=== PATIENT | male | born 1960 | race Caucasian/White ===

== ENCOUNTER 2016-06-21 06:34 | Inpatient (IN) | payer OTHER ==
[2016-06-21 08:07] LABS: EOSINOPHIL 1.4 % (0-4.5); MCHC 33.3 g/dl (32.0-35.9); MEAN PLT VOLUME 8.4 fl (7.5-11.1); NEUTROPHILS 74.7 % (42.8-82.8); PLATELET COUNT 324 K/MM3 (134-434); RDW 14.4 % (11.9-15.9); WHITE BLOOD COUNT 12.7 K/mm3 (4.0-10.0)
--- NOTE | 2016-06-21 08:11 | PDOC ---
History of Present Illness - General History Source: Patient Exam Limitations: No Limitations - History of Present Illness Initial Comments: 06/21/16 10:15 The patient is a 55 year old male with significant past medical history of diabetes, hypertension, hyperlipidemia, peripheral vascular disease who presents to the emergency department with shortness of breath for 1 week. He states his shortness of breath has been intermittent since he left [facility] approximately 1 week ago. The patient reports SOB at rest with minimal exertion. The patient is also complaining of loss of balance which is worsening over the last week. He denies any associated shortness of breath or palpitations. He denies dizziness or lightheadedness. The patient does not use a walker or cane when ambulating. The patient was recently treated at [facility] for presumed infected and necrotic left foot infection with debridement and amputation of fourth and fifth toes. The history is limited as the patient is a poor historian. He is a current everyday smoker, 1ppd. <Niya Mcclendon - Last Filed: 06/21/16 10:17> <Garry Rob - Last Filed: 06/21/16 14:46> - General Chief Complaint: Respiratory Stated Complaint: DIFFICULTY BREATHING Time Seen by Provider: 06/21/16 07:10 Past History <Niya Mcclendon - Last Filed: 06/21/16 10:17> - Psycho/Social/Smoking Cessation Hx Suicidal Ideation: No Smoking History: Current every day smoker Number of Cigarettes Smoked Daily: 45 Information on smoking cessation initiated: No Hx Alcohol Use: No Drug/Substance Use Hx: No <Garry Rob - Last Filed: 06/21/16 14:46> - Past Medical History Allergies/Adverse Reactions: Allergies Allergy/AdvReac Type Severity Reaction Status Date / Time No Known Allergies Allergy Verified 06/21/16 06:37 Home Medications: Ambulatory Orders Unobtainable [Unobtainable] 06/21/16 Review of Systems - Review of Systems Able to Perform ROS?: Yes Comments:: 06/21/16 10:15 CONSTITUTIONAL: No fever, no chills, no fatigue EYES: No visual changes ENT: No ear pain, no sore throat CARDIOVASCULAR: No chest pain, no palpitations RESPIRATORY: +SOB. No cough GI: No abdominal pain, no nausea, no vomiting, no constipation, no diarrhea GENITOURINARY: No dysuria, no frequency, no hematuria MUSCULOSKELETAL: No back pain, no joint pain, no myalgias SKIN: No rash NEURO: No headache <Niya Mcclendon - Last Filed: 06/21/16 10:17> *Physical Exam - Vital Signs Last Vital Signs Temp Pulse Resp BP Pulse Ox 79 14 95/56 100 06/21/16 06:43 06/21/16 06:43 06/21/16 06:43 06/21/16 07:15 <Niya Mcclendon - Last Filed: 06/21/16 10:17> - Vital Signs Last Vital Signs Temp Pulse Resp BP Pulse Ox 79 14 95/56 100 06/21/16 06:43 06/21/16 06:43 06/21/16 06:43 06/21/16 07:15 - Physical Exam Comments: 06/21/16 10:17 EXAMINATION CONSTITUTIONAL: Awake and alert, disheveled, tachypneic, in no apparent distress HEAD: Normocephalic; atraumatic EYES: PERRL; EOM intact; no scleral icterus, conjunctiva are pink; ENMT: External appears normal; + poor dentition NECK: Supple; non-tender; no JVD CARD: Normal S1, S2; 2/6 se murmurs, rubs, or gallops RESP: Tachypneic and dyspneic; diffuse Rales bilaterally extending up two thirds of the lung avery; ABD: soft, nd, nt, no organomegaly, no palpable hernias, bs-nl EXT: Left Foot: Large (approximately 10 cm) defect to the dorsum of the left foot with several necrotic areas with surrounding erythema and amputation of the fourth and fifth toes at the MTP joint. SKIN: Warm, dry, no petechia NEURO: ANO 3; motor is 5 of 5 bilaterally; gait-ataxic; <Garry Rob - Last Filed: 06/21/16 14:46> Heart Score/ECG Review - ECG Intrepretation Comment:: 06/21/16 10:15 Vent rate: 79 bpm NH interval: 146 ms QRS duration: 112 ms Normal sinus rhythm Possible left atrial enlargement Septal infarct, age undetermined ST & T wave abnormality, consider inferior ischemia <Niya Mcclendon - Last Filed: 06/21/16 10:17> ED Treatment Course - LABORATORY CBC & Chemistry Diagram: 06/21/16 07:50 06/21/16 07:50 - ADDITIONAL ORDERS Additional order review: Laboratory Results 06/21/16 06/21/16 06/21/16 07:50 07:50 07:50 INR 1.06 Sodium 137 Potassium 4.1 Chloride 104 Carbon Dioxide 23 Anion Gap 10 BUN 24 H Creatinine 1.2 Creat Clearance w eGFR > 60 Random Glucose 156 H Calcium 8.4 L Total Bilirubin 0.3 AST 13 L ALT 27 Total Protein 6.5 Albumin 2.3 L Alcohol, Quantitative < 5.0 06/21/16 07:50 RBC 3.33 L MCV 84.0 MCHC 33.3 RDW 14.4 MPV 8.4 Neutrophils % 74.7 Lymphocytes % 15.1 Monocytes % 7.8 Eosinophils % 1.4 Basophils % 1.0 - Medications Given in the ED: ED Medications Discontinued Medications Generic Name Dose Route Start Last Admin Trade Name Freq PRN Reason Stop Dose Admin Furosemide 40 mg 06/21/16 08:21 06/21/16 08:38 Lasix Injection - IVPUSH 06/21/16 08:22 40 mg ONCE ONE Administration <Niya Mcclendon - Last Filed: 06/21/16 10:17> - LABORATORY CBC & Chemistry Diagram: 06/21/16 07:50 06/21/16 07:50 - RADIOLOGY Radiology Studies Ordered: Category Date Time Status CHEST X-RAY PORTABLE* [RAD] Stat Radiology 06/21/16 07:31 Taken <Garry Rob - Last Filed: 06/21/16 14:46> Medical Decision Making - Critical Care Time Total Critical Care Time (minutes): 85 Critical Care Statement: The care of this patient involved high complexity decision making to prevent further life threatening deterioration of the patient 's condition and/or to evalute & treat vital organ system(s) failure or risk of failure. - Medical Decision Making 06/21/16 09:44 Patient is a disheveled-appearing 55-year-old male with history of diabetes, peripheral vascular disease, hypertension and hyperlipidemia, who was discharged from [facility] one week previously when he was treated for a presumed infected and necrotic left foot infection with debridement and amputation of fourth and fifth toes, presents with shortness of breath which has increased in severity over the past week, at rest and with minimal exertion, with PMD and insomnia. Patient also complaining of worsening gait with lack of balance that has also increased from his baseline. Patient denies chest pain/fever/chills/cough. Patient has been noncompliant with his medication regimen since discharge. Upon arrival, patient is borderline normotensive (patient's blood pressure improved without intervention), with oxygen saturation of 96% on room air, desaturating to 92-93% with minimal exertion; lung exam reveals diffuse crackles bilaterally. Lower extremity examination reveals +1 pitting edema bilaterally (worse on the left), with a large defect to the dorsal lateral aspect of the left foot with several areas of necrosis and metatarsophalangeal amputation of fourth and fifth toes. There is minimal surrounding erythema. Patient's EKG reveals LBBB-like pattern with a QRS width of 112 ms. There are no positive scarbosa/wilder criteria. Chest x-ray reveals cardiomegaly with bilateral alveolar infiltrates, interstitial findings and cephalization as well as right pleural effusion. CBC reveals mild leukocytosis and mild anemia with hematocrit of 27. Patient's troponin is noted to be elevated with a normal CPK. Enzymes elevation may be related to cardiac strain versus a non-ST elevation IA that has occurred more than 3 days prior to presentation. CT of head reveals a hypodensity within the right cerebellum without surrounding edema or encephalomalacia (age unknown). Stat MRI was recommended by radiology. Case was discussed with Dr. Villalta of cardiology. Patient will be managed medically at this time given there are no indications for urgent PTCI. We'll administer aspirin, Lasix and nitroglycerin. Will hold anticoagulation with heparin pending MRI of brain given the high risk of heme a conversion of acute or subacute infarction. Will admit to the ICU. We'll consult neurology. 06/21/16 11:49 Patient remains chest pain-free. After placement of Diop catheter, 800 mL of clear urine was obtained. I was informed by radiologist the patient's cerebellar infarct appears chronic in nature. At this time, patient will receive heparin (bolus and an infusion for the treatment of non-ST elevation IA. Will obtain serial PTTs and CBCs to evaluate for possible hematocrit drop. At this time, the benefit of heparin administration outweighs the risk of bleeding. Awaiting transfer to the ICU. 06/21/16 14:44 I received a report from Dr. Colby regarding patient's echocardiogram. Left ventricle is mildly dilated. There is global fading of the left ventricular mora. Systolic function is severely reduced. There are wall motion abnormalities in the anterior wall and the apex. There is mild to moderate septal hypokinesis. There is no evidence of neural thrombus. Right ventricular systolic function is mildly reduced. There is moderate to severe mitral regurg; there is mild to moderate tricuspid regurg; there is moderate aortic regurg; there is a minimal pericardial effusion which does not appear to be hemodynamically significant. Will continue with current plan. We'll repeat cardiac enzymes. If troponin is noted to be decreasing, we will consider downgrading to telemetry. <Garry Rob - Last Filed: 06/21/16 14:46> *DC/Admit/Observation/Transfer - Attestations Scribe Attestion: 06/21/16 08:48 Documentation prepared by Niya Mcclendon, acting as medical appointment scheduler for Garry Rob MD. <Niya Mcclendon - Last Filed: 06/21/16 10:17> - Discharge Dispostion Admit: Yes - Attestations Physician Attestion: 06/21/16 09:40 The documentation was prepared by the scribe under my direct supervision. I have reviewed the documentation which correctly represents the findings, medical decision-making and critical action taken by me. <Garry Rob - Last Filed: 06/21/16 14:46> Diagnosis at time of Disposition: Acute pulmonary edema, Pleural effusion, Non-ST elevated myocardial infarction (non-STEMI) Wound, open, foot Qualifiers: Encounter type: sequela Laterality: left Qualified Code(s): S91.302S - Unspecified open wound, left foot, sequela
[2016-06-21] MEDS ORDERED: FUROSEMIDE 40 MG/4 ML INJECTABLE VIAL IVPUSH ONE ×2 (08:21→16:46)
[2016-06-21 08:22] LABS: INR 1.06 (0.82-1.09); PROTHROMBIN TIME (PATIENT) 11.7 SEC (9.98-11.88)
[2016-06-21] MEDS ORDERED: FUROSEMIDE 40 MG/4 ML INJECTABLE VIAL ONE (08:24)
[2016-06-21] MEDS ORDERED: NITROGLYCERIN 25MG/D5W 250ML 250 ML IVPB ONE (08:24)
[2016-06-21 08:30] LABS: ALBUMIN 2.3 g/dl (3.4-5.0); ANION GAP 10 (8-16); BILIRUBIN,TOTAL 0.3 mg/dL (0.2-1.0); CALCIUM 8.4 mg/dL (8.5-10.1); CO2 23 mmol/L (21-32); CREATININE 1.2 mg/dL (0.7-1.3); GLUCOSE,RANDOM 156 mg/dL (74-106); SGOT/AST 13 U/L (15-37); SGPT/ALT 27 U/L (12-78); TOT PROT 6.5 g/dl (6.4-8.2)
[2016-06-21] MEDS ORDERED: NITROGLYCERIN 25MG/D5W 250ML 250 ML IVPB SCH (08:30)
[2016-06-21 09:12] LABS: TROPONIN I 2.13 ng/ml (0.00-0.05)
[2016-06-21] MEDS ORDERED: ASPIRIN 325 MG ENTERIC COATED TABLET (FP) PO ONE (09:13)
[2016-06-21] MEDS ORDERED: ASPIRIN 325 MG TABLET ONE (09:17)
[2016-06-21 09:27] LABS: ALK PHOS 128 U/L (45-117)
--- NOTE | 2016-06-21 10:06 | CON.CARD ---
Consult Consult Specialty:: Cardiology Referred by:: ER Reason for Consultation:: SOB, CHF, NSTEMI - History of Present Illness Chief Complaint: SOB History of Present Illness: 55 year old man with a history of HTN, DM type I, HLD, PAD, CVA, recently at [facility] where he had a LLE partial foot amputation, signed out AMA after surgery approx 7 days ago, developed sob and lightheadedness approx 5 days ago while at home thus he came to the ER. Pt. notes that he has had progressively worsening sob for the past 5 days. denies any chest pain. states that he did not have these symptoms while in the hospital for his surgery. denies having any chest pain in the past. does not know results of any prior cardiac work up. +pnd, orthopnea. no LE edema. 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 Cardio/Vascular: Yes: HTN, Hyperlipdemia Musculoskeletal: Yes: Other (amputation) Endocrine: Yes: Diabetes Mellitus - Past Surgical History Past Surgical History: Yes: Amputation - Alcohol/Substance Use Hx Alcohol Use: No - Smoking History Smoking history: Current every day smoker Aproximately how many cigarettes per day: 45 - Social History ADL: Independent History of Recent Travel: No Home Medications - Allergies Allergies/Adverse Reactions: Allergies Allergy/AdvReac Type Severity Reaction Status Date / Time No Known Allergies Allergy Verified 06/21/16 06:37 - Home Medications Home Medications: Ambulatory Orders Unobtainable [Unobtainable] 06/21/16 Family Disease History - Family Disease History Family History: Denies Review of Systems - Review of Systems Constitutional: reports: Weakness. denies: No Symptoms, Chills, Diaphoresis, Fever, Lethargy, Loss of Appetite, Malaise, Night Sweats, Unintentional Wgt. Loss, Other Eyes: denies: No Symptoms, Blind Spots, Blurred Vision, Double Vision, Eye Pain , Floaters, Photophobia, Recent Change in Vision, Other HENT: denies: No Symptoms, Difficult Swallowing, Ear Discharge, Ear Pain, Epistaxis, Gingival Bleeding, Hearing Loss, Mouth Swelling, Nasal Congestion, Ocular Prosthesis, Throat Pain, Toothache, Ringing in Ears, Other Neck: denies: No Symptoms, Decreased ROM, Lumps, Pain on Movement, Stiffness, Swollen Glands, Tenderness, Other Cardiovascular: reports: Shortness of Breath. denies: No Symptoms, Chest Pain, Edema, Palpitations, Other Respiratory: reports: Exercise Intolerance, Orthopnea, PND, SOB, SOB on Exertion. denies: No Symptoms, Cough, Hemoptysis, Snoring, Wheezing, Other Gastrointestinal: denies: No Symptoms, Abdominal Pain, Bloating, Constipation, Diarrhea, Dysphagia, Indigestion, Melena, Nausea, Rectal Bleeding, Vomiting, Vomiting Blood, Other Genitourinary: denies: No Symptoms, Burning, Discharge, Dysuria, Flank Pain, Frequency, Hematuria, Incontinence, Lesions, Menses, Pain, Testicular Mass, Testicular Pain, Testicular Swelling, Urgency, Vaginal Bleeding, Other Breasts: denies: No Symptoms Reported, See HPI, Breast Implants, Discharge from Nipple, Lumps, Pain, Skin Changes, Other Musculoskeletal: reports: Joint Pain. denies: No Symptoms, Back Pain, Crepitus , Decreased ROM, Extremity Pain, Joint Swelling, Muscle Pain, Muscle Cramps, Muscle Weakness, Other Integumentary: reports: Wound. denies: No Symptoms, Blister, Bruising, Change in Color, Eczema, Erythema, Incision, Lesions, Lump, Pallor, Pruritis, Rash, Other Neurological: reports: Dizziness, Incoordination, Unsteady Gait, Weakness. denies: No Symptoms, Change in LOC, Change in Speech, Confusion, Headache, Numbness, Parasthesia, Pre-Existing Deficit, Seizure, Syncope, Tremors, Other Endocrine: denies: No Symptoms, Excessive Sweating, Flushing, Increased Hunger, Increased Thirst, Intolerance to Cold, Intolerance to Heat, Unexplained Weight Gain, Unexplained Weight Loss, Other Hematology/Lymphatic: denies: No Symptoms, Easily Bruised, Excessive Bleeding, Swollen Glands, Other Psychiatric: denies: No Symptoms, Altered Sleep Pattern, Anxiety, Depression, Hallucinations, Panic, Paranoia, Suicidal, Other - Risk Factors Known Risk Factors: Yes: Diabetes Mellitus, Hypercholesterolemia, Hypertension, Prior ME /Emb Stroke, Smoking Vital Signs: Vital Signs Temperature Pulse Rate 87 06/21/16 09:14 Respiratory Rate 20 06/21/16 09:14 Blood Pressure 115/78 06/21/16 09:14 O2 Sat by Pulse Oximetry (%) 100 06/21/16 09:14 Constitutional: Yes: Well Nourished, No Distress, Calm Eyes: Yes: WNL, Conjunctiva Clear, EOM Intact, PERRL HENT: Yes: WNL, Atraumatic, Normocephalic Neck: Yes: WNL, Supple, Trachea Midline Respiratory: Yes: Regular, Diminished. No: Rales, Rhonchi, Wheezes Gastrointestinal: Yes: WNL, Normal Bowel Sounds, Soft. No: Distention, Tenderness Renal/: Yes: WNL Cardiovascular: Yes: Regular Rate and Rhythm. No: Bradycardia, Tachycardia, Pulse Irregular, Gallop, Rub, Varicosities JVD: No Carotid Bruit: No PMI: Non-Displaced Heart Sounds: Yes: S1, S2. No: Split S2, S3, S4, Clicks, Gallop, Rub, Bruit Murmur: Yes: Systolic Murmur. No: Diastolic Murmur Musculoskeletal: Yes: WNL Extremities: Yes: Amputation Edema: No Peripheral Pulses WNL: No Neurological: Yes: Alert, Oriented Psychiatric: Yes: Alert, Oriented - Other Data Labs, Other Data: CBC, BMP 06/21/16 07:50 06/21/16 07:50 INR, PTT INR 1.06 (0.82-1.09) 06/21/16 07:50 Troponin, BNP 06/21/16 07:50 Troponin I 2.13 H* Troponin, BNP 06/21/16 07:50 Troponin I 2.13 H* ekg-NSR 79bpm, septal infarct, st depressions II, III, aVF, V5, V6, IVCD Echo: Report Reviewed Imaging - Results Chest X-ray: Report Reviewed, Image Reviewed EKG: Report Reviewed, Image Reviewed Other: Report Reviewed, Image Reviewed (tele-nsr) Problem List - Problems (1) Acute pulmonary edema Code(s): J81.0 - ACUTE PULMONARY EDEMA (2) Non-ST elevated myocardial infarction (non-STEMI) Code(s): I21.4 - NON-ST ELEVATION (NSTEMI) MYOCARDIAL INFARCTION (3) Pleural effusion Code(s): J90 - PLEURAL EFFUSION, NOT ELSEWHERE CLASSIFIED (4) HTN (hypertension) Code(s): I10 - ESSENTIAL (PRIMARY) HYPERTENSION (5) HLD (hyperlipidemia) Code(s): E78.5 - HYPERLIPIDEMIA, UNSPECIFIED (6) Abnormal EKG Code(s): R94.31 - ABNORMAL ELECTROCARDIOGRAM [ECG] [EKG] Assessment/Plan 55 year old man with a history of HTN, DM type I, HLD, PAD, CVA, recently at [facility] where he had a LLE partial foot amputation, signed out AMA after surgery approx 7 days ago, developed sob and lightheadedness approx 5 days ago while at home thus he came to the ER. Pt. notes that he has had progressively worsening sob for the past 5 days. denies any chest pain. states that he did not have these symptoms while in the hospital for his surgery. denies having any chest pain in the past. does not know results of any prior cardiac work up. +pnd, orthopnea. no LE edema. SOB-Acute decompensated CHF -Echo confirmed severe segmental LV dysfunction -pt likely had an ME in the past few days given Trop 2 and normal CK on presentation -EKG showed septal infarct and ST depressions II, III, AVF, V5, V6 -concerning for multivessel CAD -cont heparin gtt -given ASA 325mg in er, cont ASA 81mg daily, hold off on second anti-platelet for now as may require CABG -start Lipitor 80mg qhs -plan for transfer to [facility] for cardiac cath and revascularization as needed -can dc NTG gtt at this time -hold bblocker for now given low normal BP
[2016-06-21 10:48] LABS: URINE MARIJUANA THC NEGATIVE ng/ml (CUTOFF=50)
--- NOTE | 2016-06-21 11:11 | CONSULT ---
Consult Consult Specialty:: Neurology Reason for Consultation:: Cerebellar stroke - History of Present Illness Chief Complaint: Shortness of breath History of Present Illness: 55 year old man, history of TIA, diabetes, hypertension, peripheral vascular disease, presented to ED with shortness of breath and imbalance for the last one week. The patient was recently treated at [facility] for necrotic left foot infection, status post debridement and amputation of the fourth and fifth toes. In ED patient underwent CT head which reveals a right cerebellar infarct, unclear chronicity. Plan for patient to be initiated on heparin drip for cardiac reasons, however given CT head findings is being held until MRI brain complete. 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 Cardio/Vascular: Yes: HTN - Alcohol/Substance Use Hx Alcohol Use: No - Smoking History Smoking history: Current every day smoker Aproximately how many cigarettes per day: 45 Home Medications - Allergies Allergies/Adverse Reactions: Allergies Allergy/AdvReac Type Severity Reaction Status Date / Time No Known Allergies Allergy Verified 06/21/16 06:37 - Home Medications Home Medications: Ambulatory Orders Unobtainable [Unobtainable] 06/21/16 Family Disease History - Family Disease History Family History: Denies Review of Systems - Review of Systems Constitutional: reports: Weakness Eyes: reports: No Symptoms HENT: reports: No Symptoms Neck: reports: No Symptoms Cardiovascular: reports: Shortness of Breath Respiratory: reports: SOB Gastrointestinal: reports: No Symptoms Neurological: reports: Unsteady Gait Physical Exam Vital Signs: Vital Signs Temperature Pulse Rate 84 06/21/16 10:30 Respiratory Rate 20 06/21/16 10:30 Blood Pressure 105/74 06/21/16 10:30 O2 Sat by Pulse Oximetry (%) 100 06/21/16 10:30 Constitutional: Yes: No Distress Eyes: Yes: Conjunctiva Clear, EOM Intact HENT: Yes: Atraumatic, Normocephalic Cardiovascular: Yes: S1, S2 Extremities: Yes: Other (left lower ext foot necrosis) Neurological: Yes: Alert, Oriented, Cran Nerves II-XII Intact ...Motor Strength: WNL Labs: CBC, BMP 06/21/16 07:50 06/21/16 07:50 Assessment/Plan 55 year old man, history of TIA, diabetes, hypertension, peripheral vascular disease, presented to ED with shortness of breath and imbalance for the last one week. The patient was recently treated at [facility] for necrotic left foot infection, status post debridement and amputation of the fourth and fifth toes. In ED patient underwent CT head which reveals a right cerebellar infarct, unclear chronicity. Plan for patient to be initiated on heparin drip for cardiac reasons, however given CT head findings is being held until MRI brain complete. Examination non focal, intact finger nose finger Recommend MRI brain without contrast to determine chronicity of CT head findings Discussed with ER attending, if acute infarct seen plan for transfer to tertiary given posterior circulation stroke Continue supportive care
[2016-06-21 11:22] LABS: URINE APPEARANCE CLEAR; URINE BILIRUBIN NEGATIVE (NEGATIVE); URINE COLOR STRAW; URINE GLUCOSE (UA) 1+ (NEGATIVE); URINE KETONE NEGATIVE (NEGATIVE); URINE LEUK ESTERASE NEGATIVE (NEGATIVE); URINE NITRITE NEGATIVE (NEGATIVE); URINE UROBILINOGEN NEGATIVE E.U./dl (0.2-1.0)
[2016-06-21 11:24] LABS: URINE BLOOD 1+ (NEGATIVE); URINE PROTEIN 2+ (NEGATIVE)
[2016-06-21 11:37] LABS: URINE HYALINE CAST 4 /lpf; URINE MUCUS RARE; URINE RBC 2 /hpf (0-3)
[2016-06-21] MEDS ORDERED: HEPARIN NA (PORCINE) 5,000 UNITS/ML 1ML VIAL IVPUSH ONE (11:39)
[2016-06-21] MEDS ORDERED: HEPARIN NA (PORCINE) 5,000 UNITS/ML 1ML VIAL ONE (11:43)
[2016-06-21] MEDS ORDERED: HEPARIN INFUSION - 500 ML IVPB ONE (11:43)
[2016-06-21] MEDS ORDERED: HEPARIN - 25,000 UNIT in SODIUM CHLORIDE 495 ML IV SCH (11:45)
--- NOTE | 2016-06-21 16:05 | EKG ---
Test Reason : Blood Pressure : / mmHG Vent. Rate : 079 BPM Atrial Rate : 079 BPM P-R Int : 146 ms QRS Dur : 112 ms QT Int : 398 ms P-R-T Axes : 063 005 240 degrees QTc Int : 456 ms NORMAL SINUS RHYTHM POSSIBLE LEFT ATRIAL ENLARGEMENT SEPTAL INFARCT , AGE UNDETERMINED ABNORMAL ECG NO PREVIOUS ECGS AVAILABLE Confirmed by PAOLO BROOKS MD ([id number]) on 06/21/2016 4:05:07 PM Referred By: Confirmed By:PAOLO BROOKS MD
[2016-06-21 16:33] VITALS: BMI 23.0
[2016-06-21 16:36] LABS: TROPONIN I 2.19 ng/ml (0.00-0.05)
--- NOTE | 2016-06-21 16:43 | CONSULT ---
Consultation: HISTORY OF PRESENT ILLNESS: Patient is a 55 year old male with PMH of DM, HTN, HLD, PVD, 2ppd smoker, medication noncompliance who presented to ED with SOB for 1 week. Patient states he was at [facility] last week for debridement of a necrotic left foot ulcer & amputation of left 4th & 5th toes. Patient states he has had intermittent SOB for some time, but worsened during last week. He now has SOB at rest. He also reports having a history of poor balance that has increased lately as well. Denies chest pain, dizziness, palpitations, lightheadedness. Patient has elevated troponin 2.13 in ED, but normal CK level, indicating MD may have occurred >3 days ago. 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 Started on Heparin gtt in ED. REVIEW OF SYSTEMS: CONSTITUTIONAL: Absent: fever, chills, diaphoresis, generalized weakness, malaise, loss of appetite, weight change HEENT: Absent: rhinorrhea, nasal congestion, throat pain, throat swelling, difficulty swallowing, mouth swelling, ear pain, eye pain, visual changes CARDIOVASCULAR: (+)peripheral edema Absent: chest pain, syncope, palpitations, irregular heart rate, lightheadedness RESPIRATORY: (+)shortness of breath, dyspnea with exertion, Absent: cough, orthopnea, wheezing, stridor, hemoptysis GASTROINTESTINAL: Absent: abdominal pain, abdominal distension, nausea, vomiting, diarrhea, constipation, melena, hematochezia GENITOURINARY: Absent: dysuria, frequency, urgency, hesitancy, hematuria, flank pain, genital pain MUSCULOSKELETAL: Absent: myalgia, arthralgia, joint swelling, back pain, neck pain SKIN: Absent: rash, itching, pallor HEMATOLOGIC/IMMUNOLOGIC: Absent: easy bleeding, easy bruising, lymphadenopathy, frequent infections ENDOCRINE: Absent: unexplained weight gain, unexplained weight loss, heat intolerance, cold intolerance NEUROLOGIC: (+)dizziness, unsteady gait, Absent: headache, focal weakness or paresthesias, seizure, mental status changes , bladder or bowel incontinence PSYCHIATRIC: Absent: anxiety, depression, suicidal or homicidal ideation, hallucinations. PHYSICAL EXAMINATION Vital Signs - 24 hr 06/21/16 06/21/16 06/21/16 12:15 15:53 16:00 Temperature 98.6 F Pulse Rate [ 81 80 Apical] Respiratory 19 20 Rate Blood Pressure 110/60 116/74 [Right Arm] O2 Sat by Pulse 98 100 2 L Oximetry (%) GENERAL: Awake, alert, and fully oriented, in no acute distress. Tachypneic during speech. HEENT: Atraumatic, EOMI, PERRLA, No lymphadenopathy, moist membranes. Poor dentition. LUNGS: moderate diffuse bilateral rales noted, no wheezing or stridor HEART: Regular rate and rhythm, MARCO 06/05 ABDOMEN: Soft, nontender, not distended, normoactive bowel sounds EXTREMITIES: 2+ pulses, warm, well-perfused. No calf tenderness. 1+ peripheral edema bilateral LE. large erythematous area of necrosis on left dorsal foot; NEUROLOGICAL: Cranial nerves II-XII intact. Normal speech.Gait not observed. PSYCHIATRIC: Cooperative. Good eye contact. Appropriate mood and affect. SKIN: amputation of the fourth and fifth toes at the MTP joint. Active Medications Generic Name Dose Route Start Last Admin Trade Name Freq PRN Reason Stop Dose Admin Nitroglycerin/Dextrose 250 mls @ 12 mls/hr 06/21/16 08:30 06/21/16 08:52 Nitroglycerin 25mg/D5w 250ml IVPB 10 mcg/min TITR GABBY Titration 20 MCG/MIN Heparin Sodium (Porcine) 25, 500 mls @ 20 mls/hr 06/21/16 11:45 06/21/16 11:53 000 unit/ Sodium Chloride IV 20 mls/hr TITR GABBY Administration Protocol 1,000 UNIT/HR ASSESSMENT/PLAN: 55 year old male with PMH of DM, HTN, HLD, PVD, 2ppd smoker, medication noncompliance who presented to ED with SOB for 1 week. Found to be in congestive heart failure with evidence of likely MD occurring within last few days. #Acute (on chronic?) systolic heart failure -Given Lasix 40mg in AM, ordered another 40mg this evening -f/u CXR in AM -Strict I & O's -Daily weights #Non ST-Elevation MD -given ASA & Nitro in ED, patient comfortable at present -heparin drip started -ECHO performed and shows severe WMA's -will attempt to transfer patient for laboratory mechanical technician this evening -if unable to transfer, will trend trops later this afternoon into tomorrow morning (2.13-->2.19 thus far) -serial EKG's -f/u PTT in AM -continuous cardiac monitoring #DM -ISS -BGM FS ACHS -will need diabetic diet #Gait Ataxia -brain MRI showed right cerebellar finds on CT are likely chronic, and not a sign of an acute infarct/bleed -neuro following -will need outpatient workup Prophylaxis/FEN -Heparin drip -Monitor electrolytes, NPO for now pending laboratory mechanical technician transfer Visit type - Emergency Visit Emergency Visit: Yes ED Registration Date: 06/21/16 Care time: The patient presented to the Emergency Department on the above date and was hospitalized for further evaluation of their emergent condition. - New Patient This patient is new to me today: Yes Date on this admission: 06/22/16 - Critical Care Critical Care patient: Yes Total Critical Care Time (in minutes): 40 Critical Care Statement: The care of this patient involved high complexity decision making to prevent further life threatening deterioration of the patient 's condition and/or to evalute & treat vital organ system(s) failure or risk of failure.
[2016-06-21 16:49] VITALS: BP 118/74
[2016-06-21 18:15] VITALS: PULSE 90; TEMP 98.2
[2016-06-21] MEDS ORDERED: ATORVASTATIN CA 80 MG TABLET (FP) PO SCH (22:00)
[2016-06-21] MEDS ORDERED: INSULIN SLIDING SCALE (NOVOLOG) 1 VIAL SQ SCH (22:00)
[2016-06-22] MEDS ORDERED: ASPIRIN 81 MG CHEWABLE TABLETS PO SCH (10:00)
== END 2016-06-21 19:10 | disposition short-term general hospital (02) | DRG 280 ==
LOC: JER 06:34 → JERBED 11:19 → JICU 16:10
PROVIDERS: ADMIT Internal Medicine; ATTEND Internal Medicine
DX: I21.4 Non-ST elevation (NSTEMI) myocardial infarction (principal); J81.0 Acute pulmonary edema; I50.21 Acute systolic (congestive) heart failure; J90 Pleural effusion, not elsewhere classified; E11.9 Type 2 diabetes mellitus without complications; E78.5 Hyperlipidemia, unspecified; I73.89 Other specified peripheral vascular diseases; F17.210 Nicotine dependence, cigarettes, uncomplicated; G62.89 Other specified polyneuropathies; R94.31 Abnormal electrocardiogram [ECG] [EKG]; R26.0 Ataxic gait; I11.0 Hypertensive heart disease with heart failure; S91.302S Unspecified open wound, left foot, sequela; X58.XXXS Exposure to other specified factors, sequela; Z89.422 Acquired absence of other left toe(s); Z86.73 Personal history of transient ischemic attack (TIA), and cerebral infarction without residual deficits; Z91.19 Patient's noncompliance with other medical treatment and regimen
CPT/HCPCS: 36415; 70450-TC; 70551-TC; 71010-TC; 71250-TC; 80053; 80307; 81003; 81015; 82550; 84484; 85025; 85610; 85730; 87086; 93005; 93010; 93306-TC; 99285-25; J1644

== ENCOUNTER 2016-07-05 21:41 | Inpatient (IN) | payer OTHER ==
[2016-07-05 21:58] VITALS: BMI 26.2
--- NOTE | 2016-07-05 22:23 | PDOC ---
History of Present Illness - General History Source: Patient, Old Records Exam Limitations: No Limitations - History of Present Illness Initial Comments: 07/05/16 23:17 The patient is a 55 year old male with significant past medical history of diabetes, hypertension, hyperlipidemia, peripheral vascular disease who presents to the emergency department, [facility], [place], with intermittent left sided left foot pain for 6 weeks. The patient states that today his wound began to ooze green and become malodorous prompting him to call EMS. The patient states in February he went to [facility] ([facility]) to have a perirectal abscess removed, at that time the patient told doctors that he had and noted a malodorous callous on his 4th toe of his left foot. The patient states that doctors at [facility] told him that his callous was nothing to be concerned with and the patient was discharged. The patient states that at some point after the removal of his perirectal abscess removal he cut the callous on his own and treated it with ETOH. After attempting to treat the callous himself his foot went from red to black. The patient reports 6 weeks ago he had the 4th digit of his left foot amputated and subsequently had 2 debridements before having the 5th digit of his left foot amputated 5 weeks ago. The patient reports that both surgeries were performed by Dr. Slim Gan at [facility]. The patient states that he left [facility] against medical advice and was not given any medications or directions for wound care after his surgery. The patient states has been wrapping his foot with paper towels to cover his wound. The patient reports that he take Tylenol to alleviate pain with minimal relief. The patient reports that he recently presented to [place] emergency department for SOB and was diagnosed with an NSTEMI before being transferred to [facility] for evaluation of his heart. At [facility] patient was ultimately admitted for his left foot because he did not qualify for heart procedures. The patient reports he had an angiogram through his right groin resulting in right foot pain. The patient reports he was given Zosyn and Vancomycin for 7 days at [facility] before signing out against medical advice because the staff were unclear about addition surgeries that they wanted to perform on his left foot. The patient reports diarrhea but denies nausea, vomiting, and constipation. <Dustin Pedraza - Last Filed: 07/06/16 00:26> - General History Source: Patient Exam Limitations: No Limitations <Jordan Canalesole - Last Filed: 07/06/16 00:46> - General Chief Complaint: Wound Infection Stated Complaint: FOOT PAIN Time Seen by Provider: 07/05/16 21:50 Past History <Dustin Pedraza - Last Filed: 07/06/16 00:26> - Past Medical History Diabetes: Yes HTN: Yes Hypercholesterolemia: Yes - Psycho/Social/Smoking Cessation Hx Suicidal Ideation: No Smoking History: Never smoked Have you smoked in the past 12 months: Yes Number of Cigarettes Smoked Daily: 45 Information on smoking cessation initiated: No Hx Alcohol Use: No Drug/Substance Use Hx: No <Keira Canales - Last Filed: 07/06/16 00:46> - Past Medical History Allergies/Adverse Reactions: Allergies Allergy/AdvReac Type Severity Reaction Status Date / Time No Known Allergies Allergy Verified 07/05/16 21:54 Home Medications: Ambulatory Orders Unobtainable [Unobtainable] 06/21/16 Review of Systems - Review of Systems Able to Perform ROS?: Yes Comments:: 07/05/16 23:18 GENERAL/CONSTITUTIONAL: No: fever, chills, weakness, loss of appetite. HEAD, EYES, EARS, NOSE AND THROAT: No: ear pain, discharge, sore throat, throat swelling. CARDIOVASCULAR: No: chest pain, lightheadedness, palpitations, syncope RESPIRATORY: No: cough, shortness of breath, wheezing, hemoptysis, stridor. GASTROINTESTINAL: No: nausea, vomiting, abdominal cramping, diarrhea, rectal bleeding, constipation. GENITOURINARY: No: dysuria, hematuria, frequency, urgency, flank pain. MUSCULOSKELETAL: Yes: Left sided left foot pain and pussing. Right sided foot pain. No: back pain, neck pain SKIN: Yes: Open, malodorous, left foot wound No: lesions, pallor, rash or easy bruising. NEUROLOGIC: No: headache, vertigo, paresthesias, weakness ENDOCRINE: No: unexplained weight gain or loss HEMATOLOGIC/LYMPHATIC: No: anemia, easy bleeding, swelling nodes. <Dustin Pedraza - Last Filed: 07/06/16 00:26> *Physical Exam - Vital Signs Last Vital Signs Temp Pulse Resp BP Pulse Ox 99.3 F 106 H 18 141/76 100 03/08/17 21:54 07/05/16 21:54 07/05/16 21:54 07/05/16 21:54 07/05/16 21:54 - Physical Exam Comments: 07/05/16 23:23 GENERAL: The patient is in no acute distress. HEAD: Normal with no signs of trauma. EYES: (+) Right eye corneal opacity. ENT: (+) Poor dentition, Ears normal, nares patent, oropharynx clear without exudates. NECK: Normal range of motion, supple without lymphadenopathy, JVD, or masses. LUNGS: Breath sounds equal, clear to auscultation bilaterally. No wheezes, and no crackles. HEART:Regular rate and rhythm, normal S1 and S2 without murmur, rub or gallop. ABDOMEN: Soft, nontender, normoactive bowel sounds. No guarding, no rebound. EXTREMITIES: Right Foot: warm, brisk capillary refill pulses nonpalpable. Left Foot: Large (approximately 10 cm) defect to the dorsum of the left foot with several necrotic areas with surrounding erythema and amputation of the fourth and fifth toes at the MTP joint, tendons and bone visible NEUROLOGICAL: Cranial nerves II through XII grossly intact. Normal speech. No focal neurological deficits. MUSCULOSKELETAL: Back nontender to palpation, no CVA tenderness SKIN: Warm, Dry, normal turgor, no rashes or lesions noted. <Dustin Pedraza - Last Filed: 07/06/16 00:26> - Vital Signs Last Vital Signs Temp Pulse Resp BP Pulse Ox 99.3 F 106 H 18 141/76 100 07/05/16 21:54 07/05/16 21:54 07/05/16 21:54 07/05/16 21:54 07/05/16 21:54 <Keira Canales - Last Filed: 07/06/16 00:46> Heart Score/ECG Review - ECG Impressions Comment:: 07/05/16 23:26 1. ECG Impression: Normal sinus rhythm. Possible large atrial enlargement. Left ventricular hypertrophy. Cannot rule out septal infarct, age undetermined. Abnormal ECG. <Dustin Pedraza - Last Filed: 07/06/16 00:26> ED Treatment Course - LABORATORY CBC & Chemistry Diagram: 07/05/16 22:44 07/05/16 22:44 - ADDITIONAL ORDERS Additional order review: Laboratory Results 07/05/16 23:10 VBG pH 7.37 POC VBG pCO2 43.9 POC VBG pO2 43.0 Mixed VBG HCO3 25.0 - RADIOLOGY Radiology Studies Ordered: 07/06/16 00:26 1. CXR Discussion: Residual mild increase interstitial lung markings, bilaterally. <Dustin Pedraza - Last Filed: 07/06/16 00:26> - LABORATORY CBC & Chemistry Diagram: 07/05/16 22:44 07/05/16 22:44 <Keira Canales - Last Filed: 07/06/16 00:46> Medical Decision Making - Medical Decision Making 07/05/16 22:20 A portion of this note was documented by scribe services under my direction. I have reviewed the details of the note, within reason, and agree with the documentation with the following case summary and management plan written by me. Nursing documentation reviewed and incorporated into medical decision making 07/06/16 00:16 This is a patient with a history of DM, HTN, HLD, CAD s/p NSTEMI 2 weeks ago ( transfer to [facility] ?? 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 Pt non compliant with medications and treatment Presents to the ER via ems due to foot pain and malodorous smell Pt denies fever or chills Pt is having difficulty ambulating due to ?Rest pain of the right lower extremity (pt states this began after an angiogram at [facility]) and extensive debridement of the left foot On examination: Large defect of the dorsum of the left foot, necrotic regions noted, tendon visible Surrounding erythema Will do: labs blood cultures abx admit 07/06/16 00:23 Laboratory Tests 07/05/16 07/05/16 07/05/16 22:44 22:44 22:44 WBC 14.6 H Hgb 10.9 L D Hct 33.0 L D Plt Count 332 Neutrophils % 74.4 Lymphocytes % 13.7 INR 0.99 BUN 33 H D Creatinine 1.4 H Random Glucose 314 H* D Creatine Kinase 56 Troponin I < 0.02 D Hyperglycemia: Pt non compliant with medications Will start hydration Leukocytosis: Local infection Given Vanc and Zosyn 07/06/16 00:25 Laboratory Tests 07/05/16 22:44 Lactic Acid 0.863 No evidence of sepsis 07/06/16 00:45 Will add ESR Will admit to hospitalist service clinical impression: nonhealing diabetic foot wound, peripheral vascular disease <Keira Canales - Last Filed: 07/06/16 00:46> *DC/Admit/Observation/Transfer - Attestations Scribe Attestion: 07/05/16 23:24 Documentation prepared by Dustin Pedraza, acting as biomedical scientist for Keira Canales MD. <Dustin Pedraza - Last Filed: 07/06/16 00:26> - Discharge Dispostion Admit: Yes <Keira Canales - Last Filed: 07/06/16 00:46> Diagnosis at time of Disposition: Wound, open, foot Qualifiers: Encounter type: subsequent encounter Laterality: left Qualified Code(s): S91.302D - Unspecified open wound, left foot, subsequent encounter - Discharge Dispostion Condition at time of disposition: Stable
[2016-07-05 23:16] LABS: VENOUS PH 7.37 (7.32-7.42)
[2016-07-05 23:17] LABS: BASOPHIL 1.2 % (0-2.0); EOSINOPHIL 1.5 % (0-4.5); MCH 28.2 pg (25.7-33.7); MEAN CELL VOLUME 85.5 fl (80-96); MEAN PLT VOLUME 8.2 fl (7.5-11.1); NEUTROPHILS 74.4 % (42.8-82.8); PLATELET COUNT 332 K/MM3 (134-434); RDW 15.6 % (11.9-15.9); WHITE BLOOD COUNT 14.6 K/mm3 (4.0-10.0)
[2016-07-05 23:21] LABS: URINE APPEARANCE CLEAR; URINE BILIRUBIN NEGATIVE (NEGATIVE); URINE BLOOD 1+ (NEGATIVE); URINE COLOR STRAW; URINE GLUCOSE (UA) 3+ (NEGATIVE); URINE KETONE NEGATIVE (NEGATIVE); URINE LEUK ESTERASE NEGATIVE (NEGATIVE); URINE NITRITE NEGATIVE (NEGATIVE); URINE PROTEIN 2+ (NEGATIVE); URINE UROBILINOGEN NEGATIVE E.U./dl (0.2-1.0)
[2016-07-05] MEDS ORDERED: VANCOMYCIN 1,000 MG in DEXTROSE 5%-WATER - 250 ML IVPB ONE (23:22)
[2016-07-05 23:24] LABS: URINE BACTERIA RARE /hpf (NONE SEEN); URINE MUCUS RARE; URINE RBC 1 /hpf (0-3); URINE WBC <1 /hpf (3-5)
[2016-07-05 23:35] LABS: INR 0.99 (0.82-1.09); PROTHROMBIN TIME (PATIENT) 10.9 SEC (9.98-11.88)
[2016-07-05 23:37] LABS: ACTIVATED PTT 31.1 SECONDS (26.9-34.4)
[2016-07-05 23:42] LABS: ALBUMIN 2.6 g/dl (3.4-5.0); ANION GAP 12 (8-16); BILIRUBIN,TOTAL 0.3 mg/dL (0.2-1.0); CALCIUM 8.6 mg/dL (8.5-10.1); CO2 23 mmol/L (21-32); CREATININE 1.4 mg/dL (0.7-1.3); SGOT/AST 9 U/L (15-37); SGPT/ALT 16 U/L (12-78); TOT PROT 7.5 g/dl (6.4-8.2)
[2016-07-05 23:45] LABS: ALK PHOS 93 U/L (45-117); TROPONIN I < 0.02 ng/ml (0.00-0.05)
[2016-07-05 23:47] LABS: GLUCOSE,RANDOM 314 mg/dL (74-106)
[2016-07-06] MEDS ORDERED: VANCOMYCIN 1 GRAM (PRE-DOCKED) 250 ML IVPB ONE (00:05)
--- NOTE | 2016-07-06 02:44 | HP ---
CHIEF COMPLAINT: diabetic foot HISTORY OF PRESENT ILLNESS: 55 year old male with significant past medical history of diabetes, hypertension, hyperlipidemia, peripheral vascular disease, NSTEMI who presents to the emergency department with a complaint of discharge and foul smell from his left foot. Patient states that 6 week he developed gangrene on left foot and so amputation and debridenment was done. At that time he recieved vano and ampicillin and than he signed out ama. 2-3 week ago he was in [facility] for NSTEMI where angiogram was done but no PCI as patient has infection on foot and he recieved vanco and zosyn for 7 days and than he signed out. Now he states that he noticed foul smell 2-3 days ago which is progressively increasing. Denies pain, states he didnt noticed discharge but EMS noticed a discharge. He is raping his wound with paper towel. Denies fever, chills, black discoloration of wound, denies surrounding erythema. Denies burning micturation, chest pain, nausea, vomiting, palpitations, sob, light headedness ER course was notable for: (1) cbc , cmp, cxr (2)vanco zosyn (3)ns Recent Travel: no PAST MEDICAL HISTORY: diabetes, hypertension, hyperlipidemia, peripheral vascular disease, NSTEMI PAST SURGICAL HISTORY: rectal abscess drainage and debridement and amputation of 4 and 5th digit Social History: Smoking: one pack from 40 years Alcohol: no Drugs: no Family History: mother DM Allergies No Known Allergies Allergy (Verified 07/05/16 21:54) HOME MEDICATIONS: Home Medications Medication Instructions Recorded Unobtainable [Unobtainable] 06/21/16 REVIEW OF SYSTEMS CONSTITUTIONAL: Absent: fever, chills, diaphoresis, generalized weakness, malaise, loss of appetite, weight change HEENT: Absent: rhinorrhea, nasal congestion, throat pain, throat swelling, CARDIOVASCULAR: Absent: chest pain, syncope, palpitations, irregular heart rate, lightheadedness , peripheral edema RESPIRATORY: Absent: cough, shortness of breath, orthopnea, wheezing, stridor, GASTROINTESTINAL: Absent: abdominal pain, abdominal distension, nausea, vomiting, diarrhea, constipation, melena, hematochezia GENITOURINARY: Absent: dysuria, frequency, urgency, hesitancy, hematuria, flank pain, genital pain MUSCULOSKELETAL: Absent: myalgia, arthralgia, joint swelling, back pain, neck pain, present diabetic foot SKIN: Absent: rash, itching, pallor HEMATOLOGIC/IMMUNOLOGIC: Absent: easy bleeding, easy bruising, lymphadenopathy, frequent infections ENDOCRINE: Absent: unexplained weight gain, unexplained weight loss, heat intolerance, cold intolerance NEUROLOGIC: Absent: headache, focal weakness or paresthesias, dizziness, unsteady gait, seizure, mental status changes, PSYCHIATRIC: Absent: anxiety, depression, PHYSICAL EXAMINATION GENERAL: Awake, alert, and fully oriented, in no acute distress. HEAD: Normal with no signs of trauma. EYES: right corneal opacity secondary to injury, left round and reacting to light. EARS, NOSE, THROAT: Ears normal, nares patent, oropharynx clear without exudates. NECK: Normal range of motion, supple without lymphadenopathy, JVD, or masses. LUNGS: Breath sounds equal, clear to auscultation bilaterally. No wheezes, and no crackles. No accessory muscle use. HEART: Regular rate and rhythm, normal S1 and S2 without murmur, ABDOMEN: Soft, nontender, not distended, normoactive bowel sounds, no guarding, no rebound, no masses. MUSCULOSKELETAL: Normal range of motion at all joints. No bony deformities or tenderness. No CVA tenderness. UPPER EXTREMITIES: 2+ pulses, warm, well-perfused. No cyanosis. No clubbing. Cap refill <2 seconds. No peripheral edema. LOWER EXTREMITIES:warm, well-perfused. No calf tenderness. No peripheral edema. 14x6 cm post debridement ulcer present on dorsum of left foot, floor granulation tissue with slough present, small necrotic patch/ tendons visible, edge red, surrounding area indurated, mild purulent discharge present on edges NEUROLOGICAL: Cranial nerves II-XII intact. Normal speech. Normal gait. PSYCHIATRIC: Cooperative. Good eye contact. Appropriate mood and affect. SKIN: Warm, dry, normal turgor, no rashes or lesions noted. Current Medications Generic Name Dose Route Start Last Admin Trade Name Freq PRN Reason Stop Dose Admin Aspirin 81 mg 07/06/16 10:00 Asa - PO DAILY GABBY Atorvastatin Calcium 40 mg 07/06/16 22:00 Lipitor - PO HS GABBY Insulin Aspart 1 vial 07/06/16 07:00 Novolog Vial Sliding Scale - SQ ACHS [facility] Protocol Metoprolol Succinate 25 mg 07/06/16 10:00 Toprol Xl - PO DAILY GABBY Piperacillin Sod/Tazobactam Sod 3.375 gm 07/06/16 23:22 Zosyn 3.375gm Ivpb (Pre-Docked) IVPB 07/06/16 23:23 NOW ONE Protocol ASSESSMENT/PLAN: 55 year old male with significant past medical history of diabetes, hypertension, hyperlipidemia, peripheral vascular disease, NSTEMI who presents to the emergency department with a complaint of discharge and foul smell from his left foot. Diabetic foot received vanco and zosyn in ed will continue with same control blood sugar regular dressing of wound follow blood and wound swab c/s ID consult monitor vitals follow [facility] consult HTN non complaint with meds started on toprol xl 25 DM/ hyperglycemia BGM monitoring insulin sliding scale blood glucose monitoring diabetic diet follow Hba1c h/o NSTEMI started on aspirin 81 mg daily started on lipitor 40mg daily angio done in [facility], as per patient no pci done due to infection try to get report Trops negative here No chest pain ramirez on ckd stage 3a could be pre renal or diabetic nephropathy avoid nephrotoxic drugs repeat cr in morning fluid : orally allowed electrolyte : repeat in am nutrition : diabetic diet dvt pro : ambulatory, gi pro not required dispo ; admit med surg Visit type - Emergency Visit Emergency Visit: Yes ED Registration Date: 07/06/16 Care time: The patient presented to the Emergency Department on the above date and was hospitalized for further evaluation of their emergent condition. - New Patient This patient is new to me today: Yes Date on this admission: 07/06/16 - Critical Care Critical Care patient: No
--- NOTE | 2016-07-06 03:07 | PN ---
<Cynthia Morin - Last Filed: 07/06/16 03:07> Teaching Attending Note Name of Resident: Manjinder Chapin ATTENDING PHYSICIAN STATEMENT I saw and evaluated the patient. I reviewed the resident's note and discussed the case with the resident. I agree with the resident's findings and plan as documented. SUBJECTIVE: OBJECTIVE: ASSESSMENT AND PLAN: <Chastity Whitten - Last Filed: 07/06/16 03:49> Teaching Attending Note ATTENDING PHYSICIAN STATEMENT I saw and evaluated the patient. I reviewed the resident's note and discussed the case with the resident. I agree with the resident's findings and plan as documented. SUBJECTIVE: Patient is a 55 yo M with a PMHx of diabetes, hypertension, hyperlipidemia, peripheral vascular disease, CAD, NSTEMI (2 weeks ago) who presents with a left foot wound for six weeks. Patient states he recently had a perirectal abscess drained 6 weeks ago at [facility]. At the time, doctors noted a malodorous callous on his left foot. Patient states he removed the callous. Patient had the 4th and 5th digit of his left foot removed six weeks ago at [facility]. Patient notes he is noncompliant with medications. Patient reports his right foot is numb and can be painful when he stands on it for too long. Patient reports he signed out AMA from both [facility] and [facility] because he didnt agree with their medical plan. Denies: sob, fever, chills, nausea, vomiting Patient reports loose stool x1. Social Hx: Smoker 1ppd for 40 years, denies ETOH and other drugs OBJECTIVE: Last Vital Signs Temp Pulse Resp BP Pulse Ox 99.3 F 106 H 18 141/76 100 07/05/16 21:54 07/05/16 21:54 07/05/16 23:54 07/05/16 21:54 07/05/16 23:54 GENERAL: Awake, alert, and fully oriented, in no acute distress. HEENT: Atraumatic. Moist mucosa. Normocephalic. No sinus tenderness. No LAD. Corneal opacification of right eye. NECK: No JVD. No thyroid masses. Supple. LUNGS: Clear to auscultation bilaterally. No wheezing, rhonchi or rales. HEART: Regular rate and rhythm, normal S1 and S2, no murmurs, rubs or gallops, peripheral pulses normal and equal bilaterally. ABDOMEN: Soft, nontender, normoactive bowel sounds. No guarding, no rebound. No Masses. MUSCULOSKELETAL: No joint tenderness or erythema. No muscle tenderness. Normal muscle bulk and tone. EXTREMITIES: Left Foot: second metatarsal to mid left lateral foot open wound, exposed tendon, no drainage, area is nontender, no probe to bone, 4th and 5th digit amputation. NEUROLOGICAL: Normal speech, normal gait, no focal sensorimotor deficits. SKIN: Warm, dry, normal turgor, no rashes or lesions noted. CBCD WBC 14.6 K/mm3 (4.0-10.0) H 07/05/16 22:44 RBC 3.86 M/mm3 (4.00-5.60) L 07/05/16 22:44 Hgb 10.9 GM/dL (11.7-16.9) L D 07/05/16 22:44 Hct 33.0 % (35.4-49) L D 07/05/16 22:44 MCV 85.5 fl (80-96) 07/05/16 22:44 MCHC 33.0 g/dl (32.0-35.9) 07/05/16 22:44 RDW 15.6 % (11.9-15.9) 07/05/16 22:44 Plt Count 332 K/MM3 (134-434) 07/05/16 22:44 MPV 8.2 fl (7.5-11.1) 07/05/16 22:44 CMP Sodium 136 mmol/L (136-145) 07/05/16 22:44 Potassium 4.9 mmol/L (3.5-5.1) 07/05/16 22:44 Chloride 101 mmol/L (98-107) 07/05/16 22:44 Carbon Dioxide 23 mmol/L (21-32) 07/05/16 22:44 Anion Gap 12 (8-16) 07/05/16 22:44 BUN 33 mg/dL (7-18) H D 07/05/16 22:44 Creatinine 1.4 mg/dL (0.7-1.3) H 07/05/16 22:44 Creat Clearance w eGFR 52.62 (>60) 07/05/16 22:44 Calcium 8.6 mg/dL (8.5-10.1) 07/05/16 22:44 Total Bilirubin 0.3 mg/dL (0.2-1.0) 07/05/16 22:44 AST 9 U/L (15-37) L D 07/05/16 22:44 ALT 16 U/L (12-78) D 07/05/16 22:44 Alkaline Phosphatase 93 U/L (45-117) D 07/05/16 22:44 Total Protein 7.5 g/dl (6.4-8.2) 07/05/16 22:44 Albumin 2.6 g/dl (3.4-5.0) L 07/05/16 22:44 ASSESSMENT AND PLAN: Patient is a 55 yo M with a PMHx of diabetes, HTN, HLD, peripheral vascular disease, CAD, NSTEMI who presents with diabetic foot ulcer high suspicion for osteomyelitis. 1.) Diabetic foot -ESR -Check X-ray of foot -[place] received in ED -Obtain records from [facility] -If X-Ray is negative will have to consider MRI -Pain control -ID consult -Podiatry consult 2.) HTN -Restart metroprorilol -Titrate to optimize control 3.) Diabetes -Insulin sliding scale -Diabetic diet -Blood glucose monitoring 4.) CAD and NSTEMI -Trops negative here -No chest pain -No PCI done at [place] per patient due to active infection -Continue aspirin and metoperol 5.) HLD -Continue Statin DVT ppx -Lovenox Documentation prepared by hCastity Whitten, acting as medical care administrator for Cynthia Morin M.D.
[2016-07-06 06:27] VITALS: BP 139/72; PULSE 100; TEMP 98.9
[2016-07-06] MEDS ORDERED: INSULIN SLIDING SCALE (NOVOLOG) 1 VIAL SQ SCH (07:00)
[2016-07-06 08:43] LABS: BASOPHIL 1.2 % (0-2.0); EOSINOPHIL 1.9 % (0-4.5); MCH 28.1 pg (25.7-33.7); MCHC 33.2 g/dl (32.0-35.9); MEAN CELL VOLUME 84.4 fl (80-96); MEAN PLT VOLUME 8.4 fl (7.5-11.1); NEUTROPHILS 72.2 % (42.8-82.8); PLATELET COUNT 325 K/MM3 (134-434); RDW 15.6 % (11.9-15.9); WHITE BLOOD COUNT 12.6 K/mm3 (4.0-10.0)
[2016-07-06 08:56] LABS: ALBUMIN 2.5 g/dl (3.4-5.0); BILIRUBIN,TOTAL 0.4 mg/dL (0.2-1.0); CALCIUM 8.8 mg/dL (8.5-10.1); CREATININE 1.3 mg/dL (0.7-1.3); MAGNESIUM 2.3 mg/dL (1.8-2.4); PHOSPHOROUS 2.8 mg/dL (2.5-4.9)
[2016-07-06] MEDS ORDERED: PIPERACILLIN/TAZOB 2.25 GM/50 ML PRE-DOCKED BAG IVPB ONE (09:00)
[2016-07-06] MEDS ORDERED: METOPROLOL SUCCINATE 25 MG TAB.SR.24H (FP) PO SCH (10:00)
[2016-07-06] MEDS ORDERED: ASPIRIN 81 MG CHEWABLE TABLETS PO SCH (10:00)
--- NOTE | 2016-07-06 10:47 | EKG ---
Test Reason : Blood Pressure : / mmHG Vent. Rate : 099 BPM Atrial Rate : 099 BPM P-R Int : 140 ms QRS Dur : 102 ms QT Int : 350 ms P-R-T Axes : 072 -11 013 degrees QTc Int : 449 ms NORMAL SINUS RHYTHM POSSIBLE LEFT ATRIAL ENLARGEMENT LEFT VENTRICULAR HYPERTROPHY CANNOT RULE OUT SEPTAL INFARCT (CITED ON OR BEFORE 21-JUN-2016) ABNORMAL ECG WHEN COMPARED WITH ECG OF 21-JUN-2016 07:31, SERIAL CHANGES OF SEPTAL INFARCT PRESENT Confirmed by ILSA WOOD MD ([id number]) on 07/06/2016 10:47:13 AM Referred By: Confirmed By:ILSA WOOD MD
--- NOTE | 2016-07-06 14:54 | HOSP ---
Subjective - Review of Symptoms Subjective: informed by RN that pt wanted to sign out AMA because his breakfast was "messed up" attempted to ameliorate the issue and figure out what exactly was not good which he refused to answer and stated he just wanted to go informed him need to be evaluated by ID and podiatry that he may have a bone infection which may result in further limb amputation if not treated effectively and which can lead to sepsis and ultimately . verbalized understanding but wanted to leave because he felt like he was not gonna get good care if his breakfast was already messed up. Physical Examination Vital Signs: Vital Signs Temperature 98.9 F 07/06/16 02:35 Pulse Rate 100 H 07/06/16 02:35 Respiratory Rate 20 07/06/16 02:35 Blood Pressure 139/72 07/06/16 02:35 O2 Sat by Pulse Oximetry (%) 100 07/06/16 07:00 Labs: CBC, BMP 07/06/16 08:00 07/06/16 08:00
--- NOTE | 2016-07-06 15:13 | DS ---
Physical Exam: SUBJECTIVE: Patient seen and examined this am, very upset and aggressive this am , angry he did not have any breakfast. Denies fever, chills, n, v, chest pain, sob, leg swelling. Does admit to right foot pain. OBJECTIVE: Vital Signs Period Temp Pulse Resp BP Sys/Humphreys Pulse Ox Last 24 Hr 98.9 F 100 20 139/72 100 PHYSICAL EXAM GENERAL: The patient is awake, alert, and fully oriented, in no acute distress. HEAD: Normal with no signs of trauma. EYES: Right eye blindness/taumatic; PERRL, extraocular movements intact, sclera anicteric, conjunctiva clear. LUNGS: decreased breath sounds, no wheezes, no crackles, no accessory muscle use. HEART: Regular rate and rhythm, S1, S2 without murmur, rub or gallop. ABDOMEN: Soft, nontender, nondistended, normoactive bowel sounds, no guarding, no rebound, no hepatosplenomegaly, no masses. EXTREMITIES: 2+ pulses RLE, warm, well-perfused, no edema. LEft LE diabetic wound infection; dressing just changes I did not unwrap NEUROLOGICAL: Cranial nerves II through XII grossly intact. Normal speech, gait not observed. PSYCH: aggrevated; agitated SKIN: Warm, dry, normal turgor, no rashes or lesions noted. LABS CBC, BMP 07/06/16 08:00 07/06/16 08:00 HOSPITAL COURSE: Date of Admission:07/06/16 Date of Discharge: 07/06/16 55 year old male with a past medical history of NSTEMI last month ( no intervention due to infection), uncontrolled diabetes, s/p left 4th and 5th toe amputation 6 weeks ago, HTN, HLD, PVD, multiple hospital admissions with history of leaving AMA. He presented to [facility] with foul smelling left foot from a diabetic foot ulcer. He was recently treated at [facility] for perianal cyst and foot ulcer, treated with vancomycin and ampicillin and signed out AMA. Patient was admitted for sepsis secondary to wound infection. Patient received one time zosyn and vancomycin in emergency room. He was very agitated in am during physical exam. I was paged by nurse patient is leaving AMA. I went to speak with him . I explained the risks of leaving, including septic shock, limb needing amputations, and even . He left. Minutes to complete discharge: 40 Discharge Summary Reason For Visit: WOUND OPEN FOOT Condition: Poor - Instructions Diet, Activity, Other Instructions: Patient left AMA, risk and complications were explained, including septic shock , limb amputation, even . Disposition: AGAINST MEDICAL ADVICE - Home Medications Comprehensive Discharge Medication List: Ambulatory Orders Unobtainable [Unobtainable] 06/21/16 Problem List - Problems (1) Abnormal EKG Code(s): R94.31 - ABNORMAL ELECTROCARDIOGRAM [ECG] [EKG] (2) HTN (hypertension) Code(s): I10 - ESSENTIAL (PRIMARY) HYPERTENSION (3) Wound, open, foot Code(s): S91.309A - UNSPECIFIED OPEN WOUND, UNSPECIFIED FOOT, INITIAL ENCOUNTER Qualifiers: Encounter type: subsequent encounter Laterality: left Qualified Code(s): S91.302D - Unspecified open wound, left foot, subsequent encounter (4) MIRTHA (acute kidney injury) Code(s): N17.9 - ACUTE KIDNEY FAILURE, UNSPECIFIED This patient is new to me today: Yes Date on this admission: 07/06/16 Emergency Visit: Yes ED Registration Date: 07/06/16 Care time: The patient presented to the Emergency Department on the above date and was hospitalized for further evaluation of their emergent condition. Critical Care patient: No - Discharge Referral Referred to [facility] Med P.C.: No
[2016-07-06] MEDS ORDERED: PIPERACILLIN/TAZOB 2.25 GM 50 ML IVPB SCH (18:00)
[2016-07-06] MEDS ORDERED: PIPERACILLIN/TAZOB 2.25 GM/50 ML PRE-DOCKED BAG IVPB SCH (18:00)
[2016-07-06] MEDS ORDERED: ATORVASTATIN CA 40 MG TABLET (FP) PO SCH (22:00)
[2016-07-06] MEDS ORDERED: VANCOMYCIN 1 GRAM (PRE-DOCKED) 250 ML IVPB SCH ×2 (23:00)
[2016-07-06] MEDS ORDERED: PIPERACILLIN/TAZOB 3.375 GM/50 ML PRE-DOCKED IVPB ONE (23:22)
== END 2016-07-06 09:44 | disposition left against medical advice (07) | DRG 871 ==
LOC: JER 21:41 → JERBED 07-06 00:46 → UNDOADMIN 07-06 01:23 → J7W 07-06 05:34
PROVIDERS: ADMIT Internal Medicine; ATTEND Internal Medicine
DX: A41.89 Other specified sepsis (principal); I21.4 Non-ST elevation (NSTEMI) myocardial infarction; M86.8X7 Other osteomyelitis, ankle and foot; E11.69 Type 2 diabetes mellitus with other specified complication; E78.5 Hyperlipidemia, unspecified; I73.89 Other specified peripheral vascular diseases; I25.10 Atherosclerotic heart disease of native coronary artery without angina pectoris; I10 Essential (primary) hypertension; E11.621 Type 2 diabetes mellitus with foot ulcer; Z89.422 Acquired absence of other left toe(s); Z87.891 Personal history of nicotine dependence
CPT/HCPCS: 36415; 71010-TC; 73630-TC-LT; 80053; 81003; 81015; 82550; 82803; 83036; 83605; 83735; 84100; 84484; 85025; 85610; 85730; 87040; 93005; 93010; 99283-25

== ENCOUNTER 2016-07-08 03:08 | Inpatient (IN) | payer OTHER ==
[2016-07-08] MEDS ORDERED: VANCOMYCIN 1 GRAM (PRE-DOCKED) 1,000 MG/250 ML BAG IVPB ONE (03:34)
[2016-07-08] MEDS ORDERED: SODIUM CHLORIDE 1,000 ML IV STA (03:34)
[2016-07-08] MEDS ORDERED: VANCOMYCIN 1 GRAM (PRE-DOCKED) 250 ML IVPB ONE (03:50)
--- NOTE | 2016-07-08 04:00 | PDOC ---
History of Present Illness - General Chief Complaint: Pain Stated Complaint: LEFT FOOT PAIN Time Seen by Provider: 07/08/16 03:16 History Source: Patient Exam Limitations: No Limitations - History of Present Illness Initial Comments: 07/08/16 03:52 55 yo Male patient w/ PmHx: DM presents to ED c/o left foot pain/infection. Patient states approximately 8 weeks ago at [facility] where he had a debridement of left foot (dorsal aspect) and the removal of his four and fifth metatarsals. Patient " I have no doctor, I did not follow up with anyone after leaving the hospital, the doctors there were talking blah blah blajessica burris. I dont know what the freak they were talking about. I signed out AMA all over the fucking place and the debridement was wrong. This fucking foot is infected and the [facility] doctors fucked it up." per patient. Patient also verbalized I have no regular doctor and I dont know the surgeon's name who worked on my foot. Patient denies any other complaints at this time. Lower Extremity Pain Location: left: foot (Infection) Method of Injury: Yes: other Modifying Factors: improves with: None Lower Ext. Injury Location - Specific Injury Location Foot: left foot soft tissue tenderness, left foot infection, left foot pain Extremity Pain Location - Extremity Pain Location Extremity Pain Locations: left: foot Past History - Travel Traveled outside of the country in the last 30 days: No Close contact w/someone who was outside of country & ill: No - Past Medical History Allergies/Adverse Reactions: Allergies Allergy/AdvReac Type Severity Reaction Status Date / Time No Known Allergies Allergy Verified 07/08/16 03:29 Home Medications: Ambulatory Orders Furosemide [Lasix] 0 mg PO DAILY 07/08/16 Insulin NPH Hum/Reg Insulin Hm [Humulin 70-30 Vial] 30 unit SQ BID 07/08/16 Metoprolol Succinate [Toprol Xl -] 0 mg PO DAILY 07/08/16 Diabetes: Yes HTN: Yes Hypercholesterolemia: Yes - Psycho/Social/Smoking Cessation Hx Suicidal Ideation: No Smoking History: Current every day smoker Have you smoked in the past 12 months: Yes Number of Cigarettes Smoked Daily: 20 Information on smoking cessation initiated: No Hx Alcohol Use: No Drug/Substance Use Hx: No Substance Use Type: None Review of Systems - Review of Systems Able to Perform ROS?: Yes Is the patient limited [place]er proficient: No Constitutional: No: Chills, Fever Respiratory: No: Cough, Shortness of Breath, Stridor, Wheezing Cardiac (ROS): No: Chest Pain, Chest Tightness ABD/GI: No: Diarrhea, Nausea, Vomiting Musculoskeletal: Yes: Other (Left Foot Pain/Infection). No: Back Pain Integumentary: Yes: Erythema, Other (Infected soft tissue) All Other Systems: Reviewed and Negative *Physical Exam - Vital Signs Last Vital Signs Temp Pulse Resp BP Pulse Ox 98.2 F 100 H 19 156/90 98 07/08/16 03:22 07/08/16 03:22 07/08/16 03:22 07/08/16 03:22 07/08/16 03:22 - Physical Exam General Appearance: Yes: Nourished, Disheveled. No: Appropriately Dressed, Apparent Distress, Mild Distress, Moderate Distress, Severe Distress Neck: positive: Trachea midline, Supple. negative: Lymphadenopathy (R), Lymphadenopathy (L) Respiratory/Chest: positive: Lungs Clear, Normal Breath Sounds. negative: Respiratory Distress, Accessory Muscle Use, Labored Respiration, Rapid RR Cardiovascular: positive: Regular Rhythm, Regular Rate. negative: Edema, JVD, Murmur Gastrointestinal/Abdominal: positive: Normal Bowel Sounds, Soft. negative: Distended, Guarding, Rebound, Tenderness Musculoskeletal: positive: Normal Inspection. negative: CVA Tenderness Extremity: positive: Normal Capillary Refill, Normal Inspection, Normal Range of Motion Integumentary: positive: Normal Color, Dry, Warm. negative: Erythema, Bruising Neurologic: positive: homeopathic doctor II-XII NML intact, Fully Oriented, Alert, Normal Mood/ Affect, Normal Response, Motor Strength 5/5 ED Treatment Course - LABORATORY CBC & Chemistry Diagram: 07/08/16 03:50 07/08/16 03:50 *DC/Admit/Observation/Transfer Diagnosis at time of Disposition: Diabetic foot infection Wound, open, foot Qualifiers: Encounter type: subsequent encounter Laterality: left Qualified Code(s): S91.302D - Unspecified open wound, left foot, subsequent encounter - Discharge Dispostion Condition at time of disposition: Fair Admit: Yes
[2016-07-08 04:27] LABS: EOSINOPHIL 1.6 % (0-4.5); MCH 28.2 pg (25.7-33.7); MCHC 33.6 g/dl (32.0-35.9); MEAN CELL VOLUME 83.8 fl (80-96); MEAN PLT VOLUME 8.2 fl (7.5-11.1); NEUTROPHILS 74.7 % (42.8-82.8); PLATELET COUNT 342 K/MM3 (134-434); WHITE BLOOD COUNT 14.7 K/mm3 (4.0-10.0)
[2016-07-08 04:43] LABS: INR 1.03 (0.82-1.09); PROTHROMBIN TIME (PATIENT) 11.3 SEC (9.98-11.88)
[2016-07-08 04:50] LABS: ALBUMIN 2.7 g/dl (3.4-5.0); BILIRUBIN,TOTAL 0.3 mg/dL (0.2-1.0); CREATININE 1.5 mg/dL (0.7-1.3); TOT PROT 7.4 g/dl (6.4-8.2)
[2016-07-08] MEDS ORDERED: INSULIN REGULAR HUMAN 100 UNITS/ML *VIAL SQ ONE (05:25)
[2016-07-08] MEDS ORDERED: cefTRIAXone 2 GM/100 ML BAG (PRE-DOCKED) IVPB ONE (05:25)
[2016-07-08] MEDS ORDERED: CEFTRIAXONE 100 ML IVPB ONE (05:54)
[2016-07-08] MEDS ORDERED: INSULIN REGULAR HUMAN 100 UNITS/ML *VIAL ONE (05:55)
--- NOTE | 2016-07-08 07:50 | PN ---
Teaching Attending Note Name of Resident: Roberto Doty ATTENDING PHYSICIAN STATEMENT I saw and evaluated the patient. I reviewed the resident's note and discussed the case with the resident. I agree with the resident's findings and plan as documented. SUBJECTIVE: The patient is a 55 year old make with a significant past medical history of hypertension, hyperlipidemia, type two diabates, peripheral vascular disease, CAD, hx NSTEMI and a chronic foot wound (recently with amputation of 4tha nd 5th digit at an outside hospital) who presents for care of his chronic foot wound. He signed out of our facility against medical advice several days ago but returns for further care. OBJECTIVE: He is well appearing and in no acute distress. Tachycardic, no murmurs Left forefoot wound noted, non-tender, not drainge, no crepitance ASSESSMENT AND PLAN: 55 year old male with significant past medical history as above who presents for care of a chronic foot wound. He meets diagnostic criteria for sepsis. His CXR has increased interstitial markings bilaterally with fluid in the fissure Will admit to inpatient services I am concerned for osteomyelitis of the foot Will continue antibiotics Will consult podiatry and ID Will obtain ESR, CRP, MRI Will add BNP to further evaluate CXR findings Will add cardiac enzymes Further plan as per resident note
[2016-07-08] MEDS ORDERED: PIPERACILLIN/TAZOB 4.5 GM/100 ML PRE-DOCKED IVPB ONE ×2 (08:09→12:30)
--- NOTE | 2016-07-08 08:25 | HP ---
CHIEF COMPLAINT: Infected diabetic foot ulcer PCP:Does not have one HISTORY OF PRESENT ILLNESS: 55M with PMH of chronic combined systolic and diastolic CHF, uncontrolled insulin dependant insulin non-complaint DM, HTN, HLD, NSTEMI in may 2016, CAD s/p cardiac cath about 1 week ago at [facility] states he was sent by Dr. Villalta (does not know the results), PVD, active smoker, presents to the emergency room for further treatment of his left foot infected diabetic foot ulcer. Patient states he was seen at many different hospitals including this hospital and leaves AMA. He states he had his foot debrided at [facility] recently and he left there after "the [place] doctor messed up my foot". He was there for approximately 15 days and was being treated with antibiotics. During his last hospitalization here he left before he was able to be seen by any subspecialists. He denies any pain, nausea, vomiting, fevers, chills, chest pain, shortness of breath, diarrhea, hematuria or dysuria. ER course was notable for: (1)Labs, Imaging (2)IVF, Antibiotics Recent Travel:Denies PAST MEDICAL HISTORY: As above PAST SURGICAL HISTORY: left fourth and fifth toe amputation, debridement of left dorsum of foot, Keyla-rectal abscess drainage Social History: SmokinPPD for 40 years Alcohol:Denies Drugs: Denies Family History: Allergies No Known Allergies Allergy (Verified 07/08/16 03:29) HOME MEDICATIONS: Home Medications Medication Instructions Recorded Furosemide [Lasix] 0 mg PO DAILY 07/08/16 Insulin NPH Hum/Reg Insulin Hm 30 unit SQ BID 07/08/16 [Humulin 70-30 Vial] Metoprolol Succinate [Toprol Xl -] 0 mg PO DAILY 07/08/16 REVIEW OF SYSTEMS CONSTITUTIONAL: Absent: fever, chills, diaphoresis, generalized weakness, malaise, loss of appetite, weight change HEENT: Absent: rhinorrhea, nasal congestion, throat pain, throat swelling, difficulty swallowing, mouth swelling, ear pain, eye pain, visual changes CARDIOVASCULAR: Absent: chest pain, syncope, palpitations, irregular heart rate, lightheadedness , peripheral edema RESPIRATORY: Absent: cough, shortness of breath, dyspnea with exertion, orthopnea, wheezing, stridor, hemoptysis GASTROINTESTINAL: Absent: abdominal pain, abdominal distension, nausea, vomiting, diarrhea, constipation, melena, hematochezia GENITOURINARY: Absent: dysuria, frequency, urgency, hesitancy, hematuria, flank pain, genital pain MUSCULOSKELETAL: Absent: myalgia, arthralgia, joint swelling, back pain, neck pain Present: right leg pain with ambulation SKIN: Absent: rash, itching, pallor Present: left foot wound HEMATOLOGIC/IMMUNOLOGIC: Absent: easy bleeding, easy bruising, lymphadenopathy, frequent infections ENDOCRINE: Absent: unexplained weight gain, unexplained weight loss, heat intolerance, cold intolerance NEUROLOGIC: Absent: headache, focal weakness or paresthesias, dizziness, unsteady gait, seizure, mental status changes, bladder or bowel incontinence PSYCHIATRIC: Absent: anxiety, depression, suicidal or homicidal ideation, hallucinations. PHYSICAL EXAMINATION Vital Signs Period Temp Pulse Resp BP Sys/Humphreys Pulse Ox Last 24 Hr 98.2 F-98.2 F 95-100 16-19 124-156/75-90 97-98 GENERAL: Awake, alert, and fully oriented, in no acute distress. HEAD: Normal with no signs of trauma. EYES: clouded right eye s/p injury. 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 Left Eye: PERRLA EOMI EARS, NOSE, THROAT: Moist mucous membranes. NECK: no JVD LUNGS: Breath sounds equal, clear to auscultation bilaterally. HEART: Regular rate and rhythm, normal S1 and S2 without murmur, rub or gallop. ABDOMEN: Soft, nontender, not distended MUSCULOSKELETAL: No CVA tenderness. LOWER EXTREMITIES:no palpable DP/PT pulses. prolonged capillary refill bilaterally. s/p amputation of left 4th and 5th toes. left forefoot has exposed bone and tendon no crepitus no purulent drainage. minimal serous drainage. stuck pieces of paper towel over exposed area. non tender. sensation over plantar surface of both feet intact. right foot has no visible lesions NEUROLOGICAL: Cranial nerves II-XII grossly intact. normal speech gait not observed PSYCHIATRIC: Cooperative. Good eye contact. Appropriate mood and affect. Laboratory Tests 07/08/16 07/08/16 07/08/16 03:41 03:50 03:50 WBC 14.7 H RBC 3.80 L Hgb 10.7 L Hct 31.9 L MCV 83.8 MCHC 33.6 RDW 15.0 Plt Count 342 MPV 8.2 Neutrophils % 74.7 Lymphocytes % 14.0 Monocytes % 8.7 Eosinophils % 1.6 Basophils % 1.0 INR Sodium 135 L Potassium 4.9 Chloride 98 Carbon Dioxide 29 D Anion Gap 8 BUN 29 H Creatinine 1.5 H Creat Clearance w eGFR 48.59 Random Glucose 321 H* Calcium 9.0 Total Bilirubin 0.3 D AST 8 L ALT 17 Alkaline Phosphatase 91 Total Protein 7.4 Albumin 2.7 L Blood Type AB POSITIVE Antibody Screen Negative 07/08/16 07/08/16 03:50 04:57 WBC RBC Hgb Hct MCV MCHC RDW Plt Count MPV Neutrophils % Lymphocytes % Monocytes % Eosinophils % Basophils % INR 1.03 Sodium Potassium Chloride Carbon Dioxide Anion Gap BUN Creatinine Creat Clearance w eGFR Random Glucose Calcium Total Bilirubin AST ALT Alkaline Phosphatase Total Protein Albumin Blood Type AB POSITIVE Antibody Screen XR foot: Shows post-op changes with swelling. Can not rule out osteomyelitis CXR: Increased interstitial markings worse when compared to recent CXR on previous admission 2 days ago ECHO: from 06/21/16 reviewed ASSESSMENT/PLAN: 55M with multiple medical problems including non-compliance presents to the ED for treatment of his diabetic foot ulcer. Patient meets 2 SIRS criteria by having leukocytosis and tachycardia. Patient meets criteria for severe sepsis as he has a source and end organ damage by having an elevated Creatinine. Severe sepsis with infected Diabetic foot ulcer: Admit patient to medicine Given vanco and rocephin in ED will add on zosyn will consult ID will consult Podiatry Given IVF in ED will hold off on more fluids as patient has CHF and congestion on CXR send lactic acid CRP and ESR MRI foot ordered get blood glucose under control send urine toxicology CPK to asses for possible muscle breakdown Uncontrolled insulin noncompliant Diabetes: HbA1C >10 on last admission Start levemir 10 units QHS Start sliding scale insulin Fingersticks ACHS titrate dose of insulin PRN Combined systolic and diastolic congestive heart failure: Send BNP Strict I/O Low sodium diet Clinically he does not seem to be in exacerbation patient is not on any diuretics or beta blockers-will get cardiology consult for recommendations Acute kidney injury/Acute renal failure: likely prerenal from a combination of low flow state from CHF and sepsis Baseline Cr Around 1.2 Cr today 1.5 Will trend Cr already given light IV hydration CAD: Restart Aspirin 81mg daily cardiology consult for results of catheterization and further recommendations HLD: will likely need lipid lowering agent such as a Statin once his acute issues is addressed Hypertension: Patient states he takes metoprolol but does not know dose and states beni reynoso never refilled his medications Will get cardiology consult for recommendations as Dr. Villalta is familiar with this patient Monitor BP off meds for now and start medications if needed Peripheral vascular disease: Consult vascular surgery for possible developing rest pain of RLE Advised to stop smoking will need vascular surgery evaluation on this admission for GUSTABO/PVR for right leg as he is starting to have increased pain with less movement-concern for impending rest pain Aspirin 81mg po daily PPx: HSQ no GI Ppx indicated Ambulation FEN: Hold IVF hyponatremia: likely dilution and from elevated blood glucose: when corrected for blood glucose it is WNL Diabetic low sodium diet Patient seen and case discussed with Attending Dr. Mcgill Visit type - Emergency Visit Emergency Visit: Yes ED Registration Date: 07/08/16 Care time: The patient presented to the Emergency Department on the above date and was hospitalized for further evaluation of their emergent condition. - New Patient This patient is new to me today: Yes Date on this admission: 07/08/16 - Critical Care Critical Care patient: No
[2016-07-08 08:59] LABS: TROPONIN I 0.02 ng/ml (0.00-0.05)
[2016-07-08 09:16] LABS: URINE MARIJUANA THC NEGATIVE ng/ml (CUTOFF=50)
--- NOTE | 2016-07-08 10:10 | PN ---
Progress Note (short form) - Note Progress Note: Consult Dictated: 55 year old man with a history of HTN, DM type I, HLD, PAD, CVA, recently at [facility] where he had a LLE partial foot amputation, seen in May by our service and found to have severe LV dysfx with segmental WMA and mod to severe MR. Cath and viability study at [facility] revealed CAD but no viability and he was deemed not a candidate for PCI or CABG. REC: Will request results of [facility] testing to review. Plan to optimize cardiac regimen. Consideration for ICD. Further w/u LLE wound per primary team.
[2016-07-08] MEDS: ASPIRIN 81 MG CHEWABLE TABLETS PO SCH (11:28)
[2016-07-08] MEDS: METOPROLOL SUCCINATE 25 MG TAB.SR.24H (FP) PO SCH (11:28)
[2016-07-08] MEDS: FUROSEMIDE 20 MG TABLET (FP) PO SCH (11:28)
[2016-07-08 11:44] VITALS: BMI 24.7
[2016-07-08] MEDS: INSULIN SLIDING SCALE (NOVOLOG) 1 VIAL SQ SCH ×3 (12:34→22:04)
--- NOTE | 2016-07-08 14:30 | CONSULT ---
Consult - text type - Consultation Consultation Note: Podiatry Consultation: 55 year old DM, PVD M presents to hospital for admission with L foot significant DM foot ulcer. As per the patient and supporting staff, patient has a significant history of non-compliance with hospital management. The patient was admitted at [facility], where he received extensive debridement to the left foot by Dr. Gan, Vascular Sx. The patient is a poor historian, it is unclear whether he had revascularization performed. He currently denies F/V/ N/C/SOB/CP. The patient was admitted in late May, where he was sent to [facility] for cardiac issues. The patient has left our facility and [facility] against medical advice recently. The patient is a bit disheveled with thought. He is currently afebrile, VSS. PMHx: DM, HTN, HLP, CAD s/p NSTEMI, PVD, (+) smoking 1 pack/day x 40 years Meds: noted in chart ALL: NKMA LUDWIG: Pedal pulses non-palpable bilaterally, TG wnl. On the left foot, there is a significant diabetic ulcer noted on the dorsal aspect of the foot, extending from the lateral 4th/5th rays proximally to the anterolateral aspect of the ankle. There is mixed fibrogranular base down to muscle. There is no exposure of tendons nor bones. There are areas of necrotic patches within the wound bed. There is minimal periwound erythema. There is no fluctuance, no purulence , no streaking cellulitis, no soft tissue crepitus. There is moderate tenderness to palpation of the wound. WBC: 12.6 from 07/06 ESR: 128 Wound Cx: GPC pairs, chains Blood Cx: initially GPC chains, currently no growth x 3 days L foot XR: no evidence of ST emphysema Imp: 55 year old DM, PVD M with L foot DM foot ulcer 1. IV abx per ID 2. Will order non-invasive vascular structures, vascular consult required 3. If patient demonstrates compliance and adheres to medical advice, will arrange for debridement and VAC placement. However, I am not confident patient will stay for treatment given his prior history. 4. MRI ordered 5. Will follow. Thank you for the courtesy of this consultation. Sraita Yeh DPM
[2016-07-08] MEDS: HEPARIN NA (PORCINE) 5,000 UNITS/ML 1ML VIAL SQ SCH ×2 (14:42→22:04)
--- NOTE | 2016-07-08 14:42 | PN ---
Progress Note (short form) - Note Progress Note: ID consult dictated 55 year old man with diabetes- no PMD recent amputation of toes 4 and 5 left foot left [facility] AMA recent admission May to [facility]- reports cardiac cath- left AMA after 8 or 9 days admitted here earlier this week and left AMA the next day returns with continued pain in his foot using NS and clean Bounty towels for wound care at home smokes 1 ppd esr and crp are high left foot wound with exposed tendons hgb aic greater then 10 diabetic foot infection some cellulitis of foot noted gram positive bacteremia 07/05 r/o osteo needs blood supply to foot evaluated smoking cessation vanco/zosyn adjusted for elevated creatinine f/u cultures podiatry/vascular surgery to see
--- NOTE | 2016-07-08 14:43 | EKG ---
Test Reason : Blood Pressure : / mmHG Vent. Rate : 106 BPM Atrial Rate : 106 BPM P-R Int : 144 ms QRS Dur : 096 ms QT Int : 350 ms P-R-T Axes : 065 -14 028 degrees QTc Int : 464 ms SINUS TACHYCARDIA MODERATE VOLTAGE CRITERIA FOR LVH, MAY BE NORMAL VARIANT NONSPECIFIC T WAVE ABNORMALITY ABNORMAL ECG WHEN COMPARED WITH ECG OF 05-JUL-2016 23:09, NONSPECIFIC T WAVE ABNORMALITY NOW EVIDENT IN ANTERIOR LEADS Confirmed by DEXTER GARCIA MD ([id number]) on 07/08/2016 2:42:44 PM Referred By: Confirmed By:DEXTER GARCIA MD
[2016-07-08] MEDS: PIPERACILLIN/TAZOB 3.375 GM/50 ML PRE-DOCKED IVPB SCH (17:43)
[2016-07-08] MEDS ORDERED: INSULIN (NOVOLOG) ASPART 100 UNITS/ML 10ML VIAL ONE (17:46)
[2016-07-08] MEDS: INSULIN DETEMIR 100 UNITS/ML MDV SQ SCH (22:04)
[2016-07-09] MEDS ORDERED: PT OWN MED DRAWER 7, Y5N ONE (01:11)
[2016-07-09] MEDS: PIPERACILLIN/TAZOB 3.375 GM/50 ML PRE-DOCKED IVPB SCH ×3 (01:29→18:00)
[2016-07-09] MEDS: HEPARIN NA (PORCINE) 5,000 UNITS/ML 1ML VIAL SQ SCH ×3 (06:22→21:34)
[2016-07-09] MEDS: INSULIN SLIDING SCALE (NOVOLOG) 1 VIAL SQ SCH ×4 (06:22→21:34)
[2016-07-09 07:43] LABS: MCH 28.6 pg (25.7-33.7); MCHC 33.8 g/dl (32.0-35.9); MEAN CELL VOLUME 84.6 fl (80-96); MEAN PLT VOLUME 8.2 fl (7.5-11.1); PLATELET COUNT 319 K/MM3 (134-434); RDW 15.2 % (11.9-15.9); WHITE BLOOD COUNT 11.9 K/mm3 (4.0-10.0)
[2016-07-09 08:15] LABS: CALCIUM 8.5 mg/dL (8.5-10.1); CREATININE 1.4 mg/dL (0.7-1.3)
--- NOTE | 2016-07-09 09:28 | PN ---
Progress Note (short form) - Note Progress Note: states pain has improved. denies CP, SOB,fever, chills, N/V/C/D Current Medications Generic Name Dose Route Start Last Admin Trade Name Radha PRN Reason Stop Dose Admin Aspirin 81 mg 07/08/16 10:00 07/08/16 11:28 Asa - PO 81 mg DAILY [facility] Administration Furosemide 20 mg 07/08/16 10:45 07/08/16 11:28 Lasix - PO 20 mg DAILY [facility] Administration Heparin Sodium (Porcine) 5,000 unit 07/08/16 14:00 07/09/16 06:22 Heparin - SQ 5,000 unit TID GABBY Administration Insulin Aspart 1 vial 07/08/16 11:00 07/09/16 06:22 Novolog Vial Sliding Scale - SQ Not Given ACHS [facility] Protocol Insulin Detemir 10 units 07/08/16 22:00 07/08/16 22:04 Levemir Vial SQ 10 units HS [facility] Administration Metoprolol Succinate 12.5 mg 07/08/16 10:30 07/08/16 11:28 Toprol Xl - PO 12.5 mg DAILY [facility] Administration Piperacillin Sod/Tazobactam Sod 3.375 gm 07/08/16 18:00 07/09/16 01:29 Zosyn 3.375gm Ivpb (Pre-Docked) IVPB 3.375 gm Q8H-IV [facility] Administration Protocol Sodium Hypochlorite 1 applic 07/09/16 10:00 Dakin's Solution 0.25% (Half-Strength) - TP DAILY [facility]BY Vancomycin HCl 1,000 mg 07/09/16 10:00 Vancomycin (Pre-Docked) IVPB DAILY [facility] Protocol Last Vital Signs Temp Pulse Resp BP Pulse Ox 98 F 90 20 146/87 99 07/09/16 06:00 07/09/16 06:00 07/09/16 06:00 07/09/16 06:00 07/08/16 21:00 General NAD, corneal opacification on the R eye CV S1 S2 RRR no murmur/rub/gallop Lungs CTA B/L no wheezign/rales/rhonchi Abdomen sot NT/ND Extremities amputation of the 4th &5th digit L foot. ulceration on the dorsum on the L foot extending from the lateral aspect up to the middle of the foot. tenderness, no erythema surrounding the wound, no drainage CBCD WBC 11.9 K/mm3 (4.0-10.0) H 07/09/16 06:15 RBC 3.65 M/mm3 (4.00-5.60) L 07/09/16 06:15 Hgb 10.4 GM/dL (11.7-16.9) L 07/09/16 06:15 Hct 30.9 % (35.4-49) L 07/09/16 06:15 MCV 84.6 fl (80-96) 07/09/16 06:15 MCHC 33.8 g/dl (32.0-35.9) 07/09/16 06:15 RDW 15.2 % (11.9-15.9) 07/09/16 06:15 Plt Count 319 K/MM3 (134-434) 07/09/16 06:15 MPV 8.2 fl (7.5-11.1) 07/09/16 06:15 CMP Sodium 138 mmol/L (136-145) 07/09/16 06:15 Potassium 4.4 mmol/L (3.5-5.1) 07/09/16 06:15 Chloride 101 mmol/L (98-107) 07/09/16 06:15 Carbon Dioxide 29 mmol/L (21-32) 07/09/16 06:15 Anion Gap 8 (8-16) 07/09/16 06:15 BUN 21 mg/dL (7-18) H D 07/09/16 06:15 Creatinine 1.4 mg/dL (0.7-1.3) H 07/09/16 06:15 Creat Clearance w eGFR 48.59 (>60) 07/08/16 03:50 Calcium 8.5 mg/dL (8.5-10.1) 07/09/16 06:15 Total Bilirubin 0.3 mg/dL (0.2-1.0) D 07/08/16 03:50 AST 8 U/L (15-37) L 07/08/16 03:50 ALT 17 U/L (12-78) 07/08/16 03:50 Alkaline Phosphatase 91 U/L (45-117) 07/08/16 03:50 Total Protein 7.4 g/dl (6.4-8.2) 07/08/16 03:50 Albumin 2.7 g/dl (3.4-5.0) L 07/08/16 03:50 Microbiology 07/08/16 03:50 Blood Culture - Preliminary Blood - Peripheral Venous NO GROWTH OBTAINED AFTER 24 HOURS, INCUBATION TO CONTINUE FOR 4 DAYS. 07/08/16 03:50 Blood Culture - Preliminary Blood - Peripheral Venous NO GROWTH OBTAINED AFTER 24 HOURS, INCUBATION TO CONTINUE FOR 4 DAYS. 07/08/16 03:50 Gram Stain - Final Foot - Left Dorsum A/P 55yo M with NSTEMI, CHF, HTN and DM and presented to the ER and was admitted for further evaluation of their emergent condition 1. Diabetic foot ulcer- high supicion for OM. ESR elevated. MRI foot pending. started on vanco/zosyn. will need further evaluation for blood supply to the foot. Cx pending. ID and podiatry on board 2. hx of NSTEMI- cardiac cath not performed due to non viable tissue. started on metoprolol, lasix, asa. cardio on board 3. MIRTHA- likely infection vs dehydration. will give gentle hydration. avoid nephrotoxic agent 4. DM- controlled. bgm, iss 5. HTN- controlled 6. DVT ppx- Hep sq Visit type - Emergency Visit Emergency Visit: Yes ED Registration Date: 07/08/16 Care time: The patient presented to the Emergency Department on the above date and was hospitalized for further evaluation of their emergent condition. - New Patient This patient is new to me today: Yes Date on this admission: 07/09/16 - Critical Care Critical Care patient: No - Discharge Referral Referred to [facility] Med P.C.: No
[2016-07-09] MEDS: FUROSEMIDE 20 MG TABLET (FP) PO SCH (10:26)
[2016-07-09] MEDS: ASPIRIN 81 MG CHEWABLE TABLETS PO SCH (10:26)
[2016-07-09] MEDS: METOPROLOL SUCCINATE 25 MG TAB.SR.24H (FP) PO SCH (10:26)
--- NOTE | 2016-07-09 10:56 | PN ---
Progress Note, Physician Chief Complaint: feels well History of Present Illness: denies CP or SOB - Current Medication List Current Medications: Active Medications Aspirin (Asa -) 81 mg PO DAILY [facility] Last Admin: 07/09/16 10:26 Dose: 81 mg Furosemide (Lasix -) 20 mg PO DAILY [facility] Last Admin: 07/09/16 10:26 Dose: 20 mg Heparin Sodium (Porcine) (Heparin -) 5,000 unit SQ TID [facility] Last Admin: 07/09/16 06:22 Dose: 5,000 unit Insulin Aspart (Novolog Vial Sliding Scale -) 1 vial SQ ACHS [facility] PRN Reason: Protocol Last Admin: 07/09/16 06:22 Dose: Not Given Insulin Detemir (Levemir Vial) 10 units SQ HS [facility] Last Admin: 07/08/16 22:04 Dose: 10 units Metoprolol Succinate (Toprol Xl -) 12.5 mg PO DAILY [facility] Last Admin: 07/09/16 10:26 Dose: 12.5 mg Piperacillin Sod/Tazobactam Sod (Zosyn 3.375gm Ivpb (Pre-Docked)) 3.375 gm IVPB Q8H-IV [facility] PRN Reason: Protocol Last Admin: 07/09/16 10:26 Dose: 3.375 gm Sodium Hypochlorite (Dakin's Solution 0.25% (Half-Strength) -) 1 applic TP DAILY [facility] Vancomycin HCl (Vancomycin (Pre-Docked)) 1,000 mg IVPB DAILY [facility] PRN Reason: Protocol - Objective Vital Signs: Vital Signs Temperature 98 F 07/09/16 06:00 Pulse Rate 90 07/09/16 06:00 Respiratory Rate 20 07/09/16 06:00 Blood Pressure 146/87 07/09/16 06:00 O2 Sat by Pulse Oximetry (%) 99 07/08/16 21:00 Constitutional: Yes: No Distress, Calm Neck: Yes: Supple Cardiovascular: Yes: Regular Rate and Rhythm Respiratory: Yes: CTA Bilaterally Gastrointestinal: Yes: Soft Edema: No Neurological: Yes: Alert, Oriented Labs: CBC, BMP 07/09/16 06:15 07/09/16 06:15 INR, PTT INR 1.03 (0.82-1.09) 07/08/16 03:50 Microbiology 07/08/16 03:50 Blood - Peripheral Venous Blood Culture - Preliminary NO GROWTH OBTAINED AFTER 24 HOURS, INCUBATION TO CONTINUE FOR 4 DAYS. 07/08/16 03:50 Blood - Peripheral Venous Blood Culture - Preliminary NO GROWTH OBTAINED AFTER 24 HOURS, INCUBATION TO CONTINUE FOR 4 DAYS. Laboratory Tests 07/09/16 07/09/16 06:15 06:15 WBC 11.9 H Hgb 10.4 L Plt Count 319 Potassium 4.4 BUN 21 H D Creatinine 1.4 H Assessment/Plan 55 year old man with a history of HTN, DM type I, HLD, PAD, CVA, recently at [facility] where he had a LLE partial foot amputation, seen in May by our service and found to have severe LV dysfx with segmental WMA and mod to severe MR. Cath and viability study at [facility] revealed CAD but no viability and he was deemed not a candidate for PCI or CABG. REC: Will request results of [facility] testing to review. Plan to optimize cardiac regimen: increase Toprol. Try to initiate PA or ARB tomorrow. Consideration for ICD. Further w/u LLE wound per primary team.
[2016-07-09] MEDS: VANCOMYCIN 1 GRAM (PRE-DOCKED) 1,000 MG/250 ML BAG IVPB SCH (11:35)
[2016-07-09] MEDS: SODIUM HYPOCHLORITE 0.25%- 473 ML BULK BOTTLE TP SCH (13:55)
[2016-07-09] MEDS: INSULIN DETEMIR 100 UNITS/ML MDV SQ SCH (21:32)
[2016-07-10] MEDS: PIPERACILLIN/TAZOB 3.375 GM/50 ML PRE-DOCKED IVPB SCH ×2 (01:51→10:39)
[2016-07-10] MEDS: HEPARIN NA (PORCINE) 5,000 UNITS/ML 1ML VIAL SQ SCH ×3 (06:48→22:28)
[2016-07-10] MEDS: INSULIN SLIDING SCALE (NOVOLOG) 1 VIAL SQ SCH ×4 (06:49→22:28)
[2016-07-10 08:38] LABS: BASOPHIL 1.2 % (0-2.0); EOSINOPHIL 2.7 % (0-4.5); MCH 27.8 pg (25.7-33.7); MCHC 32.9 g/dl (32.0-35.9); MEAN CELL VOLUME 84.6 fl (80-96); MEAN PLT VOLUME 8.4 fl (7.5-11.1); NEUTROPHILS 59.2 % (42.8-82.8); PLATELET COUNT 330 K/MM3 (134-434); RDW 14.9 % (11.9-15.9); WHITE BLOOD COUNT 10.9 K/mm3 (4.0-10.0)
[2016-07-10 09:05] LABS: CALCIUM 8.8 mg/dL (8.5-10.1); MAGNESIUM 2.2 mg/dL (1.8-2.4)
[2016-07-10 09:06] LABS: CREATININE 1.5 mg/dL (0.7-1.3)
--- NOTE | 2016-07-10 09:09 | PN ---
Progress Note (short form) - Note Progress Note: currently has no pain denies CP, SOB,fever, chills, N/V/C/D Current Medications Generic Name Dose Route Start Last Admin Trade Name Radha PRN Reason Stop Dose Admin Aspirin 81 mg 07/08/16 10:00 07/09/16 10:26 Asa - PO 81 mg DAILY [facility] Administration Furosemide 20 mg 07/08/16 10:45 07/09/16 10:26 Lasix - PO 20 mg DAILY [facility] Administration Heparin Sodium (Porcine) 5,000 unit 07/08/16 14:00 07/10/16 06:48 Heparin - SQ 5,000 unit TID [facility] Administration Insulin Aspart 1 vial 07/08/16 11:00 07/10/16 06:49 Novolog Vial Sliding Scale - SQ 2 units ACHS [facility] Administration Protocol Insulin Detemir 10 units 07/08/16 22:00 07/09/16 21:32 Levemir Vial SQ 10 units HS [facility] Administration Metoprolol Succinate 25 mg 07/10/16 10:00 Toprol Xl - PO DAILY [facility] Piperacillin Sod/Tazobactam Sod 3.375 gm 07/08/16 18:00 07/10/16 01:51 Zosyn 3.375gm Ivpb (Pre-Docked) IVPB 3.375 gm Q8H-IV [facility] Administration Protocol Sodium Hypochlorite 1 applic 07/09/16 10:00 07/09/16 13:55 Dakin's Solution 0.25% (Half-Strength) - TP 1 applic DAILY [facility] Administration Vancomycin HCl 1,000 mg 07/09/16 10:00 07/09/16 11:35 Vancomycin (Pre-Docked) IVPB 1,000 mg DAILY [facility] Administration Protocol Last Vital Signs Temp Pulse Resp BP Pulse Ox 98.8 F 86 20 148/77 100 07/10/16 06:01 07/10/16 06:01 07/10/16 06:01 07/10/16 06:01 07/09/16 21:00 General NAD, corneal opacification on the R eye CV S1 S2 RRR no murmur/rub/gallop Lungs CTA B/L no wheezign/rales/rhonchi Abdomen sot NT/ND Extremities L foot wrapped in dressing c/d/i CBCD WBC 11.9 K/mm3 (4.0-10.0) H 07/09/16 06:15 RBC 3.65 M/mm3 (4.00-5.60) L 07/09/16 06:15 Hgb 10.4 GM/dL (11.7-16.9) L 07/09/16 06:15 Hct 30.9 % (35.4-49) L 07/09/16 06:15 MCV 84.6 fl (80-96) 07/09/16 06:15 MCHC 33.8 g/dl (32.0-35.9) 07/09/16 06:15 RDW 15.2 % (11.9-15.9) 07/09/16 06:15 Plt Count 319 K/MM3 (134-434) 07/09/16 06:15 MPV 8.2 fl (7.5-11.1) 07/09/16 06:15 CMP Sodium 136 mmol/L (136-145) 07/10/16 06:15 Potassium 4.8 mmol/L (3.5-5.1) 07/10/16 06:15 Chloride 99 mmol/L (98-107) 07/10/16 06:15 Carbon Dioxide 29 mmol/L (21-32) 07/10/16 06:15 Anion Gap 8 (8-16) 07/10/16 06:15 BUN 22 mg/dL (7-18) H 07/10/16 06:15 Creatinine 1.5 mg/dL (0.7-1.3) H 07/10/16 06:15 Creat Clearance w eGFR 48.59 (>60) 07/08/16 03:50 Calcium 8.8 mg/dL (8.5-10.1) 07/10/16 06:15 Total Bilirubin 0.3 mg/dL (0.2-1.0) D 07/08/16 03:50 AST 8 U/L (15-37) L 07/08/16 03:50 ALT 17 U/L (12-78) 07/08/16 03:50 Alkaline Phosphatase 91 U/L (45-117) 07/08/16 03:50 Total Protein 7.4 g/dl (6.4-8.2) 07/08/16 03:50 Albumin 2.7 g/dl (3.4-5.0) L 07/08/16 03:50 Microbiology 07/08/16 03:50 Gram Stain - Final Foot - Left Dorsum Wound Culture - Preliminary Staphylococcus Aureus 07/08/16 03:50 Blood Culture - Preliminary Blood - Peripheral Venous NO GROWTH OBTAINED AFTER 48 HOURS, INCUBATION TO CONTINUE FOR 3 DAYS. 07/08/16 03:50 Blood Culture - Preliminary Blood - Peripheral Venous NO GROWTH OBTAINED AFTER 48 HOURS, INCUBATION TO CONTINUE FOR 3 DAYS. A/P 55yo M with NSTEMI, CHF, HTN and DM and presented to the ER and was admitted for further evaluation of their emergent condition 1. Diabetic foot ulcer- high supicion for OM. ESR elevated. PVR and MRI foot pending. Cx showing staph. awaiting sensitivies. started on vanco/zosyn. will need further evaluation for blood supply to the foot. vasc Sx, ID and podiatry on board. awaiting records from [place] of studies performed there. 2. hx of NSTEMI- cardiac cath not performed due to non viable tissue. started on metoprolol, lasix, asa. cardio on board 3. MIRTHA- likely infection vs dehydration. will give gentle hydration. avoid nephrotoxic agent 4. DM- controlled. Lantus 10 units QHS, may need to adjust to optimize sugar however sugar low this AM, will wait and trend. bgm, iss 5. HTN- controlled 6. DVT ppx- Hep sq Visit type - Emergency Visit Emergency Visit: Yes ED Registration Date: 07/08/16 Care time: The patient presented to the Emergency Department on the above date and was hospitalized for further evaluation of their emergent condition. - New Patient This patient is new to me today: No - Critical Care Critical Care patient: No - Discharge Referral Referred to [facility] Med P.C.: No
[2016-07-10] MEDS ORDERED: SODIUM CHLORIDE 1,000 ML IV STA (09:16)
[2016-07-10] MEDS: FUROSEMIDE 20 MG TABLET (FP) PO SCH (10:38)
[2016-07-10] MEDS: ASPIRIN 81 MG CHEWABLE TABLETS PO SCH (10:38)
[2016-07-10] MEDS: METOPROLOL SUCCINATE 25 MG TAB.SR.24H (FP) PO SCH (10:39)
[2016-07-10] MEDS: VANCOMYCIN 1 GRAM (PRE-DOCKED) 1,000 MG/250 ML BAG IVPB SCH (11:14)
--- NOTE | 2016-07-10 12:14 | PN ---
Progress Note (short form) - Note Progress Note: no complaints wants "new veins" in his leg like his neighbor- everyone is wasting his time Vital Signs Period Temp Pulse Resp BP Sys/Humphreys Pulse Ox Last 24 Hr 98.6 F-99.1 F 86-90 20-20 134-148/75-83 100 foot is wrapped CBC, BMP 07/10/16 06:15 07/10/16 06:15 Microbiology 07/08/16 03:50 Foot - Left Dorsum Gram Stain - Final 07/08/16 03:50 Foot - Left Dorsum Wound Culture - Preliminary Staphylococcus Aureus 07/08/16 03:50 Blood - Peripheral Venous Blood Culture - Preliminary NO GROWTH OBTAINED AFTER 48 HOURS, INCUBATION TO CONTINUE FOR 3 DAYS. 07/08/16 03:50 Blood - Peripheral Venous Blood Culture - Preliminary NO GROWTH OBTAINED AFTER 48 HOURS, INCUBATION TO CONTINUE FOR 3 DAYS. blood culture 07/05- 1 of 4 bottles GPC clusters- turned positive after 4 days and now no growth a/p diabetic foot infection cellulitis of foot noted gram positive bacteremia 07/05 r/o osteo needs blood supply to foot evaluated smoking cessation no MRSA so will d/c vancomycin switch to cefazolin hx CAD- podiatry/vascular surgery to see
--- NOTE | 2016-07-10 13:01 | PN ---
Progress Note (short form) - Note Progress Note: Podiatry Brief Note: 55 year old DM M with L foot significant DM ulcer. Awaiting report of arterial duplex which was obtained this morning. Will need input from vascular surgery as well, recommend vascular consult at this point. Awaiting MRI L foot. We are still waiting on documentation from [facility]. Will plan accordingly and I am still on standby. Sarita Yeh DPM
--- NOTE | 2016-07-10 13:34 | PN ---
Progress Note, Physician History of Present Illness: seen and examined today in nad. no overnight events. no new complaints. - Current Medication List Current Medications: Active Medications Aspirin (Asa -) 81 mg PO DAILY [facility] Last Admin: 07/10/16 10:38 Dose: 81 mg Furosemide (Lasix -) 20 mg PO DAILY [facility] Last Admin: 07/10/16 10:38 Dose: 20 mg Heparin Sodium (Porcine) (Heparin -) 5,000 unit SQ TID [facility] Last Admin: 07/10/16 06:48 Dose: 5,000 unit Cefazolin Sodium 2 gm/ (Dextrose) 50 mls @ 200 mls/hr IVPB Q8H-IV [facility] Insulin Aspart (Novolog Vial Sliding Scale -) 1 vial SQ ACHS [facility] PRN Reason: Protocol Last Admin: 07/10/16 11:26 Dose: 6 units Insulin Detemir (Levemir Vial) 10 units SQ HS [facility] Last Admin: 07/09/16 21:32 Dose: 10 units Metoprolol Succinate (Toprol Xl -) 25 mg PO DAILY [facility] Last Admin: 07/10/16 10:39 Dose: 25 mg Sodium Hypochlorite (Dakin's Solution 0.25% (Half-Strength) -) 1 applic TP DAILY [facility] Last Admin: 07/09/16 13:55 Dose: 1 applic - Objective Vital Signs: Vital Signs Temperature 96.8 F L 07/10/16 08:50 Pulse Rate 89 07/10/16 08:50 Respiratory Rate 18 07/10/16 08:50 Blood Pressure 126/93 07/10/16 08:50 O2 Sat by Pulse Oximetry (%) 100 07/09/16 21:00 Constitutional: Yes: No Distress, Calm Eyes: Yes: EOM Intact. No: Conjunctiva Clear, PERRL HENT: Yes: Atraumatic, Normocephalic Neck: Yes: Supple, Trachea Midline Cardiovascular: Yes: Regular Rate and Rhythm, S1, S2. No: Bradycardia, Tachycardia, Pulse Irregular, Bruit, JVD, Gallop, Murmur, Rub, S3, S4, Varicosities Respiratory: Yes: Regular, CTA Bilaterally. No: Rales, Rhonchi, Wheezes Gastrointestinal: Yes: Normal Bowel Sounds, Soft. No: Distention, Tenderness Extremities: Yes: Amputation Edema: No Peripheral Pulses WNL: No Neurological: Yes: Alert, Oriented Psychiatric: Yes: Alert, Oriented Labs: CBC, BMP 07/10/16 06:15 07/10/16 06:15 INR, PTT INR 1.03 (0.82-1.09) 07/08/16 03:50 - ....Imaging Chest X-ray: Report Reviewed, Image Reviewed EKG: Report Reviewed, Image Reviewed Other: Report Reviewed, Image Reviewed Assessment/Plan 55 year old man with a history of HTN, DM type I, HLD, PAD, CVA, recently at [facility] where he had a LLE partial foot amputation, seen in May by our service and found to have severe LV dysfx with segmental WMA and mod to severe MR. Cath and viability study at [facility] revealed CAD but no viability and he was deemed not a candidate for PCI or CABG. REC: As abov, pt had a cardiac cath at [facility] showing severe multi-vessel CAD that was not amenable to PCI and viability study showed little viability thus CABG was deemed not beneficial. He was then planned for some type of foot surgery but at that point he signed out AMA. Of note he was also found to have a 100% occluded EMILY on carotid doppler. From a cardiac standpoint the plan is to optimize medically for severe LV systolic dysfunction and chronic systolic CHF, secondary to ischemic cardiomyopathy Pt is currently euvolemic Would increase Toprol to 50mg daily Plan to add PA-I or ARB once establish a clearly stable creatinine level, considering that he may be planned for a contrast study with vascular cont current po Lasix cont ASA 81mg daily unless needs to be held for surgery Consideration for ICD as an outpatient after optimized medically Vascular surgery consult pending
[2016-07-10] MEDS: SODIUM HYPOCHLORITE 0.25%- 473 ML BULK BOTTLE TP SCH (14:30)
--- NOTE | 2016-07-10 14:55 | CONSULT ---
- Consultation REQUESTING PROVIDER: Vivek Hinton (Wound Care / Vascular Surgery) CONSULT REQUEST: We have been asked to surgically evaluate this patient for left foot dibetic ulcer. PCP: Cynthia Morin HPI: Called to angelia 55M with PMH of chronic combined systolic and diastolic CHF , uncontrolled insulin dependant insulin non-complaint DM, HTN, HLD, NSTEMI in may 2016, CAD s/p cardiac cath about 1 week ago at [facility] states he was sent by Dr. Villalta (does not know the results), PVD, active smoker, presents to the emergency room for further treatment of his left foot infected diabetic foot ulcer. Patient states he was seen at many different hospitals including this hospital and leaves AMA. He states he had his foot debrided at [facility] recently and he left there after "the doctor messed up my foot". He was there for approximately 15 days and was being treated with antibiotics. During his last hospitalization here he left before he was able to be seen by any subspecialists. Denies n/v/f/c, CP, SOB, SOLIMAN, wheezing, peripheral edema PMHx: As above. PSHx: Left foot debridement at [facility]; s/p amputation of left 4th and 5th toes ( unknown date) Home Medications 3 Aspirin [ASA -] 81 mg PO DAILY 07/08/16 Insulin NPH Hum/Reg Insulin Hm 30 unit SQ BID 07/08/16 [Humulin 70-30 Vial] Allergies: NKDA ROS: CONSTITUTIONAL: Absent: generalized weakness, malaise, loss of appetite, weight change CARDIOVASCULAR: Absent: syncope, palpitations, irregular heart rate, lightheadedness RESPIRATORY: Absent: cough, stridor, hemoptysis GASTROINTESTINAL:Absent: abd pain, abdominal distension, melena, hematochezia GENITOURINARY: Absent: dysuria, frequency, urgency, hesitancy, hematuria, flank pain, genital pain MUSCULOSKELETAL: Absent: myalgia, arthralgia, joint swelling, back pain, neck pain SKIN: Absent: rash, itching, pallor HEMATOLOGIC/IMMUNOLOGIC: Absent: easy bleeding, easy bruising, lymphadenopathy NEUROLOGIC: Absent: headache, focal weakness, paresthesias, dizziness PSYCHIATRIC: Absent: anxiety, depression, suicidal or homicidal ideation, hallucinations. PHYSICAL EXAM: GENERAL: Awake, alert, in no acute distress. HEAD: Normal with no signs of trauma. 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 Left Eye: unremarkable PULM: CTA b/l anteriorly COR: rrr LE:Non-palpable DP/PT pulses. Left forefoot with minimal tendon exposure. No bone. + granulation tissue > fibrinous base. No foul odor or signs of infection. Vital Signs Temperature 98.6 F 07/10/16 14:22 Pulse Rate 82 07/10/16 14:22 Respiratory Rate 18 07/10/16 14:22 Blood Pressure 120/67 07/10/16 14:22 O2 Sat by Pulse Oximetry (%) 100 07/09/16 21:00 Lab Results WBC 10.9 K/mm3 (4.0-10.0) H 07/10/16 06:15 RBC 3.94 M/mm3 (4.00-5.60) L 07/10/16 06:15 Hgb 11.0 GM/dL (11.7-16.9) L 07/10/16 06:15 Hct 33.3 % (35.4-49) L 07/10/16 06:15 MCV 84.6 fl (80-96) 07/10/16 06:15 MCHC 32.9 g/dl (32.0-35.9) 07/10/16 06:15 RDW 14.9 % (11.9-15.9) 07/10/16 06:15 Plt Count 330 K/MM3 (134-434) 07/10/16 06:15 Sodium 136 mmol/L (136-145) 07/10/16 06:15 Potassium 4.8 mmol/L (3.5-5.1) 07/10/16 06:15 Chloride 99 mmol/L (98-107) 07/10/16 06:15 Carbon Dioxide 29 mmol/L (21-32) 07/10/16 06:15 Anion Gap 8 (8-16) 07/10/16 06:15 BUN 22 mg/dL (7-18) H 07/10/16 06:15 Creatinine 1.5 mg/dL (0.7-1.3) H 07/10/16 06:15 Random Glucose 191 mg/dL (74-106) H D 07/10/16 06:15 Calcium 8.8 mg/dL (8.5-10.1) 07/10/16 06:15 Blood Type AB POSITIVE 07/08/16 04:57 Antibody Screen Negative 07/08/16 03:41 INR 1.03 (0.82-1.09) 07/08/16 03:50 Microbiology 07/08/16 03:50 Foot - Left Dorsum Gram Stain - Final 07/08/16 03:50 Foot - Left Dorsum Wound Culture - Final Staphylococcus Aureus 07/08/16 03:50 Blood - Peripheral Venous Blood Culture - Preliminary NO GROWTH OBTAINED AFTER 48 HOURS, INCUBATION TO CONTINUE FOR 3 DAYS. 07/08/16 03:50 Blood - Peripheral Venous Blood Culture - Preliminary NO GROWTH OBTAINED AFTER 48 HOURS, INCUBATION TO CONTINUE FOR 3 DAYS. Problem List - Problems (1) Wound, open, foot Assessment/Plan: Dressing changed on rounds. Please add santyl --> apply to fibrinous base f/u PVRs Cont care per medicine Tight glycemic control Above plan discussed wirh Dr. Hinton and agrees. Code(s): S91.309A - UNSPECIFIED OPEN WOUND, UNSPECIFIED FOOT, INITIAL ENCOUNTER Qualifiers: Encounter type: subsequent encounter Laterality: left Qualified Code(s): S91.302D - Unspecified open wound, left foot, subsequent encounter (2) Diabetic foot infection Code(s): E11.69 - TYPE 2 DIABETES MELLITUS WITH OTHER SPECIFIED COMPLICATION L08.9 - LOCAL INFECTION OF THE SKIN AND SUBCUTANEOUS TISSUE, [facility] Visit type - Case Type Case Type: ED Admission - Emergency Emergency Visit: Yes ED Registration Date: 07/08/16 Care time: The patient presented to the Emergency Department on the above date and was hospitalized for further evaluation of their emergent condition. - New patient This patient is new to me today: Yes Date on this admission: 07/10/16
--- NOTE | 2016-07-10 15:16 | CONS ---
DATE OF CONSULTATION: 07/08/2016 CARDIOLOGY CONSULTATION REQUESTING PHYSICIAN: Meño Mcgill M.D. REASON FOR CONSULTATION: Optimization of congestive heart failure. HISTORY OF PRESENT ILLNESS: A 55-year-old male, past medical history of hypertension, diabetes, hyperlipidemia, peripheral artery disease, previous CVA, recent evaluation at [facility] for partial left lower extremity foot amputation, was seen by our service here in late May when he was found to have severe LV dysfunction with segmental wall motion abnormalities. He was subsequently transferred for a coronary angiography which revealed multivessel CAD. He then underwent a viability study which showed no viability, and he was deemed not a candidate for coronary bypass, nor for PCI, to be treated medically. He now returns for a persistent left lower extremity nonhealing wound. He denies dyspnea on exertion, edema, PND. Denies palpitations, chest pain, or syncope. He is only taking aspirin at home. ALLERGIES: No known drug allergies. CURRENT MEDICATIONS: Include aspirin 81 mg daily, subcutaneous heparin for DVT prophylaxis, Levemir, Novolog sliding scale. FAMILY HISTORY: Noncontributory. SOCIAL HISTORY: Smokes 1 pack per day for greater than 30 years. PHYSICAL EXAMINATION: Vital signs: Afebrile with temperature of 98.1, pulse 87, blood pressure 156/90, and O2 of 99 on room air. Neck: No carotid bruits. No JVD. Heart: S1, 2. Regular. Chest: Clear. Decreased breath sounds consistent with probable COPD. Abdomen: Soft. No aortic enlargement. Extremities: No significant edema. Left lower extremity is wrapped in gauze. EKG: Sinus tachycardia at 106 beats per minute with left ventricular hypertrophy and nonspecific ST changes. Blood cultures are pending. White count 14.7, hematocrit 32, platelets 342. Sodium 135, creatinine 1.5, glucose 321. BNP 5200. Toxicology screen negative. IMPRESSION: 1. Ischemic cardiomyopathy with chronic systolic congestive heart failure. 2. Diabetes. 3. Left lower extremity nonhealing wound. PLAN: 1. Will obtain records from [facility] including viability scan and cardiac catheterization for review. 2. Will optimize therapy for coronary disease and chronic systolic CHF. Will add low dose Lasix and Toprol XL. Plan to add PA or ARB as creatinine allows. 3. Further treatment of left lower extremity wound as per primary medical team. Thank you for the consultation. DEXTER GARCIA M.D. DONNELL/[id number]
--- NOTE | 2016-07-10 16:38 | CONS ---
DATE OF CONSULTATION: DATE OF DICTATION: 07/08/2016 REQUESTED BY: The hospitalist service. This is a 55-year-old man with longstanding diabetes, hyperlipidemia, active cigarette smoker, smokes a pack per day, who in April was admitted to [facility] with a necrotic ulcer on his left foot. He had the 4th digit amputated and subsequently had the 5th digit amputated from the foot as well. He then left [facility] against medical advice. He subsequently came to [facility] on June 21 with complaints of shortness of breath. He was felt to be having an RI and transferred to [facility]. He reports having had an angiogram at [facility], the details of which are not clear to me. He denies stent. He states they started treating him for his foot. He states he stayed there for 8-9 days, and he left against medical advice again. He reports he has been using sterile saline and clean Bounty towels for his own wound care. He subsequently presented to [facility] on July 05 complaining that his leg was getting worse and malodorous. He stayed overnight and left AMA on the . He now comes back to the emergency room on the complaining of worsening pain in his left leg. He denies any fevers and chills. He has no regular doctor. He reports that he does still take insulin and aspirin. PAST MEDICAL HISTORY: Notable for history of diabetes he reports for many years. He takes insulin. He has a history of hypercholesterolemia. To me he denies hypertension, and the only surgery he has had are the 2 amputations to his foot. SOCIAL HISTORY: He was living in [facility]. He has now moved to [place]. He is an active cigarette smoker. He smokes 1 pack per day. He denies any other illicit drug use. ALLERGIES: He has no known drug allergies. REVIEW OF SYSTEMS: He denies nausea, vomiting, fevers, chills, otherwise feels well. He notes pain in both his lower legs when he ambulates, which he attributes to the neuropathy. PHYSICAL EXAMINATION: Vital Signs: His temperature is 99.1. Pulse is 92. Blood pressure is 130/70. Respiratory rate is 20. He weighs 158 pounds. His O2 saturation is 99% on room air. HEENT: He is normocephalic. He has a cloudy right eye secondary to penetrating trauma many years ago. Neck: He has no thrush. His neck is supple. Lungs: Clear to auscultation. Heart: Regular rate and rhythm. Abdomen: Soft. Extremities: Notable for a large open wound on his left leg. He has 2 toes that have been amputated. He has exposed tendons. There is some erythema on the lateral aspect of his foot. He has no purulent drainage. LABORATORY: Notable for a white count of 14.7, hemoglobin 10.7. Platelets are 342. Sedimentation rate is 128. INR is 1.03. BUN and creatinine are 29 and 1.5. Glucose of 321. His hemoglobin A1c is 10.2. Urinalysis has 2+ protein, and his urine toxicology is negative. Blood cultures from the 8th are today growing 1 bottle out of 4 is growing gram-positive cocci in clusters. Repeat blood culture has been sent. A culture of the dorsum of his left foot has been sent that shows rare white cells, the Gram stain with moderate gram-positive in pairs and chains and clusters. X-ray of the foot has been done and shows slight swelling and postsurgical changes of the 4th and 5th toes. Chest x-ray shows congestion. SUMMARY: This is a noncompliant 55-year-old man who currently has no doctor. He has left 3 institutions including ours against medical advice in the last 3 months, who is now admitted with what he reports is a worsening diabetic foot infection with exposed tendons of his left foot status post amputation to the 4th and 5th toe. He also has 1 positive blood culture. It is difficult to know if this is a true pathogen or whether this is contamination, which I would suspect as it has turned positive 3 days after it was drawn. I would continue him on vancomycin and Zosyn at this time, will adjust for his renal insufficiency. I cannot palpate any pulses in his feet. He is to be seen by Vascular and Podiatry. I have suggested smoking cessation to him as well as it is unlikely that we will get any kind of good result if he continues to smoke cigarettes. As well, his diabetes is very poorly controlled with a hemoglobin A1c of greater than 10. Further recommendations to follow based on his clinical course. Will await surgical opinion as to deciding what the best course of action would be in terms of caring for this man and his foot. MATTHEW BACH M.D. JAZMYN/[id number]
[2016-07-10] MEDS ORDERED: COLLAGENASE CLOSTRIDIUM HIST. 30 GRAMS TUBE TP SCH (17:15)
[2016-07-10] MEDS: CEFAZOLIN 2 GM/D5W 50 ML IVPB SCH (17:50)
[2016-07-10] MEDS: COLLAGENASE CLOSTRIDIUM HIST. 30 GRAMS TUBE TP SCH (17:51)
--- NOTE | 2016-07-10 19:46 | PN ---
Progress Note (short form) - Note Progress Note: Vascular surgery Pt seen and examined. Extensive medical history. Recently was at [facility] and had partial foot amputation. Had 2 debridements done on left foot. Arterial studies reviewed -- GUSTABO in left foot is .86. Left is much better than right. Will start santyl on wound. Pt will need Hyperbaric oxygen therapy to aid healing. With adequate blood flow, foot should heal. There is good healthy granulation tissue there. Will need to follow up in wound care clinic. Vivek Hinton DO
[2016-07-10] MEDS: INSULIN DETEMIR 100 UNITS/ML MDV SQ SCH (22:28)
[2016-07-11] MEDS: CEFAZOLIN 2 GM/D5W 50 ML IVPB SCH ×3 (02:05→18:25)
[2016-07-11] MEDS: HEPARIN NA (PORCINE) 5,000 UNITS/ML 1ML VIAL SQ SCH ×3 (06:31→22:03)
[2016-07-11] MEDS: INSULIN SLIDING SCALE (NOVOLOG) 1 VIAL SQ SCH ×4 (06:32→22:01)
[2016-07-11 07:55] LABS: BASOPHIL 1.4 % (0-2.0); EOSINOPHIL 2.2 % (0-4.5); MCHC 33.2 g/dl (32.0-35.9); MEAN CELL VOLUME 84.2 fl (80-96); MEAN PLT VOLUME 8.1 fl (7.5-11.1); NEUTROPHILS 59.8 % (42.8-82.8); PLATELET COUNT 327 K/MM3 (134-434); RDW 15.1 % (11.9-15.9); WHITE BLOOD COUNT 9.8 K/mm3 (4.0-10.0)
[2016-07-11 08:29] LABS: CALCIUM 8.5 mg/dL (8.5-10.1); CREATININE 1.4 mg/dL (0.7-1.3)
[2016-07-11] MEDS: ASPIRIN 81 MG CHEWABLE TABLETS PO SCH (10:01)
[2016-07-11] MEDS: FUROSEMIDE 20 MG TABLET (FP) PO SCH (10:02)
[2016-07-11] MEDS: METOPROLOL SUCCINATE 25 MG TAB.SR.24H (FP) PO SCH (10:02)
[2016-07-11] MEDS: SODIUM HYPOCHLORITE 0.25%- 473 ML BULK BOTTLE TP SCH (10:42)
[2016-07-11] MEDS: COLLAGENASE CLOSTRIDIUM HIST. 30 GRAMS TUBE TP SCH (10:42)
--- NOTE | 2016-07-11 14:42 | PN ---
<MannyBrenda - Last Filed: 07/11/16 16:40> Physical Exam: SUBJECTIVE: Patient seen and examined by me at bedside. Patient offers no complaints and denies any shortness of breath, chest pain, palpitations, fever, chills, nausea, vomiting, diarrhea, constipation, OBJECTIVE: Vital Signs Period Temp Pulse Resp BP Sys/Humphreys Pulse Ox Last 24 Hr 98.4 F-99.7 F 89-96 18-20 119-144/69-79 100 GENERAL: The patient is awake, alert, and fully oriented, in no acute distress. EYES: Right eye opacification s/p injury LUNGS: Breath sounds equal, clear to auscultation bilaterally, no wheezes, no crackles, no accessory muscle use. HEART: Regular rate and rhythm, S1, S2 without murmur, rub or gallop. ABDOMEN: Soft, nontender, nondistended, no guarding, no rebound, no hepatosplenomegaly, no masses. EXTREMITIES: Left Foot: Exposed bone and tendon of the dorsum with minimal serous drainage and no palpable pulses . S/P left 4th and 5th toe amputation. Intact sensation of plantar surfaces bilaterally. Laboratory Results - last 24 hr 07/09/16 07/09/16 07/10/16 18:01 21:29 05:50 WBC RBC Hgb Hct MCV MCHC RDW Plt Count MPV Neutrophils % Lymphocytes % Monocytes % Eosinophils % Basophils % Sodium Potassium Chloride Carbon Dioxide Anion Gap BUN Creatinine POC Glucometer 260 254 200 Random Glucose Calcium 07/10/16 07/10/16 07/10/16 11:22 16:51 22:22 WBC RBC Hgb Hct MCV MCHC RDW Plt Count MPV Neutrophils % Lymphocytes % Monocytes % Eosinophils % Basophils % Sodium Potassium Chloride Carbon Dioxide Anion Gap BUN Creatinine POC Glucometer 277 360 262 Random Glucose Calcium 07/11/16 07/11/16 07/11/16 06:25 06:30 06:30 WBC 9.8 RBC 3.91 L Hgb 10.9 L Hct 32.9 L MCV 84.2 MCHC 33.2 RDW 15.1 Plt Count 327 MPV 8.1 Neutrophils % 59.8 Lymphocytes % 28.3 Monocytes % 8.3 Eosinophils % 2.2 Basophils % 1.4 Sodium 136 Potassium 4.5 Chloride 99 Carbon Dioxide 27 Anion Gap 10 BUN 20 H Creatinine 1.4 H POC Glucometer 254 Random Glucose 227 H Calcium 8.5 07/11/16 11:35 WBC RBC Hgb Hct MCV MCHC RDW Plt Count MPV Neutrophils % Lymphocytes % Monocytes % Eosinophils % Basophils % Sodium Potassium Chloride Carbon Dioxide Anion Gap BUN Creatinine POC Glucometer 236 Random Glucose Calcium Active Medications Generic Name Dose Route Start Last Admin Trade Name Johnnyq PRN Reason Stop Dose Admin Aspirin 81 mg 07/08/16 10:00 07/11/16 10:01 Asa - PO 81 mg DAILY GABBY Administration Collagenase 1 applic 07/10/16 17:15 07/11/16 10:42 Santyl - TP 1 applic DAILY GABBY Administration Furosemide 20 mg 07/08/16 10:45 07/11/16 10:02 Lasix - PO 20 mg DAILY GABBY Administration Heparin Sodium (Porcine) 5,000 unit 07/08/16 14:00 07/11/16 13:35 Heparin - SQ 5,000 unit TID GABBY Administration Cefazolin Sodium/Dextrose 50 mls @ 100 mls/hr 07/10/16 18:00 07/11/16 10:02 Ancef 2 Gm Premixed Ivpb - IVPB 100 mls/hr Q8H-IV GABBY Administration Insulin Aspart 1 vial 07/08/16 11:00 07/11/16 11:37 Novolog Vial Sliding Scale - SQ 4 units ACHS GABBY Administration Protocol Insulin Detemir 10 units 07/08/16 22:00 07/10/16 22:28 Levemir Vial SQ 10 units HS GABBY Administration Metoprolol Succinate 25 mg 07/10/16 10:00 07/11/16 10:02 Toprol Xl - PO 25 mg DAILY GABBY Administration Sodium Hypochlorite 1 applic 07/09/16 10:00 07/11/16 10:42 Dakin's Solution 0.25% (Half-Strength) - TP 1 applic DAILY GABBY Administration ASSESSMENT/PLAN: Patient is a 55 year old male with a PMHx of uncontrolled diabetes, combined systolic and diastolic CHF, CAD, HTN, HLD, and PVD who presented for chronic diabetic foot ulcer after signing out AMA a few days prior. Patient returns for continuation of wound care. Patient admitted for further monitoring and management. Sepsis secondary to infected foot ulcer -Sepsis resolving -Two debridements done on left foot -Continue Cefazolin Q8H -Continue Santyl daily -Continue Dakin's solution daily -Cultures revealed staph aureus -Foot MRI pending to rule out osteomyelitis -Vascular Surgery consult appreciated and recommended patient will need hyperbaric oxygen therapy to further aid in healing -Podiatry consult appreciated CAD with history of NSTEMI -Recent cardiac cath done at [facility] and showed multiple vessel disease with nonviable tissue. -Carotid doppler revealed 100% occlusion of the EMILY -ECHO revealed severe left ventricular systolic dysfunction -Continue to treat medically -Continue Toprol XL 25mg daily -Continue ASA 81mg daily -Continue Lasix 20mg PO daily MIRTHA- resolving -Likely secondary to dehydration -Creeatinin 1.4 -Fluids discontinued -Continue daily BMP Uncontrolled Diabetes Mellitus Type II -Patient noncompliant with medications -Continue Levemir 10 units SQ HS -Insulin Sliding check with BGM HTN -Continue Toprol 25mg daily -Continue Lasix 20mg daily -Continue to monitor BP daily F/E/N -On no fluids -Electrolytes wnl -Diabetic controlled diet Prophylaxis -Heparin 5000 units AQ TID -No GI needed Disposition -Full code -Awaiting foot MRI Visit type - Emergency Visit Emergency Visit: No - New Patient This patient is new to me today: Yes Date on this admission: 07/11/16 - Critical Care Critical Care patient: No <Isaiah Driscoll - Last Filed: 07/12/16 15:37> Physical Exam: 55M with PMH of chronic combined systolic and diastolic CHF, uncontrolled insulin dependant insulin non-complaint DM, HTN, HLD, NSTEMI in may 2016, CAD s/p cardiac cath about 1 week ago at [facility] states he was sent by Dr. Villalta (does not know the results), PVD admitted for cellulitis of chronic non-healing left foot ulcer cellulitis of chronic non-healing left foot ulcer -was never febrile -WBC has trended down to normal -wound looks clean with granulation tissue but has exposed bone -cont cefazolin as per ID recs -follow up cultures that were done last week -follow up MRI to rule out osteo given exposed bone -follow up with vascular surgery about PVD (worse in right foot than in left) -glucose uncontrolled: change levemir to BID and cont sliding scale insulin
[2016-07-11] MEDS ORDERED: INSULIN (NOVOLOG) ASPART 100 UNITS/ML 10ML VIAL ONE (21:01)
[2016-07-11] MEDS: INSULIN DETEMIR 100 UNITS/ML MDV SQ SCH (22:02)
[2016-07-12] MEDS: CEFAZOLIN 2 GM/D5W 50 ML IVPB SCH ×2 (01:46→10:21)
[2016-07-12] MEDS ORDERED: ACETAMINOPHEN 325 MG TABLET (FP) PO ONE (05:58)
[2016-07-12] MEDS: HEPARIN NA (PORCINE) 5,000 UNITS/ML 1ML VIAL SQ SCH ×3 (06:13→22:19)
[2016-07-12] MEDS: INSULIN SLIDING SCALE (NOVOLOG) 1 VIAL SQ SCH ×4 (06:13→22:19)
[2016-07-12 08:13] LABS: MCH 27.8 pg (25.7-33.7); MEAN CELL VOLUME 84.2 fl (80-96); PLATELET COUNT 342 K/MM3 (134-434); RDW 15.2 % (11.9-15.9)
[2016-07-12 08:33] LABS: CALCIUM 8.6 mg/dL (8.5-10.1); CREATININE 1.3 mg/dL (0.7-1.3)
--- NOTE | 2016-07-12 09:36 | PN ---
Progress Note, Physician Chief Complaint: RLE duplex shows significant PAD History of Present Illness: wants to stop lasix Says the Toprol 25 is "too much for me" - Current Medication List Current Medications: Active Medications Aspirin (Asa -) 81 mg PO DAILY [facility] Last Admin: 07/11/16 10:01 Dose: 81 mg Collagenase (Santyl -) 1 applic TP DAILY [facility] Last Admin: 07/11/16 10:42 Dose: 1 applic Furosemide (Lasix -) 20 mg PO DAILY [facility] Last Admin: 07/11/16 10:02 Dose: 20 mg Heparin Sodium (Porcine) (Heparin -) 5,000 unit SQ TID [facility] Last Admin: 07/12/16 06:13 Dose: 5,000 unit Cefazolin Sodium/Dextrose (Ancef 2 Gm Premixed Ivpb -) 50 mls @ 100 mls/hr IVPB Q8H-IV [facility] Last Admin: 07/12/16 01:46 Dose: 100 mls/hr Insulin Aspart (Novolog Vial Sliding Scale -) 1 vial SQ ACHS [facility] PRN Reason: Protocol Last Admin: 07/12/16 06:13 Dose: 2 units Insulin Detemir (Levemir Vial) 10 units SQ HS [facility] Last Admin: 07/11/16 22:02 Dose: 10 units Metoprolol Succinate (Toprol Xl -) 25 mg PO DAILY [facility] Last Admin: 07/11/16 10:02 Dose: 25 mg Sodium Hypochlorite (Dakin's Solution 0.25% (Half-Strength) -) 1 applic TP DAILY [facility] Last Admin: 07/11/16 10:42 Dose: 1 applic - Objective Vital Signs: Vital Signs Temperature 98 F 07/11/16 22:00 Pulse Rate 84 07/11/16 22:00 Respiratory Rate 18 07/11/16 22:00 Blood Pressure 128/76 07/11/16 22:00 O2 Sat by Pulse Oximetry (%) 100 07/11/16 21:00 Constitutional: Yes: No Distress Cardiovascular: Yes: Regular Rate and Rhythm Respiratory: Yes: CTA Bilaterally Gastrointestinal: Yes: Soft Edema: No Neurological: Yes: Alert Labs: CBC, BMP 07/12/16 06:10 07/12/16 06:10 INR, PTT INR 1.03 (0.82-1.09) 07/08/16 03:50 Assessment/Plan Assessment/Plan 55 year old man with a history of HTN, DM type I, HLD, PAD, CVA, recently at [facility] where he had a LLE partial foot amputation, seen in May by our service and found to have severe LV dysfx with segmental WMA and mod to severe MR. Cath and viability study at [facility] revealed CAD but no viability and he was deemed not a candidate for PCI or CABG. REC: As abov, pt [facility] showing severe multi-vessel CAD that was not amenable to PCI and viability study showed little viability thus CABG was deemed not beneficial. He was then planned for some type of foot surgery but at that point he signed out AMA. Of note he was also found to have a 100% occluded EMILY on carotid doppler. From a cardiac standpoint the plan is to optimize medically for severe LV systolic dysfunction and chronic systolic CHF, secondary to ischemic cardiomyopathy Pt is currently euvolemic He refuses to take anything more than Toprol 12.5mg daily. Refusing Lasix. Add Lisinopril 2.5,g daily. cont ASA 81mg daily unless needs to be held for surgery Consideration for ICD as an outpatient after optimized medically Vascular surgery eval in progress
[2016-07-12] MEDS: ASPIRIN 81 MG CHEWABLE TABLETS PO SCH (10:21)
[2016-07-12] MEDS: LISINOPRIL 5 MG TABLET (FP) PO SCH (10:21)
[2016-07-12] MEDS: METOPROLOL SUCCINATE 25 MG TAB.SR.24H (FP) PO SCH (10:21)
[2016-07-12] MEDS: COLLAGENASE CLOSTRIDIUM HIST. 30 GRAMS TUBE TP SCH (10:21)
--- NOTE | 2016-07-12 11:38 | PN ---
Progress Note, Physician Chief Complaint: ID Doing well Cefazolin - Current Medication List Current Medications: Active Medications Aspirin (Asa -) 81 mg PO DAILY [facility] Last Admin: 07/12/16 10:21 Dose: 81 mg Collagenase (Santyl -) 1 applic TP DAILY [facility] Last Admin: 07/12/16 10:21 Dose: 1 applic Heparin Sodium (Porcine) (Heparin -) 5,000 unit SQ TID [facility] Last Admin: 07/12/16 06:13 Dose: 5,000 unit Cefazolin Sodium/Dextrose (Ancef 2 Gm Premixed Ivpb -) 50 mls @ 100 mls/hr IVPB Q8H-IV [facility] Last Admin: 07/12/16 10:21 Dose: 100 mls/hr Insulin Aspart (Novolog Vial Sliding Scale -) 1 vial SQ ACHS [facility] PRN Reason: Protocol Last Admin: 07/12/16 06:13 Dose: 2 units Insulin Detemir (Levemir Vial) 10 units SQ HS [facility] Last Admin: 07/11/16 22:02 Dose: 10 units Lisinopril (Prinivil) 2.5 mg PO DAILY [facility] Last Admin: 07/12/16 10:21 Dose: 2.5 mg Metoprolol Succinate (Toprol Xl -) 12.5 mg PO DAILY [facility] Last Admin: 07/12/16 10:21 Dose: 12.5 mg Sodium Hypochlorite (Dakin's Solution 0.25% (Half-Strength) -) 1 applic TP DAILY [facility] Last Admin: 07/11/16 10:42 Dose: 1 applic - Objective Vital Signs: Vital Signs Temperature 98 F 07/11/16 22:00 Pulse Rate 84 07/11/16 22:00 Respiratory Rate 18 07/11/16 22:00 Blood Pressure 128/76 07/11/16 22:00 O2 Sat by Pulse Oximetry (%) 100 07/11/16 21:00 Constitutional: Yes: Well Nourished, No Distress Neck: Yes: WNL, Supple Cardiovascular: Yes: Regular Rate and Rhythm, S1, S2 Respiratory: Yes: WNL, Regular, CTA Bilaterally Gastrointestinal: Yes: WNL, Normal Bowel Sounds, Soft. No: Tenderness Labs: CBC, BMP 07/12/16 06:10 07/12/16 06:10 INR, PTT INR 1.03 (0.82-1.09) 07/08/16 03:50 Assessment/Plan Microbiology 07/08/16 03:50 Foot - Left Dorsum Gram Stain - Final 07/08/16 03:50 Foot - Left Dorsum Wound Culture - Final Staphylococcus Aureus 07/08/16 03:50 Blood - Peripheral Venous Blood Culture - Preliminary NO GROWTH OBTAINED AFTER 96 HOURS, INCUBATION TO CONTINUE FOR 1 DAYS. 07/08/16 03:50 Blood - Peripheral Venous Blood Culture - Preliminary NO GROWTH OBTAINED AFTER 96 HOURS, INCUBATION TO CONTINUE FOR 1 DAYS. Laboratory Tests 07/08/16 07/08/16 07/12/16 08:19 08:19 06:10 WBC 9.0 Hgb 11.1 L Hct 33.6 L Plt Count 342 ESR 128 H C-Reactive Protein 7.5 H Assessment Extensive dorsal left foot resection with large open wound some purulent drainage seen Wind margins clean Suspect undelying osteo ESR 128 Has PAD and CAD Plan Ceftriaxone daily MRI Wound care
[2016-07-12 11:47] LABS: C-REACTIVE PROTEIN 3.3 MG/DL (0.00-0.3)
[2016-07-12] MEDS: SODIUM HYPOCHLORITE 0.25%- 473 ML BULK BOTTLE TP SCH (13:17)
[2016-07-12] MEDS ORDERED: INSULIN DETEMIR 100 UNITS/ML MDV SQ ONE (14:41)
--- NOTE | 2016-07-12 15:00 | PN ---
Physical Exam: SUBJECTIVE: Patient seen and examined Pt is awake,alert and oriented Denies pain in lower ext ambulating without difficulty left dorsum foot wound OBJECTIVE: Vital Signs Period Temp Pulse Resp BP Sys/Humphreys Pulse Ox Last 24 Hr 97.7 F-98.2 F 77-87 18-18 121-141/75-78 100 GENERAL: The patient is awake, alert, and fully oriented, in no acute distress. HEAD: Normal with no signs of trauma. NECK: Trachea midline, full range of motion, supple. LUNGS: Breath sounds equal, clear to auscultation bilaterally, no wheezes, no crackles, no accessory muscle use. HEART: Regular rate and rhythm, S1, S2 with systolic murmur, rub or gallop. ABDOMEN: Soft, nontender, nondistended, normoactive bowel sounds, no guarding, no rebound, no hepatosplenomegaly, no masses. EXTREMITIES: 1+ pulses, warm, well-perfused, no edema in right lower ext. left doesum foot s/p debridment with purulent drainage.r NEUROLOGICAL: Normal speech, normal gait. PSYCH: Normal mood, normal affect. SKIN: Warm, dry, normal turgor, no rashes or lesions noted Laboratory Results - last 24 hr 07/11/16 07/11/16 07/12/16 16:50 21:52 05:59 WBC RBC Hgb Hct MCV MCHC RDW Plt Count MPV Sodium Potassium Chloride Carbon Dioxide Anion Gap BUN Creatinine POC Glucometer 258 294 170 Random Glucose Calcium C-Reactive Protein 07/12/16 07/12/16 07/12/16 06:10 06:10 06:10 WBC 9.0 RBC 3.99 L Hgb 11.1 L Hct 33.6 L MCV 84.2 MCHC 33.0 RDW 15.2 Plt Count 342 MPV 8.0 Sodium 139 Potassium 4.3 Chloride 102 Carbon Dioxide 27 Anion Gap 10 BUN 19 H Creatinine 1.3 POC Glucometer Random Glucose 137 H D Calcium 8.6 C-Reactive Protein 3.3 H D Cancelled 07/12/16 12:36 WBC RBC Hgb Hct MCV MCHC RDW Plt Count MPV Sodium Potassium Chloride Carbon Dioxide Anion Gap BUN Creatinine POC Glucometer 247 Random Glucose Calcium C-Reactive Protein Active Medications Generic Name Dose Route Start Last Admin Trade Name Freq PRN Reason Stop Dose Admin Aspirin 81 mg 07/08/16 10:00 07/12/16 10:21 Asa - PO 81 mg DAILY [facility] Administration Collagenase 1 applic 07/10/16 17:15 07/12/16 10:21 Santyl - TP 1 applic DAILY [facility] Administration Heparin Sodium (Porcine) 5,000 unit 07/08/16 14:00 07/12/16 06:13 Heparin - SQ 5,000 unit TID [facility] Administration Ceftriaxone Sodium 100 mls @ 200 mls/hr 07/13/16 10:00 Rocephin 2gm Ivpb (Pre-Docked) IVPB DAILY [facility] Insulin Aspart 1 vial 07/08/16 11:00 07/12/16 12:36 Novolog Vial Sliding Scale - SQ 4 units ACHS [facility] Administration Protocol Insulin Detemir 10 units 07/12/16 14:41 Levemir Vial SQ 07/12/16 14:42 ONCE ONE Insulin Detemir 10 units 07/12/16 22:00 Levemir Vial SQ BID [facility] Lisinopril 2.5 mg 07/12/16 10:00 07/12/16 10:21 Prinivil PO 2.5 mg DAILY [facility] Administration Metoprolol Succinate 12.5 mg 07/12/16 10:00 07/12/16 10:21 Toprol Xl - PO 12.5 mg DAILY [facility] Administration ASSESSMENT/PLAN: 55 year old male very non compliant smoker with pmh of HTN, HPLD, NSTEMI, CAD, PAD, PVD presented to the ED s/p left foot debridement at [facility] 8weeks ago complaining of left foot infection. Diabetic foot Ulcer r/o osteomyelitis with resolved sepsis No more pain on left foot granulated tissue at base with purulent fluid in dorsum of left foot GUSTABO left 0.86, GUSTABO right 0.47 F/u blood culture Wound culture positive for pansensitive Staph aureus Continue Ancef 2gm IV q8h ID on case review previous admission culture MRI left foot to r/o Osteomyelitis Per vascular: santyl on wound, Hyperbaric oxygen therapy to aid healing, follow up in wound care clinic. h/o NSTEMI Continue metoprolol succinate Lisinopril ASA LAsix Cardiology on case Diabetes type 2 Blood sugar consistently above 200 Increase to Lantus 10U SQ BID Novolog sliding scale HTN Metoptrolol Lisinopril FEN fluid: none Electrolytes: No abnormalities Nutrition: diabetes DVT prophylaxis: heparin sq 5000 U TID Disposition: Keep in hospital pending MRI to r/o osteomyelitis Visit type - Emergency Visit Emergency Visit: Yes ED Registration Date: 07/08/16 Care time: The patient presented to the Emergency Department on the above date and was hospitalized for further evaluation of their emergent condition. - New Patient This patient is new to me today: Yes Date on this admission: 07/12/16 - Critical Care Critical Care patient: No - Discharge Referral Referred to [facility] Med P.C.: No
[2016-07-12] MEDS: INSULIN DETEMIR 100 UNITS/ML MDV SQ SCH (22:19)
[2016-07-13] MEDS: INSULIN DETEMIR 100 UNITS/ML MDV SQ SCH ×2 (06:47→22:05)
[2016-07-13] MEDS: INSULIN SLIDING SCALE (NOVOLOG) 1 VIAL SQ SCH ×4 (06:47→21:48)
[2016-07-13] MEDS: HEPARIN NA (PORCINE) 5,000 UNITS/ML 1ML VIAL SQ SCH ×3 (06:48→21:46)
[2016-07-13 08:03] LABS: CALCIUM 8.3 mg/dL (8.5-10.1); CREATININE 1.3 mg/dL (0.7-1.3)
--- NOTE | 2016-07-13 08:39 | PN ---
<Brian Zamudio - Last Filed: 07/13/16 13:25> Physical Exam: SUBJECTIVE: Patient seen and examined Pt is awake,alert and oriented in bed Denies pain in lower ext Wound care on dorsum of left foot done by podaitry this morning ambulating without difficulty Discussed MRI of foot with patient OBJECTIVE: Vital Signs Period Temp Pulse Resp BP Sys/Humphreys Pulse Ox Last 24 Hr 97.7 F-99 F 79-91 18-20 121-143/74-82 98-98 GENERAL: The patient is awake, alert, and fully oriented, in no acute distress. HEAD: Normal with no signs of trauma. NECK: Trachea midline, full range of motion, supple. LUNGS: Breath sounds equal, clear to auscultation bilaterally, no wheezes, no crackles, no accessory muscle use. HEART: Regular rate and rhythm, S1, S2 with systolic murmur, rub or gallop. ABDOMEN: Soft, nontender, nondistended, normoactive bowel sounds, no guarding, no rebound, no hepatosplenomegaly, no masses. EXTREMITIES: 1+ pulses, warm, well-perfused, no edema in right lower ext. left dorsum foot s/p debridment with purulent drainage, yellow and red base with granulated tissue. NEUROLOGICAL: Normal speech, normal gait. PSYCH: Normal mood, normal affect. SKIN: Warm, dry, normal turgor, no rashes or lesions noted Laboratory Results - last 24 hr 07/12/16 07/12/16 07/12/16 06:10 06:10 12:36 Sodium Potassium Chloride Carbon Dioxide Anion Gap BUN Creatinine POC Glucometer 247 Random Glucose Calcium C-Reactive Protein 3.3 H D Cancelled 07/12/16 07/12/16 07/13/16 18:04 22:18 06:20 Sodium 137 Potassium 4.4 Chloride 101 Carbon Dioxide 26 Anion Gap 10 BUN 22 H Creatinine 1.3 POC Glucometer 172 174 Random Glucose 120 H Calcium 8.3 L C-Reactive Protein 07/13/16 06:47 Sodium Potassium Chloride Carbon Dioxide Anion Gap BUN Creatinine POC Glucometer 127 Random Glucose Calcium C-Reactive Protein Active Medications Generic Name Dose Route Start Last Admin Trade Name Freq PRN Reason Stop Dose Admin Aspirin 81 mg 07/08/16 10:00 07/12/16 10:21 Asa - PO 81 mg DAILY [facility] Administration Collagenase 1 applic 07/10/16 17:15 07/12/16 10:21 Santyl - TP 1 applic DAILY [facility] Administration Heparin Sodium (Porcine) 5,000 unit 07/08/16 14:00 07/13/16 06:48 Heparin - SQ 5,000 unit TID [facility] Administration Ceftriaxone Sodium 100 mls @ 200 mls/hr 07/13/16 10:00 Rocephin 2gm Ivpb (Pre-Docked) IVPB DAILY [facility] Insulin Aspart 1 vial 07/08/16 11:00 07/13/16 06:47 Novolog Vial Sliding Scale - SQ Not Given ACHS [facility] Protocol Insulin Detemir 10 units 07/12/16 22:00 07/13/16 06:47 Levemir Vial SQ 10 units BID@0700,2200 [facility] Administration Lisinopril 2.5 mg 07/12/16 10:00 07/12/16 10:21 Prinivil PO 2.5 mg DAILY [facility] Administration Metoprolol Succinate 12.5 mg 07/12/16 10:00 07/12/16 10:21 Toprol Xl - PO 12.5 mg DAILY [facility] Administration CBC, BMP 07/12/16 06:10 07/13/16 06:20 Microbiology 07/08/16 03:50 Foot - Left Dorsum Gram Stain - Final 07/08/16 03:50 Foot - Left Dorsum Wound Culture - Final Staphylococcus Aureus 07/08/16 03:50 Blood - Peripheral Venous Blood Culture - Final NO GROWTH AFTER 5 DAYS INCUBATION 07/08/16 03:50 Blood - Peripheral Venous Blood Culture - Final NO GROWTH AFTER 5 DAYS INCUBATION 07/05/16 22:44 Blood - Peripheral Venous Blood Culture - Final Pending Organism 07/05/16 22:44 Blood - Peripheral Venous Blood Culture - Final NO GROWTH AFTER 5 DAYS INCUBATION 07/08/16 03:50 Blood - Peripheral Venous Blood Culture - Preliminary NO GROWTH OBTAINED AFTER 96 HOURS, INCUBATION TO CONTINUE FOR 1 DAYS. 07/08/16 03:50 Blood - Peripheral Venous Blood Culture - Preliminary NO GROWTH OBTAINED AFTER 96 HOURS, INCUBATION TO CONTINUE FOR 1 DAYS. Laboratory Tests 07/08/16 07/12/16 07/13/16 08:19 06:10 06:20 ESR 128 H > 130 H C-Reactive Protein 3.3 H D ASSESSMENT/PLAN: 55 year old male very non compliant smoker with pmh of HTN, HPLD, NSTEMI, CAD, PAD, PVD presented to the ED s/p left foot debridement at [facility] 8weeks ago complaining of left foot infection. Diabetic foot Ulcer r/o osteomyelitis with resolved sepsis No more pain on left foot granulated tissue at base with purulent fluid in dorsum of left foot GUSTABO left 0.86, GUSTABO right 0.47, no need for angiogram right now F/u blood culture, for far negative Wound culture positive for pansensitive Staph aureus Continue Ancef 2gm IV q8h ID on case MRI left foot to r/o Osteomyelitis, ordered and pending Per vascular: santyl on wound, Hyperbaric oxygen therapy to aid healing, follow up in wound care clinic. Podiatry on case, will follow up outpatient and wound care clinic h/o NSTEMI Continue metoprolol succinate Lisinopril ASA LAsix Cardiology on case Diabetes type 2 Blood sugar consistently above 200 Increase to Lantus 10U SQ BID Novolog sliding scale HTN Metoptrolol Lisinopril FEN fluid: none Electrolytes: No abnormalities Nutrition: diabetes DVT prophylaxis: heparin sq 5000 U TID Disposition: Keep in hospital pending MRI to r/o osteomyelitis Visit type - Emergency Visit Emergency Visit: Yes ED Registration Date: 07/08/16 Care time: The patient presented to the Emergency Department on the above date and was hospitalized for further evaluation of their emergent condition. - New Patient This patient is new to me today: No - Critical Care Critical Care patient: No <Isaiah Driscoll - Last Filed: 07/13/16 14:38> Physical Exam: ATTENDING PHYSICIAN STATEMENT I saw and evaluated the patient. I reviewed the resident's note and discussed the case with the resident. I agree with the resident's findings and plan as documented. SUBJECTIVE: seen and evaluated at the bedside OBJECTIVE: resting comfortably in bed; foot wrapped in surgical dressing ASSESSMENT AND PLAN: 55M with PMH of chronic combined systolic and diastolic CHF, uncontrolled insulin dependant insulin non-complaint DM, HTN, HLD, NSTEMI in may 2016, CAD s/p cardiac cath about 1 week ago at [facility] states he was sent by Dr. Villalta (does not know the results), PVD admitted for cellulitis of chronic non-healing left foot ulcer cellulitis of chronic non-healing left foot ulcer -was never febrile -WBC has trended down to normal -wound looks clean with granulation tissue but has exposed bone -cont cefazolin as per ID recs -follow up cultures that were done last week -follow up MRI to rule out osteo given exposed bone -as per vascular surgery pt currently does not need surgical intervention to right leg/foot -changed levemir to BID and cont sliding scale insulin
--- NOTE | 2016-07-13 08:54 | PN ---
Progress Note (short form) - Note Progress Note: Podiatry: Seen and evaluated at bedside, NAD. Pain well controlled to L foot, denies F/V/ N/C/SOB/CP. Afebrile, VSS. LUDWIG: L foot: large DFU, mixed fibrogranular base with exposed tendon dorsally, no fluctuance, no purulence, no streaking cellulitis, no soft tissue crepitus. Periwound erythema improved. Minimal tenderness to palpation of wound. WBC: 9.0 Wound Cx: MSSA MRI L foot: pending Imp: 55 year old DM M with L DFU 1. C/w IV abx per ID 2. Excisional debridement L foot to level of subcutaneous tissue and muscle using sterile scissors and #15 blade scalpel. Patient tolerated the procedure well without complications. Healthy bleeding noted. 3. Continue Santyl Rx 4. MRI L foot pending. Likely has OM. 5. Discussed case with Dr. Hinton, has adequate circulation to heal. Will need HBO Tx as outpatient. Upon discharge, needs close follow up with me in [facility] on 07/18/16. Sarita Yeh DPM
[2016-07-13] MEDS: ASPIRIN 81 MG CHEWABLE TABLETS PO SCH (09:30)
[2016-07-13] MEDS: CEFTRIAXONE 100 ML IVPB SCH (09:30)
[2016-07-13] MEDS: METOPROLOL SUCCINATE 25 MG TAB.SR.24H (FP) PO SCH (09:30)
[2016-07-13] MEDS: LISINOPRIL 5 MG TABLET (FP) PO SCH (09:31)
[2016-07-13] MEDS: COLLAGENASE CLOSTRIDIUM HIST. 30 GRAMS TUBE TP SCH (09:32)
--- NOTE | 2016-07-13 09:47 | PN ---
Progress Note (short form) - Note Progress Note: ID Excisional debridement of foot earlier podiatry. Wound seen yesterday Selected Entries 07/13/16 06:22 Temperature 99 F Pulse Rate 86 Respiratory 20 Rate Blood Pressure 139/82 Microbiology 07/08/16 03:50 Foot - Left Dorsum Gram Stain - Final 07/08/16 03:50 Foot - Left Dorsum Wound Culture - Final Staphylococcus Aureus Laboratory Tests 07/12/16 07/13/16 07/13/16 06:10 06:20 06:20 WBC 9.0 Hgb 11.1 L Hct 33.6 L MPV 8.0 ESR > 130 H BUN 22 H Creatinine 1.3 Assessment Extended foot wound with culture positive only for MSSA Elevated ESR Exposed tendons Ruling out osteomyelitis Plan Continue Ceftriaxone as ordered Alexis MIDDLETON
--- NOTE | 2016-07-13 11:33 | PN ---
Progress Note, Physician History of Present Illness: seen and examined today in [facility]. ambulatory in the hallway. no overnight events. no new complaints. - Current Medication List Current Medications: Active Medications Aspirin (Asa -) 81 mg PO DAILY [facility] Last Admin: 07/13/16 09:30 Dose: 81 mg Collagenase (Santyl -) 1 applic TP DAILY [facility] Last Admin: 07/13/16 09:32 Dose: 1 applic Heparin Sodium (Porcine) (Heparin -) 5,000 unit SQ TID [facility] Last Admin: 07/13/16 06:48 Dose: 5,000 unit Ceftriaxone Sodium (Rocephin 2gm Ivpb (Pre-Docked)) 100 mls @ 200 mls/hr IVPB DAILY [facility] Last Admin: 07/13/16 09:30 Dose: 200 mls/hr Insulin Aspart (Novolog Vial Sliding Scale -) 1 vial SQ ACHS [facility] PRN Reason: Protocol Last Admin: 07/13/16 06:47 Dose: Not Given Insulin Detemir (Levemir Vial) 10 units SQ BID@0700,2200 [facility] Last Admin: 07/13/16 06:47 Dose: 10 units Lisinopril (Prinivil) 2.5 mg PO DAILY [facility] Last Admin: 07/13/16 09:31 Dose: 2.5 mg Metoprolol Succinate (Toprol Xl -) 12.5 mg PO DAILY [facility] Last Admin: 07/13/16 09:30 Dose: 12.5 mg - Objective Vital Signs: Vital Signs Temperature 99 F 07/13/16 06:22 Pulse Rate 86 07/13/16 06:22 Respiratory Rate 20 07/13/16 06:22 Blood Pressure 139/82 07/13/16 06:22 O2 Sat by Pulse Oximetry (%) 98 07/12/16 21:00 Constitutional: Yes: Well Nourished, No Distress, Calm Eyes: Yes: EOM Intact. No: Conjunctiva Clear HENT: Yes: Atraumatic, Normocephalic Neck: Yes: Supple, Trachea Midline Cardiovascular: Yes: Regular Rate and Rhythm, Murmur, S1, S2. No: Bradycardia, Tachycardia, Pulse Irregular, Bruit, JVD, Gallop, Rub, S3, S4, Varicosities Respiratory: Yes: Regular, CTA Bilaterally. No: Rales, Rhonchi, Wheezes Gastrointestinal: Yes: Normal Bowel Sounds, Soft. No: Distention, Tenderness Extremities: Yes: Amputation Edema: No Peripheral Pulses WNL: No Integumentary: Yes: Other (ulcers in dressings) Neurological: Yes: Alert, Oriented Psychiatric: Yes: Alert, Oriented Labs: CBC, BMP 07/12/16 06:10 07/13/16 06:20 INR, PTT INR 1.03 (0.82-1.09) 07/08/16 03:50 - ....Imaging Chest X-ray: Report Reviewed, Image Reviewed EKG: Report Reviewed, Image Reviewed Other: Report Reviewed, Image Reviewed Assessment/Plan 55 year old man with a history of HTN, DM type I, HLD, PAD, CVA, recently at [facility] where he had a LLE partial foot amputation, seen in May by our service and found to have severe LV dysfx with segmental WMA and mod to severe MR. Cath and viability study at [facility] revealed CAD but no viability and he was deemed not a candidate for PCI or CABG. REC: Remains euvolemic Cont Toprol 12.5mg daily as he has refused uptitration Cont Lisinopril 2.5mg daily and uptitrate if pt allows Refused snf Lasix cont ASA 81mg daily Consideration for ICD as an outpatient after optimized medically Vascular surgery not planning for surgical intervention at this time
[2016-07-14] MEDS: INSULIN SLIDING SCALE (NOVOLOG) 1 VIAL SQ SCH ×3 (06:03→17:16)
[2016-07-14] MEDS: HEPARIN NA (PORCINE) 5,000 UNITS/ML 1ML VIAL SQ SCH ×2 (06:03→15:53)
[2016-07-14] MEDS: INSULIN DETEMIR 100 UNITS/ML MDV SQ SCH (06:04)
--- NOTE | 2016-07-14 08:44 | DS ---
Physical Exam: ATTENDING PHYSICIAN STATEMENT I saw and evaluated the patient. I reviewed the resident's note and discussed the case with the resident. I agree with the resident's findings and plan as documented. SUBJECTIVE: seen and evaluated at the bedside OBJECTIVE: resting comfortably in bed; foot wrapped in surgical dressing ASSESSMENT AND PLAN: 55M with PMH of chronic combined systolic and diastolic CHF, uncontrolled insulin dependant insulin non-complaint DM, HTN, HLD, NSTEMI in may 2016, CAD s/p cardiac cath about 1 week ago at [facility] states he was sent by Dr. Villalta (does not know the results), PVD admitted for cellulitis of chronic non-healing left foot ulcer cellulitis of chronic non-healing left foot ulcer -was never febrile -WBC has trended down to normal -wound looks clean with granulation tissue but has exposed bone - MRI shows osteo of numerous bones in the foot -s/p PICC line placement and pt will come to outpatient IV infusion center to receive ceftriaxone daily for total of 6 weeks -is to follow up with Podiatry in wound care clinic -as per vascular surgery pt currently does not need surgical intervention to right leg/foot <Isaiah Driscoll - Last Filed: 07/14/16 19:03> Physical Exam: SUBJECTIVE: Patient seen and examined Pt is feeling well no fever, chills no s/s of acute distress No pain lower ext OBJECTIVE: Vital Signs Period Temp Pulse Resp BP Sys/Humphreys Pulse Ox Last 24 Hr 97.5 F-98.6 F 82-90 16-20 111-142/65-80 98-98 PHYSICAL EXAM GENERAL: The patient is awake, alert, and fully oriented, in no acute distress. HEAD: Normal with no signs of trauma. NECK: Trachea midline, full range of motion, supple. LUNGS: Breath sounds equal, clear to auscultation bilaterally, no wheezes, no crackles, no accessory muscle use. HEART: Regular rate and rhythm, S1, S2 with systolic murmur, rub or gallop. ABDOMEN: Soft, nontender, nondistended, normoactive bowel sounds, no guarding, no rebound, no hepatosplenomegaly, no masses. EXTREMITIES: 1+ pulses, warm, well-perfused, no edema in right lower ext. left dorsum foot s/p debridment with purulent drainage, yellow and red base with granulated tissue. NEUROLOGICAL: Normal speech, normal gait. PSYCH: Normal mood, normal affect. SKIN: Warm, dry, normal turgor, no rashes or lesions noted LABS Laboratory Results - last 24 hr 07/13/16 07/13/16 07/13/16 06:20 11:06 17:54 ESR > 130 H POC Glucometer 232 164 07/13/16 07/14/16 21:47 05:59 ESR POC Glucometer 241 237 MRI left lower Ext: 1. Limited examination due to motion artifact. 2. Soft tissue edema the foot and open wound along the dorsal aspect of the foot, and amputation of the fourth and fifth toes and resection of the distal metatarsals. 3. Bone marrow edema of the bases of the metatarsals, cuneiforms, and cuboid which could be due to neuropathic foot however osteomyelitis cannot be excluded. 4. The bone marrow edema of the residual distal fifth and distal fourth metatarsals is suspicious for residual osteomyelitis. 5. The bone marrow edema of the third metatarsal head may be due to early osteomyelitis. HOSPITAL COURSE: Date of Admission:07/08/16 55M with PMH of chronic combined systolic and diastolic CHF, uncontrolled insulin dependant insulin non-complaint DM, HTN, HLD, NSTEMI in May 2016, CAD s/p cardiac cath about 1 week ago at [facility] states he was sent by Dr. Villalta (does not know the results), BENIGNO, active smoker, presents to the emergency room for further treatment of his left foot infected diabetic foot ulcer. Patient states he was seen at many different hospitals including this hospital and leaves AMA. He states he had his foot debrided at [facility] recently and he left there after "the doctor messed up my foot". He was there for approximately 15 days and was being treated with antibiotics. During his last hospitalization here he left before he was able to be seen by any specialists. He denies any pain, nausea, vomiting, fevers, chills , chest pain, shortness of breath, diarrhea, hematuria or dysuria. ER course was notable for: (1)Labs, Imaging (2)IVF, Antibiotics 55 year old male very non compliant smoker with pmh of HTN, HPLD, NSTEMI, CAD, PAD, PVD presented to the ED s/p left foot debridement at [facility] 8weeks ago complaining of left foot infection. Diabetic foot Ulcer r/o osteomyelitis with resolved sepsis. No more pain on left foot. Granulated tissue at base with purulent fluid in dorsum of left foot. GUSTABO left 0.86, GUSTABO right 0.47, no need for angiogram right now. F/u blood culture, for far negative. Wound culture positive for pansensitive Staph aureus. ID on case. MRI left foot suggested Osteomyelitis. Pt was treated with Ancef 2gm IV q8h, then switched to ceftraixione 2gm Iv daily. Continue osteomyelitis treatment for a total of 6 weeks. Pt will start outpatient treatment on 07/15/2016 and it will end on 08/18/2016. Also Per vascular: jesse on wound, Hyperbaric oxygen therapy to aid healing, follow up in wound care clinic. Podiatry Dr Yeh on case, will follow up outpatient and wound care clinic. H/O NSTEMI. Continue metoprolol succinate, Lisinopril, ASA, Lasix, Cardiology on case Dr Villalta. Diabetes type 2, Continue Lantus 10U SQ BID, Novolog sliding scale. HTN. continue Metoptrolol, Lisinopril. Follow up with Dr Hinton, vascular surgery Follow up with Dr Yeh, Podiatry Follow up with Dr Villalta Follow up at Wound care clinic for wound care and hyperbaric treatment Date of Discharge: 07/14/16 Minutes to complete discharge: 45 <Brian Zamudio - Last Filed: 07/15/16 14:20> Discharge Summary - Home Medications Comprehensive Discharge Medication List: Ambulatory Orders Aspirin [ASA -] 81 mg PO DAILY 07/08/16 Ceftriaxone [Rocephin 2Gm Ivpb (Pre-Docked)] 100 ml IVPB DAILY #35 bag 07/14/16 Collagenase Clostridium Hist. [Santyl -] 1 applic TP DAILY #1 tube 07/14/16 Insulin (Levemir) [Levemir Vial] 10 units SQ BID@0700,2200 #1 vial 07/14/16 Insulin Sliding Scale [Novolog Vial Sliding Scale -] 1 vial SQ ACHS #1 vial Lisinopril [Prinivil] 2.5 mg PO DAILY #30 tablet 07/14/16 Metoprolol Succinate [Toprol XL -] 12.5 mg PO DAILY #30 07/14/16 <Isaiah Driscoll - Last Filed: 07/14/16 19:03> Reason For Visit: DIABETIC FOOT INFECTION, WOUND Current Active Problems Diabetic foot infection (Acute) Wound, open, foot (Acute) - Home Medications Comprehensive Discharge Medication List: Ambulatory Orders Aspirin [ASA -] 81 mg PO DAILY 07/08/16 Insulin NPH Hum/Reg Insulin Hm [Humulin 70-30 Vial] 30 unit SQ BID 07/08/16 <Brian Zamudio - Last Filed: 07/15/16 14:20> Condition: Stable - Instructions Diet, Activity, Other Instructions: Discharge home with visiting home nurse Diabetic diet Resume Home activity Follow up with Dr Espinoza, infectious disease You will need 5 weeks of antibiotics Ceftriaxone IV 2gm for 5 weeks, 35 doses, Start 07/15/16 end 08/18/[address] Hinton within 1 week Follow up with Dr Yeh within 1 week Hyperbaric oxygen therapy to aid healing of left foot wound Follow up at the wound care clinic follow up with Dr Villalta within 1-2 weeks Referrals: Galen Espinoza MD [Staff Physician] - 1 Week Wilfred Yeh MD [Staff Physician] - 07/18/16 () Joce Merida MD [Staff Physician] - 1 Week Jose Villalta MD [Staff Physician] - 2 Weeks Disposition: VNS/HOME HEALTH CARE This patient is new to me today: No Emergency Visit: Yes ED Registration Date: 07/08/16 Care time: The patient presented to the Emergency Department on the above date and was hospitalized for further evaluation of their emergent condition. Critical Care patient: No - Discharge Referral Referred to [facility] Med P.C.: No <Brian Zamudio - Last Filed: 07/15/16 14:20>
--- NOTE | 2016-07-14 08:44 | PN ---
Physical Exam: SUBJECTIVE: Patient seen and examined OBJECTIVE: Vital Signs Period Temp Pulse Resp BP Sys/Humphreys Pulse Ox Last 24 Hr 97.5 F-98.6 F 82-90 16-20 111-142/65-80 98-98 GENERAL: The patient is awake, alert, and fully oriented, in no acute distress. HEAD: Normal with no signs of trauma. EYES: PERRL, extraocular movements intact, sclera anicteric, conjunctiva clear. No ptosis. ENT: Ears normal, nares patent, oropharynx clear without exudates, moist mucous membranes. NECK: Trachea midline, full range of motion, supple. LUNGS: Breath sounds equal, clear to auscultation bilaterally, no wheezes, no crackles, no accessory muscle use. HEART: Regular rate and rhythm, S1, S2 without murmur, rub or gallop. ABDOMEN: Soft, nontender, nondistended, normoactive bowel sounds, no guarding, no rebound, no hepatosplenomegaly, no masses. EXTREMITIES: 2+ pulses, warm, well-perfused, no edema. NEUROLOGICAL: Cranial nerves II through XII grossly intact. Normal speech, gait not observed. PSYCH: Normal mood, normal affect. SKIN: Warm, dry, normal turgor, no rashes or lesions noted Laboratory Results - last 24 hr 07/13/16 07/13/16 07/13/16 06:20 11:06 17:54 ESR > 130 H POC Glucometer 232 164 07/13/16 07/14/16 21:47 05:59 ESR POC Glucometer 241 237 Active Medications Generic Name Dose Route Start Last Admin Trade Name Radha PRN Reason Stop Dose Admin Aspirin 81 mg 07/08/16 10:00 07/13/16 09:30 Asa - PO 81 mg DAILY GABBY Administration Collagenase 1 applic 07/10/16 17:15 07/13/16 09:32 Santyl - TP 1 applic DAILY GABBY Administration Heparin Sodium (Porcine) 5,000 unit 07/08/16 14:00 07/14/16 06:03 Heparin - SQ 5,000 unit TID GABBY Administration Ceftriaxone Sodium 100 mls @ 200 mls/hr 07/13/16 10:00 07/13/16 09:30 Rocephin 2gm Ivpb (Pre-Docked) IVPB 200 mls/hr DAILY GABBY Administration Insulin Aspart 1 vial 07/08/16 11:00 07/14/16 06:03 Novolog Vial Sliding Scale - SQ 4 units ACHS GABBY Administration Protocol Insulin Detemir 10 units 07/12/16 22:00 07/14/16 06:04 Levemir Vial SQ 10 units BID@0700,2200 GABBY Administration Lisinopril 2.5 mg 07/12/16 10:00 07/13/16 09:31 Prinivil PO 2.5 mg DAILY GABBY Administration Metoprolol Succinate 12.5 mg 07/12/16 10:00 07/13/16 09:30 Toprol Xl - PO 12.5 mg DAILY GABBY Administration ASSESSMENT/PLAN:
[2016-07-14] MEDS: ASPIRIN 81 MG CHEWABLE TABLETS PO SCH (10:15)
[2016-07-14] MEDS: LISINOPRIL 5 MG TABLET (FP) PO SCH (10:16)
[2016-07-14] MEDS: METOPROLOL SUCCINATE 25 MG TAB.SR.24H (FP) PO SCH (10:16)
--- NOTE | 2016-07-14 11:30 | PN ---
Progress Note, Physician History of Present Illness: seen and examined today in [facility]. no overnight events. no new complaints. - Current Medication List Current Medications: Active Medications Aspirin (Asa -) 81 mg PO DAILY [facility] Last Admin: 07/14/16 10:15 Dose: 81 mg Collagenase (Santyl -) 1 applic TP DAILY [facility] Last Admin: 07/13/16 09:32 Dose: 1 applic Heparin Sodium (Porcine) (Heparin -) 5,000 unit SQ TID [facility] Last Admin: 07/14/16 06:03 Dose: 5,000 unit Ceftriaxone Sodium (Rocephin 2gm Ivpb (Pre-Docked)) 100 mls @ 200 mls/hr IVPB DAILY [facility] Last Admin: 07/13/16 09:30 Dose: 200 mls/hr Insulin Aspart (Novolog Vial Sliding Scale -) 1 vial SQ ACHS [facility] PRN Reason: Protocol Last Admin: 07/14/16 06:03 Dose: 4 units Insulin Detemir (Levemir Vial) 10 units SQ BID@0700,2200 [facility] Last Admin: 07/14/16 06:04 Dose: 10 units Lisinopril (Prinivil) 2.5 mg PO DAILY [facility] Last Admin: 07/14/16 10:16 Dose: 2.5 mg Metoprolol Succinate (Toprol Xl -) 12.5 mg PO DAILY [facility] Last Admin: 07/14/16 10:16 Dose: 12.5 mg - Objective Vital Signs: Vital Signs Temperature 98.3 F 07/14/16 09:00 Pulse Rate 80 07/14/16 09:00 Respiratory Rate 18 07/14/16 09:00 Blood Pressure 129/70 07/14/16 09:00 O2 Sat by Pulse Oximetry (%) 98 07/13/16 21:00 Constitutional: Yes: No Distress, Calm Eyes: Yes: EOM Intact. No: Conjunctiva Clear HENT: Yes: Atraumatic, Normocephalic Neck: Yes: Supple, Trachea Midline Cardiovascular: Yes: Regular Rate and Rhythm, S1, S2. No: Bradycardia, Tachycardia, Pulse Irregular, Bruit, JVD, Gallop, Murmur, Rub, S3, S4, Varicosities Respiratory: Yes: Regular, CTA Bilaterally. No: Rales, Rhonchi, Wheezes Gastrointestinal: Yes: Normal Bowel Sounds, Soft. No: Distention, Tenderness Musculoskeletal: Yes: Joint Stiffness Extremities: Yes: Amputation Edema: No Peripheral Pulses WNL: No Neurological: Yes: Alert, Oriented Psychiatric: Yes: Alert, Oriented Labs: CBC, BMP 07/12/16 06:10 07/13/16 06:20 INR, PTT INR 1.03 (0.82-1.09) 07/08/16 03:50 - ....Imaging Chest X-ray: Report Reviewed, Image Reviewed EKG: Report Reviewed, Image Reviewed Other: Report Reviewed, Image Reviewed Assessment/Plan 55 year old man with a history of HTN, DM type I, HLD, PAD, CVA, recently at [facility] where he had a LLE partial foot amputation, seen in May by our service and found to have severe LV dysfx with segmental WMA and mod to severe MR. Cath and viability study at [facility] revealed CAD but no viability and he was deemed not a candidate for PCI or CABG. REC: Remains euvolemic Cont Toprol 12.5mg daily as he has refused uptitration Cont Lisinopril 2.5mg daily and uptitrate if pt allows Refused halfway Lasix treatment cont ASA 81mg daily Consideration for ICD as an outpatient after optimized medically Vascular surgery not planning for surgical intervention at this time Ok from a cardiac standpoint for discharge, pt should have close outpatient follow up in the office within 1-2 weeks
[2016-07-14] MEDS: CEFTRIAXONE 100 ML IVPB SCH (11:56)
[2016-07-14] MEDS: COLLAGENASE CLOSTRIDIUM HIST. 30 GRAMS TUBE TP SCH (12:00)
[2016-07-14] MEDS ORDERED: PICC LINE 8 ML FLUSH PROTOCOL IVPUSH PRN (15:28)
[2016-07-14 17:54] VITALS: BP 132/82; PULSE 92; TEMP 97.6
== END 2016-07-14 18:34 | disposition home health service (06) | DRG 853 ==
LOC: JER 03:08 → JERBED 06:54 → J8W 10:01
PROVIDERS: ADMIT Internal Medicine; ATTEND Internal Medicine
PROC: 0KBW0ZZ Excision of Left Foot Muscle, Open Approach (ICD-10-PCS; principal; 2016-07-13)
DX: A41.9 Sepsis, unspecified organism (principal); I21.4 Non-ST elevation (NSTEMI) myocardial infarction; M86.9 Osteomyelitis, unspecified; I50.40 Unspecified combined systolic (congestive) and diastolic (congestive) heart failure; L03.116 Cellulitis of left lower limb; N17.9 Acute kidney failure, unspecified; L97.529 Non-pressure chronic ulcer of other part of left foot with unspecified severity; E11.69 Type 2 diabetes mellitus with other specified complication; E11.51 Type 2 diabetes mellitus with diabetic peripheral angiopathy without gangrene; E11.621 Type 2 diabetes mellitus with foot ulcer; E11.65 Type 2 diabetes mellitus with hyperglycemia; Z79.4 Long term (current) use of insulin; E78.5 Hyperlipidemia, unspecified; I11.0 Hypertensive heart disease with heart failure; I25.10 Atherosclerotic heart disease of native coronary artery without angina pectoris; Z98.61 Coronary angioplasty status; F17.210 Nicotine dependence, cigarettes, uncomplicated; Z91.19 Patient's noncompliance with other medical treatment and regimen; I34.0 Nonrheumatic mitral (valve) insufficiency; E86.0 Dehydration; I25.5 Ischemic cardiomyopathy; R65.20 Severe sepsis without septic shock; B95.61 Methicillin susceptible Staphylococcus aureus infection as the cause of diseases classified elsewhere
CPT/HCPCS: 36415; 36569; 71010-TC; 73630-TC-LT; 73718-TC; 77001-TC; 80048; 80053; 80307; 82550; 83605; 83735; 83880; 84484; 85025; 85027; 85610; 85651; 86140; 86850; 86900; 86901; 87040; 87070; 87186; 87205; 93005; 93010; 93923; 99285-25; C1751; J1644

== ENCOUNTER 2016-07-15 08:05 | Day surgery (SDC) | payer OTHER ==
[2016-07-15] MEDS ORDERED: cefTRIAXone 2 GM/100 ML BAG (PRE-DOCKED) IVPB ONE (09:00)
[2016-07-15 13:24] VITALS: BP 142/74; PULSE 86
[2016-07-15 13:25] VITALS: TEMP 97.5
== END 2016-07-15 10:30 | disposition home or self-care (01) ==
LOC: JINFUSION 08:05 → J7W 08:06 → JINFUSION 10:30
PROVIDERS: ATTEND Internal Medicine
DX: M86.8X7 Other osteomyelitis, ankle and foot (principal)
CPT/HCPCS: 96365; J0696; 96367

== ENCOUNTER 2016-07-16 08:39 | Day surgery (SDC) | payer OTHER ==
[2016-07-16] MEDS ORDERED: cefTRIAXone 2 GM/100 ML BAG (PRE-DOCKED) IVPB ONE (10:00)
[2016-07-16 19:51] VITALS: BP 131/80; PULSE 90; TEMP 98.4
== END 2016-07-16 11:56 | disposition home or self-care (01) ==
LOC: JINFUSION 08:39 → J7W 08:39 → JINFUSION 11:56
PROVIDERS: ATTEND Internal Medicine
DX: M86.8X7 Other osteomyelitis, ankle and foot (principal)
CPT/HCPCS: 96365; J0696

== ENCOUNTER 2016-07-17 08:13 | Day surgery (SDC) | payer OTHER ==
[2016-07-17] MEDS ORDERED: CEFTRIAXONE 2 GM in DEXTROSE 5%-WATER - 100 ML IVPB ONE (09:00)
[2016-07-17 13:06] VITALS: BP 135/75; PULSE 87; TEMP 98.1
== END 2016-07-17 11:07 | disposition home or self-care (01) ==
LOC: JINFUSION 08:13
PROVIDERS: ATTEND Internal Medicine
DX: M86.8X7 Other osteomyelitis, ankle and foot (principal); E10.621 Type 1 diabetes mellitus with foot ulcer; E10.21 Type 1 diabetes mellitus with diabetic nephropathy; E78.00 Pure hypercholesterolemia, unspecified; I10 Essential (primary) hypertension; Z79.82 Long term (current) use of aspirin
CPT/HCPCS: 96365; J0696; 11042; 11043; 11046

== ENCOUNTER 2016-07-18 11:34 | Day surgery (SDC) | payer OTHER ==
[2016-07-18] MEDS ORDERED: cefTRIAXone 2 GM/100 ML BAG (PRE-DOCKED) IVPB ONE (12:30)
[2016-07-18 13:20] VITALS: TEMP 97.2
[2016-07-18 13:37] VITALS: BP 133/88; PULSE 88
== END 2016-07-18 13:35 | disposition home or self-care (01) ==
LOC: JINFUSION 11:34
PROVIDERS: ATTEND Internal Medicine
DX: M86.8X7 Other osteomyelitis, ankle and foot (principal)
CPT/HCPCS: 96365; J0696; G0277

== ENCOUNTER 2016-07-19 13:00 | Day surgery (SDC) | payer OTHER ==
--- NOTE | 2016-07-17 09:46 | HP ---
[facility]-Past Medical History History of Present Illness: 55 YO M presents for f/u of DIabetic foot ulcer with previous dx of osteomyelitis. Pt has PMH of CHF, Uncontrolled DM, HTN, HLD , NSTEMI in 05/2016. 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 [Santyl -] 1 applic TP DAILY #1 tube 07/14/16 Insulin (Levemir) [Levemir Vial] 10 units SQ BID@0700,2200 #1 vial 07/14/16 Insulin Sliding Scale [Novolog Vial Sliding Scale -] 1 vial SQ ACHS #1 vial Lisinopril [Prinivil] 2.5 mg PO DAILY #30 tablet 07/14/16 Metoprolol Succinate [Toprol XL -] 12.5 mg PO DAILY #30 07/14/16 [facility]-Physical Exam - Physical Exam Constitutional: Yes: Well Nourished, No Distress ENT: Yes: Clear Lungs: Yes: Clear to auscultation Heart: Yes: Regular rate & rhythm, Normal S1, Normal S2 Abdomen: Yes: Soft, Normal Bowel Sounds Edema: No Neurological: Yes: Intact, Alert, Oriented Wound Assessment - Wound Left Anterior Lateral Foot Assessment: Initial Wound Length (cm.): 17 Wound Width (cm.): 7 Wound Depth (cm.): 1.2 Fibrotic Tissue: Yes Necrotic tissue: No Granulation tissue: No Drainage: Yes Drainage odor: None Aseptic Debridement: Skin, Subq Tissue Dressing/Treatment: Other (Santyl daily) Plan: 1. Santyl daily 2. Hyperbaric consult 3. LE arterial studies 4. visiting nurse to change the dressing Return to [facility]: 1 Week
[2016-07-19 14:16] VITALS: BP 125/71; PULSE 93; TEMP 98.2
== END 2016-07-19 14:20 | disposition home or self-care (01) ==
LOC: JINFUSION 13:00
PROVIDERS: ATTEND Internal Medicine
DX: M86.8X7 Other osteomyelitis, ankle and foot (principal)
CPT/HCPCS: 96365

== ENCOUNTER 2016-07-20 10:43 | Day surgery (SDC) | payer OTHER ==
[2016-07-20 13:53] VITALS: TEMP 97.7
[2016-07-20 14:23] VITALS: BP 124/72; PULSE 83
== END 2016-07-20 14:15 | disposition home or self-care (01) ==
LOC: JINFUSION 10:43
PROVIDERS: ATTEND Internal Medicine
DX: M86.8X7 Other osteomyelitis, ankle and foot (principal); E11.69 Type 2 diabetes mellitus with other specified complication; E11.65 Type 2 diabetes mellitus with hyperglycemia; E78.5 Hyperlipidemia, unspecified; I10 Essential (primary) hypertension; I50.42 Chronic combined systolic (congestive) and diastolic (congestive) heart failure; I25.2 Old myocardial infarction; I73.9 Peripheral vascular disease, unspecified; I25.10 Atherosclerotic heart disease of native coronary artery without angina pectoris; F17.210 Nicotine dependence, cigarettes, uncomplicated; Z79.4 Long term (current) use of insulin; Z95.5 Presence of coronary angioplasty implant and graft; Z89.422 Acquired absence of other left toe(s)
CPT/HCPCS: 96365; J0696; 96367

== ENCOUNTER 2016-07-21 11:09 | Day surgery (SDC) | payer OTHER ==
[2016-07-21 11:50] VITALS: BP 104/59; PULSE 75; TEMP 98
== END 2016-07-21 12:38 | disposition home or self-care (01) ==
LOC: JINFUSION 11:09
PROVIDERS: ATTEND Internal Medicine
DX: M86.8X7 Other osteomyelitis, ankle and foot (principal); E11.69 Type 2 diabetes mellitus with other specified complication; E11.65 Type 2 diabetes mellitus with hyperglycemia; Z79.4 Long term (current) use of insulin; I50.40 Unspecified combined systolic (congestive) and diastolic (congestive) heart failure; I10 Essential (primary) hypertension; I25.2 Old myocardial infarction; I25.10 Atherosclerotic heart disease of native coronary artery without angina pectoris; E78.5 Hyperlipidemia, unspecified; Z95.5 Presence of coronary angioplasty implant and graft; I73.9 Peripheral vascular disease, unspecified; F17.210 Nicotine dependence, cigarettes, uncomplicated; Z89.422 Acquired absence of other left toe(s)
CPT/HCPCS: 96365; J0696

== ENCOUNTER 2016-07-22 07:45 | Day surgery (SDC) | payer OTHER ==
[2016-07-22] MEDS ORDERED: CEFTRIAXONE IVPB ONE (08:02)
[2016-07-22] MEDS ORDERED: cefTRIAXone 2 GM/100 ML BAG (PRE-DOCKED) IVPB ONE (10:00)
[2016-07-22 12:10] VITALS: BP 128/66; PULSE 72; TEMP 97.6
== END 2016-07-22 10:00 | disposition home or self-care (01) ==
LOC: JINFUSION 07:45 → J7W 07:48 → JINFUSION 10:00
PROVIDERS: ATTEND Internal Medicine
DX: M86.8X7 Other osteomyelitis, ankle and foot (principal); E11.69 Type 2 diabetes mellitus with other specified complication; E11.65 Type 2 diabetes mellitus with hyperglycemia; E78.5 Hyperlipidemia, unspecified; I10 Essential (primary) hypertension; I50.42 Chronic combined systolic (congestive) and diastolic (congestive) heart failure; I25.2 Old myocardial infarction; I73.9 Peripheral vascular disease, unspecified; I25.10 Atherosclerotic heart disease of native coronary artery without angina pectoris; F17.210 Nicotine dependence, cigarettes, uncomplicated; Z79.4 Long term (current) use of insulin; Z95.5 Presence of coronary angioplasty implant and graft; Z89.422 Acquired absence of other left toe(s)
CPT/HCPCS: 96365; J0696

== ENCOUNTER 2016-07-23 08:26 | Day surgery (SDC) | payer OTHER ==
[2016-07-23] MEDS ORDERED: CEFTRIAXONE 100 ML IVPB ONE (08:37)
[2016-07-23] MEDS ORDERED: cefTRIAXone 2 GM/100 ML BAG (PRE-DOCKED) IVPB ONE (09:00)
[2016-07-23 09:05] VITALS: BP 128/70; PULSE 82; TEMP 97.7
== END 2016-07-23 09:31 | disposition home or self-care (01) ==
LOC: JINFUSION 08:26 → J7W 08:27 → JINFUSION 09:31
PROVIDERS: ATTEND Internal Medicine
DX: M86.8X7 Other osteomyelitis, ankle and foot (principal); E11.69 Type 2 diabetes mellitus with other specified complication; E11.65 Type 2 diabetes mellitus with hyperglycemia; E78.5 Hyperlipidemia, unspecified; I10 Essential (primary) hypertension; I50.42 Chronic combined systolic (congestive) and diastolic (congestive) heart failure; I25.2 Old myocardial infarction; I73.9 Peripheral vascular disease, unspecified; I25.10 Atherosclerotic heart disease of native coronary artery without angina pectoris; F17.210 Nicotine dependence, cigarettes, uncomplicated; Z79.4 Long term (current) use of insulin; Z95.5 Presence of coronary angioplasty implant and graft; Z89.422 Acquired absence of other left toe(s)
CPT/HCPCS: 96365; J0696

== ENCOUNTER 2016-07-24 07:41 | Day surgery (SDC) | payer OTHER ==
[2016-07-24 10:28] VITALS: TEMP 97.6
--- NOTE | 2016-07-24 10:46 | PN ---
[facility]-Physical Exam - History History: No Change - Physical Physical: No Change - Physical Exam Vital Signs: Vital Signs Temperature 97.6 F 07/24/16 10:27 Pulse Rate 78 07/24/16 10:27 Respiratory Rate 24 07/24/16 10:27 Blood Pressure 130/70 07/24/16 10:27 O2 Sat by Pulse Oximetry (%) Constitutional: Yes: Well Nourished ENT: Yes: Clear Lungs: Yes: Clear to auscultation Heart: Yes: Regular rate & rhythm Abdomen: Yes: Soft, Normal Bowel Sounds Extremities: Yes: Normal Pulses Edema: No Neurological: Yes: Intact, Alert, Oriented Wound Assessment - Wound Left Anterior Lateral Foot Assessment: Improved Wound Length (cm.): 15.0 Wound Width (cm.): 6.6 Wound Depth (cm.): 1.1 Fibrotic Tissue: Yes Necrotic tissue: No Granulation tissue: Yes Drainage: No Drainage odor: None Aseptic Debridement: Skin, Subq Tissue Plan: 55 YO M presents for f/u of wound on L lateral foot 1. B/L LE arterial studies 2. santyl daily 3. HBO Return to [facility]: 2 Weeks
[2016-07-24 13:34] VITALS: BP 130/73; PULSE 79
== END 2016-07-24 13:00 | disposition home or self-care (01) ==
LOC: JINFUSION 07:41
PROVIDERS: ATTEND Internal Medicine
DX: M86.8X7 Other osteomyelitis, ankle and foot (principal); E11.69 Type 2 diabetes mellitus with other specified complication; E11.65 Type 2 diabetes mellitus with hyperglycemia; E78.5 Hyperlipidemia, unspecified; I10 Essential (primary) hypertension; I50.42 Chronic combined systolic (congestive) and diastolic (congestive) heart failure; I25.2 Old myocardial infarction; I73.9 Peripheral vascular disease, unspecified; I25.10 Atherosclerotic heart disease of native coronary artery without angina pectoris; F17.210 Nicotine dependence, cigarettes, uncomplicated; Z79.4 Long term (current) use of insulin; Z95.5 Presence of coronary angioplasty implant and graft; Z89.422 Acquired absence of other left toe(s)
CPT/HCPCS: 11042; 11045; 96365

== ENCOUNTER 2016-07-25 11:41 | Day surgery (SDC) | payer OTHER ==
[2016-07-25 13:36] VITALS: TEMP 97.9
[2016-07-25 13:48] VITALS: BP 128/70; PULSE 75
== END 2016-07-25 13:30 | disposition home or self-care (01) ==
LOC: JINFUSION 11:41
PROVIDERS: ATTEND Internal Medicine
DX: M86.8X7 Other osteomyelitis, ankle and foot (principal)
CPT/HCPCS: 96365; J0696

== ENCOUNTER 2016-07-26 09:12 | Day surgery (SDC) | payer OTHER ==
[2016-07-26 11:03] VITALS: TEMP 98.1
[2016-07-26 11:35] VITALS: BP 145/83; PULSE 80
--- NOTE | 2016-07-27 01:22 | CONS ---
DATE OF CONSULTATION: 07/26/2016 REQUESTING PHYSICIAN: Dr. Hinton. REASON FOR CONSULTATION: Large open wound, dorsum left foot. HISTORY: Patient is a diabetic, 55-year-old male with history of hypercholesterolemia, severe peripheral artery disease as well as open wound on the dorsum of his left foot. Patient has been under the care of Dr. Hinton and is now being referred for possible skin grafting. Patient's recent arterial Doppler, ankle brachial index, and pulse volume recordings were done. This was on July 10, 2016. These are as follows: 1. Arterial Doppler has monophasic wave forms throughout the right lower extremity. Multiphasic wave forms throughout the left lower extremity. 2. Ankle brachial index on the right lower extremity GUSTABO is decreased, measuring 0.47. On the left lower extremity GUSTABO is decreased, measuring 0.86. 3. Pulse volume recordings: There is mild blunting of the pulse wave form seen throughout the right lower extremity. There is blunting of wave forms in the left metatarsals. Impression: There is a severe obstructive disease with marked decreased arterial flow throughout the right lower extremity, suggestive of multilevel disease and possibly inflow disease in the pelvis. Mild decreased flow in the left lower extremity at rest with suggestion of distal infrapopliteal disease. There is a significant extent of disease on PVR. Further evaluation has been suggested for a CT angiogram and/or arterial Doppler with velocity measurements. PAST MEDICAL HISTORY: The history, which was obtained from the patient, especially regarding his smoking history, diabetes, CHF, including a PICC line put in on July 14, 2016. EXAMINATION: Extremities: The lower extremity examination shows both legs are showing signs of peripheral vascular atrial disease. Significantly, skin is shiny. Loss of hair on both. Minimal to no pulse on the right side. On the left, there is a large open wound which extends on the lateral aspect of the dorsum of the foot. Loss of 2 toes are noted. Ulcer measures 16.0 x 6.0 x 1.2. Both legs are showing significant arterial disease with pallor of the skin. Minimal to no capillary refill. Granulation tissue covering the dorsum of the foot, approximately 50%. The rest of the area is necrosis noted in the first metatarsal fascia covering the 1st and 2nd web spaces and several areas of tendon loss has been noted. Ulcer does extend on the lateral border of his foot. Vital signs: Blood pressure is 132/80, temperature 97.7, pulse 78, respiration 20. COUNSELING WITH THE PATIENT, RECOMMENDATIONS: 1. Complete stop of cigarette smoking. 2. Collagenase treatment until increase in granulation tissue. 3. Culture from the deepest part of the wound. 4. Education of the patient at great length, explaining the harm of cigarette usage, possible loss of both lower extremities. Patient has agreed to stop smoking as of today. That would assist left lower leg peripheral perfusion. 5. Surgical treatment rendered after the area was topically anesthetized on the left dorsum of the foot using a 10 scalpel blade. A significant amount of fibrinous tissue was excised from the entire dorsum. Good granulation tissue was noted in distributed areas. As mentioned, exposure of periosteum and fascia was noted on the 1st metatarsal. PLAN OF CARE: 1. Collagenase on a daily basis. 2. Stop smoking. 3. Awaiting culture report for appropriate antibiotic. 4. Follow up in 1 week with emphasis on the possibility of loss of extremity. GILBERT MILLER M.D. [id number]
== END 2016-07-26 11:35 | disposition home or self-care (01) ==
LOC: JINFUSION 09:12
PROVIDERS: ATTEND Internal Medicine
DX: M86.8X7 Other osteomyelitis, ankle and foot (principal)
CPT/HCPCS: 11042; 11043; 87070; 87186; 87205; 96365

== ENCOUNTER 2016-07-27 10:50 | Day surgery (SDC) | payer OTHER ==
[2016-07-27 11:59] VITALS: TEMP 97.7
[2016-07-27 12:00] VITALS: BP 129/70; PULSE 78
== END 2016-07-27 11:50 | disposition home or self-care (01) ==
LOC: JINFUSION 10:50
PROVIDERS: ATTEND Internal Medicine
DX: M86.8X7 Other osteomyelitis, ankle and foot (principal)
CPT/HCPCS: 96365; 96367

== ENCOUNTER 2016-07-28 10:11 | Day surgery (SDC) | payer OTHER ==
[2016-07-28 13:25] VITALS: BP 128/72; PULSE 80; TEMP 97.7
== END 2016-07-28 13:20 | disposition home or self-care (01) ==
LOC: JINFUSION 10:11
PROVIDERS: ATTEND Internal Medicine
DX: M86.8X7 Other osteomyelitis, ankle and foot (principal)
CPT/HCPCS: 96365

== ENCOUNTER 2016-07-29 08:05 | Day surgery (SDC) | payer OTHER ==
[2016-07-29] MEDS: cefTRIAXone 2 GM/100 ML BAG (PRE-DOCKED) IVPB ONE ×2 (08:42→09:13)
[2016-07-29 09:18] VITALS: BP 126/69; PULSE 75; TEMP 97.7
== END 2016-07-29 11:39 | disposition home or self-care (01) ==
LOC: JINFUSION 08:05 → J7W 08:06 → JINFUSION 11:39
PROVIDERS: ATTEND Internal Medicine
DX: M86.8X7 Other osteomyelitis, ankle and foot (principal)
CPT/HCPCS: 96365

== ENCOUNTER 2016-07-30 09:20 | Day surgery (SDC) | payer OTHER ==
[2016-07-30] MEDS ORDERED: cefTRIAXone 2 GM/100 ML BAG (PRE-DOCKED) IVPB ONE (10:00)
== END 2016-07-30 10:44 | disposition home or self-care (01) ==
LOC: JINFUSION 09:20 → J7W 09:21 → JINFUSION 10:44
PROVIDERS: ATTEND Internal Medicine
DX: M86.8X7 Other osteomyelitis, ankle and foot (principal)
CPT/HCPCS: 96365

== ENCOUNTER 2016-07-31 11:31 | Day surgery (SDC) | payer OTHER ==
[2016-07-31 12:27] VITALS: TEMP 98
[2016-07-31 12:42] VITALS: BP 108/61; PULSE 80
== END 2016-07-31 12:40 | disposition home or self-care (01) ==
LOC: JINFUSION 11:31
PROVIDERS: ATTEND Family Medicine
DX: M86.8X7 Other osteomyelitis, ankle and foot (principal)
CPT/HCPCS: 96365

== ENCOUNTER 2016-08-01 13:38 | Day surgery (SDC) | payer OTHER ==
[2016-08-01 14:51] VITALS: BP 146/82; PULSE 85
[2016-08-01 14:53] VITALS: TEMP 97.9
== END 2016-08-01 14:45 | disposition home or self-care (01) ==
LOC: JINFUSION 13:38
PROVIDERS: ATTEND Family Medicine
DX: M86.8X7 Other osteomyelitis, ankle and foot (principal)
CPT/HCPCS: 96365; 96367

== ENCOUNTER 2016-08-02 10:58 | Day surgery (SDC) | payer OTHER ==
[2016-08-02 14:07] VITALS: BP 126/70; PULSE 77; TEMP 98
== END 2016-08-02 14:03 | disposition home or self-care (01) ==
LOC: JINFUSION 10:58
PROVIDERS: ATTEND Internal Medicine
DX: M86.8X7 Other osteomyelitis, ankle and foot (principal)
CPT/HCPCS: 93922; 93925-TC; 96365

== ENCOUNTER 2016-08-03 11:54 | Day surgery (SDC) | payer OTHER ==
[2016-08-03 12:54] VITALS: TEMP 98.4
[2016-08-03 13:38] VITALS: BP 117/83; PULSE 83
== END 2016-08-03 13:40 | disposition home or self-care (01) ==
LOC: JINFUSION 11:54
PROVIDERS: ATTEND Internal Medicine
DX: M86.8X7 Other osteomyelitis, ankle and foot (principal)
CPT/HCPCS: 96365

== ENCOUNTER 2016-08-04 11:42 | Day surgery (SDC) | payer OTHER ==
[2016-08-04 12:48] VITALS: BP 120/78; PULSE 80; TEMP 98.2
== END 2016-08-04 12:50 | disposition home or self-care (01) ==
LOC: JINFUSION 11:42
PROVIDERS: ATTEND Internal Medicine
DX: M86.8X7 Other osteomyelitis, ankle and foot (principal)
CPT/HCPCS: 96365

== ENCOUNTER 2016-08-05 07:43 | Day surgery (SDC) | payer OTHER ==
[2016-08-05] MEDS ORDERED: cefTRIAXone 2 GM/100 ML BAG (PRE-DOCKED) IVPB ONE (08:30)
[2016-08-05 16:31] VITALS: BP 139/70; PULSE 77; TEMP 97.5
== END 2016-08-05 13:10 | disposition home or self-care (01) ==
LOC: JINFUSION 07:43 → J7W 07:44 → JINFUSION 13:10
PROVIDERS: ATTEND Internal Medicine
DX: M86.8X7 Other osteomyelitis, ankle and foot (principal)
CPT/HCPCS: 96365

== ENCOUNTER 2016-08-06 11:02 | Day surgery (SDC) | payer OTHER ==
[2016-08-06] MEDS ORDERED: cefTRIAXone 2 GM/100 ML BAG (PRE-DOCKED) IVPB ONE (11:30)
[2016-08-06 11:54] VITALS: BP 143/82; PULSE 73
== END 2016-08-06 13:00 | disposition home or self-care (01) ==
LOC: JINFUSION 11:02 → J7W 11:03 → JINFUSION 13:00
PROVIDERS: ATTEND Internal Medicine
DX: M86.8X7 Other osteomyelitis, ankle and foot (principal)
CPT/HCPCS: 96365

== ENCOUNTER 2016-08-07 12:20 | Day surgery (SDC) | payer OTHER ==
[2016-08-07 12:51] VITALS: TEMP 98
[2016-08-07 14:14] VITALS: BP 122/76; PULSE 84
== END 2016-08-07 13:20 | disposition home or self-care (01) ==
LOC: JINFUSION 12:20
PROVIDERS: ATTEND Internal Medicine
DX: M86.8X7 Other osteomyelitis, ankle and foot (principal)
CPT/HCPCS: 96365

== ENCOUNTER 2016-08-08 11:19 | Day surgery (SDC) | payer OTHER ==
[2016-08-08 13:55] VITALS: BP 113/69; PULSE 78; TEMP 97.5
== END 2016-08-08 13:35 | disposition home or self-care (01) ==
LOC: JINFUSION 11:19
PROVIDERS: ATTEND Internal Medicine
DX: M86.8X7 Other osteomyelitis, ankle and foot (principal)
CPT/HCPCS: 96365

== ENCOUNTER 2016-08-09 08:39 | Day surgery (SDC) | payer OTHER ==
[2016-08-09 10:09] VITALS: BP 124/74; PULSE 72; TEMP 97.6
== END 2016-08-09 09:45 | disposition home or self-care (01) ==
LOC: JINFUSION 08:39
PROVIDERS: ATTEND Family Medicine
DX: M86.8X7 Other osteomyelitis, ankle and foot (principal)
CPT/HCPCS: 96365

== ENCOUNTER 2016-08-12 07:56 | Day surgery (SDC) | payer OTHER ==
[2016-08-12] MEDS ORDERED: cefTRIAXone 2 GM/100 ML BAG (PRE-DOCKED) IVPB ONE (08:15)
[2016-08-12 11:43] VITALS: BP 140/68; PULSE 77; TEMP 97.7
== END 2016-08-12 12:14 | disposition home or self-care (01) ==
LOC: JINFUSION 07:56 → J7W 07:57 → JINFUSION 12:14
PROVIDERS: ATTEND Family Medicine
DX: M86.8X7 Other osteomyelitis, ankle and foot (principal)
CPT/HCPCS: 96365

== ENCOUNTER 2016-08-14 09:06 | Day surgery (SDC) | payer OTHER ==
[2016-08-14 10:28] VITALS: BP 134/75; PULSE 79; TEMP 97.9
== END 2016-08-14 10:28 | disposition home or self-care (01) ==
LOC: JINFUSION 09:06
PROVIDERS: ATTEND Family Medicine
DX: M86.8X7 Other osteomyelitis, ankle and foot (principal)
CPT/HCPCS: 96365

== ENCOUNTER 2016-08-15 07:39 | Day surgery (SDC) | payer OTHER ==
[2016-08-15 08:22] VITALS: BP 146/76; PULSE 78; TEMP 98.2
== END 2016-08-15 08:56 | disposition home or self-care (01) ==
LOC: JINFUSION 07:39
PROVIDERS: ATTEND Family Medicine
DX: M86.8X7 Other osteomyelitis, ankle and foot (principal)
CPT/HCPCS: 96365

== ENCOUNTER 2016-08-17 12:17 | Day surgery (SDC) | payer OTHER ==
[2016-08-17 12:45] VITALS: TEMP 98.3
[2016-08-17 13:23] VITALS: BP 145/72; PULSE 77
== END 2016-08-17 13:22 | disposition home or self-care (01) ==
LOC: JINFUSION 12:17
PROVIDERS: ATTEND Internal Medicine
DX: M86.8X7 Other osteomyelitis, ankle and foot (principal)
CPT/HCPCS: 96365

== ENCOUNTER 2016-09-07 05:35 | Day surgery (SDC) | payer OTHER ==
[2016-09-06 12:47] VITALS: BMI 26.6
[~2016-09-07 05:35] MED LIST: ceFAZolin SODIUM 1 GM VIAL IVPB ONE
[2016-09-07] MEDS ORDERED: PROPOFOL 20 ML ONE (12:23)
[2016-09-07] MEDS ORDERED: MIDAZOLAM HCL 2 MG/2 ML SINGLE DOSE VIAL ONE ×2 (12:23→13:00)
[2016-09-07] MEDS ORDERED: ceFAZolin SODIUM 1 GM VIAL IVPB ONE (12:40)
[2016-09-07] MEDS ORDERED: ceFAZolin SODIUM 1 GM VIAL ONE (12:40)
[2016-09-07] MEDS ORDERED: SODIUM CHLORIDE 0.9% P/F 10 ML VIAL IJ ONE (12:40)
[2016-09-07] MEDS ORDERED: LIDOCAINE HCL 1%, 10 MG/ML (20ML VIAL) INF ONE (12:57)
[2016-09-07] MEDS ORDERED: HEPARIN NA (PORCINE) 5,000 UNITS/ML 1ML VIAL ONE (13:11)
[2016-09-07] MEDS ORDERED: PROMETHAZINE HCL 25 MG/1 ML VIAL IVPUSH PRN (13:46)
[2016-09-07] MEDS ORDERED: ONDANSETRON 4 MG/2 ML VIAL IVPUSH PRN (13:46)
[2016-09-07] MEDS ORDERED: METOPROLOL TARTRATE 5 MG/5 ML VIAL IVPUSH ONE (13:47)
--- NOTE | 2016-09-07 13:54 | OP ---
Operative Note - Note: Operative Date: 09/07/16 Pre-Operative Diagnosis: Right lower extremity claudication Operation: Aortogram, RLE angiogram, atherectomy of right external iliac artery , with DCB angioplasty of right external iliac artery Findings: Occlusion of distal right external iliac artery for 5cm. Post-Operative Diagnosis: Same as Pre-op Surgeon: Vivek Hinton Anesthesia: Fractional Estimated Blood Loss (mls): 50 Operative Report Dictated: Yes
--- NOTE | 2016-09-07 13:56 | HP ---
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 Cardiovascular: Yes: HTN, Hyperlipdemia Musculoskeletal: Yes: Other (amputation) Endocrine: Yes: Diabetes Mellitus (uncontrolled with insulin) - Past Surgical History Past Surgical History: Yes: Amputation - Smoking History Smoking history: Current every day smoker Have you smoked in the past 12 months: Yes Aproximately how many cigarettes per day: 20 - Alcohol/Substance Use Hx Alcohol Use: No - Social History ADL: Independent History of Recent Travel: No Home Medications - Allergies Allergies/Adverse Reactions: Allergies Allergy/AdvReac Type Severity Reaction Status Date / Time No Known Allergies Allergy Verified 09/07/16 10:41 - Home Medications Home Medications: Ambulatory Orders Aspirin [ASA -] 81 mg PO DAILY 07/08/16 Insulin (Levemir) [Levemir Vial] 10 units SQ BID@0700,2200 #1 vial 07/14/16 Insulin Lispro Protamin/Lispro [Humalog Mix 75-25 Vial] 20 unit SQ DAILY Insulin Regular, Human [Humulin R U-500 Kwikpen] 7 unit SQ DAILY 09/06/16 Lisinopril [Prinivil] 5 mg PO DAILY 09/06/16 Metoprolol Succinate [Toprol XL -] 25 mg PO DAILY 09/06/16 Physical Examination Vital Signs: Vital Signs Temperature 97.7 F 09/07/16 10:39 Pulse Rate 97 H 09/07/16 10:39 Respiratory Rate 16 09/07/16 10:39 Blood Pressure 138/87 09/07/16 10:39 O2 Sat by Pulse Oximetry (%) 100 09/07/16 10:39 Constitutional: Yes: Well Nourished Eyes: Yes: WNL HENT: Yes: WNL Neck: Yes: WNL Cardiovascular: Yes: WNL Respiratory: Yes: WNL Gastrointestinal: Yes: WNL Extremities: Yes: WNL Edema: No Peripheral Pulses WNL: No (not palpable ) Integumentary: Yes: WNL Assessment/Plan RLE claudication 1. For angiogram today
[2016-09-07] MEDS ORDERED: CLOPIDOGREL BISULFATE 75 MG TABLET (FP) PO SCH (14:00)
[2016-09-07] MEDS ORDERED: LACTATED RINGERS SOLUTION 1,000 ML IV SCH (14:00)
[2016-09-07 14:52] VITALS: BP 144/72; PULSE 73
[2016-09-07 15:32] VITALS: TEMP 97.9
== END 2016-09-07 15:25 | disposition home or self-care (01) ==
LOC: JASU-SURG 05:35
PROVIDERS: ATTEND Surgery Vascular Surgery
PROC: 04CH3ZZ Extirpation of Matter from Right External Iliac Artery, Percutaneous Approach (ICD-10-PCS; 2016-09-07)
PROC: 047H3ZZ Dilation of Right External Iliac Artery, Percutaneous Approach (ICD-10-PCS; principal; 2016-09-07 11:30)
DX: I70.211 Atherosclerosis of native arteries of extremities with intermittent claudication, right leg (principal)
CPT/HCPCS: 0238T; 37220; 37225; C2623; 76000-TC; 94760; J1644

== ENCOUNTER 2017-03-24 19:29 | Inpatient (IN) | payer OTHER ==
--- NOTE | 2017-03-24 20:45 | PDOC ---
History of Present Illness - General Chief Complaint: Shortness of Breath Stated Complaint: SHORTNESS OF BREATH Time Seen by Provider: 03/24/17 20:04 History Source: Patient, EMS Exam Limitations: No Limitations - History of Present Illness Initial Comments: 56 YOM with CHF, IDDM (poor control with osteomyelitis and multiple toe amputations), CAD (3 blockages on angiogram, no stents or CABG ever done), and claudication of leg who was BIBA for SOB for the past 1.5 days. Patient states he cannot lay down flat as this makes his SOB worse. He also notes cough productive of white phlegm for 1.5 days, weight gain, and increased swelling of both legs. This feels the same as his prior CHF exacerbation which patient states was occurring in May-June 2016 and was relieved with Lasix. He is not on home Lasix. He denies fever, chills, sore throat, chest pain, abdominal pain , dysuria, or any recent sick contacts. He had a recent 5-day gastroenteritis illness with nausea/vomiting/diarrhea but he recovered from this about 3 days ago. Past History - Past Medical History Allergies/Adverse Reactions: Allergies Allergy/AdvReac Type Severity Reaction Status Date / Time No Known Allergies Allergy Verified 03/24/17 20:13 Home Medications: Ambulatory Orders Aspirin [ASA -] 81 mg PO DAILY 07/08/16 Insulin (Levemir) [Levemir Vial] 10 units SQ BID@0700,2200 #1 vial 07/14/16 Insulin Lispro Protamin/Lispro [Humalog Mix 75-25 Vial] 20 unit SQ DAILY Insulin Regular, Human [Humulin R U-500 Kwikpen] 7 unit SQ DAILY 09/06/16 Lisinopril [Prinivil] 5 mg PO DAILY 09/06/16 Metoprolol Succinate [Toprol XL -] 25 mg PO DAILY 09/06/16 Clopidogrel Bisulfate [Plavix -] 75 mg PO DAILY #30 tablet MDD 1 09/07/16 Cardiac Disorders: Yes (CAD, NSTEMI) CVA: Yes CHF: Yes Diabetes: Yes HTN: Yes Hypercholesterolemia: Yes - Surgical History Cardiac Surgery: Yes (ANGIOGRAM JUNE 2016) - Suicide/Smoking/Psychosocial Hx Smoking History: Current every day smoker Have you smoked in the past 12 months: Yes Number of Cigarettes Smoked Daily: 20 If you are a former smoker, when did you quit?: 1 month ago Information on smoking cessation initiated: No 'Breaking Loose' booklet given: 07/08/16 Hx Alcohol Use: No Drug/Substance Use Hx: No Substance Use Type: None Hx Substance Use Treatment: No Review of Systems - Review of Systems Constitutional: Yes: Chills. No: Fever, Unexplained wgt Loss HEENTM: No: Nose Congestion, Throat Pain Respiratory: Yes: Cough, Orthopnea, Shortness of Breath, Productive cough. No: Hemoptysis Cardiac (ROS): Yes: Edema. No: Chest Pain, Palpitations ABD/GI: No: Constipated, Diarrhea, Nausea, Vomiting : No: Burning, Dysuria Musculoskeletal: No: Back Pain, Neck Pain Integumentary: No: Bruising, Rash Neurological: No: Headache, Numbness, Tingling, Weakness, Dizziness Endocrine: Yes: Unexplained Weight Gain. No: Unexplained Weight Loss *Physical Exam - Vital Signs Last Vital Signs Temp Pulse Resp BP Pulse Ox 98.1 F 112 H 22 128/56 95 03/24/17 20:14 03/24/17 20:14 03/24/17 20:14 03/24/17 20:14 03/24/17 20:14 - Physical Exam General Appearance: Yes: Nourished, Appropriately Dressed, Other (appears a bit uncomfortable, laying on left side, answering questions appropriately, frustrated). No: Apparent Distress HEENT: positive: EOMI, Normal Voice, Hearing Grossly Normal, Other (right eye chronically cloudy/blind, edentulous). negative: Scleral Icterus (R), Scleral Icterus (L), Nasal Congestion Neck: positive: Trachea midline, Supple. negative: Tender, Rigid Respiratory/Chest: positive: Crackles (bilateral bases), Other (pulse ox dips to 90% during conversation, coughing with phlegm). negative: Respiratory Distress, Rhonchi, Stridor, Wheezing Cardiovascular: positive: Regular Rhythm, Edema (2+ pitting edema with taught skin BLE), Tachycardia. negative: Murmur Gastrointestinal/Abdominal: positive: Normal Bowel Sounds, Soft. negative: Tender, Organomegaly, Pulsatile Mass, Guarding Musculoskeletal: positive: Normal Inspection. negative: Decreased Range of Motion, Vertebral Tenderness Extremity: positive: Normal Capillary Refill, Normal Inspection, Normal Range of Motion, Swelling. negative: Tender, Cyanosis Integumentary: positive: Normal Color, Dry, Warm. 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 DDX IBNLT CHF exacerbation, COPD exacerbation, PNA, PE, ACS with HF, etc. Ordered is CBCD, CMP, Mg, Phos, BNP, cardiac panel, CXR, EKG. 03/24/17 23:30 Labs have resulted with WBC>20k, Cr 2.1 (highest in his [facility] EMR), Trop 0.18, BNP>5000. Ordered is 40 mg Lasix IVPUSH. CXR results with EP read right basilar consolidation which could represent PNA. Ordered is ceftriaxone and azithromycin for empiric coverage. 03/24/17 23:53 Patient became more tachycardic, tachypneic, and diaphoretic, and repositioned himself on the bed. EKG repeated and the only change from initial study was increased tachycardia. Crackles bilateral bases and moving air poorly. Ordered is 125 Solu-Medrol and one Atrovent neb. Ordered is BiPAP 10/5 and 70% O2. Admission order is placed and patient is transported to bed without issue. *DC/Admit/Observation/Transfer Diagnosis at time of Disposition: MIRTHA (acute kidney injury) CHF (congestive heart failure) Qualifiers: Congestive heart failure type: unspecified congestive heart failure type Congestive heart failure chronicity: acute on chronic Qualified Code(s): I50.9 - Heart failure, unspecified Cellulitis Qualifiers: Site of cellulitis: extremity Site of cellulitis of extremity: lower extremity Laterality: left Qualified Code(s): L03.116 - Cellulitis of left lower limb Pneumonia Qualifiers: Pneumonia type: due to unspecified organism Laterality: unspecified laterality Lung location: unspecified part of lung Qualified Code(s): J18.9 - Pneumonia, unspecified organism - Discharge Dispostion Condition at time of disposition: Guarded Admit: Yes - Referrals - Patient Instructions - Post Discharge Activity
[2017-03-24 21:19] VITALS: BMI 36.2
[2017-03-24 21:28] LABS: MCH 28.1 pg (25.7-33.7); MCHC 33.1 g/dl (32.0-35.9); MEAN CELL VOLUME 84.8 fl (80-96); MEAN PLT VOLUME 8.4 fl (7.5-11.1); PLATELET COUNT 350 K/MM3 (134-434); RDW 14.8 % (11.9-15.9); WHITE BLOOD COUNT 21.9 K/mm3 (4.0-10.0)
[2017-03-24 22:05] LABS: ALBUMIN 2.3 g/dl (3.4-5.0); ANION GAP 8 (8-16); CALCIUM 7.9 mg/dL (8.5-10.1); CO2 23 mmol/L (21-32); CREATININE 2.1 mg/dL (0.7-1.3); GLUCOSE,RANDOM 182 mg/dL (74-106); SGOT/AST 9 U/L (15-37); SGPT/ALT 23 U/L (12-78)
[2017-03-24 22:07] LABS: ALK PHOS 96 U/L (45-117); BILIRUBIN,TOTAL 0.4 mg/dL (0.2-1.0); TOT PROT 6.9 g/dl (6.4-8.2)
[2017-03-24 22:10] LABS: MAGNESIUM 2.3 mg/dL (1.8-2.4)
[2017-03-24 22:12] LABS: TROPONIN I 0.18 ng/ml (0.00-0.05)
[2017-03-24 22:13] LABS: METAMYELOCYTE 1 % (0-2); MYELOCYTE 1 % (0-2); REACTIVE LYMPHOCYTES 1 % (0-80); TOTAL CELLS COUNTED 100
[2017-03-24 22:14] LABS: PLATELET ESTIMATE ADEQUATE
[2017-03-24] MEDS ORDERED: AZITHROMYCIN 500 MG TABLET PO ONE (22:52)
[2017-03-24] MEDS ORDERED: CEFTRIAXONE 1 GM in DEXTROSE 5%-WATER - 50 ML IVPB ONE (22:52)
[2017-03-24] MEDS ORDERED: ASPIRIN 81 MG CHEWABLE TABLETS PO ONE (22:52)
[2017-03-24] MEDS ORDERED: FUROSEMIDE 40 MG/4 ML INJECTABLE VIAL IVPUSH ONE (23:13)
[2017-03-24] MEDS ORDERED: ASPIRIN 81 MG CHEWABLE TABLETS ONE (23:14)
[2017-03-24] MEDS ORDERED: AZITHROMYCIN IVPB 250 ML IVPB ONE (23:18)
[2017-03-24] MEDS ORDERED: CEFTRIAXONE 1 GM/50 ML BAG ONE ×2 (23:18→23:19)
[2017-03-24] MEDS ORDERED: FUROSEMIDE 40 MG/4 ML INJECTABLE VIAL ONE (23:25)
--- NOTE | 2017-03-24 23:36 | PDOC ---
Attending Attestation - Resident Resident Name: Nai Jasso - ED Attending Attestation I have performed the following: I have examined & evaluated the patient, The case was reviewed & discussed with the resident, I agree w/resident's findings & plan, Exceptions are as noted - HPI HPI: 03/24/17 23:34 56 M with h/o CHF, IDDM (poor control with osteomyelitis and multiple toe amputations), CAD, and claudication of leg who presents to ER with SOB. Pt reports symptoms began 2 days ago. He endorses orthopnea and SOLIMAN. Denies CP. States that he also has swelling of both legs. Reports that these symptoms are consistent with prior episodes of CHF. Denies F/C. Denies recent travel/ immobilization. Pt is also 1ppd smoker. - Physicial Exam PE: 03/24/17 23:35 "GENERAL: Awake, alert, and fully oriented, in no acute distress HEAD: No signs of trauma EYES: PERRLA, EOMI, sclera anicteric, conjunctiva clear ENT: Auricles normal inspection, hearing grossly normal, nares patent, oropharynx clear without exudates. Moist mucosa NECK: Nontender, no stepoffs, Normal ROM, supple, no lymphadenopathy, JVD, or masses LUNGS: bibasilar rales, R>L, no wheezes HEART: Regular rate and rhythm, normal S1 and S2, no murmurs, rubs or gallops ABDOMEN: Soft, nontender, normoactive bowel sounds. No guarding, no rebound. No masses EXTREMITIES: 2+ PE BLE, LLE + erythema, no fluctuance NEUROLOGICAL: Cranial nerves II through XII intact. 5/5 strength and sensation in all extremities, Normal speech, normal gait - Medical Decision Making 03/24/17 23:35 56 M with SOB and SOLIMAN with clinical signs of volume overload. Possible CHF exacerbation. Pt also daily smoker, making COPD exacerbation possible, though pt without wheezes on exam. Also consider infectious process such as PNA. - Labs, trop, BNP - EKG - CXR - Diurese prn - Abx for likely LLE cellulitis - Admit tele 03/24/17 23:36 CXR shows RLL consolidation as well as evidence of pulmonary edema. Pt started on CAP coverage with ceftriaxone + azithro. Lasix 40mg IV administered as well. Will hold on IVF for now given reduced EF. If lactate positive, will revisit fluid resuscitation. Pt is normotensive at this time. Also mildly positive trop 0.18, likely demand ischemia in context of infection. 03/24/17 23:56 Pt noted to be increasingly dyspneic. Lung exam with persistent rales, no wheezes but poor air movement. Will trial 1 round of atrovent neb and solumedrol for presumed COPD. Respiratory called for BiPAP for increased work of breathing. Will obtain ABG.
[2017-03-24] MEDS ORDERED: IPRATROPIUM BR 0.02% 0.5 MG/2.5 ML VIAL.NEB. NEB ONE (23:52)
[2017-03-24] MEDS ORDERED: methylPREDNISolone NA SUCC 125 MG/2 ML VIAL IVPUSH ONE (23:53)
[2017-03-24] MEDS ORDERED: ALBUTEROL SO4 0.083% IH SOL 2.5 MG/3 ML VIAL.NEB. NEB ONE (23:56)
[2017-03-24] MEDS ORDERED: methylPREDNISolone NA SUCC 125 MG/2 ML VIAL ONE (23:56)
[2017-03-25] MEDS ORDERED: IPRATROPIUM BR 0.02% 0.5 MG/2.5 ML VIAL.NEB. NEB PRN (00:35)
[2017-03-25] MEDS ORDERED: ALBUTEROL SO4 0.083% IH SOL 2.5 MG/3 ML VIAL.NEB. NEB PRN (00:35)
--- NOTE | 2017-03-25 01:12 | HP ---
CHIEF COMPLAINT: SOB PCP: Dr. Александр Espinosa HISTORY OF PRESENT ILLNESS: 56 year old male with a significant past medical history of CHF, IDDM, NSTEMI requiring cardiac cath at [facility], CAD, HTN, HLD, CVA, osteomyelitis, s/p toe amputation presented to the ED for a 1.5 day hx of shortness of breath. Patient states that his SOB started while laying down and he does not recall any inciting factor. Additionally, he reports a cough productive of white sputum for about the same amount of time. Patient states that for 3 days, he has had swelling and erythema of his right food and leg. He reports feeling ill for about a week with nausea, vomiting, diarrhea that remitted 3 days ago. Patient states he was admitted to the hospital for a CHF exacerbation back in May, for which he was given Lasix and it made him feel better. Patient denies being on home lasix. He reports that during that hospitalization, he had his 4th and 5th toes on his L foot amputated due to diabetic vascular disease. Additionally, he states that he has gained about ~45 pounds since May. Denies fever, chills, nausea, vomiting, chest pain, abdominal pain, diarrhea. ER course was notable for: (1) leukocytosis (WBC 21.9) (2) SOB requiring BiPap (3) Trop 0.18 Recent Travel: None PAST MEDICAL HISTORY: CHF, IDDM, NSTEMI CAD, HTN, HLD, CVA, osteomyelitis, blindness R eye PAST SURGICAL HISTORY: 4th/5th toe amputations (may) Social History: Smoking: current smoker Alcohol: no Drugs: no Family History: Allergies No Known Allergies Allergy (Verified 03/24/17 20:13) HOME MEDICATIONS: Home Medications Medication Instructions Recorded Aspirin [ASA -] 81 mg PO DAILY 07/08/16 Insulin (Levemir) [Levemir Vial] 10 units SQ BID@0700,2200 #1 vial 07/14/16 Insulin Lispro Protamin/Lispro 20 unit SQ DAILY 09/06/16 [Humalog Mix 75-25 Vial] Insulin Regular, Human [Humulin R 7 unit SQ DAILY 09/06/16 U-500 Kwikpen] Lisinopril [Prinivil] 5 mg PO DAILY 09/06/16 Metoprolol Succinate [Toprol XL -] 25 mg PO DAILY 09/06/16 Clopidogrel Bisulfate [Plavix -] 75 mg PO DAILY #30 tablet MDD 1 09/07/16 REVIEW OF SYSTEMS CONSTITUTIONAL: weight gain Absent: fever, chills, diaphoresis, generalized weakness, malaise, loss of appetite, HEENT: Absent: rhinorrhea, nasal congestion, throat pain, throat swelling, difficulty swallowing, mouth swelling, ear pain, eye pain, visual changes CARDIOVASCULAR: peripheral edema Absent: chest pain, syncope, palpitations, irregular heart rate, lightheadedness , RESPIRATORY: cough, shortness of breath, dyspnea with exertion, orthopnea Absent: wheezing, stridor, hemoptysis GASTROINTESTINAL: Absent: abdominal pain, abdominal distension, nausea, vomiting, diarrhea, constipation, melena, hematochezia GENITOURINARY: Absent: dysuria, frequency, urgency, hesitancy, hematuria, flank pain, genital pain MUSCULOSKELETAL: Absent: myalgia, arthralgia, joint swelling, back pain, neck pain SKIN: rash Absent: itching, pallor HEMATOLOGIC/IMMUNOLOGIC: Absent: easy bleeding, easy bruising, lymphadenopathy, frequent infections ENDOCRINE: unexplained weight gain Absent: unexplained weight loss, heat intolerance, cold intolerance NEUROLOGIC: Absent: headache, focal weakness or paresthesias, dizziness, unsteady gait, seizure, mental status changes, bladder or bowel incontinence PSYCHIATRIC: Absent: anxiety, depression, suicidal or homicidal ideation, hallucinations. PHYSICAL EXAMINATION Vital Signs - 24 hr 03/24/17 03/24/17 20:14 23:42 Temperature 98.1 F Pulse Rate 112 H Pulse Rate [ 138 H Apical] Respiratory 22 21 Rate Blood Pressure 128/56 Blood Pressure 146/71 [Left Arm] O2 Sat by Pulse 95 Oximetry (%) GENERAL: Awake, alert, and fully oriented, in no acute distress. Patient breathing on BiPap. HEAD: Normal with no signs of trauma. EYES: R eye is cloudy and blind, extraocular movements intact, sclera anicteric , No lid lag. EARS, NOSE, THROAT: Ears normal, nares patent, oropharynx clear without exudates. Moist mucous membranes. NECK: Normal range of motion, supple without lymphadenopathy, JVD, or masses. LUNGS: L lung clear to auscultation, R lung crackles noted at the lung base and middle lobe. No wheezes. No accessory muscle use. Patient breathing on BiPap HEART: Tachycardic, normal S1 and S2 without murmur, rub or gallop. ABDOMEN: Soft, (Obese) nontender, not distended, normoactive bowel sounds, no guarding, no rebound, no masses. No hepatomegaly or splenomegaly. MUSCULOSKELETAL: Normal range of motion at all joints. No bony deformities or tenderness. No CVA tenderness. UPPER EXTREMITIES: 2+ pulses, warm, well-perfused. No cyanosis. No clubbing. No peripheral edema. LOWER EXTREMITIES: 2+ pulses, warm, well-perfused. No calf tenderness. 2+ Pitting edema noted LLE, LLE erythematous up to mid-anterior leg with several stage 1/2 ulcers noted NEUROLOGICAL: Cranial nerves II-XII intact. Normal speech. Normal gait. PSYCHIATRIC: Cooperative. Good eye contact. Appropriate mood and affect. SKIN: Warm, dry, normal turgor, no rashes or lesions noted, normal capillary refill. Laboratory Results - last 24 hr 03/24/17 03/24/17 03/24/17 21:18 21:18 21:18 WBC 21.9 H D RBC 4.09 Hgb 11.5 L Hct 34.7 L MCV 84.8 MCH 28.1 MCHC 33.1 RDW 14.8 Plt Count 350 D MPV 8.4 Total Counted 100 Neutrophils % No Result Required. Neutrophils % (Manual) 75.0 Band Neutrophils % 3.0 Lymphocytes % No Result Required. Lymphocytes % (Manual) 8.0 Monocytes % (Manual) 11 H Myelocytes % (Man) 1 Metamyelocytes 1 Differential Comment Platelet Estimate Adequate Platelet Comment Sodium 134 L Potassium 5.0 Chloride 103 Carbon Dioxide 23 Anion Gap 8 BUN 38 H Creatinine 2.1 H D Creat Clearance w eGFR 32.83 Random Glucose 182 H D Lactic Acid Calcium 7.9 L Phosphorus 3.0 Magnesium 2.3 Total Bilirubin 0.4 D AST 9 L D ALT 23 D Alkaline Phosphatase 96 Creatine Kinase 156 Creatine Kinase Index 4.3 CK-MB (CK-2) 6.799 H Troponin I 0.18 H D B-Natriuretic Peptide 5341.54 H Total Protein 6.9 Albumin 2.3 L D 03/24/17 23:13 WBC RBC Hgb Hct MCV MCH MCHC RDW Plt Count MPV Total Counted Neutrophils % Neutrophils % (Manual) Band Neutrophils % Lymphocytes % Lymphocytes % (Manual) Monocytes % (Manual) Myelocytes % (Man) Metamyelocytes Differential Comment Platelet Estimate Platelet Comment Sodium Potassium Chloride Carbon Dioxide Anion Gap BUN Creatinine Creat Clearance w eGFR Random Glucose Lactic Acid 1.0 Calcium Phosphorus Magnesium Total Bilirubin AST ALT Alkaline Phosphatase Creatine Kinase Creatine Kinase Index CK-MB (CK-2) Troponin I B-Natriuretic Peptide Total Protein Albumin Home Medication List Medication Instructions Recorded Confirmed Type Aspirin [ASA -] 81 mg PO DAILY 07/08/16 03/24/17 History Insulin Lispro Protamin/Lispro 20 unit SQ DAILY 09/06/16 03/24/17 History [Humalog Mix 75-25 Vial] Insulin Regular, Human [Humulin R 7 unit SQ DAILY 09/06/16 03/24/17 History U-500 Kwikpen] Lisinopril [Prinivil] 5 mg PO DAILY 09/06/16 03/24/17 History Metoprolol Succinate [Toprol XL -] 25 mg PO DAILY 09/06/16 03/24/17 History Active Medications Generic Name Dose Route Start Last Admin Trade Name Freq PRN Reason Stop Dose Admin Albuterol Sulfate 1 amp 03/25/17 00:35 Ventolin 0.083% Nebulizer Soln - NEB Q6H PRN SHORT OF BREATH/WHEEZING Albuterol/Ipratropium 1 amp 03/25/17 01:37 Duoneb - NEB Q6H PRN SHORTNESS OF BREATH Aspirin 81 mg 03/25/17 10:00 Asa - PO DAILY [facility] Clopidogrel Bisulfate 75 mg 03/25/17 10:00 Plavix - PO DAILY [facility] Furosemide 40 mg 03/25/17 10:00 Lasix Injection - IVPUSH DAILY [facility] Insulin Aspart 1 vial 03/25/17 07:00 Novolog Vial Sliding Scale - SQ ACHS [facility] Protocol Insulin Detemir 10 units 03/25/17 07:00 Levemir Vial SQ BID@0700,2200 [facility] Lisinopril 5 mg 03/25/17 10:00 Prinivil PO DAILY [facility] Methylprednisolone Sodium Succinate 40 mg 03/25/17 02:00 Solu-Medrol - IVPUSH Q8H-IV [facility] Metoprolol Succinate 25 mg 03/25/17 10:00 Toprol Xl - PO DAILY [facility] ASSESSMENT/PLAN: 56 year old male with a significant past medical history of CHF, IDDM, NSTEMI, CAD, HTN, HLD, CVA, osteomyelitis, s/p toe amputation is admitted to the hospital for treatment of acute CHF exacerbation, pneumonia, and L leg cellulitis. #Congestive Heart Failure - appears more likely a picture of CHF than COPD exacerbation given history and clinical findings -BNP 5341 -lasix given in ED -continue diuresis with lasix 40mg QD -Continue B nehal and Lisinopril -Consider adding spironolactone to treatment regimen -1L fluid restriction -measure strict I's/O's -EKG: sinus tachyardia with some new T wave inversions compared to prior EKG -order echocardiogram to evaluate CHF -unlikely COPD picture- pt given solu-medrol in ED with nebs, continue nebs but for now would not continue steroids due to clinical presentation -Appreciate cardiology recommendations -Oxygen at 3L NC or BiPap as needed -low-salt, diabetic diet #Pneumonia - Patient has WBC of 20, SOB, R sided crackles on auscultation, productive cough, and an X ray showing R basilar consolidation, suggestive of pneumonia vs fluid accumulation for CHF -blood cultures drawn -sputum for cultures obtained -get urine legionella -Ceftriaxone 2gm + azithromycin 500mg -appreciate ID recommendations -Flu swab #NSTEMI: troponinemia + new EKG change and history of NSTEMI/CHF suggests this may be new NSTEMI -troponin 0.18, repeat at 6am -f/u echocardiogram in AM -appreciate cardiology recommendations -start high dose aspirin 325 -start high dose plavix 300 -start atorvastatin 80 -start heparin drip #Lower Extremity Cellulitis - left leg, could also be contributing to septic picture with leukocytosis and tachycardia -lower extremity doppler to r/o DVT was negative -consider osteomyelitis, MRI of L lower extremity -Renally dose vancomycin - 1250mg -random vancomycin level in AM -appreciate ID recommendations #Insulin Dependent Diabetes Mellitus - patient's sugars aren't too poorly controlled -levemir 10U subQ BID as per home dose -insulin sliding scale coverage -BGMs Q6h -BMP in the am #Acute Kidney Injury: patient has baseline low level of chronic kidney disease, likely acute on chronic due to prerenal causes -monitor while diuresing for CHF -get kidney US -Cre 2.1 today #Hypertension - controlled -continue home metoprolol 25 -continue home lisinopril 5 #FEN -Careful with fluids due to CHF picture -Replete electrolytes as necessary in the AM -diabetic diet #Prophylaxis -heparin drip -GI prophylaxis not indicated #Disposition -Admit to med-surg -Full code Visit type - Emergency Visit Emergency Visit: Yes ED Registration Date: 03/25/17 Care time: The patient presented to the Emergency Department on the above date and was hospitalized for further evaluation of their emergent condition. - New Patient This patient is new to me today: Yes Date on this admission: 03/25/17 - Critical Care Critical Care patient: No
[2017-03-25 01:22] LABS: ARTERIAL BLD GAS O2 SATURATION 98.1 % (90-98.9); ARTERIAL BLOOD GAS pH 7.39 (7.35-7.45)
[2017-03-25 01:23] LABS: ARTERIAL BLOOD GAS BASE EXCESS -3.4 meq/l (-2-2); ARTERIAL BLOOD GAS HCO3 20.3 meq/L (22-26); METHEMOGLOBIN 1.3 % (0.4-1.5)
[2017-03-25 01:24] LABS: ART PUNCT SITE RIGHT RADIAL
[2017-03-25 01:25] LABS: LPM/O2% 40%; PT. ON O2? YES
[2017-03-25] MEDS ORDERED: ALBUTEROL SO4 2.5/IPRATROPIUM 0.5 INH SOL 3 ML VIAL.NEB. NEB PRN (01:37)
[2017-03-25] MEDS ORDERED: AZITHROMYCIN IVPB 500 MG in DEXTROSE 5%-WATER - 250 ML IVPB SCH ×2 (01:45→10:00)
[2017-03-25] MEDS ORDERED: CEFTRIAXONE 2 GM in DEXTROSE 5%-WATER - 100 ML IVPB SCH ×2 (01:45→10:00)
[2017-03-25] MEDS ORDERED: methylPREDNISolone NA SUCC 40 MG/1 ML VIAL IVPUSH SCH (02:00)
[2017-03-25 02:02] LABS: URINE APPEARANCE SLCLOUDY; URINE BILIRUBIN NEGATIVE (NEGATIVE); URINE BLOOD 1+ (NEGATIVE); URINE COLOR LTYELLOW; URINE GLUCOSE (UA) 1+ (NEGATIVE); URINE KETONE NEGATIVE (NEGATIVE); URINE NITRITE NEGATIVE (NEGATIVE); URINE UROBILINOGEN NEGATIVE mg/dL (0.2-1.0)
[2017-03-25 02:03] LABS: URINE PROTEIN 3+ (NEGATIVE)
[2017-03-25 02:14] LABS: URINE BACTERIA RARE /hpf (NONE SEEN); URINE MUCUS RARE; URINE RBC 9 /hpf (0-3); URINE WBC 1 /hpf (3-5)
[2017-03-25] MEDS ORDERED: VANCOMYCIN 1 GRAM (PRE-DOCKED) 1,000 MG/250 ML BAG IVPB ONE (03:02)
[2017-03-25] MEDS ORDERED: VANCOMYCIN 1,250 MG in DEXTROSE 5%-WATER - 250 ML IVPB ONE (05:00)
[2017-03-25] MEDS ORDERED: CLOPIDOGREL BISULFATE 300 MG TABLET PO ONE (05:02)
[2017-03-25] MEDS ORDERED: HEPARIN NA (PORCINE) 5,000 UNITS/ML 1ML VIAL IVPUSH PRN ×2 (05:03)
--- NOTE | 2017-03-25 05:08 | PN ---
Teaching Attending Note Name of Resident: Meño Mcdaniel ATTENDING PHYSICIAN STATEMENT I saw and evaluated the patient. Chart, data, imaging reviewed. I reviewed the resident's note and discussed the case with the resident. I agree with the resident's findings and plan as documented. SUBJECTIVE: 56 M with h/o severe systolic CHF, CAD, uncontrolled DM with left foot toe amputations, tobacco abuse, presented complaining of 2 days of shortness of breath, orthopnea, and cough with whitish sputum pruduction. He denied any chest pain. He also c/o left lower extremity pain and swelling. He has gained approximately 50lbs since may. 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 OBJECTIVE: Last Vital Signs Temp Pulse Resp BP Pulse Ox 98 F 112 H 21 142/98 97 03/25/17 04:15 03/25/17 04:15 03/25/17 04:15 03/25/17 04:15 03/25/17 04:15 general -nad, commincates fluently, speaks in full sentences heent-opaque eye, moist oral muccoa neck -supple, no masses, mild JVD b/l cv- s1+s2+ RRR , gallop chest -bibasilar crackles more pronounced in right base abdomen soft, nt, nd ext -left foot s/p 4th, 5th toe amputations, leg is swollen and warm to touch skin -no rashes appreciated Abnormal Lab Results 03/24/17 03/24/17 03/24/17 21:18 21:18 21:18 WBC 21.9 H D Hgb 11.5 L Hct 34.7 L Monocytes % (Manual) 11 H ABG pCO2 at Pt Temp ABG pO2 at Pt Temp ABG HCO3 ABG Base Excess Sodium 134 L BUN 38 H Creatinine 2.1 H D Random Glucose 182 H D Calcium 7.9 L AST 9 L D CK-MB (CK-2) 6.799 H Troponin I 0.18 H D B-Natriuretic Peptide 5341.54 H Albumin 2.3 L D Urine Protein Urine Glucose (UA) Urine Blood 03/25/17 03/25/17 01:00 01:44 WBC Hgb Hct Monocytes % (Manual) ABG pCO2 at Pt Temp 33.9 L ABG pO2 at Pt Temp 118.0 H ABG HCO3 20.3 L ABG Base Excess -3.4 L Sodium BUN Creatinine Random Glucose Calcium AST CK-MB (CK-2) Troponin I B-Natriuretic Peptide Albumin Urine Protein 3+ H Urine Glucose (UA) 1+ H Urine Blood 1+ H CXR -reviewed- b/l pulm vascular congestion and pulm edema EKG- sinus tachy, new t wave inversions in mult leads, poor r wave progression, LVH ASSESSMENT AND PLAN: #CHF exacerbation - a evidenced by significant 50lb weight gain since last May, high BNP, +orthopnea, b/l LE pitting edema. Pt reports he has refused ICD in the past. Reports compliance with metoprolol and lisinopril. S/p Lasix 40mg IV in ER. -admit to telemetry -repeat transthoracic echo -monitor I/O -daily weights -1L fluid restriction -2g Na diet -lasix 40mg IV daily -ACEi -Bblocker -spironolactone -consider nitrate -cardiology evaluation for medication optimization -consider AICD placment after d/c #Positive troponin, CKMB is a rise from baseline and may suggest possible NSTEMI vs demand ischemia from CHF vs 2/2 to MIRTHA. New T wave inversions on EKG, Patient is high risk and should be treated for NSTEMI pending cardiology evaluation. -high dose statin -load ASA 325mg -load CLopidogrel 300mg -heparin drip -f/u transthoracic echo results #Community acquired Pneumonia -, + CXR findings, leukocytosis, s/p ceftriaxone and azithromycin in ER -blood cultures x2 -sputum culture -urine legionella ag -flu swab -continue ceftiaxone 1g q24hrs, azithromycin 500mg PO daily #Left lower ext swelling - warm to touch, may be cellulitis, DVT should be r/o -Duplex U/S of LLE -vancomycin 1g stat and redose if random daily level is <20 #MIRTHA - -i/o, daily weights -urine lytes -no IV fluid as pt is fluid overloaded -renal U/S -avoid nephrotoxic meds #diet-2g Na, low fat, diabeteic diet -DVT ppx- will be on heparin drip
[2017-03-25] MEDS: HEPARIN - 25,000 UNIT in SODIUM CHLORIDE 495 ML IV SCH ×2 (06:12→10:00)
[2017-03-25] MEDS ORDERED: INSULIN DETEMIR 100 UNITS/ML MDV SQ SCH (07:00)
[2017-03-25] MEDS: ASPIRIN 325 MG TABLET PO SCH ×2 (07:01→09:45)
[2017-03-25] MEDS: INSULIN SLIDING SCALE (NOVOLOG) 1 VIAL SQ SCH ×3 (07:05→17:17)
[2017-03-25 08:39] LABS: MCH 28.3 pg (25.7-33.7); MCHC 32.8 g/dl (32.0-35.9); MEAN CELL VOLUME 86.1 fl (80-96); MEAN PLT VOLUME 8.7 fl (7.5-11.1); PLATELET COUNT 397 K/MM3 (134-434); RDW 14.9 % (11.9-15.9); WHITE BLOOD COUNT 26.8 K/mm3 (4.0-10.0)
[2017-03-25 08:52] LABS: INR 1.08 (0.82-1.09); PROTHROMBIN TIME (PATIENT) 12.2 SEC (9.98-11.88)
[2017-03-25 08:55] LABS: ACTIVATED PTT 36.2 SECONDS (26.9-34.4)
[2017-03-25 09:05] LABS: REACTIVE LYMPHOCYTES 1 % (0-80); TOTAL CELLS COUNTED 100
[2017-03-25 09:06] LABS: PLATELET ESTIMATE SLT INCREASE
[2017-03-25 09:10] LABS: ALBUMIN 2.3 g/dl (3.4-5.0); ANION GAP 10 (8-16); BILIRUBIN,TOTAL 0.5 mg/dL (0.2-1.0); CALCIUM 7.9 mg/dL (8.5-10.1); CO2 22 mmol/L (21-32); CREATININE 2.2 mg/dL (0.7-1.3); GLUCOSE,RANDOM 300 mg/dL (74-106); MAGNESIUM 2.4 mg/dL (1.8-2.4); PHOSPHOROUS 3.9 mg/dL (2.5-4.9); SGOT/AST 10 U/L (15-37); SGPT/ALT 22 U/L (12-78); TOT PROT 7.5 g/dl (6.4-8.2)
[2017-03-25 09:12] LABS: ALK PHOS 103 U/L (45-117); TROPONIN I 0.28 ng/ml (0.00-0.05)
--- NOTE | 2017-03-25 09:19 | CON.CARD ---
Cardiology Consult (text) - Consultation Consultation Note: Cardiology Consult for Olgadariusz (ER Service) Dictated IMP: Acute on chronic systolic CHF, severe LV systolic dysf, refused ICD ASHD, without viability: not candidate for PCI or CABG (Tc Saxena) HTN/DM/PAD/CVA/CKD Moderate to severe MR Suspected PNA RLL + TnI (with normal CK) likely demand ischemia due to CHF, infection in setting of CKD: doubt true CT REC: 1. IV Lasix and CPAP as needed 2. Continue ASA/Plavix. Would d/c heparin drip this evening if Cardiac enzymes remain flat with normal CK 3. Repeat Echo 4. Follow cultures. Abx as per PMD Patient is not a candidate for coronary revascularization and has refused ICD placement.
[2017-03-25] MEDS ORDERED: ASPIRIN 81 MG CHEWABLE TABLETS PO SCH (10:00)
[2017-03-25] MEDS ORDERED: FUROSEMIDE 40 MG/4 ML INJECTABLE VIAL IVPUSH SCH (10:00)
[2017-03-25] MEDS ORDERED: LISINOPRIL 5 MG TABLET (FP) PO SCH (10:00)
[2017-03-25] MEDS ORDERED: CLOPIDOGREL BISULFATE 75 MG TABLET (FP) PO SCH (10:00)
[2017-03-25] MEDS ORDERED: METOPROLOL SUCCINATE 25 MG TAB.SR.24H (FP) PO SCH (10:00)
--- NOTE | 2017-03-25 10:31 | CONS ---
DATE OF CONSULTATION: 03/25/2017 Cardiology consultation in coverage for Sung Flores MD; Emergency Room Service. REQUESTED BY: Meño Mcdaniel for congestive heart failure. The patient is a 56-year-old male known to our service from prior Emergency Room Service admissions. He has a complicated past medical and cardiac history, which includes hypertension, diabetes, peripheral arterial disease, status post lower extremity revascularization, CVA, lower extremity digit amputations, severe left ventricular systolic dysfunction secondary to coronary artery disease - not a candidate for PCI or CABG as he was found to have no viability at [facility], moderate to severe mitral regurgitation. He now presents to the emergency room with several days of worsening shortness of breath. In the ER, he was found to have increased pulmonary vascular congestion with a possible right lower lobe infiltrate, he was hypoxemic with oxygen saturation periodically dropping, requiring noninvasive positive-pressure ventilation, and significant leukocytosis with a white count of 27,000 and neutrophil shift. He was cultured and started on antibiotics for pneumonia. He was given IV Lasix and CPAP overnight. This morning, he is feeling better. He states he had been feeling chills for the past few days, but no cough, worsening shortness of breath. No chest pain or palpitations. His troponin was found to be marginally elevated with a normal CPK and nonspecific ST changes on his EKG. Thus, House Staff started him on IV heparin for concern for possible non-STEMI. PAST MEDICAL HISTORY: As stated above. He has no known drug allergies. HOME MEDICATION LIST: Toprol 25 mg daily; lisinopril 5 mg daily; insulin; Plavix 75 daily; and aspirin 81 daily. FAMILY HISTORY: Noncontributory. SOCIAL HISTORY: He is an ongoing smoker. PHYSICAL EXAMINATION: General: He is alert and oriented. Vital Signs: Temperature 98 current, high pulse 112. Telemetry has revealed normal sinus rhythm. Blood pressure 142/98, oxygen saturation 96% on 40% BiPAP. Heart: S1, S2 regular. Chest: Rales bilaterally, worse on the right. Abdomen: Soft. Extremities: With 1+ to 2+ lower extremity pitting edema. His EKG showed sinus tachycardia with a left bundle branch block morphology; poor R-wave progression, consistent with previous anterior wall SC; and nonspecific ST changes. LABORATORIES: White count 27,000, hematocrit 38, platelet count 397, neutrophil shift of 86%. INR 1.08. ABG upon presentation: 7.39/33/118 on 40% FiO2. Sodium 131, potassium 4.8, BUN 41, creatinine 2.2, magnesium 2.4. LFTs were normal. CK 156; troponin, 2 sets: 0.18 and 0.28 with a negative index. Cultures are pending. CHEST X-RAY: Increased pulmonary vascular congestion, possible right lower lobe infiltrate. IMPRESSION: 1. Acute on chronic systolic congestive heart failure, severe left ventricular dysfunction, refused implantable cardioverter/defibrillator. 2. Atherosclerotic heart disease without viability, not a candidate for percutaneous coronary intervention or coronary artery bypass grafting - earlier evaluation this year at [facility]. 3. Diabetes/hypertension/peripheral artery disease/cerebrovascular accident/ chronic kidney disease. 4. Moderate to severe chronic mitral regurgitation. 5. Suspected right lower lobe pneumonia. 6. Positive troponin (with normal CK), likely demand ischemia secondary to infection versus congestive heart failure in the setting of chronic kidney disease - doubt true myocardial infarction. RECOMMENDATIONS FROM A CARDIAC STANDPOINT: 1. Continue IV Lasix with careful monitoring of renal function and electrolytes ; CPAP as needed. 2. Continue aspirin and Plavix. Would discontinue heparin drip later this evening if cardiac enzyme trend remains flat with normal CK. 3. Will repeat echocardiogram. 4. Follow cultures; antibiotics as per PMD. The patient is not a candidate for coronary revascularization and has refused ICD placement. DEXTER GARCIA M.D. [id number] MTDD
[2017-03-25 11:26] LABS: URINE LEUK ESTERASE Negative (NEGATIVE)
--- NOTE | 2017-03-25 12:52 | PN ---
Teaching Attending Note Name of Resident: . Time of evaluation: 10:15 AM SUBJECTIVE: Patient seen and examined. Currently on CPAP, but comfortably talking, no use of acessory muscles of respiration, denies having any chest pain, palpitations or dizziness. reports onset with 'stomach bug' with some nausea/vomiting/ diarrhea, that resolved, follow up by cough and progressive dyspnea. Also c/o orthopnea, weight gain, leg swelling and recently with progressive Left leg redness/swelling but no clear fevers or chills. Currently feels much better, no leg pain noted. No chest pain, palpitations, or dizziness. OBJECTIVE: Vital Signs Period Temp Pulse Resp BP Sys/Humphreys Pulse Ox Last 24 Hr 97.7 F-98.1 F 107-138 18-22 113-146/56-98 94-100 Intake & Output 03/22/17 03/23/17 03/24/17 03/25/17 23:59 23:59 23:59 23:59 Intake Total 150 Balance 150 Weight 198 lb 183 lb 7 oz General: sitting in bed on CPAP but no acute distress, fully awake, taking in full sentences with no use of acessory muscles of respiration. CVS:S1S2 regular Chest: bibasilar rales, good air entry bilaterally, no wheezing Extremities: LLE with 4th/5th toe amputation, longitudinal well healed scar with overlying erythema/swelling/minimal warmth, swelling and erythema extending up left mid leg with scabs (reports from tight socks injury) ( improved swelling and redness per patient), Right foot with poor nail care strong Dopplerable DP pulses bilateral foot, site marked, decreased capillary refill in Right foot compared to left Neck: unable to visualize JVD Home Medication List Medication Instructions Recorded Confirmed Type Aspirin [ASA -] 81 mg PO DAILY 07/08/16 03/24/17 History Insulin Lispro Protamin/Lispro 20 unit SQ DAILY 09/06/16 03/24/17 History [Humalog Mix 75-25 Vial] Insulin Regular, Human [Humulin R 7 unit SQ DAILY 09/06/16 03/24/17 History U-500 Kwikpen] Lisinopril [Prinivil] 5 mg PO DAILY 09/06/16 03/24/17 History Metoprolol Succinate [Toprol XL -] 25 mg PO DAILY 09/06/16 03/24/17 History Active Medications Generic Name Dose Route Start Last Admin Trade Name Freq PRN Reason Stop Dose Admin Albuterol Sulfate 1 amp 03/25/17 00:35 Ventolin 0.083% Nebulizer Soln - NEB Q6H PRN SHORT OF BREATH/WHEEZING Albuterol/Ipratropium 1 amp 03/25/17 01:37 Duoneb - NEB Q6H PRN SHORTNESS OF BREATH Aspirin 325 mg 03/25/17 05:15 03/25/17 09:45 Asa - PO 325 mg DAILY GABBY Administration Atorvastatin Calcium 80 mg 03/25/17 22:00 Lipitor - PO HS GABBY Furosemide 40 mg 03/25/17 10:00 03/25/17 09:45 Lasix Injection - IVPUSH 40 mg DAILY GABBY Administration Heparin Sodium (Porcine) 1,000 unit 03/25/17 05:03 Heparin - IVPUSH PRN PRN Heparin Heparin Sodium (Porcine) 5,000 unit 03/25/17 05:03 Heparin - IVPUSH PRN PRN Heparin Ceftriaxone Sodium 2 gm/ 100 mls @ 200 mls/hr 03/25/17 10:00 03/25/17 12:24 Dextrose IVPB 200 mls/hr DAILY GABBY Administration Azithromycin 500 mg/ Dextrose 250 mls @ 250 mls/hr 03/25/17 10:00 03/25/17 12 :24 IVPB 250 mls/hr DAILY GABBY Administration Heparin Sodium (Porcine) 25, 500 mls @ 20 mls/hr 03/25/17 05:15 03/25/17 06: 12 000 unit/ Sodium Chloride IV 1,000 unit/hr TITR GABBY 20 mls/hr Protocol Administration 1,000 UNIT/HR Insulin Aspart 1 vial 03/25/17 07:00 03/25/17 12:07 Novolog Vial Sliding Scale - SQ 10 units ACHS GABBY Administration Protocol Insulin Detemir 10 units 03/25/17 07:00 03/25/17 07:01 Levemir Vial SQ 10 units BID@0700,2200 GABBY Administration Metoprolol Succinate 25 mg 03/25/17 10:00 03/25/17 09:45 Toprol Xl - PO 25 mg DAILY GABBY Administration Laboratory Results - last 24 hr 03/24/17 03/24/17 03/24/17 21:18 21:18 21:18 WBC 21.9 H D RBC 4.09 Hgb 11.5 L Hct 34.7 L MCV 84.8 MCH 28.1 MCHC 33.1 RDW 14.8 Plt Count 350 D MPV 8.4 Total Counted 100 Neutrophils % No Result Required. Neutrophils % (Manual) 75.0 Band Neutrophils % 3.0 Lymphocytes % No Result Required. Lymphocytes % (Manual) 8.0 Monocytes % (Manual) 11 H Myelocytes % (Man) 1 Metamyelocytes 1 Differential Comment Platelet Estimate Adequate Platelet Comment PT with INR INR PTT (Actin FS) Anticoagulation Therapy Puncture Site ABG pH ABG pCO2 at Pt Temp ABG pO2 at Pt Temp ABG HCO3 ABG O2 Sat (Measured) ABG O2 Content ABG Base Excess Usman Test Methemoglobin O2 Delivery Device Oxygen Flow Rate Vent Mode Vent Rate Mechanical Rate Pressure Support Vent Sodium 134 L Potassium 5.0 Chloride 103 Carbon Dioxide 23 Anion Gap 8 BUN 38 H Creatinine 2.1 H D Creat Clearance w eGFR 32.83 POC Glucometer Random Glucose 182 H D Lactic Acid Calcium 7.9 L Phosphorus 3.0 Magnesium 2.3 Total Bilirubin 0.4 D AST 9 L D ALT 23 D Alkaline Phosphatase 96 Creatine Kinase 156 Creatine Kinase Index 4.3 CK-MB (CK-2) 6.799 H Troponin I 0.18 H D B-Natriuretic Peptide 5341.54 H Total Protein 6.9 Albumin 2.3 L D Urine Color Urine Appearance Urine pH Ur Specific [place] Urine Protein Urine Glucose (UA) Urine Ketones Urine Blood Urine Nitrite Urine Bilirubin Urine Urobilinogen Ur Leukocyte Esterase Urine WBC (Auto) Urine RBC (Auto) Ur Epithelial Cells Urine Bacteria Urine Mucus Random Vancomycin 03/24/17 03/25/17 03/25/17 23:13 01:00 01:44 WBC RBC Hgb Hct MCV MCH MCHC RDW Plt Count MPV Total Counted Neutrophils % Neutrophils % (Manual) Band Neutrophils % Lymphocytes % Lymphocytes % (Manual) Monocytes % (Manual) Myelocytes % (Man) Metamyelocytes Differential Comment Platelet Estimate Platelet Comment PT with INR INR PTT (Actin FS) Anticoagulation Therapy Y Puncture Site Right radial ABG pH 7.39 ABG pCO2 at Pt Temp 33.9 L ABG pO2 at Pt Temp 118.0 H ABG HCO3 20.3 L ABG O2 Sat (Measured) 98.1 ABG O2 Content 15.8 ABG Base Excess -3.4 L Usman Test Not applicable Methemoglobin 1.3 O2 Delivery Device Y Oxygen Flow Rate 40% Vent Mode Y Vent Rate Y Mechanical Rate Y Pressure Support Vent Y Sodium Potassium Chloride Carbon Dioxide Anion Gap BUN Creatinine Creat Clearance w eGFR POC Glucometer Random Glucose Lactic Acid 1.0 Calcium Phosphorus Magnesium Total Bilirubin AST ALT Alkaline Phosphatase Creatine Kinase Creatine Kinase Index CK-MB (CK-2) Troponin I B-Natriuretic Peptide Total Protein Albumin Urine Color Ltyellow Urine Appearance Slcloudy Urine pH 5.0 Ur Specific [place] 1.011 Urine Protein 3+ H Urine Glucose (UA) 1+ H Urine Ketones Negative Urine Blood 1+ H Urine Nitrite Negative Urine Bilirubin Negative Urine Urobilinogen Negative Ur Leukocyte Esterase Negative Urine WBC (Auto) 1 Urine RBC (Auto) 9 Ur Epithelial Cells Rare Urine Bacteria Rare Urine Mucus Rare Random Vancomycin 03/25/17 03/25/17 03/25/17 06:58 08:00 08:00 WBC 26.8 H RBC 4.43 Hgb 12.5 Hct 38.1 MCV 86.1 MCH 28.3 MCHC 32.8 RDW 14.9 Plt Count 397 MPV 8.7 Total Counted 100 Neutrophils % No Result Required. Neutrophils % (Manual) 86.0 H Band Neutrophils % 10.0 Lymphocytes % No Result Required. Lymphocytes % (Manual) 3.0 L D Monocytes % (Manual) Myelocytes % (Man) Metamyelocytes Differential Comment Platelet Estimate Slt increase Platelet Comment PT with INR 12.20 H INR 1.08 PTT (Actin FS) 36.2 H Anticoagulation Therapy Puncture Site ABG pH ABG pCO2 at Pt Temp ABG pO2 at Pt Temp ABG HCO3 ABG O2 Sat (Measured) ABG O2 Content ABG Base Excess Usman Test Methemoglobin O2 Delivery Device Oxygen Flow Rate Vent Mode Vent Rate Mechanical Rate Pressure Support Vent Sodium Potassium Chloride Carbon Dioxide Anion Gap BUN Creatinine Creat Clearance w eGFR POC Glucometer 313 Random Glucose Lactic Acid Calcium Phosphorus Magnesium Total Bilirubin AST ALT Alkaline Phosphatase Creatine Kinase Creatine Kinase Index CK-MB (CK-2) Troponin I B-Natriuretic Peptide Total Protein Albumin Urine Color Urine Appearance Urine pH Ur Specific [place] Urine Protein Urine Glucose (UA) Urine Ketones Urine Blood Urine Nitrite Urine Bilirubin Urine Urobilinogen Ur Leukocyte Esterase Urine WBC (Auto) Urine RBC (Auto) Ur Epithelial Cells Urine Bacteria Urine Mucus Random Vancomycin 11/26/17 11/26/17 11/26/17 08:00 08:00 12:05 WBC RBC Hgb Hct MCV MCH MCHC RDW Plt Count MPV Total Counted Neutrophils % Neutrophils % (Manual) Band Neutrophils % Lymphocytes % Lymphocytes % (Manual) Monocytes % (Manual) Myelocytes % (Man) Metamyelocytes Differential Comment Platelet Estimate Platelet Comment PT with INR INR PTT (Actin FS) Anticoagulation Therapy Puncture Site ABG pH ABG pCO2 at Pt Temp ABG pO2 at Pt Temp ABG HCO3 ABG O2 Sat (Measured) ABG O2 Content ABG Base Excess Usman Test Methemoglobin O2 Delivery Device Oxygen Flow Rate Vent Mode Vent Rate Mechanical Rate Pressure Support Vent Sodium 131 L Potassium 4.8 Chloride 99 Carbon Dioxide 22 Anion Gap 10 BUN 41 H Creatinine 2.2 H Creat Clearance w eGFR 31.12 POC Glucometer 361 Random Glucose 300 H D Lactic Acid Calcium 7.9 L Phosphorus 3.9 D Magnesium 2.4 Total Bilirubin 0.5 D AST 10 L ALT 22 Alkaline Phosphatase 103 Creatine Kinase Creatine Kinase Index CK-MB (CK-2) Troponin I 0.28 H D B-Natriuretic Peptide Total Protein 7.5 Albumin 2.3 L Urine Color Urine Appearance Urine pH Ur Specific [place] Urine Protein Urine Glucose (UA) Urine Ketones Urine Blood Urine Nitrite Urine Bilirubin Urine Urobilinogen Ur Leukocyte Esterase Urine WBC (Auto) Urine RBC (Auto) Ur Epithelial Cells Urine Bacteria Urine Mucus Random Vancomycin 34.445 Microbiology 03/25/17 05:00 Urine - Urine Clean Catch Legionella Antigen - Final 03/25/17 05:00 Urine - Urine Clean Catch Streptococcus pneumoniae Antigen ( M - Final CXR - congestive changes with bibasilar infiltrates. 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 Hinton in 08/2016, IDDM admitted with CHF, NSTEMI, and LLE cellulitis +/- PNA. -Acute hypoxic respiratory failure, suspect primarily from CHF, less likely bibasilar CAP -ACute systolic heart failure exacerbation -NSTEMI with non specific EKG changes, suspect demand ischemia -CAD/ischemic cardiomyopathy, not PCI/CABG per cath at [facility] in 05/2016 given no viable myocardium, reportedly refused AICD -LLE cellulitis with diabetic foot/PVD -MIRTHA, ?From CHF -IDDM Plan: Lasix 40 mg IV daily, strict I/Os, daily weights, repeat 2D echo. On CPAP this AM, looks comfortable, taper off to nasal cannula as tolerated. Hold ACEi till renal function stabilized. Cardiology input appreciated. Troponin elevation suspect demand from CHF/infection, trend Cardiac enzymes, d/ c heparin drip later if no concerning rise as discussed. Continue ASA/metoprolol/statin. Low suspcion for bibasilar PNA, Ceftriaxone/azithromycin day 2 for now, taper if no new concerns. S/p solumedrol in ED, but current findings not suggestive of COPD exac, hold off for now. S/p vancomycin x 1 in ED, LLE symptoms improved per patient. ID consulted with Dr. Espinoza, follow up. Strong dopplerable DP pulses bilaterally. Check arterial duplex, Vascular surgery consult with Dr. Hinton (had 4th/5th toe amputation in 08/2016). Bladder scan for post voidal, strict I/Os, urine lytes, renal ultrasound. Given volume overload with worsening renal function and severe LV dysfunction, renal input. Levemix 10 units BID, titrate up as needed. Confirm home regimen. ISS, diabetic diet. DVTPPX heparin drip. Dispo pending resolution of active medical issues. Plan discussed with patient in detail, all questions answered.
[2017-03-25 15:14] VITALS: BP 123/79; PULSE 98; TEMP 98.2
--- NOTE | 2017-03-25 15:54 | CONSULT ---
Consult Consult Specialty:: Nephrology Reason for Consultation:: MIRTHA - History of Present Illness Chief Complaint: shortness of breath History of Present Illness: Pt is a 56 year old male with pmhx of CAD, CKD, DM and CHF who presents to the ER with increased shortness of breath. He says that it began about 5 days ago and has gotten worse. He feels more SOB with ambulation. He is unable to lay flat. He also complains of lower extremity edema. He denies diuretic use at home. I was called to evaluate him for CKD. He denies history of kidney disease although he has had elevated creatinine values in the past. He denies nsaid use. He says he is on a low salt diet. He did have some nausea and vomiting a few days ago. He says he has hematuria at times. 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: CVA, Peripheral Neuropathy, TIA Cardio/Vascular: Yes: HTN, Hyperlipdemia Renal/: Yes: Renal Inusuff Endocrine: Yes: Diabetes Mellitus (uncontrolled with insulin) - Past Surgical History Past Surgical History: Yes: Amputation - Alcohol/Substance Use Hx Alcohol Use: No - Smoking History Smoking history: Current every day smoker Have you smoked in the past 12 months: Yes Aproximately how many cigarettes per day: 20 If you are a former smoker, when did you quit?: 1 month ago - Social History ADL: Independent History of Recent Travel: No Home Medications - Allergies Allergies/Adverse Reactions: Allergies Allergy/AdvReac Type Severity Reaction Status Date / Time No Known Allergies Allergy Verified 03/24/17 20:13 - Home Medications Home Medications: Ambulatory Orders Aspirin [ASA -] 81 mg PO DAILY 07/08/16 Insulin (Levemir) [Levemir Vial] 10 units SQ BID@0700,2200 #1 vial 07/14/16 Insulin Lispro Protamin/Lispro [Humalog Mix 75-25 Vial] 20 unit SQ DAILY Insulin Regular, Human [Humulin R U-500 Kwikpen] 7 unit SQ DAILY 09/06/16 Lisinopril [Prinivil] 5 mg PO DAILY 09/06/16 Metoprolol Succinate [Toprol XL -] 25 mg PO DAILY 09/06/16 Clopidogrel Bisulfate [Plavix -] 75 mg PO DAILY #30 tablet MDD 1 09/07/16 Family Disease History - Family Disease History Family History: Denies Review of Systems - Review of Systems Constitutional: reports: Malaise Eyes: reports: No Symptoms HENT: reports: No Symptoms Neck: reports: No Symptoms Cardiovascular: reports: Edema, Shortness of Breath. denies: Chest Pain, Palpitations Respiratory: reports: Cough, Orthopnea, SOB, SOB on Exertion Gastrointestinal: reports: Abdominal Pain, Bloating, Vomiting Genitourinary: reports: Hematuria Musculoskeletal: reports: Muscle Weakness Neurological: reports: No Symptoms Endocrine: reports: No Symptoms Hematology/Lymphatic: reports: No Symptoms Psychiatric: reports: No Symptoms Physical Exam Vital Signs: Vital Signs Temperature 98.2 F 03/25/17 14:15 Pulse Rate 98 H 03/25/17 14:15 Respiratory Rate 18 03/25/17 14:15 Blood Pressure 123/79 03/25/17 14:15 O2 Sat by Pulse Oximetry (%) 97 03/25/17 14:10 Constitutional: Yes: Calm HENT: Yes: Atraumatic Cardiovascular: Yes: S1, S2 Respiratory: Yes: Rhonchi Gastrointestinal: Yes: Soft Renal/: Yes: WNL Musculoskeletal: Yes: WNL Edema: Yes Edema: LLE: 2+, RLE: 2+ Integumentary: Yes: Erythema Wound/Incision: Yes: Open to air Neurological: Yes: Oriented Psychiatric: Yes: Oriented Labs: CBC, BMP 03/25/17 08:00 03/25/17 08:00 Laboratory Tests 07/11/16 07/12/16 07/13/16 06:30 06:10 06:20 WBC Sodium Potassium Chloride Carbon Dioxide Anion Gap BUN Creatinine 1.4 H 1.3 1.3 Random Glucose B-Natriuretic Peptide Urine Protein Urine Blood 08/25/16 03/24/17 03/24/17 12:50 21:18 21:18 WBC 21.9 H D Sodium Potassium Chloride Carbon Dioxide Anion Gap BUN Creatinine 1.4 H 2.1 H D Random Glucose B-Natriuretic Peptide Urine Protein Urine Blood 03/24/17 03/25/17 03/25/17 21:18 01:44 08:00 WBC 26.8 H Sodium Potassium Chloride Carbon Dioxide Anion Gap BUN Creatinine Random Glucose B-Natriuretic Peptide 5341.54 H Urine Protein 3+ H Urine Blood 1+ H 03/25/17 08:00 WBC Sodium 131 L Potassium 4.8 Chloride 99 Carbon Dioxide 22 Anion Gap 10 BUN 41 H Creatinine 2.2 H Random Glucose 300 H D B-Natriuretic Peptide Urine Protein Urine Blood Imaging - Results Chest X-ray: Report Reviewed Ultrasound: Report Reviewed Problem List - Problems (1) MIRTHA (acute kidney injury) Code(s): N17.9 - ACUTE KIDNEY FAILURE, UNSPECIFIED (2) CHF (congestive heart failure) Code(s): I50.9 - HEART FAILURE, UNSPECIFIED Qualifiers: Congestive heart failure type: unspecified congestive heart failure type Congestive heart failure chronicity: acute on chronic Qualified Code(s): I50.9 - Heart failure, unspecified (3) Cellulitis Code(s): L03.90 - CELLULITIS, UNSPECIFIED Qualifiers: Site of cellulitis: extremity Site of cellulitis of extremity: lower extremity Laterality: left Qualified Code(s): L03.116 - Cellulitis of left lower limb (4) Acute pulmonary edema Code(s): J81.0 - ACUTE PULMONARY EDEMA (5) HLD (hyperlipidemia) Code(s): E78.5 - HYPERLIPIDEMIA, UNSPECIFIED (6) HTN (hypertension) Code(s): I10 - ESSENTIAL (PRIMARY) HYPERTENSION Assessment/Plan Current Medications Generic Name Dose Route Start Last Admin Trade Name Freq PRN Reason Stop Dose Admin Albuterol Sulfate 1 amp 03/25/17 00:35 Ventolin 0.083% Nebulizer Soln - NEB Q6H PRN SHORT OF BREATH/WHEEZING Albuterol/Ipratropium 1 amp 03/25/17 01:37 Duoneb - NEB Q6H PRN SHORTNESS OF BREATH Aspirin 325 mg 03/25/17 05:15 03/25/17 09:45 Asa - PO 325 mg DAILY GABBY Administration Atorvastatin Calcium 80 mg 03/25/17 22:00 Lipitor - PO HS GABBY Furosemide 40 mg 03/25/17 10:00 03/25/17 09:45 Lasix Injection - IVPUSH 40 mg DAILY GABBY Administration Heparin Sodium (Porcine) 1,000 unit 03/25/17 05:03 Heparin - IVPUSH PRN PRN Heparin Heparin Sodium (Porcine) 5,000 unit 03/25/17 05:03 Heparin - IVPUSH PRN PRN Heparin Ceftriaxone Sodium 2 gm/ 100 mls @ 200 mls/hr 03/25/17 10:00 03/25/17 12:24 Dextrose IVPB 200 mls/hr DAILY GABBY Administration Azithromycin 500 mg/ Dextrose 250 mls @ 250 mls/hr 03/25/17 10:00 03/25/17 12 :24 IVPB 250 mls/hr DAILY GABBY Administration Heparin Sodium (Porcine) 25, 500 mls @ 20 mls/hr 03/25/17 05:15 03/25/17 06: 12 000 unit/ Sodium Chloride IV 1,000 unit/hr TITR GABBY 20 mls/hr Protocol Administration 1,000 UNIT/HR Insulin Aspart 1 vial 03/25/17 07:00 03/25/17 12:07 Novolog Vial Sliding Scale - SQ 10 units ACHS GABBY Administration Protocol Insulin Detemir 10 units 03/25/17 07:00 03/25/17 07:01 Levemir Vial SQ 10 units BID@0700,2200 GABBY Administration Metoprolol Succinate 25 mg 03/25/17 10:00 03/25/17 09:45 Toprol Xl - PO 25 mg DAILY GABBY Administration Impression 1. MIRTHA 2. CKD 3. CHF 4. fluid overload 5. DM 6. hyperlipidemia 7. cellulitis 8. nstemi 9. CAD Plan - cont with lasix, will likely need BID dosing however will review labs tomorrow before increasing dose - repeat labs in am - will check prt to microarray analyst ratio - pt likely has CKD and will need a full CKD workup which can be done as outpt - will check ultrasound of the kidneys and bladder - monitor blood sugar - cardio input appreciated - bipap as needed - repeat cxr in one to two days - monitor on tele - check echo - pt likely has underlying kidney disease from DM and likely has a superimposed cardiorenal picture. Will follow closely and trend creatinine level Dr Blackwood
[2017-03-25 16:04] LABS: TROPONIN I 0.32 ng/ml (0.00-0.05)
--- NOTE | 2017-03-25 16:15 | PN ---
Progress Note (short form) - Note Progress Note: ID Consult dictated CHF Possible RLL pneumonia L LE cellulitis Leukocytosis Await c/s Continue empiric zithromax/ ceftriaxone
--- NOTE | 2017-03-25 18:19 | CONS ---
DATE OF CONSULTATION: 03/25/2017 The patient is a 56-year-old male diabetic evaluated for pneumonia and left lower extremity cellulitis. He was admitted to the hospital on March 25, 2017 with a 1- to 2-day history of worsening shortness of breath, cough productive of whitish sputum and left lower extremity swelling. He was diagnosed with congestive heart failure. Chest x-ray showed increased markings at the right base suggestive of right lower lobe pneumonia. Cultures were obtained and he was empirically treated with Zithromax and ceftriaxone. His course has been notable for elevated white blood cell count of 26,000. The patient reports occasional cough productive of whitish sputum. He denies any purulent sputum production or hemoptysis. No complaints of chest pain. In addition, he was noted to have erythema involving the left lower extremity. He had sustained trauma to the lower extremity with abrasions and, in addition, was wearing constrictive stockings. He reports there has been significant improvement in the left lower extremity erythema since removing the stockings. His left lower extremity, however, remains swollen. A Doppler exam was performed and it was negative for DVT. PAST MEDICAL HISTORY: Positive for insulin-dependent diabetes mellitus, congestive heart failure, history of diabetic foot infection status post amputations of left 4th and 5th toes, coronary artery disease, myocardial infarction, peripheral vascular disease. No known allergies. MEDICATIONS: 1. Aspirin. 2. Levemir insulin. 3. Lisinopril. 4. Toprol. 5. Plavix. SOCIAL HISTORY: Positive for tobacco use. SYSTEMS REVIEW: Neurologic: No loss of consciousness, seizure activity or focal weakness. He is blind in the right eye. Cardiac: As per HPI. Respiratory: As per HPI. Gastrointestinal: Negative vomiting or diarrhea. Genitourinary: Negative for urinary tract infection. LABORATORY DATA: White count 26.8 with left shift, hematocrit 38.1, platelet count 397. BUN 41, creatinine 2.2. Vancomycin level 34. Cultures pending. Urinalysis: One white cell. PHYSICAL EXAMINATION:General: He is awake and alert. He is not acutely toxic-appearing, no acute distress. Vital Signs: He is afebrile, temperature 98.2. Blood pressure 123/79. Pulse 98 and regular. Respirations 18 per minute. HEENT: Sclerae anicteric. The right cornea is opacified. Cardiac: Heart sounds: Irregular S1, S2. Lungs: Crepitations at the right base. Abdomen: Obese, soft, nontender. Extremities: On examination of the left lower extremity, there is diffuse, tense swelling of the left lower extremity with patchy erythema and warmth. There are superficial abrasions which are dry. No crepitus, fluctuance or lymphangitic streaking. IMPRESSION: 1. Congestive heart failure. 2. Possible superimposed right lower lobe pneumonia. 3. Left lower extremity cellulitis. 4. Leukocytosis. Await cultures. Continue Zithromax with ceftriaxone for empiric coverage of pneumonia. Vancomycin level is therapeutic. Vascular evaluation of the left lower extremity. Further recommendations pending cultures. Obtain sputum culture and urine legionella/pneumococcal antigen. Will follow. Thank you for the kind referral. DEXTER BAGLEY M.D. [id number]
--- NOTE | 2017-03-25 18:28 | PN ---
Progress Note (short form) - Note Progress Note: Called by RN, patient asking to leave AMA. Patient seen, reports has a family situation to take care of with his brother, needs to urgently leave. Patient is AAOX3, able to state fully that is in the hospital for leg infection , also has fluid in his lungs from the weak heart and small heart attack. Patient is fully aware of his current medical condition and understands that the primary concern for him to come to the hospital was due to his leg infection and inability to breathe and fluid from his lungs, also aware of the heart attack and need for IV heparin, rather expresses understanding that his heart attack is from the stress on his heart from the fluid and infection. Explained to the patient in detail about elevated infection counts, ongoing need for IV antibiotics, close monitoring, lasix, monitoring for heart attack and additional testing, worsening kidney function. Explain the risks of leaving including worsening infection, sepsis, loss of limb, respiratory failure, ongoing heart attack with cardiac arrest and . Patient able to relay full understanding of the risks and repeat them back to me and is well aware of his current medical condition and prior medical history , prior follow up and infusions for 'bone infection' done with Dr. Hinton and being told of not being a PCI/CABG candidate at [facility]. Also reinforces that will be back as soon as he can take care of medical emergency and also understands the needs for IV infusions and for monitoring of his heart and infection. Offered oral antibiotics though explained that would not be optimal and not guarantee any improvement or mitigation of his symptoms or prevent worsening complications as outlined above. Patient declined the same, stating that he understands the need for IV antibiotics and intends to come back as soon as he can take care of his personal situation. Witnessed by RODOLFO Chaudhari and security staff. patient signed AMA. Total time spent 25 min. Visit type - Emergency Visit Emergency Visit: No - New Patient This patient is new to me today: Yes Date on this admission: 03/25/17 - Critical Care Critical Care patient: No - Discharge Referral Referred to [facility] No
[2017-03-25] MEDS ORDERED: ATORVASTATIN CA 80 MG TABLET (FP) PO SCH (22:00)
--- NOTE | 2017-03-26 14:33 | EKG ---
Test Reason : Blood Pressure : / mmHG Vent. Rate : 115 BPM Atrial Rate : 115 BPM P-R Int : 140 ms QRS Dur : 102 ms QT Int : 346 ms P-R-T Axes : 060 -22 122 degrees QTc Int : 478 ms SINUS TACHYCARDIA POSSIBLE LEFT ATRIAL ENLARGEMENT LEFT VENTRICULAR HYPERTROPHY WITH REPOLARIZATION ABNORMALITY CANNOT RULE OUT STEPHANIE SEPTAL INFARCT (CITED ON OR BEFORE 25-AUG-2016) ABNORMAL ECG WHEN COMPARED WITH ECG OF 25-AUG-2016 13:22, VENT. RATE HAS INCREASED Confirmed by ROBE YUAN MD ([id number]) on 03/26/2017 2:33:20 PM Referred By: Confirmed By:ROBE YUAN MD
--- NOTE | 2017-03-26 20:34 | DS ---
Physical Exam: HOSPITAL COURSE: Date of Admission:03/25/17 56 year old male with a significant past medical history of CHF, IDDM, NSTEMI requiring cardiac cath at [facility], CAD, HTN, HLD, CVA, osteomyelitis, s/p toe amputation presented to the ED for a 1.5 day hx of shortness of breath. He additionally reported a cough productive of white sputum for about the same amount of time. Patient also stated that for 3 days, he has had swelling and erythema of his right foot and leg. In the ED it was found that he had EKG changes from previous admission and he was admitted for the treatment of congestive heart failure, pneumonia, NSTEMI, and cellulitis. Patient was diuresed and treated beta nehal and elizabeth inhibitor. He was additionally treated with antibiotics for pneumonia, aspirin/plavix/atorvastatin/heparin drip for NSTEMI and vancomycin for cellulitis. He was also covered for his blood sugar with levemir. The next day, patient exclaimed that he had an urgent family matter to take care of and that he would need to leave. Patient had the risks of signing out AMA clearly explained to him and he was able to understand and repeat the risks back. Despite an attempt to explain the severity of his condition, patient insisted that he needed to leave. He signed out AMA on . Date of Discharge: 03/26/17 Minutes to complete discharge: 30 Discharge Summary Reason For Visit: KIDNEY INJURY, CONGESTIVE HEART FAILURE,CELLULITIS Condition: Guarded - Instructions Referrals: Александр Espinosa MD [Primary Care Provider] - Disposition: AGAINST MEDICAL ADVICE - Home Medications Comprehensive Discharge Medication List: Ambulatory Orders Aspirin [ASA -] 81 mg PO DAILY 07/08/16 Insulin (Levemir) [Levemir Vial] 10 units SQ BID@0700,2200 #1 vial 07/14/16 Insulin Lispro Protamin/Lispro [Humalog Mix 75-25 Vial] 20 unit SQ DAILY Insulin Regular, Human [Humulin R U-500 Kwikpen] 7 unit SQ DAILY 09/06/16 Lisinopril [Prinivil] 5 mg PO DAILY 09/06/16 Metoprolol Succinate [Toprol XL -] 25 mg PO DAILY 09/06/16 Clopidogrel Bisulfate [Plavix -] 75 mg PO DAILY #30 tablet MDD 1 09/07/16 This patient is new to me today: No Emergency Visit: No Critical Care patient: No - Discharge Referral Referred to [facility] No
--- NOTE | 2017-03-29 12:58 | EKG ---
Test Reason : Blood Pressure : / mmHG Vent. Rate : 129 BPM Atrial Rate : 129 BPM P-R Int : 130 ms QRS Dur : 102 ms QT Int : 324 ms P-R-T Axes : 049 -18 143 degrees QTc Int : 474 ms SINUS TACHYCARDIA POSSIBLE LEFT ATRIAL ENLARGEMENT LEFT VENTRICULAR HYPERTROPHY WITH REPOLARIZATION ABNORMALITY CANNOT RULE OUT SEPTAL INFARCT (CITED ON OR BEFORE 25-AUG-2016) ABNORMAL ECG WHEN COMPARED WITH ECG OF 24-MAR-2017 21:29, NO SIGNIFICANT CHANGE WAS FOUND Confirmed by ILSA WOOD MD ([id number]) on 03/29/2017 12:57:58 PM Referred By: Confirmed By:ILSA WOOD MD
== END 2017-03-25 18:54 | disposition left against medical advice (07) | DRG 280 ==
LOC: JER 19:29 → JERBED 03-25 01:35 → J4W 03-25 05:53
PROVIDERS: ADMIT Internal Medicine; ATTEND Hospitalist
PROC: 5A09357 Assistance with Respiratory Ventilation, Less than 24 Consecutive Hours, Continuous Positive Airway Pressure (ICD-10-PCS; principal; 2017-03-25)
DX: I21.4 Non-ST elevation (NSTEMI) myocardial infarction (principal); I50.23 Acute on chronic systolic (congestive) heart failure; J96.01 Acute respiratory failure with hypoxia; I13.0 Hypertensive heart and chronic kidney disease with heart failure and stage 1 through stage 4 chronic kidney disease, or unspecified chronic kidney disease; L03.116 Cellulitis of left lower limb; N17.9 Acute kidney failure, unspecified; E11.22 Type 2 diabetes mellitus with diabetic chronic kidney disease; F17.210 Nicotine dependence, cigarettes, uncomplicated; N18.9 Chronic kidney disease, unspecified; I34.0 Nonrheumatic mitral (valve) insufficiency; I25.10 Atherosclerotic heart disease of native coronary artery without angina pectoris; E78.5 Hyperlipidemia, unspecified; D72.829 Elevated white blood cell count, unspecified; E11.65 Type 2 diabetes mellitus with hyperglycemia; Z79.4 Long term (current) use of insulin; E87.70 Fluid overload, unspecified; I73.9 Peripheral vascular disease, unspecified; I25.5 Ischemic cardiomyopathy
CPT/HCPCS: 36415; 36600; 71010-TC; 71020-TC; 76775-TC; 76856-TC; 80053; 81003; 81015; 82375; 82550; 82553; 82803; 83050; 83605; 83735; 83880; 84100; 84300; 84484; 84540; 85025; 85610; 85730; 87040; 87086; 87804; 87899; 93005; 93010; 93926-TC; 93971-TC; 99282-25; G0480; J1644

== ENCOUNTER 2017-03-30 01:44 | Inpatient (IN) | payer OTHER ==
--- NOTE | 2017-03-30 03:01 | PDOC ---
History of Present Illness - General History Source: Patient Exam Limitations: No Limitations - History of Present Illness Initial Comments: 03/30/17 03:36 The patient is a 56 year old male with a significant PMH of CHF, IDDM (poor control with osteomyelitis and multiple toe amputations), CAD (3 blockages on angiogram) and claudication of leg who presents to the emergency department with worsening shortness of breath for the past six days. He endorses his dyspnea is worsened with exertion and complains of orthopnea. The patient also states he has swelling on both legs and a cough productive of white phlegm. The patient was discharged on March 24 from our facility with the same complaint. The patient denies chest pain, headache and dizziness. Denies fever, chills, nausea, vomit, diarrhea and constipation. Allergies: NKA Social history: Former smoker. No reported alcohol or drug use. <Avani Romo - Last Filed: 03/30/17 04:18> - General History Source: Patient <Riley Reeves - Last Filed: 04/03/17 19:34> - General Chief Complaint: Shortness of Breath Stated Complaint: DIFFICULTY BREATHING Time Seen by Provider: 03/30/17 03:01 Past History <Avani Romo - Last Filed: 03/30/17 04:18> - Past Medical History Cardiac Disorders: Yes (CAD, NSTEMI) CVA: Yes COPD: Yes CHF: Yes Diabetes: Yes HTN: Yes Hypercholesterolemia: Yes - Surgical History Cardiac Surgery: Yes (ANGIOGRAM JUNE 2016) - Suicide/Smoking/Psychosocial Hx Smoking History: Former smoker Have you smoked in the past 12 months: Yes Number of Cigarettes Smoked Daily: 20 If you are a former smoker, when did you quit?: 1 month ago Information on smoking cessation initiated: No 'Breaking Loose' booklet given: 07/08/16 Hx Alcohol Use: No Drug/Substance Use Hx: No Substance Use Type: None Hx Substance Use Treatment: No <Riley Reeves - Last Filed: 04/03/17 19:34> - Past Medical History Allergies/Adverse Reactions: Allergies Allergy/AdvReac Type Severity Reaction Status Date / Time No Known Allergies Allergy Verified 03/30/17 03:47 Home Medications: Ambulatory Orders Aspirin [ASA -] 81 mg PO DAILY 07/08/16 Insulin (Levemir) [Levemir Vial] 10 units SQ BID@0700,2200 #1 vial 07/14/16 Insulin Lispro Protamin/Lispro [Humalog Mix 75-25 Vial] 20 unit SQ DAILY Insulin Regular, Human [Humulin R U-500 Kwikpen] 7 unit SQ DAILY 09/06/16 Lisinopril [Prinivil] 5 mg PO DAILY 09/06/16 Metoprolol Succinate [Toprol XL -] 25 mg PO DAILY 09/06/16 Clopidogrel Bisulfate [Plavix -] 75 mg PO DAILY #30 tablet MDD 1 09/07/16 Atorvastatin Ca [Lipitor] 40 mg PO HS #30 tablet 03/31/17 Furosemide [Lasix] 40 mg PO DAILY #30 tablet 03/31/17 Review of Systems - Review of Systems Able to Perform ROS?: Yes Comments:: 03/30/17 03:38 CONSTITUTIONAL: Absent: fever, no chills, no fatigue EYES: Absent: visual changes ENT: Absent: ear pain, no sore throat CARDIOVASCULAR: Absent: chest pain, no palpitations RESPIRATORY: Present: cough, SOB, orthopnea, dyspnea GI: Absent: abdominal pain, no nausea, no vomiting, no constipation, no diarrhea GENITOURINARY: Absent: dysuria, no frequency, no hematuria MUSKULOSKELETAL: Absent: back pain, no arthralgia, no myalgia SKIN: Absent: rash NEURO: Absent: headache <ClarissaAvani - Last Filed: 03/30/17 04:18> *Physical Exam - Vital Signs Last Vital Signs Temp Pulse Resp BP Pulse Ox 103 H 22 144/90 97 03/30/17 02:06 03/30/17 02:06 03/30/17 02:06 03/30/17 02:06 - Physical Exam Comments: 03/30/17 03:39 GENERAL: Well developed, well nourished. Awake and alert. No acute distress. HEENT: Normocephalic, atraumatic. PERRLA, EOMI. No conjunctival pallor. Sclera are non- icteric. Moist mucous membranes. Oropharynx is clear. NECK: Supple. Full ROM. No JVD. Carotid pulses 2+ and symmetric, without bruits. No thyromegaly. No lymphadenopathy. CARDIOVASCULAR: Regular rate and rhythm. No murmurs, rubs, or gallops. Distal pulses are 2+ and symmetric. PULMONARY: (+) Diminished and coarse breath sounds. (+) Tripod position. No wheezing, rales or rhonchi. ABDOMINAL: Soft. Non-tender. Non-distended. No rebound or guarding. No organomegaly. Normoactive bowel sounds. MUSCULOSKELETAL Normal range of motion at all joints. No bony deformities or tenderness. No CVA tenderness. EXTREMITIES: (+) 2+ right lower extremity edema; 3+ left lower extremity edema. No cyanosis. No clubbing. No calf tenderness. SKIN: Warm and dry. Normal capillary refill. No rashes. No jaundice. NEUROLOGICAL: Alert, awake, appropriate. Cranial nerves 2-12 intact. No deficits to light touch and temperature in face, upper extremities and lower extremities. No motor deficits in the in face, upper extremities and lower extremities. Normoreflexic in the upper and lower extremities. Normal speech. Toes are down- going bilaterally. Gait is normal without ataxia. PSYCHIATRIC: Cooperative. Good eye contact. Appropriate mood and affect. <Avani Romo - Last Filed: 03/30/17 04:18> - Vital Signs Last Vital Signs Temp Pulse Resp BP Pulse Ox 103 H 22 144/90 97 03/30/17 02:06 03/30/17 02:06 03/30/17 02:06 03/30/17 02:06 <Riley Reeves - Last Filed: 04/03/17 19:34> Heart Score/ECG Review #1 03/30/17 04:18 EKG performed at [2:11] demonstrates rate of [102], Sinus tachycardia with occasional premature ventricular complexes. Septal infarct, age undetermined. ST & T wave abnormality, consider inferior ischemia. Abnormal ECG. <Avani Romo - Last Filed: 03/30/17 04:18> ED Treatment Course - LABORATORY CBC & Chemistry Diagram: 03/30/17 02:48 03/30/17 02:48 - ADDITIONAL ORDERS Additional order review: Laboratory Results 03/30/17 03:15 VBG pH 7.38 POC VBG pCO2 42.9 POC VBG pO2 45.4 Mixed VBG HCO3 24.9 03/30/17 02:48 RBC 3.79 L MCV 85.6 MCHC 33.1 RDW 14.8 MPV 8.7 Neutrophils % 73.8 Lymphocytes % 15.0 D Monocytes % 8.4 Eosinophils % 1.6 Basophils % 1.2 <Avani Romo - Last Filed: 03/30/17 04:18> - LABORATORY CBC & Chemistry Diagram: 03/31/17 09:40 03/31/17 05:05 - RADIOLOGY Radiology Studies Ordered: Category Date Time Status CHEST X-RAY PORTABLE* [RAD] Stat Radiology 03/30/17 02:36 Ordered <Riley Reeves - Last Filed: 04/03/17 19:34> Medical Decision Making - Medical Decision Making 04/03/17 19:34 Dr. Reeves: The scribe's documentation has been prepared under my direction and personally reviewed by me in its entirery. I confirm that the note above accurately reflects all work, treatment, procedures, and medical decision making performed by me. <Riley Reeves - Last Filed: 04/03/17 19:34> *DC/Admit/Observation/Transfer - Attestations Scribe Attestion: 03/30/17 03:43 Documentation prepared by Avani Romo, acting as medical education coordinator for Riley Reeves DO. <Avani Romo - Last Filed: 03/30/17 04:18> - Discharge Dispostion Admit: Yes <Riley Reeves - Last Filed: 04/03/17 19:34> Diagnosis at time of Disposition: CHF (congestive heart failure), SOB (shortness of breath) - Discharge Dispostion Disposition: AGAINST MEDICAL ADVICE Condition at time of disposition: Stable
[2017-03-30 03:13] LABS: BASOPHIL 1.2 % (0-2.0); EOSINOPHIL 1.6 % (0-4.5); MCH 28.3 pg (25.7-33.7); MCHC 33.1 g/dl (32.0-35.9); MEAN CELL VOLUME 85.6 fl (80-96); MEAN PLT VOLUME 8.7 fl (7.5-11.1); NEUTROPHILS 73.8 % (42.8-82.8); PLATELET COUNT 426 K/MM3 (134-434); RDW 14.8 % (11.9-15.9); WHITE BLOOD COUNT 14.9 K/mm3 (4.0-10.0)
[2017-03-30 03:25] LABS: VENOUS BLOOD GAS HCO3 24.9 meq/L (19-25); VENOUS PH 7.38 (7.32-7.42)
[2017-03-30 03:39] VITALS: BMI 29.8
[2017-03-30] MEDS ORDERED: FUROSEMIDE 40 MG/4 ML INJECTABLE VIAL IVPUSH ONE ×2 (04:44→06:56)
[2017-03-30] MEDS ORDERED: FUROSEMIDE 40 MG/4 ML INJECTABLE VIAL ONE ×2 (04:46→07:13)
[2017-03-30 05:37] LABS: ALBUMIN 2.1 g/dl (3.4-5.0); ANION GAP 5 (8-16); CALCIUM 7.6 mg/dL (8.5-10.1); CO2 25 mmol/L (21-32); GLUCOSE,RANDOM 254 mg/dL (74-106); SGPT/ALT 21 U/L (12-78)
[2017-03-30 05:39] LABS: BILIRUBIN,TOTAL 0.3 mg/dL (0.2-1.0); TOT PROT 7.1 g/dl (6.4-8.2)
[2017-03-30 05:42] LABS: ALK PHOS 83 U/L (45-117); CPK 119 IU/L (39-308); TROPONIN I 0.22 ng/ml (0.00-0.05)
[2017-03-30 05:46] LABS: SGOT/AST 12 U/L (15-37)
[2017-03-30] MEDS ORDERED: SODIUM POLYSTYRENE SULFONATE 15 GM/60 ML BOTTLE PO ONE (06:12)
[2017-03-30] MEDS ORDERED: FUROSEMIDE 40 MG/4 ML INJECTABLE VIAL IVPUSH SCH (06:15)
[2017-03-30] MEDS ORDERED: ASPIRIN 81 MG CHEWABLE TABLETS PO ONE (06:18)
[2017-03-30] MEDS ORDERED: SODIUM POLYSTYRENE SULFONATE 15 GM/60 ML BOTTLE ONE (06:18)
[2017-03-30] MEDS ORDERED: CALCIUM GLUCONATE 10% - 1,000 MG/10 ML VIAL IVPUSH ONE (06:20)
[2017-03-30] MEDS: ALBUTEROL SO4 0.083% IH SOL 2.5 MG/3 ML VIAL.NEB. NEB SCH ×4 (06:23→07:12)
[2017-03-30] MEDS ORDERED: CALCIUM GLUCONATE 10% - 1,000 MG/10 ML VIAL ONE (06:25)
[2017-03-30] MEDS ORDERED: ASPIRIN 81 MG CHEWABLE TABLETS ONE (06:25)
[2017-03-30] MEDS ORDERED: ASPIRIN 325 MG TABLET ONE (06:26)
[2017-03-30] MEDS ORDERED: ALBUTEROL SO4 0.083% IH SOL 2.5 MG/3 ML VIAL.NEB. NEB ONE ×2 (07:01→07:13)
[2017-03-30] MEDS: INSULIN SLIDING SCALE (NOVOLOG) 1 VIAL SQ SCH ×4 (07:21→21:16)
[2017-03-30] MEDS ORDERED: INSULIN (NOVOLOG) ASPART 100 UNITS/ML 10ML VIAL ONE (07:24)
--- NOTE | 2017-03-30 08:26 | HP ---
CHIEF COMPLAINT: Shortness of breath PCP: Dr. Александр Espinosa HISTORY OF PRESENT ILLNESS: Patient is a 56 year old male with a significant PMHx of IDDMII, Systolic CHF, CAD with ASHD not a candidate for PCI or CABG and refusing AICD, HTN, CVA, PAD, diabetic neuropathy s/p toe amputation, CKD who presented today for increasing shortness of breath. Patient was here last week for CHF exacerbation but signed AMA refusing treatment. Patient reports having difficulty breathing since May of this year that gradually increased throughout the year but worsened in the last week. Patient states last night he was unable to "catch my breath" when sitting down associated with a productive cough of thin white phlegm, which prompted him to call EMS. Patient also complains of worsening leg swelling with worsening gait. On further questioning patient reports he is now unable to lay flat in bed. Previously, he was using two pillows to sleep but now he has to sleep upright, which is a change from his baseline. However, patient denies feeling short of breath when he is walking. Patient otherwise denies fever, chills, abdominal pain, chest pain, palpitations, dysuria, hematuria. ER course was notable for: (1) Lasix 40mg IV (2) Kayaxelate (3) Loading dose ASA Recent Travel: Denies PAST MEDICAL HISTORY: IDDMII, Systolic CHF, CAD, HTN, CVA, diabetic neuropathy s /p toe amputation, CKD PAST SURGICAL HISTORY: 4th/5th toe amputations (May 2016) Social History: Smokin/2 PPD for 45+ years Alcohol: Denies Drugs: Denies Family History: Mother- DM Father- Lung cancer Allergies: No Known Allergies Allergy (Verified 03/30/17 03:47) HOME MEDICATIONS: Home Medications Medication Instructions Recorded Aspirin [ASA -] 81 mg PO DAILY 07/08/16 Insulin (Levemir) [Levemir Vial] 10 units SQ BID@0700,2200 #1 vial 07/14/16 Insulin Lispro Protamin/Lispro 20 unit SQ DAILY 09/06/16 [Humalog Mix 75-25 Vial] Insulin Regular, Human [Humulin R 7 unit SQ DAILY 09/06/16 U-500 Kwikpen] Lisinopril [Prinivil] 5 mg PO DAILY 09/06/16 Metoprolol Succinate [Toprol XL -] 25 mg PO DAILY 09/06/16 Clopidogrel Bisulfate [Plavix -] 75 mg PO DAILY #30 tablet MDD 1 09/07/16 REVIEW OF SYSTEMS CONSTITUTIONAL: Absent: fever, chills, diaphoresis, generalized weakness, malaise, loss of appetite, weight change HEENT: Absent: rhinorrhea, nasal congestion, throat pain, throat swelling, difficulty swallowing, mouth swelling, ear pain, eye pain, visual changes CARDIOVASCULAR: Absent: chest pain, syncope, palpitations, irregular heart rate, lightheadedness , peripheral edema RESPIRATORY: cough, shortness of breath, dyspnea, orthopnea Absent: wheezing, stridor, hemoptysis GASTROINTESTINAL: Absent: abdominal pain, abdominal distension, nausea, vomiting, diarrhea, constipation, melena, hematochezia GENITOURINARY: Absent: dysuria, frequency, urgency, hesitancy, hematuria, flank pain, genital pain MUSCULOSKELETAL: Absent: myalgia, arthralgia, joint swelling, back pain, neck pain SKIN: Absent: rash, itching, pallor HEMATOLOGIC/IMMUNOLOGIC: Absent: easy bleeding, easy bruising, lymphadenopathy, frequent infections ENDOCRINE: Absent: unexplained weight gain, unexplained weight loss, heat intolerance, cold intolerance NEUROLOGIC: Absent: headache, focal weakness or paresthesias, dizziness, unsteady gait, seizure, mental status changes, bladder or bowel incontinence PSYCHIATRIC: Absent: anxiety, depression, suicidal or homicidal ideation, hallucinations. PHYSICAL EXAMINATION Vital Signs - 24 hr 03/30/17 03/30/17 03/30/17 02:06 04:06 04:50 Pulse Rate 103 H 98 H Pulse Rate [ Radial] Respiratory 22 Rate Blood Pressure 144/90 Blood Pressure [Left Arm] O2 Sat by Pulse 97 94 L 94 L Oximetry (%) 03/30/17 06:30 Pulse Rate Pulse Rate [ 100 H Radial] Respiratory 21 Rate Blood Pressure Blood Pressure 153/83 [Left Arm] O2 Sat by Pulse 100 Oximetry (%) GENERAL: Awake, alert, and fully oriented, in no acute distress. HEAD: Normal with no signs of trauma. EYES: Opaque right eye. Left eye PERRL, EOMI, sclera anicterus EARS, NOSE, THROAT: Oropharynx clear without exudates. Dry mucous membranes. NECK: (+) JVD bilaterally LUNGS: Mild rales throughout lung bases with diminished breath sounds in the right lung bases HEART: Tachycardic with regular rhythm, normal S1 and S2 without murmur, rub or gallop. ABDOMEN: Soft, nontender, not distended, normoactive bowel sounds, no guarding, no rebound, no masses. MUSCULOSKELETAL: No CVA tenderness. UPPER EXTREMITIES: No peripheral edema. LOWER EXTREMITIES:Bilateral 2+ pitting edema from dorsal foot to below the knee. Left 4th and 5th toe amputation. 2+ pulses, warm, well-perfused. No calf tenderness. NEUROLOGICAL: Cranial nerves II-XII intact. Normal speech. No facial droop. Motor strength 5/5 bilaterally with sensory intact PSYCHIATRIC: Cooperative. Good eye contact. Appropriate mood and affect. SKIN: Warm, dry, normal turgor, no rashes or lesions noted, normal capillary refill. Laboratory Results - last 24 hr 03/30/17 03/30/17 03/30/17 02:48 02:48 02:48 WBC 14.9 H D RBC 3.79 L Hgb 10.7 L D Hct 32.5 L MCV 85.6 MCH 28.3 MCHC 33.1 RDW 14.8 Plt Count 426 MPV 8.7 Neutrophils % 73.8 Lymphocytes % 15.0 D Monocytes % 8.4 Eosinophils % 1.6 Basophils % 1.2 VBG pH POC VBG pCO2 POC VBG pO2 Mixed VBG HCO3 Sodium Cancelled Potassium Cancelled Chloride Cancelled Carbon Dioxide Cancelled Anion Gap Cancelled BUN Cancelled Creatinine Cancelled Creat Clearance w eGFR Cancelled Random Glucose Cancelled Lactic Acid 0.7 Calcium Cancelled Total Bilirubin Cancelled AST Cancelled ALT Cancelled Alkaline Phosphatase Cancelled Creatine Kinase Cancelled Troponin I Cancelled Total Protein Cancelled Albumin Cancelled Blood Type Antibody Screen 03/30/17 03/30/17 03/30/17 03:15 03:19 05:00 WBC RBC Hgb Hct MCV MCH MCHC RDW Plt Count MPV Neutrophils % Lymphocytes % Monocytes % Eosinophils % Basophils % VBG pH 7.38 POC VBG pCO2 42.9 POC VBG pO2 45.4 Mixed VBG HCO3 24.9 Sodium 135 L Potassium 5.5 H Chloride 105 Carbon Dioxide 25 Anion Gap 5 L BUN 40 H Creatinine 2.0 H Creat Clearance w eGFR 34.74 Random Glucose 254 H Lactic Acid Calcium 7.6 L Total Bilirubin 0.3 D AST 12 L ALT 21 Alkaline Phosphatase 83 Creatine Kinase 119 Troponin I 0.22 H D Total Protein 7.1 Albumin 2.1 L Blood Type AB POSITIVE Antibody Screen Negative IMAGES: Chest X-ray (03/30/17): Shallow inspiration. Patient is rotated toward the right side. No evidence of widening of the superior mediastinum. The heart is borderline enlarged. No pneumothorax is seen. No evidence of blunting of the costophrenic angles, or effacement of the diaphragms. Bilateral pulmonary consolidations. No evidence of peribronchial cuffing, Vickie's B lines. Impression. Bilateral pulmonary infiltrates. ASSESSMENT/PLAN: Patient is a 56 year old male who presented for increasing shortness of breath for the last week with a recent admission here for CHF but left AMA. Patient on this admission was found to have CHF exacerbation and admitted for further monitoring and management. Acute on Chronic Systolic Heart Failure -Increasing shortness of breath with Chest X-ray showing congestion, Bilateral leg edema and JVD. -Patient currently not on any Lasix -ECHO ordered -BNP ordered -Continue Lasix 40mg IVP daily -Strict I&O's with daily weights -Will give Beta Rhoda but half the dose, as per cardiology -Cardiology consult appreciated and recommends ECHO and CPAP as needed HyperKalemia -Likely secondary to worsening CKD -Level of 5.5 -Kayaxelate given in the ED -Will continue to monitor BMP Acute on Chronic Kidney Disease -Urine electrolyes ordered -Improving from previous admission last week -Last Renal U/S (03/25/17) revealed Mildly echogenic kidneys with no hydronephrosis -No fluids as patient is currently in acute cardiac decompensation -Will hold his home medication Lisinopril and all nephrotoxic medications. Slightly Elevated Troponins -Improved from previous admission -Likely secondary to demand ischemia and CKD with MIRTHA -History of NSTEMI and multivessel disease -Will continue to trend troponin and EKG Cough with Possible PNA -Suspicious for pneumonia on previous admission with IV Ceftriaxone and Azithro given -Patient currently has cough with clear phlegm but no signs of fever, chills or septic picture. Will hold IV abx for now -Chest X-ray reveals consolidation but same from previous Chest x-ray last week -Blood cultures pending Anemia of Chronic Disease -Current hgb 10.7 which is around baseline -Iron studies ordered -Continue to monitor CBC IDDMII with Diabetic Neuropathy -Last A1C 10.2 back in 06/2016. Will repeat A1C -Continue Levemir 10 units BID -ISS -BGM HTN-Controlled -Will resume Metoprolol once dosage is confirmed -Will hold Lisinopril due to MIRTHA -Continue to monitor BP CAD w/ ASHD/CVA -Continue Aspirin 81mg daily -Continue Plavix 75mg daily -Patient refused ICD in the past and is not a candidate for PCI or CABG -Lipid panel ordered -Continuous cardiac monitoring F/E/N -On no fluids -Hyperkalemia. Corrected and will repeat -Sodium and diabetic controlled diet Prophylaxis -High risk. Heparin 5000 units SQ TID for DVT -No GI required Disposition -Full code. -Patient has CHF exacerbation and requires IV lasix. Will likely remain inpatient
--- NOTE | 2017-03-30 08:58 | PN ---
Progress Note, Physician Chief Complaint: 56 M with : Acute on chronic systolic CHF, severe LV systolic dysf, refused ICD ASHD, without viability: not candidate for PCI or CABG ([facility]) HTN/DM/PAD/CVA/CKD Moderate to severe MR CKD admitted 03/25 with decompensated CHF and suspeceted RLL PNA. Signed out AMA. Now returns to ER several days later with worsening PND and SOB. - Current Medication List Current Medications: Active Medications Aspirin (Asa -) 81 mg PO DAILY [facility] Clopidogrel Bisulfate (Plavix -) 75 mg PO DAILY [facility] Furosemide (Lasix Injection -) 40 mg IVPUSH DAILY [facility] Heparin Sodium (Porcine) (Heparin -) 5,000 unit SQ TID [facility] Insulin Aspart (Novolog Vial Sliding Scale -) 1 vial SQ ACHS [facility] PRN Reason: Protocol Last Admin: 03/30/17 07:21 Dose: 4 units Insulin Detemir (Levemir Vial) 10 units SQ BID@0700,2200 [facility] - Objective Vital Signs: Vital Signs Temperature Pulse Rate 100 H 03/30/17 06:30 Respiratory Rate 21 03/30/17 06:30 Blood Pressure 153/83 03/30/17 06:30 O2 Sat by Pulse Oximetry (%) 100 03/30/17 06:30 Constitutional: Yes: No Distress Cardiovascular: Yes: Regular Rate and Rhythm Respiratory: Yes: Other (bibasilar rales) Gastrointestinal: Yes: Soft (nontender) Edema: Yes Edema: LLE: 2+, RLE: 2+ Neurological: Yes: Alert, Oriented Labs: CBC, BMP 03/30/17 02:48 03/30/17 05:00 Microbiology Laboratory Tests 03/25/17 03/30/17 03/30/17 15:05 02:48 05:00 WBC 14.9 H D Hgb 10.7 L D Plt Count 426 Sodium 135 L Potassium 5.5 H BUN 40 H Creatinine 2.0 H Creatine Kinase 151 Troponin I 0.32 H 0.22 H D - ....Imaging EKG: Image Reviewed Other: Image Reviewed (TELE: Sinus tach with IVCD) Assessment/Plan IMP: Acute on chronic systolic CHF, severe LV systolic dysf, refused ICD ASHD, without viability: not candidate for PCI or CABG ([facility]) HTN/DM/PAD/CVA/CKD Moderate to severe MR Suspected PNA: bilobar? + TnI (with normal CK) likely demand ischemia due to CHF, possibel infection in setting of CKD: doubt true [place] REC: 1. IV Lasix and CPAP as needed 2. Continue ASA/Plavix. 3. Repeat Echo 4. Follow cultures. Abx as per PMD Patient is not a candidate for coronary revascularization and has refused ICD placement.
--- NOTE | 2017-03-30 10:03 | EKG ---
Test Reason : Blood Pressure : / mmHG Vent. Rate : 102 BPM Atrial Rate : 102 BPM P-R Int : 146 ms QRS Dur : 104 ms QT Int : 370 ms P-R-T Axes : 082 -14 129 degrees QTc Int : 482 ms POOR DATA QUALITY, INTERPRETATION MAY BE ADVERSELY AFFECTED SINUS TACHYCARDIA WITH OCCASIONAL PREMATURE VENTRICULAR COMPLEXES SEPTAL INFARCT , AGE UNDETERMINED ABNORMAL ECG Confirmed by DEXTER GARCIA MD ([id number]) on 03/30/2017 10:03:18 AM Referred By: Confirmed By:DEXTER GARCIA MD
[2017-03-30] MEDS: CLOPIDOGREL BISULFATE 75 MG TABLET (FP) PO SCH (10:05)
[2017-03-30] MEDS: HEPARIN NA (PORCINE) 5,000 UNITS/ML 1ML VIAL SQ SCH ×3 (10:05→21:04)
[2017-03-30] MEDS: ASPIRIN 81 MG CHEWABLE TABLETS PO SCH (10:05)
[2017-03-30 10:08] LABS: CHOLESTEROL 187 mg/dL (50-200)
[2017-03-30] MEDS: METOPROLOL TARTRATE 25 MG TABLET (FP) PO SCH (13:42)
[2017-03-30] MEDS: ATORVASTATIN CA 40 MG TABLET (FP) PO SCH ×2 (13:42→21:04)
--- NOTE | 2017-03-30 17:10 | PN ---
Teaching Attending Note Name of Resident: Brenda rByant ATTENDING PHYSICIAN STATEMENT I saw and evaluated the patient. I reviewed the resident's note and discussed the case with the resident. I agree with the resident's findings and plan as documented. SUBJECTIVE:56yo M with PMH IDDMII, Systolic CHF, CAD with ASHD not a candidate for PCI or CABG and refusing AICD, HTN, CVA, PAD, diabetic neuropathy s/p toe amputation, CKD nad R eye blindness c/o progessive SOB since June. states that he noted swelling in his leg last week which prompted him to the ER however he "had things to take care of" and left AMA. states swelling got worse. also unable to lay flat to sleep and has been sleeping in a chair for the past few nights. assoc with non productive cough. claims medication compliance (other than plavix becuase it upsets his stomach) but claims no one wanted to give him a water pill. denies CP, fever, chills, N/V/C/D OBJECTIVE: Last Vital Signs Temp Pulse Resp BP Pulse Ox 98 F 69 20 137/75 100 03/30/17 14:35 03/30/17 14:35 03/30/17 14:35 03/30/17 14:35 03/30/17 09:00 General NAD HEENT Opaque R eye CV S1 S2 RRR Lungs B/L crackles R >L no wheezing Abdomen soft NT/ND Extremities 2+ pitting edema B/L ASSESSMENT AND PLAN: 56 year old male with a significant PMHx of IDDMII, Systolic CHF, CAD with ASHD not a candidate for PCI or CABG and refusing AICD, HTN, CVA, PAD, diabetic neuropathy s/p toe amputation, CKD presented with progressive shortness of breath 1. Acute on chronic systolic CHF- tele admission. start lasix 40mg IVPB and monitor. betablocker dose reduced. echo done and reviewed. will need to optimize heart failure therapy. unclear why pt was not on lasix previously. pt has hx of non compliance. refused AICD in the past. cardio consulted. 2. Hyperkalemia- s/p calcium gluconate and kayexylate in the ER. no peaked T waves on EKG. repeat 3. Tropinemia- likely due to CKD. trending down from previous admission. no signs of ACS. possible demand ischemia from acute CHF. cont asa/plavix/statin. not a candidate for cath 4. Acute on CKD- likely pre-renal. send urine studies. monitor 5. Leukocytosis-likely reactive. trending down from last admission. received azithro and ceftriaxone x1 dose last visit. radiology read of possible B/L infiltrates however CXR looks improved from last admission and more volume. pt is afebrile and no productive cough. will hold abx at this time 6. DM- A1c 8.6. cont home insulin, BMG, iss 7. Normocytic anemia- no signs of bleeding. no indication for txn. check iron studies 8. DVT ppx- hep sq
[2017-03-30 18:27] LABS: ANION GAP 6 (8-16); CO2 27 mmol/L (21-32); GLUCOSE,RANDOM 210 mg/dL (74-106); MAGNESIUM 2.5 mg/dL (1.8-2.4); PHOSPHOROUS 4.5 mg/dL (2.5-4.9)
[2017-03-30 18:29] LABS: FERRITIN 684.191 ng/ml (16.4-293.9)
[2017-03-30] MEDS: INSULIN DETEMIR 100 UNITS/ML MDV SQ SCH (21:14)
--- NOTE | 2017-03-30 23:07 | HOSP ---
Subjective - Review of Symptoms Subjective: RN paged due to patient stating that he was SOB. Patient examined. Lying down comfortably. In no acute distress. He calmly stated he thinks he has too much fluid in his lungs and requests another lasix dose. Patient endorses feeling much better than he did in ER. Received IV Lasix 40mg x3 in ER. Patient examined , not in any respiratory distress. O2 sat 97 on NC. He has +2 pitting edema. Lungs positive for only mild basilar crackles. Patient was lying comfortably, orthopnea has improved. Informed patient that he already received 3 doses of lasix and appears to have improved lung sounds, with Cr of 2.0. After questioning, patient is more irritated by his O2 nasal cannula than SoB, stating his nose feels dry. Offered normal saline nebulizer treatment and patient agreed. Visit type - Emergency Visit Emergency Visit: No - New Patient This patient is new to me today: Yes Date on this admission: 03/31/17 - Critical Care Critical Care patient: No
[2017-03-30] MEDS: SODIUM CHLORIDE FOR INHALATION 3 ML VIAL.NEB IH ONE ×2 (23:28→23:29)
[2017-03-31 00:20] LABS: TROPONIN I 0.25 ng/ml (0.00-0.05)
[2017-03-31] MEDS: INSULIN DETEMIR 100 UNITS/ML MDV SQ SCH (06:15)
[2017-03-31] MEDS: INSULIN SLIDING SCALE (NOVOLOG) 1 VIAL SQ SCH ×2 (06:16→11:57)
[2017-03-31] MEDS: HEPARIN NA (PORCINE) 5,000 UNITS/ML 1ML VIAL SQ SCH ×2 (06:18→13:31)
[2017-03-31] MEDS ORDERED: FUROSEMIDE 40 MG/4 ML INJECTABLE VIAL ONE (06:38)
[2017-03-31] MEDS: FUROSEMIDE 40 MG/4 ML INJECTABLE VIAL IVPUSH SCH ×2 (06:43→09:26)
[2017-03-31] MEDS ORDERED: INSULIN (NOVOLOG) ASPART 100 UNITS/ML 10ML VIAL ONE (07:02)
[2017-03-31 07:35] LABS: CPK 104 IU/L (39-308); TROPONIN I 0.22 ng/ml (0.00-0.05)
[2017-03-31 09:21] VITALS: BP 100/58; PULSE 100; TEMP 98.2
--- NOTE | 2017-03-31 09:23 | EKG ---
Test Reason : Blood Pressure : / mmHG Vent. Rate : 102 BPM Atrial Rate : 102 BPM P-R Int : 140 ms QRS Dur : 102 ms QT Int : 368 ms P-R-T Axes : 062 -20 177 degrees QTc Int : 479 ms SINUS TACHYCARDIA POSSIBLE LEFT ATRIAL ENLARGEMENT SEPTAL INFARCT (CITED ON OR BEFORE 25-AUG-2016) ABNORMAL ECG WHEN COMPARED WITH ECG OF 30-MAR-2017 02:11, PREMATURE VENTRICULAR COMPLEXES ARE NO LONGER PRESENT Confirmed by SHEREEN NGUYEN MD ([id number]) on 03/31/2017 9:23:06 AM Referred By: Confirmed By:SHEREEN NGUYEN MD
--- NOTE | 2017-03-31 09:25 | PN ---
Progress Note, Physician History of Present Illness: Acute on chronic systolic CHF, severe LV systolic dysf, refused ICD ASHD, without viability: not candidate for PCI or CABG ([facility]) HTN/DM/PAD/CVA/CKD Moderate to severe MR CKD admitted 03/25 with decompensated CHF and suspeceted RLL PNA. Signed out AMA. Now returns to ER several days later with worsening PND and SOB. - Current Medication List Current Medications: Active Medications Aspirin (Asa -) 81 mg PO DAILY [facility] Last Admin: 03/30/17 10:05 Dose: 81 mg Atorvastatin Calcium (Lipitor -) 40 mg PO HS [facility] Last Admin: 03/30/17 21:04 Dose: 40 mg Clopidogrel Bisulfate (Plavix -) 75 mg PO DAILY [facility] Last Admin: 03/30/17 10:05 Dose: 75 mg Furosemide (Lasix Injection -) 40 mg IVPUSH DAILY [facility] Last Admin: 03/31/17 06:43 Dose: 40 mg Heparin Sodium (Porcine) (Heparin -) 5,000 unit SQ TID [facility] Last Admin: 03/31/17 06:18 Dose: Not Given Insulin Aspart (Novolog Vial Sliding Scale -) 1 vial SQ [facility] PRN Reason: Protocol Last Admin: 03/31/17 06:16 Dose: 4 units Insulin Detemir (Levemir Vial) 10 units SQ BID@0700,2200 [facility] Last Admin: 03/31/17 06:15 Dose: 10 units Metoprolol Tartrate (Lopressor -) 12.5 mg PO DAILY [facility] Last Admin: 03/30/17 13:42 Dose: 12.5 mg - Objective Vital Signs: Vital Signs Temperature 98.2 F 03/31/17 08:10 Pulse Rate 100 H 03/31/17 08:10 Respiratory Rate 16 03/31/17 08:10 Blood Pressure 100/58 03/31/17 08:10 O2 Sat by Pulse Oximetry (%) 92 L 03/30/17 19:48 Eyes: Yes: WNL, Conjunctiva Clear, EOM Intact HENT: Yes: WNL, Atraumatic, Normocephalic Neck: Yes: WNL, Supple, Trachea Midline Cardiovascular: Yes: WNL, Regular Rate and Rhythm Respiratory: Yes: WNL, Regular, CTA Bilaterally Gastrointestinal: Yes: WNL, Normal Bowel Sounds Genitourinary: Yes: WNL Musculoskeletal: Yes: WNL Extremities: Yes: WNL Edema: Yes Edema: LLE: 2+, RLE: 2+ Integumentary: Yes: WNL Neurological: Yes: WNL, Alert, Oriented ...Motor Strength: WNL Psychiatric: Yes: WNL Labs: CBC, BMP 03/30/17 02:48 03/30/17 17:00 Assessment/Plan Acute on chronic systolic CHF, severe LV systolic dysf, refused ICD ASHD, without viability: not candidate for PCI or CABG ([facility]) HTN/DM/PAD/CVA/CKD Moderate to severe MR Suspected PNA: bilobar? + TnI (with normal CK) likely demand ischemia due to CHF, possibel infection in setting of CKD: doubt true [place] EC: 1. IV Lasix and CPAP as needed 2. Continue ASA/Plavix. 3. Repeat Echo 4. Follow cultures. Abx as per PMD coverage for dr. Coon
[2017-03-31] MEDS: ASPIRIN 81 MG CHEWABLE TABLETS PO SCH (09:28)
[2017-03-31] MEDS: METOPROLOL TARTRATE 25 MG TABLET (FP) PO SCH (09:28)
[2017-03-31] MEDS: CLOPIDOGREL BISULFATE 75 MG TABLET (FP) PO SCH (09:28)
[2017-03-31 09:58] LABS: BASOPHIL 1.2 % (0-2.0); EOSINOPHIL 2.3 % (0-4.5); MCH 27.9 pg (25.7-33.7); MCHC 32.6 g/dl (32.0-35.9); MEAN CELL VOLUME 85.8 fl (80-96); MEAN PLT VOLUME 8.5 fl (7.5-11.1); NEUTROPHILS 69.8 % (42.8-82.8); PLATELET COUNT 395 K/MM3 (134-434); RDW 14.4 % (11.9-15.9); WHITE BLOOD COUNT 13.2 K/mm3 (4.0-10.0)
[2017-03-31 10:12] LABS: ANION GAP 9 (8-16); CALCIUM 7.7 mg/dL (8.5-10.1); CO2 24 mmol/L (21-32); GLUCOSE,RANDOM 252 mg/dL (74-106); MAGNESIUM 2.3 mg/dL (1.8-2.4)
--- NOTE | 2017-03-31 12:51 | PN ---
Progress Note (short form) - Note Progress Note: c/o Current Medications Generic Name Dose Route Start Last Admin Trade Name Radha PRN Reason Stop Dose Admin Aspirin 81 mg 03/30/17 10:00 03/31/17 09:28 Asa - PO 81 mg DAILY [facility] Administration Atorvastatin Calcium 40 mg 03/30/17 13:30 03/30/17 21:04 Lipitor - PO 40 mg HS [facility] Administration Clopidogrel Bisulfate 75 mg 03/30/17 10:00 03/31/17 09:28 Plavix - PO 75 mg DAILY [facility] Administration Furosemide 40 mg 03/31/17 10:00 03/31/17 09:26 Lasix Injection - IVPUSH Not Given DAILY [facility] Heparin Sodium (Porcine) 5,000 unit 03/30/17 10:15 03/31/17 06:18 Heparin - SQ Not Given TID [facility] Insulin Aspart 1 vial 03/30/17 06:15 03/31/17 11:57 Novolog Vial Sliding Scale - SQ 2 units ACHS [facility] Administration Protocol Insulin Detemir 10 units 03/30/17 22:00 03/31/17 06:15 Levemir Vial SQ 10 units BID@0700,2200 [facility] Administration Metoprolol Tartrate 12.5 mg 03/30/17 13:00 03/31/17 09:28 Lopressor - PO 12.5 mg DAILY [facility] Administration Last Vital Signs Temp Pulse Resp BP Pulse Ox 98.2 F 100 H 16 100/58 94 L 03/31/17 08:10 03/31/17 08:10 03/31/17 09:00 03/31/17 08:10 03/31/17 09:00 General NAD HEENT Opaque R eye CV S1 S2 RRR Lungs B/L crackles R >L no wheezing Abdomen soft NT/ND Extremities 2+ pitting edema B/L ASSESSMENT AND PLAN: 56 year old male with a significant PMHx of IDDMII, Systolic CHF, CAD with ASHD not a candidate for PCI or CABG and refusing AICD, HTN, CVA, PAD, diabetic neuropathy s/p toe amputation, CKD presented with progressive shortness of breath 1. Acute on chronic systolic CHF- tele admission. start lasix 40mg IVPB and monitor. betablocker dose reduced. echo done and reviewed. will need to optimize heart failure therapy. unclear why pt was not on lasix previously. pt has hx of non compliance. refused AICD in the past. cardio consulted. 2. Hyperkalemia- s/p calcium gluconate and kayexylate in the ER. no peaked T waves on EKG. repeat 3. Tropinemia- likely due to CKD. trending down from previous admission. no signs of ACS. possible demand ischemia from acute CHF. cont asa/plavix/statin. not a candidate for cath 4. Acute on CKD- likely pre-renal. send urine studies. monitor 5. Leukocytosis-likely reactive. trending down from last admission. received azithro and ceftriaxone x1 dose last visit. radiology read of possible B/L infiltrates however CXR looks improved from last admission and more volume. pt is afebrile and no productive cough. will hold abx at this time 6. DM- A1c 8.6. cont home insulin, BMG, iss 7. Normocytic anemia- no signs of bleeding. no indication for txn. check iron studies 8. DVT ppx- hep sq
--- NOTE | 2017-03-31 13:38 | DS ---
Physical Exam: SUBJECTIVE: Patient seen and examined. breathing improved. cough persists but not productive. deneis CP, fever, chills, N/V/C?d OBJECTIVE: Vital Signs Period Temp Pulse Resp BP Sys/Humphreys Pulse Ox Last 24 Hr 97.8 F-98.5 F 69-103 16-20 100-137/58-82 92-94 PHYSICAL EXAM GENERAL: The patient is awake, alert, and fully oriented, in no acute distress. HEAD: Normal with no signs of trauma. EYES: PERRL, extraocular movements intact, sclera anicteric, conjunctiva clear. ENT: Ears normal, nares patent, oropharynx clear without exudates, moist mucous membranes. NECK: Trachea midline, full range of motion, supple. LUNGS: B/L basal crackles. Breath sounds equal, clear to auscultation bilaterally, no wheezes, no accessory muscle use. HEART: Regular rate and rhythm, S1, S2 without murmur, rub or gallop. ABDOMEN: Soft, nontender, nondistended, normoactive bowel sounds, no guarding, no rebound, no hepatosplenomegaly, no masses. EXTREMITIES: 2+ pitting edema B/L LE. chronic venous changes. 2+ pulses, warm, well-perfused, NEUROLOGICAL: Cranial nerves II through XII grossly intact. Normal speech, gait not observed. PSYCH: Normal mood, normal affect. SKIN: Warm, dry, normal turgor, no rashes or lesions noted. LABS Laboratory Results - last 24 hr 03/30/17 03/30/17 03/30/17 11:23 11:24 16:42 WBC RBC Hgb Hct MCV MCH MCHC RDW Plt Count MPV Neutrophils % Lymphocytes % Monocytes % Eosinophils % Basophils % Sodium Potassium Chloride Carbon Dioxide Anion Gap BUN Creatinine POC Glucometer 369 363 209 Random Glucose Calcium Phosphorus Magnesium Ferritin Creatine Kinase Troponin I Ur Random Sodium Ur Random Potassium Ur Random Chloride Urine Creatinine 03/30/17 03/30/17 03/30/17 17:00 17:00 20:15 WBC RBC Hgb Hct MCV MCH MCHC RDW Plt Count MPV Neutrophils % Lymphocytes % Monocytes % Eosinophils % Basophils % Sodium 135 L Potassium 4.7 Chloride 102 Carbon Dioxide 27 Anion Gap 6 L BUN 40 H Creatinine 2.0 H POC Glucometer Random Glucose 210 H Calcium 8.0 L Phosphorus 4.5 Magnesium 2.5 H Ferritin 684.191 H Creatine Kinase Troponin I 0.30 H D Ur Random Sodium 36 Ur Random Potassium 46.0 Ur Random Chloride 24 Urine Creatinine 03/30/17 03/30/17 03/30/17 21:11 23:00 23:00 WBC RBC Hgb Hct MCV MCH MCHC RDW Plt Count MPV Neutrophils % Lymphocytes % Monocytes % Eosinophils % Basophils % Sodium Potassium Chloride Carbon Dioxide Anion Gap BUN Creatinine POC Glucometer 274 Random Glucose Calcium Phosphorus Magnesium Ferritin Creatine Kinase 94 Troponin I 0.25 H Ur Random Sodium 39 Ur Random Potassium Ur Random Chloride Urine Creatinine 03/30/17 03/31/17 03/31/17 23:00 05:05 06:07 WBC RBC Hgb Hct MCV MCH MCHC RDW Plt Count MPV Neutrophils % Lymphocytes % Monocytes % Eosinophils % Basophils % Sodium 134 L Potassium 5.1 Chloride 101 Carbon Dioxide 24 Anion Gap 9 BUN 36 H Creatinine 2.0 H POC Glucometer 262 Random Glucose 252 H Calcium 7.7 L Phosphorus Magnesium 2.3 Ferritin Creatine Kinase 104 Troponin I 0.22 H Ur Random Sodium Ur Random Potassium Ur Random Chloride Urine Creatinine 124.0 03/31/17 03/31/17 03/31/17 09:40 09:40 11:56 WBC 13.2 H RBC 3.65 L Hgb 10.2 L Hct 31.3 L MCV 85.8 MCH 27.9 MCHC 32.6 RDW 14.4 Plt Count 395 MPV 8.5 Neutrophils % 69.8 Lymphocytes % 18.7 D Monocytes % 8.0 Eosinophils % 2.3 Basophils % 1.2 Sodium Cancelled Potassium Cancelled Chloride Cancelled Carbon Dioxide Cancelled Anion Gap Cancelled BUN Cancelled Creatinine Cancelled POC Glucometer 207 Random Glucose Cancelled Calcium Cancelled Phosphorus Magnesium Cancelled Ferritin Creatine Kinase Troponin I Ur Random Sodium Ur Random Potassium Ur Random Chloride Urine Creatinine HOSPITAL COURSE: Date of Admission:03/30/17 Date of Discharge: 03/31/17 admitting diagnosis: Acute on chronic systolic CHF, hyperkalemia, acute on CKD pre hospital course 56yo M with PMH IDDMII, Systolic CHF, CAD with ASHD not a candidate for PCI or CABG and refusing AICD, HTN, CVA, PAD, diabetic neuropathy s/p toe amputation, CKD nad R eye blindness c/o progessive SOB since June. states that he noted swelling in his leg last week which prompted him to the ER however he "had things to take care of" and left AMA. states swelling got worse. also unable to lay flat to sleep and has been sleeping in a chair for the past few nights. assoc with non productive cough. claims medication compliance (other than plavix becuase it upsets his stomach) but claims no one wanted to give him a water pill. denies CP, fever, chills, N/V/C/D Subsequent hospital course Tele admission. continuous cardiac monitoring which pt refused to wear. troponins were slightly elevated but remains stable with no signs of ACS and normal CKMB not suggestive of acute ACS. pt was started on lasix IV. pt clinically improved however remained volume overloaded. pt wanted to sign out AMA. discussed risks and benefits of leaving. verbalized understanding of risks and acknowledges increased risk of mortality. will send prescriptions to encourage medication compliance and follow up Minutes to complete discharge: 40 Discharge Summary Reason For Visit: CHF SHORTNESS OF BREATH Current Active Problems CHF (congestive heart failure) (Acute) SOB (shortness of breath) (Acute) Condition: Stable - Instructions Diet, Activity, Other Instructions: You were admitted to the hospital due to exacerbation of your weak heart. It is recommended that you stay in the hospital for continued diuresis however you refused to stay and signed out Against medical advice. It is very important that you are compliant with your medication weigh yourself daily, if you notice your weight increases by more than 3 pounds you should take an extra dose of your lasix. Follow up with your primary care doctor this week, preferrably sunday. if you do not have one inforrmation on one has been provided follow up with cardiology in 1-2 weeks Referrals: Andrew Hernandez MD [Staff Physician] - 1 Week (primary care) Moe Coon MD [Staff Physician] - 2 Weeks (cardiology) Disposition: AGAINST MEDICAL ADVICE - Home Medications Comprehensive Discharge Medication List: Ambulatory Orders Aspirin [ASA -] 81 mg PO DAILY 07/08/16 Insulin (Levemir) [Levemir Vial] 10 units SQ BID@0700,2200 #1 vial 07/14/16 Insulin Lispro Protamin/Lispro [Humalog Mix 75-25 Vial] 20 unit SQ DAILY Insulin Regular, Human [Humulin R U-500 Kwikpen] 7 unit SQ DAILY 09/06/16 Lisinopril [Prinivil] 5 mg PO DAILY 09/06/16 Metoprolol Succinate [Toprol XL -] 25 mg PO DAILY 09/06/16 Clopidogrel Bisulfate [Plavix -] 75 mg PO DAILY #30 tablet MDD 1 09/07/16 Atorvastatin Ca [Lipitor] 40 mg PO HS #30 tablet 03/31/17 Furosemide [Lasix] 40 mg PO DAILY #30 tablet 03/31/17 This patient is new to me today: No Emergency Visit: Yes ED Registration Date: 03/30/17 Care time: The patient presented to the Emergency Department on the above date and was hospitalized for further evaluation of their emergent condition. Critical Care patient: No - Discharge Referral Referred to [facility] Med [facility] No
[2017-04-01 06:36] LABS: SERUM IRON 35 ug/dL (38-169); TOTAL IRON BINDING CAPACITY 194 ug/dL (250-450); UIBC 159 ug/dL (111-343)
[2017-04-01 08:07] LABS: TRANSFERRIN 161 mg/dL (200-370)
== END 2017-03-31 14:27 | disposition left against medical advice (07) | DRG 291 ==
LOC: JER 01:44 → JERBED 05:54 → UNDOADMIN 06:12 → J4W 08:02
PROVIDERS: ADMIT Internal Medicine; ATTEND Internal Medicine
DX: I13.0 Hypertensive heart and chronic kidney disease with heart failure and stage 1 through stage 4 chronic kidney disease, or unspecified chronic kidney disease (principal); I50.23 Acute on chronic systolic (congestive) heart failure; E11.22 Type 2 diabetes mellitus with diabetic chronic kidney disease; N18.9 Chronic kidney disease, unspecified; Z79.4 Long term (current) use of insulin; E87.5 Hyperkalemia; E11.40 Type 2 diabetes mellitus with diabetic neuropathy, unspecified; D72.829 Elevated white blood cell count, unspecified; D64.9 Anemia, unspecified; I25.10 Atherosclerotic heart disease of native coronary artery without angina pectoris; I34.0 Nonrheumatic mitral (valve) insufficiency; Z87.891 Personal history of nicotine dependence
CPT/HCPCS: 36415; 71010-TC; 80048; 80053; 80061; 82436; 82550; 82570; 82728; 82803; 83036; 83540; 83550; 83605; 83721; 83735; 83880; 84100; 84133; 84300; 84466; 84484; 85025; 86850; 86900; 86901; 87040; 93005; 93010; 93306-TC; 99285-25; J1644

== ENCOUNTER 2017-04-04 02:03 | Inpatient (IN) | payer OTHER ==
[2017-04-04 03:17] LABS: BASOPHIL 0.8 % (0-2.0); EOSINOPHIL 1.3 % (0-4.5); MCHC 32.5 g/dl (32.0-35.9); MEAN PLT VOLUME 8.7 fl (7.5-11.1); NEUTROPHILS 69.3 % (42.8-82.8); PLATELET COUNT 374 K/MM3 (134-434); RDW 14.8 % (11.9-15.9); WHITE BLOOD COUNT 12.8 K/mm3 (4.0-10.0)
[2017-04-04 03:43] LABS: ALBUMIN 2.5 g/dl (3.4-5.0); ANION GAP 9 (8-16); BILIRUBIN,TOTAL 0.2 mg/dL (0.2-1.0); CALCIUM 8.4 mg/dL (8.5-10.1); CO2 25 mmol/L (21-32); CREATININE 2.1 mg/dL (0.7-1.3); GLUCOSE,RANDOM 236 mg/dL (74-106); MAGNESIUM 2.3 mg/dL (1.8-2.4); SGOT/AST 22 U/L (15-37); SGPT/ALT 22 U/L (12-78); TOT PROT 7.9 g/dl (6.4-8.2)
[2017-04-04 03:46] LABS: ALK PHOS 83 U/L (45-117); CPK 156 IU/L (39-308); TROPONIN I 0.37 ng/ml (0.00-0.05)
--- NOTE | 2017-04-04 04:01 | PDOC ---
History of Present Illness - General Chief Complaint: Shortness of Breath Stated Complaint: S.O.B. Time Seen by Provider: 04/04/17 02:38 - History of Present Illness Initial Comments: 04/04/17 03:58 CHIEF COMPLAINT: SOB HISTORY OF PRESENT ILLNESS: 56 year old male with a significant PMH of CHF, IDDM, CAD (3 blockages on angiogram), HTN, CVA, PAD, diabetic neuropathy s/p toe amputation, CKD nad R eye blindness returns to the emergency department with worsening shortness of breath since early this year. Patient was admitted to this hospital 5 days ago for CHF exacerbation. He reports that now he also has SOB "when lying down." He denies any chest pain or palpitations. PAST MEDICAL HISTORY: as per HPI FAMILY HISTORY: Denies SOCIAL HISTORY: Former smoker SURGICAL HISTORY: CABG, multiple toe amputations ALLERGIES: No known drug allergies PCP: none REVIEW OF SYSTEMS General/Constitutional: Denies fever or chills. Denies weakness, weight change. HEENT: Denies change in vision. Denies ear pain or discharge. Denies sore throat. Cardiovascular: Denies chest pain. Respiratory: Worsening shortness of breath, chronic cough. Gastrointestinal: Denies nausea, vomiting, diarrhea or constipation. Denies rectal bleeding. Genitourinary: Denies dysuria, frequency, or change in urination. Musculoskeletal: Denies joint or muscle swelling or pain. Denies neck or back pain. Skin and breasts: Denies rash or easy bruising. Neurologic: Denies headache, vertigo, loss of consciousness, or loss of sensation. PHYSICAL EXAM General Appearance: Well-appearing, appropriately dressed. No apparent distress. HEENT: EOMI, PERRLA, normal ENT inspection, normal voice, TMs normal, pharynx normal. No conjunctival pallor. No photophobia, scleral icterus. Respiratory/Chest: Diminished breath sounds b/l, crackles to RLL. No shortness of breath, chest tenderness, respiratory distress, accessory muscle use. Cardiovascular: RRR. S1, S2. Gastrointestinal/Abdominal: Normal bowel sounds. Abdomen soft, non-distended. No tenderness or rebound tenderness. No organomegaly, pulsatile mass, guarding , hernia, hepatomegaly, splenomegaly. Musculoskeletal/Extremities: B/l 2+ edema to lower extremities. 4th and 5th toe s/p amputation. 2+ pulses. No tenderness to extremities, no erythema. Integumentary: Appropriate color, dry, warm. No cyanosis, erythema, jaundice or rash Neurologic: facility administrator II-XII intact. Fully oriented, alert. Appropriate mood/affect. Motor strength 5/5. No appreciable EOM palsy, facial droop or sensory deficit. Past History - Past Medical History Allergies/Adverse Reactions: Allergies Allergy/AdvReac Type Severity Reaction Status Date / Time No Known Allergies Allergy Verified 03/30/17 03:47 Home Medications: Ambulatory Orders Aspirin [ASA -] 81 mg PO DAILY 07/08/16 Insulin (Levemir) [Levemir Vial] 10 units SQ BID@0700,2200 #1 vial 07/14/16 Insulin Lispro Protamin/Lispro [Humalog Mix 75-25 Vial] 20 unit SQ DAILY Insulin Regular, Human [Humulin R U-500 Kwikpen] 7 unit SQ DAILY 09/06/16 Lisinopril [Prinivil] 5 mg PO DAILY 09/06/16 Metoprolol Succinate [Toprol XL -] 25 mg PO DAILY 09/06/16 Clopidogrel Bisulfate [Plavix -] 75 mg PO DAILY #30 tablet MDD 1 09/07/16 Atorvastatin Ca [Lipitor] 40 mg PO HS #30 tablet 03/31/17 Furosemide [Lasix] 40 mg PO DAILY #30 tablet 03/31/17 Cardiac Disorders: Yes (CAD, NSTEMI) CVA: Yes COPD: Yes CHF: Yes Diabetes: Yes HTN: Yes Hypercholesterolemia: Yes - Surgical History Cardiac Surgery: Yes (ANGIOGRAM JUNE 2016) - Suicide/Smoking/Psychosocial Hx Smoking History: Never smoked Have you smoked in the past 12 months: No Number of Cigarettes Smoked Daily: 20 If you are a former smoker, when did you quit?: 1 month ago Information on smoking cessation initiated: No 'Breaking Loose' booklet given: 07/08/16 Hx Alcohol Use: No Drug/Substance Use Hx: No Substance Use Type: None Hx Substance Use Treatment: No *Physical Exam - Vital Signs Last Vital Signs Temp Pulse Resp BP Pulse Ox 97.8 F 86 18 108/69 97 04/04/17 02:45 04/04/17 02:45 04/04/17 02:45 04/04/17 02:45 04/04/17 02:45 Heart Score/ECG Review - History History: Moderately suspicious - Electrocardiogram EKG: Non specific repolarization disturbance - Age Age: 45-65 - Risk Factors Risk Factors Heart Score: Yes Hx Hypertension, Yes Hx Diabetes, Yes Smoking History Based on the list above the patient has:: >/=3 risk factors or Hx atherosclerotic disease - Troponin Troponin: >/=3x normal limit - Score Heart Score - Total: 7 ED Treatment Course - LABORATORY CBC & Chemistry Diagram: 04/04/17 02:55 04/04/17 02:55 - ADDITIONAL ORDERS Additional order review: Laboratory Results 04/04/17 04/04/17 02:55 02:55 PT with INR Cancelled INR Cancelled Sodium 138 Potassium 4.9 Chloride 104 Carbon Dioxide 25 Anion Gap 9 BUN 41 H Creatinine 2.1 H Creat Clearance w eGFR 32.83 Random Glucose 236 H Calcium 8.4 L Magnesium 2.3 Total Bilirubin 0.2 D AST 22 D ALT 22 Alkaline Phosphatase 83 Creatine Kinase 156 Troponin I 0.37 H D B-Natriuretic Peptide 6309.55 H Total Protein 7.9 Albumin 2.5 L 04/04/17 02:55 RBC 3.73 L MCV 86.0 MCHC 32.5 RDW 14.8 MPV 8.7 Neutrophils % 69.3 Lymphocytes % 21.5 Monocytes % 7.1 Eosinophils % 1.3 Basophils % 0.8 - RADIOLOGY Radiology Studies Ordered: Category Date Time Status CHEST PA & LAT [RAD] Stat Radiology 04/04/17 02:41 Taken Medical Decision Making - Medical Decision Making 04/04/17 04:28 56 year old male with a significant PMH of CHF, IDDM, CAD (3 blockages on angiogram), HTN, CVA, PAD, diabetic neuropathy s/p toe amputation, CKD nad R eye blindness returns to the emergency department with worsening shortness of breath since early this year. -Full cardiac workup EKG unchanged from prior 03/30/17. 04/04/17 04:29 Laboratory Tests 04/04/17 04/04/17 02:55 02:55 WBC 12.8 H BUN 41 H Creatinine 2.1 H Creatine Kinase Index 5.3 H CK-MB (CK-2) 8.295 H Troponin I 0.37 H D B-Natriuretic Peptide 6309.55 H Patient's Heart score is 7. Will admit to tele. 04/04/17 04:57 Discussed case with hospitalist attending MD Villatoro who accepts patient to inpatient tele. *DC/Admit/Observation/Transfer Diagnosis at time of Disposition: CHF (congestive heart failure), Ruled out for myocardial infarction, SOB ( shortness of breath) - Discharge Dispostion Admit: Yes - Referrals - Patient Instructions - Post Discharge Activity
--- NOTE | 2017-04-04 04:03 | PDOC ---
*Physical Exam - Vital Signs Last Vital Signs Temp Pulse Resp BP Pulse Ox 97.8 F 86 18 108/69 97 04/04/17 02:45 04/04/17 02:45 04/04/17 02:45 04/04/17 02:45 04/04/17 02:45 ED Treatment Course - LABORATORY CBC & Chemistry Diagram: 04/04/17 02:55 04/04/17 08:50 - ADDITIONAL ORDERS Additional order review: Laboratory Results 04/04/17 04/04/17 02:55 02:55 PT with INR Cancelled INR Cancelled Sodium 138 Potassium 4.9 Chloride 104 Carbon Dioxide 25 Anion Gap 9 BUN 41 H Creatinine 2.1 H Creat Clearance w eGFR 32.83 Random Glucose 236 H Calcium 8.4 L Magnesium 2.3 Total Bilirubin 0.2 D AST 22 D ALT 22 Alkaline Phosphatase 83 Creatine Kinase 156 Troponin I 0.37 H D B-Natriuretic Peptide 6309.55 H Total Protein 7.9 Albumin 2.5 L 04/04/17 02:55 RBC 3.73 L MCV 86.0 MCHC 32.5 RDW 14.8 MPV 8.7 Neutrophils % 69.3 Lymphocytes % 21.5 Monocytes % 7.1 Eosinophils % 1.3 Basophils % 0.8 Medical Decision Making - Medical Decision Making 04/04/17 04:03 agree with care from DANIAL Lane *DC/Admit/Observation/Transfer Diagnosis at time of Disposition: CHF (congestive heart failure), Ruled out for myocardial infarction, SOB ( shortness of breath) - Referrals - Patient Instructions - Post Discharge Activity
[2017-04-04] MEDS ORDERED: FUROSEMIDE 40 MG/4 ML INJECTABLE VIAL IVPUSH ONE (04:24)
[2017-04-04 04:28] LABS: PROTHROMBIN TIME (PATIENT) 11.3 SEC (9.98-11.88)
[2017-04-04] MEDS ORDERED: ASPIRIN 325 MG ENTERIC COATED TABLET (FP) PO ONE (04:40)
[2017-04-04] MEDS ORDERED: FUROSEMIDE 40 MG/4 ML INJECTABLE VIAL ONE (05:00)
[2017-04-04] MEDS ORDERED: ASPIRIN COATED 81 MG TABLET.EC ONE (05:00)
--- NOTE | 2017-04-04 05:07 | PN ---
Teaching Attending Note Name of Resident: Manjinder Chapin ATTENDING PHYSICIAN STATEMENT I saw and evaluated the patient. I reviewed the resident's note and discussed the case with the resident. I agree with the resident's findings and plan as documented. SUBJECTIVE: 56 M with hx of Systolic HF, CAD (3v blockage, not a revasc. candidate as per cards), PAD, CVA, CKD, R. Eye blindness, DM, Toe amputations on L. foot, former tobacco use who presents with shortness of breath. Recently admitted for CHF Exacerbation. States his shortness of breath has been since discharge. Notes he has been taking his medications as prescribed. No chest pain or pressure. No N/V /D. No diaphoresis, no fevers or chills. OBJECTIVE: Physical: VS: Vital Signs Period Temp Pulse Resp BP Sys/Humphreys Pulse Ox Last 24 Hr 97.8 F 86 18-18 108/69 97-97 GEN: NAD, Resting in bed, able to speak full sentences HEENT: NCAT, PRon Left, R. Pupil not reactive, Throat without erythema or exudates CARD: RRR S1, S2 RESP: Crackles bases bilaterally ABD: BSX4, NTD to palpation EXT: L>R Pitting edema, Pt. refused to take off shoes for foot exam. CBCD WBC 12.8 K/mm3 (4.0-10.0) H 04/04/17 02:55 RBC 3.73 M/mm3 (4.00-5.60) L 04/04/17 02:55 Hgb 10.4 GM/dL (11.7-16.9) L 04/04/17 02:55 Hct 32.1 % (35.4-49) L 04/04/17 02:55 MCV 86.0 fl (80-96) 04/04/17 02:55 MCHC 32.5 g/dl (32.0-35.9) 04/04/17 02:55 RDW 14.8 % (11.9-15.9) 04/04/17 02:55 Plt Count 374 K/MM3 (134-434) 04/04/17 02:55 MPV 8.7 fl (7.5-11.1) 04/04/17 02:55 CMP Sodium 138 mmol/L (136-145) 04/04/17 02:55 Potassium 4.9 mmol/L (3.5-5.1) 04/04/17 02:55 Chloride 104 mmol/L (98-107) 04/04/17 02:55 Carbon Dioxide 25 mmol/L (21-32) 04/04/17 02:55 Anion Gap 9 (8-16) 04/04/17 02:55 BUN 41 mg/dL (7-18) H 04/04/17 02:55 Creatinine 2.1 mg/dL (0.7-1.3) H 04/04/17 02:55 Creat Clearance w eGFR 32.83 (>60) 04/04/17 02:55 Random Glucose 236 mg/dL (74-106) H 04/04/17 02:55 Calcium 8.4 mg/dL (8.5-10.1) L 04/04/17 02:55 Total Bilirubin 0.2 mg/dL (0.2-1.0) D 04/04/17 02:55 AST 22 U/L (15-37) D 04/04/17 02:55 ALT 22 U/L (12-78) 04/04/17 02:55 Alkaline Phosphatase 83 U/L (45-117) 04/04/17 02:55 Total Protein 7.9 g/dl (6.4-8.2) 04/04/17 02:55 Albumin 2.5 g/dl (3.4-5.0) L 04/04/17 02:55 CARDIAC ENZYMES Creatine Kinase 156 IU/L (39-308) 04/04/17 02:55 Troponin I 0.37 ng/ml (0.00-0.05) H D 04/04/17 02:55 Home Medications Medication Instructions Recorded Aspirin [ASA -] 81 mg PO DAILY 07/08/16 Insulin (Levemir) [Levemir Vial] 10 units SQ BID@0700,2200 #1 vial 07/14/16 Insulin Lispro Protamin/Lispro 20 unit SQ DAILY 09/06/16 [Humalog Mix 75-25 Vial] Insulin Regular, Human [Humulin R 7 unit SQ DAILY 09/06/16 U-500 Kwikpen] Lisinopril [Prinivil] 5 mg PO DAILY 09/06/16 Metoprolol Succinate [Toprol XL -] 25 mg PO DAILY 09/06/16 Clopidogrel Bisulfate [Plavix -] 75 mg PO DAILY #30 tablet MDD 1 09/07/16 Atorvastatin Ca [Lipitor] 40 mg PO HS #30 tablet 03/31/17 Furosemide [Lasix] 40 mg PO DAILY #30 tablet 03/31/17 EKG: NSR, Septal infarct age unknown QtC 469 CXR- Vascular Congestion ECHO : 03/30 EF 24 LV systolic Fxn Severely reduced ASSESSMENT AND PLAN: 56 M with pmhx of CHF, IDDM, CAD (no a candidate for revasc), HTN, HLD, CVA, Osteomyelitis, amputation of toes being admitted for CHF Exacerbation, found to also have troponin elevation 1.) Acute Exacerbation of CHF - Lasix 40 IV administered in ED - Fluid/NA restrict - c/w Kamlesh, BB - Strict I/O - Dialy weights - Echo as above - Pt. unwilling to get ICD in past 2.) Troponin Elevation DDx: NSTEMI vs. Demand/ckd - With coitmitent rise in CKMB, TNI inc. from prior admits - Hep, gtt atleast until next Cardiac series, trend w EKG - ASA - HEART 7 - No active chest pain - C/W Plavix and BB, Statin 3.) MIRTHA on CKD - May be new baseline - U Lytes - Avoid Nephrotoxins 4.) DM - FS - RAISS - Last A1c 8.6, - C/W Levemir - Diabetic Diet 5.) R>L LE edema - Duplex R. Lower Extremity 6.) Leukocytosis - Decreased from prior - No signs of infxn - Will hold off abx. for now 7.) Dvt Ppx - On Hep. gtt Place in [place]
--- NOTE | 2017-04-04 05:32 | HP ---
CHIEF COMPLAINT: SOB, LE edema, orthopnea PCP: Dr. Александр Espinosa HISTORY OF PRESENT ILLNESS: 56yo M with a medical history of IDDM, Systolic CHF, CAD with ASHD who previously refused AICD placement, HTN, CVA, PAD, diabetic neuropathy s/p toe amputation x3, CKD who presents today for increasing shortness of breath and worsening orthopnea. Pt was recently hospitalized starting 03/30/17 for his same symptoms, however he left AMA after one day. Pt reports leaving because he thought he was better despite recommendation for him to stay one more day. Pt reports having difficulty breathing since May of this year that gradually increased since but has worsened since the end of February 2017. Pt currently complains of worsening dyspnea and orthopnea. He usually sleeps with about 2-3 pillows due to his baseline orthopnea, however he has only been able to sit upright to sleep. Pt also complains of worsening leg swelling with worsening gait, however he states his L leg is worse than his R leg. Otherwise pt denies headache, visual changes, palpitations, CP/discomfort, abdominal pain, polyuria , dysuria. Pt reports having "red urine" about 2-3 weeks ago, however states he has had no problem producing urine currently. ER course was notable for: (1) Lasix 40mg IV (2) Loading dose ASA (3) EKG - unchanged from prior; NSR with J-point ST abnormalities in V1-V4 with reciprocal depressions noted, poor R-wave progression and QTc 467 (4) CXR showing pulmonary congestion, however by my read compared to previous done 03/31/17 slightly improved despite different penetration of imaging. PAST MEDICAL HISTORY: IDDM Systolic CHF CAD (ASHD who previously refused AICD placement) HTN CVA Diabetic neuropathy s/p toe amputation, CKD PAST SURGICAL HISTORY: 4th/5th toe amputations (May 2016) Social History: Smokin/2 PPD for 45+ years Alcohol: Denies Drugs: Denies Family History: Mother- DM Father- Lung cancer (unknown type) Allergies No Known Allergies Allergy (Verified 03/30/17 03:47) HOME MEDICATIONS: Home Medications Medication Instructions Recorded Aspirin [ASA -] 81 mg PO DAILY 07/08/16 Insulin (Levemir) [Levemir Vial] 10 units SQ BID@0700,2200 #1 vial 07/14/16 Insulin Lispro Protamin/Lispro 20 unit SQ DAILY 09/06/16 [Humalog Mix 75-25 Vial] Insulin Regular, Human [Humulin R 7 unit SQ DAILY 09/06/16 U-500 Kwikpen] Lisinopril [Prinivil] 5 mg PO DAILY 09/06/16 Metoprolol Succinate [Toprol XL -] 25 mg PO DAILY 09/06/16 Clopidogrel Bisulfate [Plavix -] 75 mg PO DAILY #30 tablet MDD 1 09/07/16 Atorvastatin Ca [Lipitor] 40 mg PO HS #30 tablet 03/31/17 Furosemide [Lasix] 40 mg PO DAILY #30 tablet 03/31/17 REVIEW OF SYSTEMS CONSTITUTIONAL: Absent: fever, chills, diaphoresis, generalized weakness, malaise, loss of appetite, weight change HEENT: Absent: rhinorrhea, nasal congestion, throat pain, throat swelling, difficulty swallowing, mouth swelling, ear pain, eye pain, visual changes CARDIOVASCULAR: Present: peripheral edema Absent: chest pain, syncope, palpitations, irregular heart rate, lightheadedness , RESPIRATORY: Present: cough, shortness of breath, orthopnea Absent: Dyspnea with exertion, wheezing, stridor, hemoptysis GASTROINTESTINAL: Absent: abdominal pain, abdominal distension, nausea, vomiting, diarrhea, constipation, melena, hematochezia GENITOURINARY: Absent: dysuria, frequency, urgency, hesitancy, hematuria, flank pain, genital pain MUSCULOSKELETAL: Absent: myalgia, arthralgia, joint swelling, back pain, neck pain SKIN: Absent: rash, itching, pallor HEMATOLOGIC/IMMUNOLOGIC: Absent: easy bleeding, easy bruising, lymphadenopathy, frequent infections ENDOCRINE: Absent: unexplained weight gain, unexplained weight loss, heat intolerance, cold intolerance NEUROLOGIC: Absent: headache, focal weakness or paresthesias, dizziness, unsteady gait, seizure, mental status changes, bladder or bowel incontinence PSYCHIATRIC: Absent: anxiety, depression, suicidal or homicidal ideation, hallucinations. PHYSICAL EXAMINATION Vital Signs - 24 hr 04/04/17 04/04/17 02:03 02:45 Temperature 97.8 F Pulse Rate 86 Respiratory 18 18 Rate Blood Pressure 108/69 O2 Sat by Pulse 97 97 Oximetry (%) GENERAL: NAD, trying to sleep on stretcher HEENT: No JVD while laying at 30* (unable to assess lying flat), moist mucosa with normal structures of mouth, L eye clouding LUNGS: Diffuse rales bilaterally. No rhonchi noted. No accessory muscle use. HEART: RRR, normal S1 and S2 without murmur ABDOMEN: Soft, nontender, nondistended, normoactive bowel sounds, no guarding. No hepatomegaly. Slight hepatojugular reflux noted. MUSCULOSKELETAL: No CVA tenderness. EXTREMITIES: 2+ DP pulses, L lower ext. edema 2+ up to knee, R lower ext. edema 1+ to mid-lower leg; unable to assess feet due to patient noncompliance with taking off shoes. NEUROLOGICAL: Nonfocal exam. Strength 5/5 throughout. Gait not observed. PSYCHIATRIC: Cooperative. Good eye contact. Appropriate mood and affect. SKIN: No rashes noted, warm, dry, abrasions noted to lower extremities without ecchymosis Laboratory Results - last 24 hr 04/04/17 04/04/17 04/04/17 02:55 02:55 02:55 WBC 12.8 H RBC 3.73 L Hgb 10.4 L Hct 32.1 L MCV 86.0 MCH 28.0 MCHC 32.5 RDW 14.8 Plt Count 374 MPV 8.7 Neutrophils % 69.3 Lymphocytes % 21.5 Monocytes % 7.1 Eosinophils % 1.3 Basophils % 0.8 PT with INR Cancelled INR Cancelled Sodium 138 Potassium 4.9 Chloride 104 Carbon Dioxide 25 Anion Gap 9 BUN 41 H Creatinine 2.1 H Creat Clearance w eGFR 32.83 Random Glucose 236 H Calcium 8.4 L Magnesium 2.3 Total Bilirubin 0.2 D AST 22 D ALT 22 Alkaline Phosphatase 83 Creatine Kinase 156 Creatine Kinase Index 5.3 H CK-MB (CK-2) 8.295 H Troponin I 0.37 H D B-Natriuretic Peptide 6309.55 H Total Protein 7.9 Albumin 2.5 L 04/04/17 03:51 WBC RBC Hgb Hct MCV MCH MCHC RDW Plt Count MPV Neutrophils % Lymphocytes % Monocytes % Eosinophils % Basophils % PT with INR 11.30 INR 1.00 Sodium Potassium Chloride Carbon Dioxide Anion Gap BUN Creatinine Creat Clearance w eGFR Random Glucose Calcium Magnesium Total Bilirubin AST ALT Alkaline Phosphatase Creatine Kinase Creatine Kinase Index CK-MB (CK-2) Troponin I B-Natriuretic Peptide Total Protein Albumin ASSESSMENT/PLAN: 56yo M with extensive cardiac history who once again presents for SOB and worsening orthopnea after signing out AMA 2 previous hospitalizations since end of February 2017. 1) Systolic CHF --Lasix 40mg IVP daily --Strict I&O's --Daily weights --Echo previously done on 03/30/17 --LV mildly dilated with severe reduction in EF. Mid anteroseptal wall akinesis, apical anterior wall akinesis, apical wall akinesis, basal inferior wall severe hypokinesis, and mid inferior wall severe hypokinesis. Mod mitral thickening with mild MR and TR. --Fluid and sodium restriction 2) Elevated troponins --HEART score of 7 --CKMB new elevation compared to previous hospitalizations --Ekg unchanged from previous however still showing lateral side ischemic changes Differential includes new NSTEMI event vs. demand ischemia vs. poor clearing due to CKD --Heparin gtt initiated until next cardiac labs --Continue Plavix 75mg qdaily --ASA loaded in ER; continue ASA 81mg qdaily --Toprol XL 25mg PO qdaily --Lisinopril 5mg qDaily PO to continue --Cr elevated, however most likely new baseline Cr since Feb 2017 --Lipitor 40mg qHS PO continued 3) Questionable MIRTHA --CKD, however pt may have new baseline as of February due to poor compliance --Will trend 4) IDDM --BGM ACHS --Last A1c 8.6 --Continue Levemir 10U BID per home meds --ISS coverage during day FEN: Fluids: Restriction; avoid Electrolyte abnormalities: None currently Nutrition: Diabetic and sodium controlled diet PPX: DVT - Heparin gtt started for possible new cardiac event GI - Not indicated currently Dispo: Admit to telemetry Case discussed with Dr. Irving Barr, DO - Internal Medicine PGY-1 Visit type - Emergency Visit Emergency Visit: Yes ED Registration Date: 04/04/17 Care time: The patient presented to the Emergency Department on the above date and was hospitalized for further evaluation of their emergent condition. - New Patient This patient is new to me today: Yes Date on this admission: 04/04/17 - Critical Care Critical Care patient: No
[2017-04-04] MEDS ORDERED: HEPARIN NA (PORCINE) 5,000 UNITS/ML 1ML VIAL IVPUSH PRN ×2 (05:35)
[2017-04-04] MEDS ORDERED: HEPARIN - 25,000 UNIT in SODIUM CHLORIDE 495 ML IV SCH (05:45)
[2017-04-04] MEDS ORDERED: HEPARIN INFUSION - 25,000 UNITS/500 ML INFUS.BAG IVPB ONE (06:13)
[2017-04-04] MEDS ORDERED: FUROSEMIDE 40 MG/4 ML INJECTABLE VIAL IVPUSH SCH ×5 (06:15→14:00)
[2017-04-04] MEDS: INSULIN DETEMIR 100 UNITS/ML MDV SQ SCH ×2 (07:00→22:05)
--- NOTE | 2017-04-04 08:28 | PN ---
Progress Note, Physician Chief Complaint: 56 M with : Acute on chronic systolic CHF, severe LV systolic dysf, refused ICD ASHD, without viability: not candidate for PCI or CABG (Tc Saxena) HTN/DM/PAD/CVA/CKD Moderate to severe MR CKD admitted 03/25 and again 03/30 with decompensated CHF and suspeceted RLL PNA. Signed out AMA. Now returns to ER several days later with worsening PND and SOB, worsened LE edema. CXR again shows congestion - Current Medication List Current Medications: Active Medications Aspirin (Asa -) 81 mg PO DAILY GABBY Atorvastatin Calcium (Lipitor -) 40 mg PO HS GABBY Clopidogrel Bisulfate (Plavix -) 75 mg PO DAILY GABBY Furosemide (Lasix Injection -) 40 mg IVPUSH DAILY GABBY Heparin Sodium (Porcine) (Heparin -) 1,000 unit IVPUSH PRN PRN PRN Reason: Heparin Heparin Sodium (Porcine) (Heparin -) 5,000 unit IVPUSH PRN PRN PRN Reason: Heparin Heparin Sodium (Porcine) 25, (000 unit/ Sodium Chloride) 500 mls @ 20 mls/hr IV TITR GABBY; 1,000 UNIT/HR PRN Reason: Protocol Last Admin: 04/04/17 06:07 Dose: 1,000 unit/hr, 20 mls/hr Insulin Aspart (Novolog Vial Sliding Scale -) 1 vial SQ ACHS GABBY PRN Reason: Protocol Insulin Detemir (Levemir Vial) 10 units SQ BID@0700,2200 GABBY Lisinopril (Prinivil) 5 mg PO DAILY GABBY Metoprolol Succinate (Toprol Xl -) 25 mg PO DAILY GABBY - Objective Vital Signs: Vital Signs Temperature 97.8 F 04/04/17 02:45 Pulse Rate 86 04/04/17 02:45 Respiratory Rate 18 04/04/17 02:45 Blood Pressure 108/69 04/04/17 02:45 O2 Sat by Pulse Oximetry (%) 97 04/04/17 02:45 Constitutional: Yes: No Distress Cardiovascular: Yes: Regular Rate and Rhythm Respiratory: Yes: Other (rales at bases 1/3 b/l) Gastrointestinal: Yes: Soft (distended) Edema: Yes Edema: LLE: 2+, RLE: 2+ Neurological: Yes: Alert, Oriented ...Motor Strength: WNL Labs: CBC, BMP 04/04/17 02:55 04/04/17 02:55 INR, PTT INR 1.00 (0.82-1.09) 04/04/17 03:51 Laboratory Tests 04/04/17 04/04/17 04/04/17 02:55 02:55 03:51 WBC 12.8 H Hgb 10.4 L Plt Count 374 INR 1.00 Sodium 138 Potassium 4.9 BUN 41 H Creatinine 2.1 H Creatine Kinase 156 Troponin I 0.37 H D B-Natriuretic Peptide 6309.55 H - ....Imaging EKG: Image Reviewed Other: Other (NSR 88bpm incomplete LBBB, poor R wave progression c/w old AWMI, NSST changes.) Assessment/Plan IMP: Acute on chronic systolic CHF, severe LV systolic dysf, refused ICD ASHD, without viability: not candidate for PCI or CABG (Tc Saxena) HTN/DM/PAD/CVA/CKD Moderate to severe MR Recent ?PNA, + blood culture last admission (possible contaminant) + TnI (with normal CK) likely due to CHF in setting of CKD: unlikely ACS REC: 1. IV Lasix and CPAP as needed 2. Continue ASA/Plavix. 3. ID consult for + blood culture last admission 4. Would switch home diuretic to torsemide, better absorption. 5. Would d/c heparin if TnI trend is flat and CK remains normal Patient is not a candidate for coronary revascularization and has refused ICD placement.
[2017-04-04 09:35] VITALS: BMI 29.7
[2017-04-04 09:35] LABS: ANION GAP 6 (8-16); CO2 28 mmol/L (21-32); GLUCOSE,RANDOM 289 mg/dL (74-106)
[2017-04-04] MEDS ORDERED: METOPROLOL SUCCINATE 25 MG TAB.SR.24H (FP) PO SCH (10:00)
[2017-04-04] MEDS ORDERED: ASPIRIN 81 MG CHEWABLE TABLETS PO SCH (10:00)
[2017-04-04] MEDS ORDERED: LISINOPRIL 5 MG TABLET (FP) PO SCH (10:00)
[2017-04-04] MEDS ORDERED: CLOPIDOGREL BISULFATE 75 MG TABLET (FP) PO SCH (10:00)
[2017-04-04 10:20] LABS: MAGNESIUM 2.2 mg/dL (1.8-2.4); PHOSPHOROUS 3.3 mg/dL (2.5-4.9)
--- NOTE | 2017-04-04 10:20 | EKG ---
Test Reason : Blood Pressure : / mmHG Vent. Rate : 088 BPM Atrial Rate : 088 BPM P-R Int : 142 ms QRS Dur : 110 ms QT Int : 386 ms P-R-T Axes : 050 -14 188 degrees QTc Int : 467 ms NORMAL SINUS RHYTHM POSSIBLE LEFT ATRIAL ENLARGEMENT LEFT VENTRICULAR HYPERTROPHY CANNOT RULE OUT SEPTAL INFARCT (CITED ON OR BEFORE 25-AUG-2016) ABNORMAL ECG WHEN COMPARED WITH ECG OF 30-MAR-2017 10:50, NO SIGNIFICANT CHANGE WAS FOUND Confirmed by SHEREEN NGUYEN MD ([id number]) on 04/04/2017 10:19:51 AM Referred By: Confirmed By:SHEREEN NGUYEN MD
--- NOTE | 2017-04-04 11:10 | PN ---
Physical Exam: SUBJECTIVE: Patient seen and examined at bedside. Patient states that he came in similarly to his previous admission, with shortness of breath and orthopnea. Patient received a dose of lasix in the ER and feels much better now. Denies SOB , chest pain, nausea, vomiting, diarrhea. OBJECTIVE: Vital Signs Period Temp Pulse Resp BP Sys/Humphreys Pulse Ox Last 24 Hr 97.8 F-97.8 F 86-86 18-20 108-146/69-94 97-97 GENERAL: The patient is awake, alert, and fully oriented, in no acute distress. HEAD: Normal with no signs of trauma. 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 Left eye reactive to light. ENT: Ears normal, nares patent, oropharynx clear without exudates, moist mucous membranes. NECK: Trachea midline, full range of motion, supple. LUNGS: Breath sounds equal, clear to auscultation bilaterally, no wheezes, mild bibasilar crackles noted, no accessory muscle use. HEART: Regular rate and rhythm, S1, S2 without murmur, rub or gallop. ABDOMEN: Soft, nontender, nondistended, normoactive bowel sounds, no guarding, no rebound, no hepatosplenomegaly, no masses. EXTREMITIES: 2+ pulses, warm, well-perfused, L leg is edematous (2+) and has 4th and 5th toe amputations with healed wound without surrounding infection NEUROLOGICAL: Cranial nerves II through XII grossly intact. Normal speech, gait not observed. PSYCH: Normal mood, normal affect. SKIN: Warm, dry, normal turgor, no rashes or lesions noted Laboratory Results - last 24 hr 04/04/17 04/04/17 04/04/17 02:55 02:55 02:55 WBC 12.8 H RBC 3.73 L Hgb 10.4 L Hct 32.1 L MCV 86.0 MCH 28.0 MCHC 32.5 RDW 14.8 Plt Count 374 MPV 8.7 Neutrophils % 69.3 Lymphocytes % 21.5 Monocytes % 7.1 Eosinophils % 1.3 Basophils % 0.8 PT with INR Cancelled INR Cancelled Sodium 138 Potassium 4.9 Chloride 104 Carbon Dioxide 25 Anion Gap 9 BUN 41 H Creatinine 2.1 H Creat Clearance w eGFR 32.83 Random Glucose 236 H Calcium 8.4 L Phosphorus Magnesium 2.3 Total Bilirubin 0.2 D AST 22 D ALT 22 Alkaline Phosphatase 83 Creatine Kinase 156 Creatine Kinase Index 5.3 H CK-MB (CK-2) 8.295 H Troponin I 0.37 H D B-Natriuretic Peptide 6309.55 H Total Protein 7.9 Albumin 2.5 L 04/04/17 04/04/17 04/04/17 03:51 08:50 08:50 WBC RBC Hgb Hct MCV MCH MCHC RDW Plt Count MPV Neutrophils % Lymphocytes % Monocytes % Eosinophils % Basophils % PT with INR 11.30 INR 1.00 Sodium 136 Potassium 4.5 Chloride 102 Carbon Dioxide 28 Anion Gap 6 L BUN 42 H Creatinine 2.0 H Creat Clearance w eGFR Random Glucose 289 H D Calcium 8.0 L Phosphorus 3.3 D Magnesium 2.2 Total Bilirubin AST ALT Alkaline Phosphatase Creatine Kinase Creatine Kinase Index CK-MB (CK-2) 8.330 H Troponin I 0.50 H D B-Natriuretic Peptide Total Protein Albumin 04/04/17 04/04/17 09:30 09:30 WBC RBC Hgb Hct MCV MCH MCHC RDW Plt Count MPV Neutrophils % Lymphocytes % Monocytes % Eosinophils % Basophils % PT with INR INR Sodium Potassium Chloride Carbon Dioxide Anion Gap BUN Creatinine Creat Clearance w eGFR Random Glucose Calcium Phosphorus Cancelled Magnesium Cancelled Total Bilirubin AST ALT Alkaline Phosphatase Creatine Kinase Creatine Kinase Index CK-MB (CK-2) Troponin I B-Natriuretic Peptide Total Protein Albumin Active Medications Generic Name Dose Route Start Last Admin Trade Name Freq PRN Reason Stop Dose Admin Aspirin 81 mg 04/05/17 10:00 Asa - PO DAILY GABBY Atorvastatin Calcium 40 mg 04/04/17 22:00 Lipitor - PO HS GABBY Clopidogrel Bisulfate 75 mg 04/04/17 10:00 04/04/17 09:00 Plavix - PO 75 mg DAILY GABBY Administration Furosemide 40 mg 04/04/17 14:00 Lasix Injection - IVPUSH BIDLASIX GABBY Heparin Sodium (Porcine) 1,000 unit 04/04/17 05:35 Heparin - IVPUSH PRN PRN Heparin Heparin Sodium (Porcine) 5,000 unit 04/04/17 05:35 Heparin - IVPUSH PRN PRN Heparin Heparin Sodium (Porcine) 25, 500 mls @ 20 mls/hr 04/04/17 05:45 04/04/17 06: 07 000 unit/ Sodium Chloride IV 1,000 unit/hr TITR GABBY 20 mls/hr Protocol Administration 1,000 UNIT/HR Insulin Aspart 1 vial 04/04/17 06:30 Novolog Vial Sliding Scale - SQ ACHS [facility] Protocol Insulin Detemir 10 units 04/04/17 07:00 Levemir Vial SQ BID@0700,2200 GABBY Lisinopril 5 mg 04/04/17 10:00 04/04/17 09:00 Prinivil PO 5 mg DAILY GABBY Administration Metoprolol Succinate 25 mg 04/04/17 10:00 04/04/17 09:00 Toprol Xl - PO 25 mg DAILY GABBY Administration ASSESSMENT/PLAN: 56yo M with extensive cardiac history admitted again within 1 week for SOB and worsening orthopnea after signing out AMA 2 previous hospitalizations since end of February 2017 #Systolic CHF -increase Lasix to 40mg IV BID -Strict I&O's -Daily weights -Echo previously done on 03/30/17: LV mildly dilated with severe reduction in EF. Mid anteroseptal wall akinesis, apical anterior wall akinesis, apical wall akinesis, basal inferior wall severe hypokinesis, and mid inferior wall severe hypokinesis. Mod mitral thickening with mild MR and TR. -Fluid and sodium restriction -will discuss with patient about AICD placement #Elevated troponins: likely due to demand ischemia vs NSTEMI, no chest pain -troponins elevating .37-.5, will trend and keep on heparin drip until flat trend or downtrend appreciated, f/u trop at 3pm -EKG unchanged from previous however still showing lateral side ischemic changes -Continue Heparin drip until trops downtrend -Continue aspirin/plavix -Continue Toprol XL 25mg PO QD -Continue Lisinopril 5mg QD -Continue Lipitor 40mg QD #Chronic Kidne Disease: stable -Creatinine stable, although slightly worse than several months ago #Insulin Dependent Diabetes Mellitus -BGM ACHS -Last A1c 8.6 -Continue Levemir 10U BID per home meds -ISS coverage during day FEN: -no standing fluids -No electrolyte abnormalities -Diabetic and sodium controlled diet Prophylaxis: -DVT - continue heparin drip -GI - Not indicated currently Disposition: Continue to monitor on telemetry, Full coed Visit type - Emergency Visit Emergency Visit: No - New Patient This patient is new to me today: Yes Date on this admission: 04/04/17 - Critical Care Critical Care patient: No
--- NOTE | 2017-04-04 11:44 | PN ---
Teaching Attending Note Name of Resident: Meño Mcdaniel ATTENDING PHYSICIAN STATEMENT Time of evaluation: 9:20 AM I saw and evaluated the patient. I reviewed the resident's note and discussed the case with the resident. I agree with the resident's findings and plan as documented. SUBJECTIVE: Patient seen and examined. breathing improved, no chest pain, palpitations, dizziness, abdominal or urinary symptoms. No leg pain or redness as discussed with patient. OBJECTIVE: Vital Signs Period Temp Pulse Resp BP Sys/Humphreys Pulse Ox Last 24 Hr 97.8 F-97.8 F 86-86 18-20 108-146/69-94 97-97 Intake & Output 04/01/17 04/02/17 04/03/17 04/04/17 23:59 23:59 23:59 23:59 Intake Total 60 Balance 60 Weight 190 lb General: lying in bed in no acute distress CVS:S1S2 regular Chest: bibasilar rales, good air entry bilaterally Abdomen: soft, obese, NT Extremities: bilateral LE 2+ pitting edema L>R, left toes amputation unchanged, well perfused Home Medication List Medication Instructions Recorded Confirmed Type Aspirin [ASA -] 81 mg PO DAILY 07/08/16 04/04/17 History Insulin Lispro Protamin/Lispro 20 unit SQ DAILY 09/06/16 04/04/17 History [Humalog Mix 75-25 Vial] Insulin Regular, Human [Humulin R 7 unit SQ DAILY 09/06/16 04/04/17 History U-500 Kwikpen] Lisinopril [Prinivil] 5 mg PO DAILY 09/06/16 04/04/17 History Metoprolol Succinate [Toprol XL -] 25 mg PO DAILY 09/06/16 04/04/17 History Active Medications Generic Name Dose Route Start Last Admin Trade Name Freq PRN Reason Stop Dose Admin Aspirin 81 mg 04/05/17 10:00 Asa - PO DAILY GABBY Atorvastatin Calcium 40 mg 04/04/17 22:00 Lipitor - PO HS GABBY Clopidogrel Bisulfate 75 mg 04/04/17 10:00 04/04/17 09:00 Plavix - PO 75 mg DAILY GABBY Administration Furosemide 40 mg 04/04/17 14:00 Lasix Injection - IVPUSH BIDLASIX GABBY Heparin Sodium (Porcine) 1,000 unit 04/04/17 05:35 Heparin - IVPUSH PRN PRN Heparin Heparin Sodium (Porcine) 5,000 unit 04/04/17 05:35 Heparin - IVPUSH PRN PRN Heparin Heparin Sodium (Porcine) 25, 500 mls @ 20 mls/hr 04/04/17 05:45 04/04/17 06: 07 000 unit/ Sodium Chloride IV 1,000 unit/hr TITR GABBY 20 mls/hr Protocol Administration 1,000 UNIT/HR Insulin Aspart 1 vial 04/04/17 06:30 Novolog Vial Sliding Scale - SQ ACHS [facility] Protocol Insulin Detemir 10 units 04/04/17 07:00 Levemir Vial SQ BID@0700,2200 [facility] Lisinopril 5 mg 04/04/17 10:00 04/04/17 09:00 Prinivil PO 5 mg DAILY [facility] Administration Metoprolol Succinate 25 mg 04/04/17 10:00 04/04/17 09:00 Toprol Xl - PO 25 mg DAILY GABBY Administration Laboratory Results - last 24 hr 04/04/17 04/04/17 04/04/17 02:55 02:55 02:55 WBC 12.8 H RBC 3.73 L Hgb 10.4 L Hct 32.1 L MCV 86.0 MCH 28.0 MCHC 32.5 RDW 14.8 Plt Count 374 MPV 8.7 Neutrophils % 69.3 Lymphocytes % 21.5 Monocytes % 7.1 Eosinophils % 1.3 Basophils % 0.8 PT with INR Cancelled INR Cancelled Sodium 138 Potassium 4.9 Chloride 104 Carbon Dioxide 25 Anion Gap 9 BUN 41 H Creatinine 2.1 H Creat Clearance w eGFR 32.83 Random Glucose 236 H Calcium 8.4 L Phosphorus Magnesium 2.3 Total Bilirubin 0.2 D AST 22 D ALT 22 Alkaline Phosphatase 83 Creatine Kinase 156 Creatine Kinase Index 5.3 H CK-MB (CK-2) 8.295 H Troponin I 0.37 H D B-Natriuretic Peptide 6309.55 H Total Protein 7.9 Albumin 2.5 L 04/04/17 04/04/17 04/04/17 03:51 08:50 08:50 WBC RBC Hgb Hct MCV MCH MCHC RDW Plt Count MPV Neutrophils % Lymphocytes % Monocytes % Eosinophils % Basophils % PT with INR 11.30 INR 1.00 Sodium 136 Potassium 4.5 Chloride 102 Carbon Dioxide 28 Anion Gap 6 L BUN 42 H Creatinine 2.0 H Creat Clearance w eGFR Random Glucose 289 H D Calcium 8.0 L Phosphorus 3.3 D Magnesium 2.2 Total Bilirubin AST ALT Alkaline Phosphatase Creatine Kinase Creatine Kinase Index CK-MB (CK-2) 8.330 H Troponin I 0.50 H D B-Natriuretic Peptide Total Protein Albumin 04/04/17 04/04/17 09:30 09:30 WBC RBC Hgb Hct MCV MCH MCHC RDW Plt Count MPV Neutrophils % Lymphocytes % Monocytes % Eosinophils % Basophils % PT with INR INR Sodium Potassium Chloride Carbon Dioxide Anion Gap BUN Creatinine Creat Clearance w eGFR Random Glucose Calcium Phosphorus Cancelled Magnesium Cancelled Total Bilirubin AST ALT Alkaline Phosphatase Creatine Kinase Creatine Kinase Index CK-MB (CK-2) Troponin I B-Natriuretic Peptide Total Protein Albumin Blood cultures 03/30 - 05/01 bacillus not anthracis species ASSESSMENT AND PLAN: 56 yom with PMHx of CAD, ischemic cardiomyopathy with severely reduced LV function EF 24%, refused AICD, Not candidate for PCI/CABG given non viable myocardium on last cath at [facility] in 05/2016, 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 Hinton in 08/2016, IDDM recent admission to [facility] x 2 over last 15 days for CHF/NSTEMI/LLE cellulitis, when left AMA both times comes back with recurrent CHF and troponin elevation -ACute systolic heart failure exacerbation -NSTEMI, suspect demand ischemia from CHF+/- CKD related troponin elevation -CAD/ischemic cardiomyopathy, not PCI/CABG per cath at [facility] in 05/2016 given no viable myocardium, reportedly refused AICD -Blood cultures 03/30 - 05/01 positive for bacillus, not anthracis -Recent LLE cellulitis with diabetic foot/PVD -MIRTHA, vs new baseline given poor EF/non compliance -IDDM Plan: increase lasix to 40 mg IV BID, strict I/Os, daily weights, doing well on nasal cannula currently. Cardiology input appreciated. Recent 2D echo, plan to repeat. No chest pain or new EKG changes, has known CAD with last Cath showing non viable myocardium, not candidate for PCI or CABG. Monitor lytes on diuresis. Continue Heparin drip for now, trend Tn, d/c if flat with stable CPK. Continue ASA/plavix/statin/ACEi/Toprol XL for now Repeat blood cultures, ID input. Unclear if creatinine new baseline given poor EF and non compliance. Monitor on diuresis and ACEi, renal input if fails to improve. Renal Ultrasound from 2016 noted. Continue levemir/ISS for now. DVTPPX on heparin drip. Dispo pending resolution of medical issues. Encourage compliance. Discussed with patient in detail, initially refused telemetry, now agreable.
--- NOTE | 2017-04-04 11:59 | PN ---
Progress Note (short form) - Note Progress Note: ID consult dictated requested by cardiology to evaluate blood culture from prior admission when he left AMA during treatment for CHF 03/30 blood culture one of 4 bottles bacillus (not athracis) no fevers here with CHF wbc mildly elevated but improved from recent admission no need to treat - most likely contaminant one of four bottles will repeat blood cultures (he is off antibiotics) (ordered by primary service) refusing AICD positive blood culture- most likely contaminant acute on chronic CHF CAD +troponins MR CKD daibetes please call back if needed Problem List - Problems (1) Positive blood culture Code(s): R78.81 - BACTEREMIA (2) Acute CHF Code(s): I50.9 - HEART FAILURE, UNSPECIFIED (3) CAD (coronary artery disease) Code(s): I25.10 - ATHSCL HEART DISEASE OF [place] CORONARY ARTERY W/O ANG PCTRS (4) CKD (chronic kidney disease) Code(s): N18.9 - CHRONIC KIDNEY DISEASE, UNSPECIFIED (5) Diabetes Code(s): E11.9 - TYPE 2 DIABETES MELLITUS WITHOUT COMPLICATIONS
[2017-04-04] MEDS: INSULIN SLIDING SCALE (NOVOLOG) 1 VIAL SQ SCH ×4 (13:14→22:05)
[2017-04-04] MEDS ORDERED: ATORVASTATIN CA 40 MG TABLET (FP) PO SCH (22:00)
[2017-04-05] MEDS ORDERED: ALBUTEROL SO4 2.5/IPRATROPIUM 0.5 INH SOL 3 ML VIAL.NEB. NEB ONE (03:00)
[2017-04-05 04:30] VITALS: BP 118/67; PULSE 91; TEMP 98.1
--- NOTE | 2017-04-05 04:30 | HOSP ---
Subjective - Review of Symptoms Subjective: Was paged because patient wanted to leave AMA. Patient seen. Refused further treatment and demanded to leave. I explained the benefits of staying and risks of leaving including but not limited to cardiac arrest, congestive heart state, and possible . Physical Examination Vital Signs: Vital Signs Temperature 98.8 F 04/04/17 20:42 Pulse Rate 81 04/04/17 20:42 Respiratory Rate 20 04/04/17 20:42 Blood Pressure 139/63 04/04/17 20:42 O2 Sat by Pulse Oximetry (%) 97 04/04/17 20:42 Labs: CBC, BMP 04/04/17 02:55 04/04/17 08:50 Visit type - Emergency Visit Emergency Visit: Yes ED Registration Date: 04/04/17 Care time: The patient presented to the Emergency Department on the above date and was hospitalized for further evaluation of their emergent condition. - New Patient This patient is new to me today: Yes Date on this admission: 04/05/17 - Critical Care Critical Care patient: No
--- NOTE | 2017-04-05 08:51 | DS ---
Physical Exam: HOSPITAL COURSE: Date of Admission:04/04/17 56yo M with extensive cardiac history was admitted again within 1 week for SOB and worsening orthopnea 2/2 CHF exacerbation after signing out AMA 2 previous hospitalizations since end of February 2017. Patient was treated with lasix 40mg IV BID and sent to telemetry for monitoring. The following day, patient appeared clinically improved. He was treated with heparin drip, aspirin/plavix, lisinopril, lipitor, and toprol for elevated troponins suspicious for NSTEMI. Overnight, patient informed night team that he felt better and wanted to leave. Patient was explained the risks of leaving. He understood the risks and signed out AMA on 04/05/17 Date of Discharge: 04/05/17 Minutes to complete discharge: 30 Discharge Summary Reason For Visit: CHF, (+) TROP Condition: Stable - Instructions Disposition: AGAINST MEDICAL ADVICE - Home Medications Comprehensive Discharge Medication List: Ambulatory Orders Aspirin [ASA -] 81 mg PO DAILY 07/08/16 Insulin (Levemir) [Levemir Vial] 10 units SQ BID@0700,2200 #1 vial 07/14/16 Insulin Lispro Protamin/Lispro [Humalog Mix 75-25 Vial] 20 unit SQ DAILY Insulin Regular, Human [Humulin R U-500 Kwikpen] 7 unit SQ DAILY 09/06/16 Lisinopril [Prinivil] 5 mg PO DAILY 09/06/16 Metoprolol Succinate [Toprol XL -] 25 mg PO DAILY 09/06/16 Clopidogrel Bisulfate [Plavix -] 75 mg PO DAILY #30 tablet MDD 1 09/07/16 Atorvastatin Ca [Lipitor] 40 mg PO HS #30 tablet 03/31/17 Furosemide [Lasix] 40 mg PO DAILY #30 tablet 03/31/17 This patient is new to me today: No Emergency Visit: No Critical Care patient: No - Discharge Referral Referred to [facility] No
[2017-04-05] MEDS ORDERED: ASPIRIN 81 MG CHEWABLE TABLETS PO SCH (10:00)
== END 2017-04-05 04:25 | disposition left against medical advice (07) | DRG 280 ==
LOC: JER 02:03 → JERBED 04:58 → UNDOADMIN 05:57 → J4W 06:37
PROVIDERS: ADMIT Internal Medicine; ATTEND Hospitalist
DX: I13.0 Hypertensive heart and chronic kidney disease with heart failure and stage 1 through stage 4 chronic kidney disease, or unspecified chronic kidney disease (principal); I50.23 Acute on chronic systolic (congestive) heart failure; I21.4 Non-ST elevation (NSTEMI) myocardial infarction; N17.0 Acute kidney failure with tubular necrosis; N17.9 Acute kidney failure, unspecified; I36.1 Nonrheumatic tricuspid (valve) insufficiency; N18.9 Chronic kidney disease, unspecified; I25.5 Ischemic cardiomyopathy; I25.10 Atherosclerotic heart disease of native coronary artery without angina pectoris; E11.40 Type 2 diabetes mellitus with diabetic neuropathy, unspecified; Z89.422 Acquired absence of other left toe(s); Z89.421 Acquired absence of other right toe(s); E11.22 Type 2 diabetes mellitus with diabetic chronic kidney disease; Z87.891 Personal history of nicotine dependence; Z95.1 Presence of aortocoronary bypass graft; E78.5 Hyperlipidemia, unspecified; H54.1131 Blindness right eye category 3, low vision left eye category 1; I34.0 Nonrheumatic mitral (valve) insufficiency; Z79.4 Long term (current) use of insulin; I25.2 Old myocardial infarction
CPT/HCPCS: 36415; 71020-TC; 80048; 80053; 82550; 82553; 83735; 83880; 84100; 84484; 85025; 85610; 85730; 87040; 93005; 93010; 93970-TC; 94640; 99285-25; J1644

== ENCOUNTER 2017-04-14 09:25 | Inpatient (IN) | payer OTHER ==
--- NOTE | 2017-04-14 09:40 | PDOC ---
History of Present Illness - General Chief Complaint: Shortness of Breath Stated Complaint: DIFFICULT BREATHING Time Seen by Provider: 04/14/17 09:40 - History of Present Illness Initial Comments: 56yo M with PMH of IDDM, Systolic CHF, CAD who previously refused AICD placement, HTN, CVA, PAD, diabetic neuropathy s/p toe amputation x2, CKD who presents today for Nausea/ vomiting and persistent SOB since his AMA on . He states that he has had NBNB occasional N/V after meals. States that he had no N/V while he was in the hospital but it started the day after leaving. His SOB is not worse but is persistent and sleeps on three pillows at night and frequently wakes up SOB. His BL LE edema is slightly better than when he was discharged. He takes all o fhis medications as indicated. He had two admissions from 03/30/17- and 04/04/17-04/05/17 for the same symptoms but AMA'd both times because he felt as if the treatments he was receiving were not working. Last admission was concerning for NSTEMI as well and he was heparanized but then AMA'd. Otherwise pt denies headache, visual changes, palpitations, CP/discomfort, abdominal pain, polyuria, dysuria. His hydrotherapist is Shanika. 04/14/17 09:47 Past History - Past Medical History Allergies/Adverse Reactions: Allergies Allergy/AdvReac Type Severity Reaction Status Date / Time No Known Allergies Allergy Verified 04/14/17 09:31 Home Medications: Ambulatory Orders Aspirin [ASA -] 81 mg PO DAILY 07/08/16 Insulin (Levemir) [Levemir Vial] 10 units SQ BID@0700,2200 #1 vial 07/14/16 Insulin Lispro Protamin/Lispro [Humalog Mix 75-25 Vial] 20 unit SQ DAILY Insulin Regular, Human [Humulin R U-500 Kwikpen] 7 unit SQ DAILY 09/06/16 Lisinopril [Prinivil] 5 mg PO DAILY 09/06/16 Metoprolol Succinate [Toprol XL -] 25 mg PO DAILY 09/06/16 Clopidogrel Bisulfate [Plavix -] 75 mg PO DAILY #30 tablet MDD 1 09/07/16 Atorvastatin Ca [Lipitor] 40 mg PO HS #30 tablet 12/02/17 Furosemide [Lasix] 40 mg PO DAILY #30 tablet 03/31/17 Cardiac Disorders: Yes (CAD, NSTEMI) CVA: Yes COPD: Yes CHF: Yes Diabetes: Yes HTN: Yes Hypercholesterolemia: Yes - Surgical History Cardiac Surgery: Yes (ANGIOGRAM JUNE 2016) - Suicide/Smoking/Psychosocial Hx Smoking History: Current every day smoker Have you smoked in the past 12 months: No Number of Cigarettes Smoked Daily: 20 If you are a former smoker, when did you quit?: 1 month ago 'Breaking Loose' booklet given: 07/08/16 Hx Alcohol Use: No Drug/Substance Use Hx: No Substance Use Type: None Hx Substance Use Treatment: No Review of Systems - Review of Systems Constitutional: Yes: Chills. No: Fever, Loss of Appetite, Weakness HEENTM: Yes: Other (Right eye blindness). No: Blurred Vision Respiratory: Yes: Orthopnea, Shortness of Breath. No: Cough, Productive cough Cardiac (ROS): Yes: Edema. No: Chest Pain ABD/GI: Yes: Nausea. No: Constipated, Diarrhea : No: Burning, Dysuria *Physical Exam - Physical Exam General Appearance: Yes: Nourished, Appropriately Dressed. No: Apparent Distress HEENT: positive: Normal Voice. negative: EOMI, [place], Normal ENT Inspection ( Right eye blindness with opacity overlying the cornea) Neck: positive: Trachea midline, Normal Thyroid, Supple. negative: Tender, Rigid Respiratory/Chest: positive: Crackles (Crackles in bl lung bases.), Other ( Delayed expiratory phase.). negative: Chest Tender, Lungs Clear, Normal Breath Sounds, Respiratory Distress, Accessory Muscle Use Cardiovascular: positive: Regular Rhythm, Regular Rate, Other (Distant heart sounds). negative: Murmur Gastrointestinal/Abdominal: positive: Normal Bowel Sounds, Flat, Soft. negative : Tender Integumentary: positive: Normal Color, Dry, Warm Neurologic: positive: Fully Oriented, Alert, Normal Mood/Affect ED Treatment Course - LABORATORY CBC & Chemistry Diagram: 04/14/17 10:15 04/14/17 10:15 *DC/Admit/Observation/Transfer Diagnosis at time of Disposition: Acute on chronic systolic CHF (congestive heart failure) Cellulitis Qualifiers: Site of cellulitis: extremity Site of cellulitis of extremity: lower extremity Laterality: left Qualified Code(s): L03.116 - Cellulitis of left lower limb - Discharge Dispostion Condition at time of disposition: Stable Admit: Yes - Referrals Referrals: STAFF,NOT ON [Primary Care Provider] - - Patient Instructions - Post Discharge Activity
--- NOTE | 2017-04-14 10:06 | PDOC ---
Attending Attestation - HPI HPI: 04/14/17 11:05 56 y/o M with a PMHx of NSTEMI, IDDM, systolic CHF, CAD who previously refused AICD placement, HTN, CVA, PAD, diabetic neuropathy s/p toe amputation x3, CKD presents to the ED with persistent SOB and leg swelling for two weeks.Patient has present with similar symptoms twice and AMAd both times. He also complains of nausea and vomiting for past two weeks after eating. He states he had no issues while in the hospital, but after his last visit he has had episodes of nausea/vomiting after eating. He cooks for himself and reports a healthy diet. Denies chest pain, abdominal pain, headache. Denies vision changes. Shield Operator: Dr. Moe Coon <Tiffanie Ellis - Last Filed: 04/14/17 11:05> - Resident Resident Name: ManoloRashmikandischana - ED Attending Attestation I have performed the following: I have examined & evaluated the patient, The case was reviewed & discussed with the resident, I agree w/resident's findings & plan, Exceptions are as noted - Physicial Exam PE: GENERAL: Awake, alert, and fully oriented, in no acute distress HEAD: No signs of trauma EYES: PERRLA, EOMI, sclera anicteric, conjunctiva clear ENT: Auricles normal inspection, hearing grossly normal, nares patent, oropharynx clear without exudates. Moist mucosa NECK: Normal ROM, supple, no lymphadenopathy, JVD, or masses LUNGS: Breath sounds equal, clear to auscultation bilaterally. No wheezes, and no crackles HEART: Regular rate and rhythm, normal S1 and S2, no murmurs, rubs or gallops ABDOMEN: Soft, nontender, normoactive bowel sounds. No guarding, no rebound. No masses EXTREMITIES: L foot with amputations of toes 4-5. No cellulitic changes. + Crusted lesion to the L foot, dorsal surface. 2+ pitting edema to BLE, L>R. Remainder of extremities with normal range of motion. No clubbing or cyanosis. No cords or tenderness. NEUROLOGICAL: Cranial nerves II through XII grossly intact. Normal speech, normal gait SKIN: Warm, Dry, normal turgor, no rashes or lesions noted. - Medical Decision Making Pt with previous history of CHF, unclear if he is adherent to his medication regimen, with multiple recent AMAs from the hospital. Presenting with recent nausea and vomiting at nighttime, sensation of indigestion. He also notes some swelling to the lower extremities recently, L worse than R. Will obtain bloodwork, discuss with felt strip finisher. <Joanie East - Last Filed: 04/14/17 11:19>
[2017-04-14 10:26] LABS: BASO % 1.4 % (0-2.0); EOS % 2.8 % (0-4.5); MCH 28.1 pg (25.7-33.7); MCHC 32.8 g/dl (32.0-35.9); MEAN CELL VOLUME 85.6 fl (80-96); MEAN PLT VOLUME 8.7 fl (7.5-11.1); NEUT % 68.1 % (42.8-82.8); PLATELET COUNT 250 K/MM3 (134-434); RDW 15.1 % (11.9-15.9); WHITE BLOOD COUNT 8.7 K/mm3 (4.0-10.0)
[2017-04-14] MEDS ORDERED: METOCLOPRAMIDE HCL INJECTION 10 MG/2 ML VIAL IVPUSH ONE (10:49)
[2017-04-14 11:02] LABS: ALBUMIN 2.5 g/dl (3.4-5.0); ANION GAP 8 (8-16); BILIRUBIN,TOTAL 0.5 mg/dL (0.2-1.0); CALCIUM 7.8 mg/dL (8.5-10.1); CO2 25 mmol/L (21-32); CREATININE 1.6 mg/dL (0.7-1.3); GLUCOSE,RANDOM 177 mg/dL (74-106); MAGNESIUM 2.4 mg/dL (1.8-2.4); SGOT/AST 8 U/L (15-37); SGPT/ALT 17 U/L (12-78)
[2017-04-14 11:06] LABS: ALK PHOS 82 U/L (45-117); CPK 139 IU/L (39-308); TROPONIN I 0.02 ng/ml (0.00-0.05)
[2017-04-14] MEDS ORDERED: METOCLOPRAMIDE HCL INJECTION 10 MG/2 ML VIAL ONE (11:20)
[2017-04-14] MEDS ORDERED: FUROSEMIDE 40 MG/4 ML INJECTABLE VIAL IVPUSH ONE (11:54)
[2017-04-14] MEDS ORDERED: VANCOMYCIN 1 GRAM (PRE-DOCKED) 1,000 MG/250 ML BAG IVPB ONE ×2 (11:55→12:18)
[2017-04-14] MEDS ORDERED: FUROSEMIDE 40 MG/4 ML INJECTABLE VIAL ONE (12:18)
[2017-04-14 12:32] LABS: URINE APPEARANCE CLEAR; URINE BILIRUBIN NEGATIVE (NEGATIVE); URINE BLOOD 1+ (NEGATIVE); URINE COLOR LTYELLOW; URINE GLUCOSE (UA) 2+ (NEGATIVE); URINE KETONE NEGATIVE (NEGATIVE); URINE LEUK ESTERASE NEGATIVE (NEGATIVE); URINE NITRITE NEGATIVE (NEGATIVE); URINE UROBILINOGEN NEGATIVE mg/dL (0.2-1.0)
[2017-04-14 12:36] LABS: URINE PROTEIN 3+ (NEGATIVE)
--- NOTE | 2017-04-14 13:19 | PN ---
Teaching Attending Note Name of Resident: Brenda Bryant ATTENDING PHYSICIAN STATEMENT I saw and evaluated the patient. I reviewed the resident's note and discussed the case with the resident. I agree with the resident's findings and plan as documented. SUBJECTIVE: CC: SOB and N/V. LE edema and erythema HPI: 56 y/o man with h/o HTNm IDDM, ischemic cardiomyopathy ,chronic systolic CHF , HLP, CAD, non compliance and recent hospitalization for CHF s/p left AMA , who presented with SOB, N/V, and LE edema . he was admitted for CHF exacerbation 2 weeks ago, was treated with IV lasix, offered AICD but declined and left AMA. He was not treated for a contaminant blood cx. after his dc , he felt better x 2 days then SOB worsened. he reports taking 40 of lasix daily , with low salt diet. 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 in past 2 days he vomited twice. 7 hours after food. Non bloody/bilious emesis. denies abd pain , diarrhea , or dysuria . denies fever or chills. In ER he was given IV lasix x 1 OBJECTIVE: NAD, AAAOx3 , cooperative . HEENT: MMM, EOMI, R corneal haziness and scarring . L pupil is round and reactive to light . No facial droop, poor dentition .NO LAP in neck CV: RRR, nO MRG, No S3 heard. No JVD , minimal hepato-jugular reflux Lungs: bibasilar crackles , half way down, with decreased breath sounds at R L base Abd: soft, NT, ND, NL BS , + hepatojugular reflux ExT: 2+ edema L > R. L leg with erythema , no tenderness. L 4th and 5th toes amputation with dry scaly scarred skin over area. neuro : EOMI, no facial droop, pupils as above, tongue at mid dary e, strength 5/ 5 in upper and lower extremities proximally and distally. sensation to light touch decreased in feet . reflexes 2+ biceps , and 1+ knee jerk b/l . ASSESSMENT AND PLAN: 56 y/o man with h/o HTNm IDDM, ischemic cardiomyopathy ,chronic systolic CHF , HLP, CAD, non compliance and recent hospitalization for CHF s/p left AMA , who presented with SOB, N/V, and LE edema . 1- Acute L and R sided Systolic heart failure: last echo 03/30 with severely reduced EF, and multiple WMA. cxray with pulmonary congestion and L pleural effusion, with fluids in fissure. - start lasix 40 BID - cont ACEI - cont BB , will confirm toprol 25. - d/w him AICD option again , he does not think it is needed - I&O , weight - no need for repeat echo - tele - will review his EKG , follow trop given his N/V - card consult 2- LE edema , L > R. due to edema. Unlikely cellulitis . - hold off Abx treatment - pavithra 3- IDDM : takes 10-20 untis of levemir in am , [id number] units of insulin mix 75/ 25 after dinner. - will cover with levemir while here 4- h/O CAD : multiple WMA on echo - cont BB , ASA , and plavix . will confirm meds - follow trop as above 5- CKDIII: cr at base line 5- DVT P x. heparin sq
[2017-04-14 13:20] LABS: URINE HYALINE CAST 1 /lpf; URINE MUCUS RARE; URINE RBC 2 /hpf (0-3); URINE WBC <1 /hpf (3-5)
[2017-04-14] MEDS ORDERED: INSULIN DETEMIR 100 UNITS/ML MDV SQ ONE ×2 (14:28→17:13)
--- NOTE | 2017-04-14 14:37 | HP ---
CHIEF COMPLAINT: Shortness of breath PCP: Dr. Александр Espinosa HISTORY OF PRESENT ILLNESS: ER course was notable for: (1) Lasix 40mg IVP (2) Chest X-ray revealing left pleural effusion and pulmonary congestion (3) Vancomycin 1gm given for LE edema and possible cellulitis Recent Travel: Denies PAST MEDICAL HISTORY: IDDMII, Systolic CHF, CAD, HTN, CVA, diabetic neuropathy s /p toe amputation, CKD PAST SURGICAL HISTORY: / toe amputations (May 2016) Social History: Smokin/2 PPD for 45+ years Alcohol: Denies Drugs: Denies Family History: Mother- DM Father- Lung cancer Allergies: No Known Allergies Allergy (Verified 03/30/17 03:47) HOME MEDICATIONS: Home Medications Medication Instructions Recorded Aspirin [ASA -] 81 mg PO DAILY 04/14/17 Atorvastatin Ca [Lipitor] 40 mg PO DAILY 04/14/17 Clopidogrel Bisulfate [Plavix -] 75 mg PO DAILY 04/14/17 Furosemide [Lasix -] 40 mg PO DAILY 04/14/17 Insulin (Levemir) [Levemir Vial] 10 units SQ BID 04/14/17 Insulin Lispro Protamin/Lispro 20 unit SQ DAILY 04/14/17 [Humalog Mix 75-25 Vial] Insulin Regular, Human [Humulin R 7 unit SQ DAILY 04/14/17 U-500 Kwikpen] Lisinopril [Prinivil] 5 mg PO DAILY 04/14/17 Metoprolol Succinate [Toprol Xl -] 25 mg PO DAILY 04/14/17 REVIEW OF SYSTEMS CONSTITUTIONAL: Absent: fever, chills, diaphoresis, generalized weakness, malaise, loss of appetite, weight change HEENT: Absent: rhinorrhea, nasal congestion, throat pain, throat swelling, difficulty swallowing, mouth swelling, ear pain, eye pain, visual changes CARDIOVASCULAR: Absent: chest pain, syncope, palpitations, irregular heart rate, lightheadedness , peripheral edema RESPIRATORY: cough, shortness of breath, dyspnea, orthopnea Absent: wheezing, stridor, hemoptysis GASTROINTESTINAL: Absent: abdominal pain, abdominal distension, nausea, vomiting, diarrhea, constipation, melena, hematochezia GENITOURINARY: Absent: dysuria, frequency, urgency, hesitancy, hematuria, flank pain, genital pain MUSCULOSKELETAL: Left Leg edema and erythema Absent: myalgia, arthralgia, joint swelling, back pain, neck pain SKIN: Absent: rash, itching, pallor HEMATOLOGIC/IMMUNOLOGIC: Absent: easy bleeding, easy bruising, lymphadenopathy, frequent infections ENDOCRINE: Absent: unexplained weight gain, unexplained weight loss, heat intolerance, cold intolerance NEUROLOGIC: Absent: headache, focal weakness or paresthesias, dizziness, unsteady gait, seizure, mental status changes, bladder or bowel incontinence PSYCHIATRIC: Absent: anxiety, depression, suicidal or homicidal ideation, hallucinations. PHYSICAL EXAMINATION Vital Signs - 24 hr 04/14/17 04/14/17 04/14/17 09:31 09:42 13:50 Temperature 98.3 F 98.0 F Pulse Rate 88 Pulse Rate [ 90 Right] Respiratory 18 20 Rate Blood Pressure 127/76 Blood Pressure 106/84 [Right Arm] O2 Sat by Pulse 97 97 97 Oximetry (%) GENERAL: Awake, alert, and fully oriented, in no acute distress. HEAD: Normal with no signs of trauma. EYES: Opaque right eye. Left eye PERRL, EOMI, sclera anicterus EARS, NOSE, THROAT: Oropharynx clear without exudates. Dry mucous membranes. NECK: No JVD but hepato-jugular reflex LUNGS: Diminished breath sounds throughout lung bases. Clear to auscultate in upper bases bilaterally with fine crackles in the lower bases bilaterally R>L HEART: RRR, normal S1 and S2 without murmur, rub or gallop. ABDOMEN: Soft, nontender, not distended, normoactive bowel sounds, no guarding, no rebound, no masses. MUSCULOSKELETAL: No CVA tenderness. UPPER EXTREMITIES: No peripheral edema. LOWER EXTREMITIES: Bilateral 2+ pitting edema from dorsal foot to below the knee with erythema at the artis. Left 4th and 5th toe amputation. 2+ pulses, warm, well-perfused. No calf tenderness, (-) Claudia's sign NEUROLOGICAL: Cranial nerves II-XII intact. Normal speech. No facial droop. Motor strength 5/5 bilaterally with sensory intact PSYCHIATRIC: Cooperative. Good eye contact. Appropriate mood and affect. SKIN: Warm, dry, normal turgor, no rashes or lesions noted, normal capillary refill. Laboratory Results - last 24 hr 04/14/17 04/14/17 04/14/17 10:15 10:15 12:04 WBC 8.7 D RBC 3.84 L Hgb 10.8 L Hct 32.9 L MCV 85.6 MCH 28.1 MCHC 32.8 RDW 15.1 Plt Count 250 D MPV 8.7 Neutrophils % 68.1 Lymphocytes % 18.3 Monocytes % 9.4 Eosinophils % 2.8 D Basophils % 1.4 Sodium 135 L Potassium 4.5 Chloride 102 Carbon Dioxide 25 Anion Gap 8 BUN 28 H D Creatinine 1.6 H Creat Clearance w eGFR 44.94 Random Glucose 177 H D Calcium 7.8 L Magnesium 2.4 Total Bilirubin 0.5 D AST 8 L D ALT 17 D Alkaline Phosphatase 82 Creatine Kinase 139 Troponin I 0.02 D B-Natriuretic Peptide 4332.40 H Total Protein 7.0 Albumin 2.5 L Lipase 78 Urine Color Ltyellow Urine Appearance Clear Urine pH 6.0 Ur Specific [place] 1.010 Urine Protein 3+ H Urine Glucose (UA) 2+ H Urine Ketones Negative Urine Blood 1+ H Urine Nitrite Negative Urine Bilirubin Negative Urine Urobilinogen Negative Urine WBC (Auto) <1 Urine RBC (Auto) 2 Hyaline Casts 1 Urine Mucus Rare IMAGES Chest X-ray (04/14/17): 2 views of the chest have been submitted. Since 2016, again there are slightly progressive congestive changes with fullness and blurring of the manjinder, fluid in the horizontal fissure and now some fluid at the left base. There are some atelectatic changes in the lower lung avery. There is a prominent mediastinum with sclerotic knob. Correlation recommended. Impression: Slight increase in congestive changes with pleural reaction and atelectasis since prior study. Duplex of Left Leg: The common femoral vein, superficial femoral vein, popliteal and posterior tibial vein were identified, bilaterally with a normal phasic wave form, adequate compressibility and adequate response to augmentation. Visualized portion of the greater saphenous and deep femoral vein are patent No Marroquin's cyst is identified in the popliteal fossa, bilaterally. Impression: There is no evidence of deep venous thromboses in both lower extremities. ASSESSMENT/PLAN: Patient is a 56 year old male who presented for increasing shortness of breath and Orthopnea. Patient with several recent AMA's here for CHF with the most recent one 10 days ago. Patient on this admission was found to have CHF exacerbation and admitted for further monitoring and management. Acute on Chronic Systolic Heart Failure-Worsening -Increasing shortness of breath with Chest X-ray showing congestion now with left sided pleural effusion and Bilateral leg edema -Patient states compliance with home lasix of 40mg daily -Given Lasix 40mg IVP in the ED and will resume Lasix 40mg IVP BID -Strict I&O's -Daily weights -Will continue with home medication Toprol XL 25mg daily -Will continue with Lisinopril 5mg daily -No ECHO needed due to recent one Lower Extremity Edema with Erythema-Chronic -Possible cellulitis vs. worsening leg edema for CHF -Patient has no symptoms of an infection. However, cellulitis may not have typical presentation of a septic picture. Therefore will look for any signs of worsening erythema or edema to initiate Antibiotics. Vancomycin given in ED but will hold Abx for now. Will continue Lasix IV and if patients leg improves, it is likely secondary to pitting edema. -Duplex ordered and negative for DVT Nausea and Vomiting -Will need to rule out [place]. Nausea and vomiting may be symptoms for underlying [place]. -First Troponin negative -Will repeat another in the evening as well as EKG Chronic Kidney Disease Stage III -Patient at baseline and improved from previous admission -Last Renal U/S (03/25/17) revealed Mildly echogenic kidneys with no hydronephrosis -No fluids as patient is currently in acute cardiac decompensation -Continue to monitor BMP Anemia of Chronic Disease -Current hgb 10.8 which is around baseline -Iron studies done recently, which revealed Anemia of chronic disease -Continue to monitor CBC IDDMII with Diabetic Neuropathy -Last A1C 8.6 on 03/30/17 -Will give Levemir 10units now and then daily Levemir 15units in the morning -ISS -BGM HTN-Controlled -Will resume Metoprolol 25mg daily -Will resume Lisinopril 5mg daily -Continue to monitor BP CAD w/ ASHD/CVA -Continue Aspirin 81mg daily -Continue Plavix 75mg daily -Patient refused ICD in the past and is not a candidate for PCI or CABG -Continuous cardiac monitoring F/E/N -On no fluids -Electrolytes wnl -Sodium and diabetic controlled diet Prophylaxis -High risk. Heparin 5000 units SQ TID for DVT -No GI required Disposition -Full code. -Patient has CHF exacerbation and requires IV lasix. Will likely remain inpatient
[2017-04-14 15:49] VITALS: BMI 30.5
[2017-04-14] MEDS: INSULIN SLIDING SCALE (NOVOLOG) 1 VIAL SQ SCH ×2 (17:11→21:06)
[2017-04-14 18:23] LABS: URINE LEUK ESTERASE Negative (NEGATIVE)
[2017-04-14] MEDS ORDERED: ALBUTEROL SO4 2.5/IPRATROPIUM 0.5 INH SOL 3 ML VIAL.NEB. NEB ONE ×2 (21:02→23:00)
[2017-04-14] MEDS: ATORVASTATIN CA 40 MG TABLET (FP) PO SCH (21:08)
[2017-04-14] MEDS: HEPARIN NA (PORCINE) 5,000 UNITS/ML 1ML VIAL SQ SCH (21:08)
[2017-04-15] MEDS: HEPARIN NA (PORCINE) 5,000 UNITS/ML 1ML VIAL SQ SCH ×3 (06:51→22:07)
[2017-04-15] MEDS: FUROSEMIDE 40 MG/4 ML INJECTABLE VIAL IVPUSH SCH ×2 (06:51→13:06)
[2017-04-15] MEDS: INSULIN SLIDING SCALE (NOVOLOG) 1 VIAL SQ SCH ×4 (06:52→22:57)
[2017-04-15] MEDS: INSULIN DETEMIR 100 UNITS/ML MDV SQ SCH (06:52)
--- NOTE | 2017-04-15 08:12 | CON.CARD ---
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: CVA, Peripheral Neuropathy, TIA Cardio/Vascular: Yes: HTN, Hyperlipdemia Renal/: Yes: Renal Inusuff Endocrine: Yes: Diabetes Mellitus (uncontrolled with insulin) - Past Surgical History Past Surgical History: Yes: Amputation - Alcohol/Substance Use Hx Alcohol Use: No - Smoking History Smoking history: Current every day smoker Have you smoked in the past 12 months: Yes Aproximately how many cigarettes per day: 20 If you are a former smoker, when did you quit?: 1 month ago - Social History ADL: Independent History of Recent Travel: No Home Medications - Allergies Allergies/Adverse Reactions: Allergies Allergy/AdvReac Type Severity Reaction Status Date / Time No Known Allergies Allergy Verified 04/14/17 09:31 - Home Medications Home Medications: Ambulatory Orders Aspirin [ASA -] 81 mg PO DAILY 04/14/17 Atorvastatin Ca [Lipitor] 40 mg PO DAILY 04/14/17 Clopidogrel Bisulfate [Plavix -] 75 mg PO DAILY 04/14/17 Furosemide [Lasix -] 40 mg PO DAILY 04/14/17 Insulin (Levemir) [Levemir Vial] 10 units SQ BID 04/14/17 Insulin Lispro Protamin/Lispro [Humalog Mix 75-25 Vial] 20 unit SQ DAILY Insulin Regular, Human [Humulin R U-500 Kwikpen] 7 unit SQ DAILY 04/14/17 Lisinopril [Prinivil] 5 mg PO DAILY 04/14/17 Metoprolol Succinate [Toprol Xl -] 25 mg PO DAILY 04/14/17 Vital Signs: Vital Signs Temperature 98.3 F 04/15/17 05:18 Pulse Rate 89 04/15/17 05:18 Respiratory Rate 18 04/15/17 05:18 Blood Pressure 123/78 04/15/17 05:18 O2 Sat by Pulse Oximetry (%) 93 L 04/14/17 21:00 - Other Data Labs, Other Data: CBC, BMP 04/14/17 10:15 04/14/17 10:15 Troponin, BNP 04/14/17 04/14/17 10:15 14:20 Troponin I 0.02 D 0.02 B-Natriuretic Peptide 4332.40 H Troponin, BNP 04/14/17 04/14/17 10:15 14:20 Troponin I 0.02 D 0.02 B-Natriuretic Peptide 4332.40 H
[2017-04-15 09:05] LABS: BASO % 1.2 % (0-2.0); EOS % 3.7 % (0-4.5); MCH 27.6 pg (25.7-33.7); MCHC 32.3 g/dl (32.0-35.9); MEAN CELL VOLUME 85.5 fl (80-96); MEAN PLT VOLUME 9.2 fl (7.5-11.1); NEUT % 65.7 % (42.8-82.8); PLATELET COUNT 264 K/MM3 (134-434); RDW 15.1 % (11.9-15.9); WHITE BLOOD COUNT 8.8 K/mm3 (4.0-10.0)
[2017-04-15] MEDS: ASPIRIN 81 MG CHEWABLE TABLETS PO SCH ×2 (09:09→13:06)
[2017-04-15] MEDS: CLOPIDOGREL BISULFATE 75 MG TABLET (FP) PO SCH ×2 (09:10→13:07)
[2017-04-15] MEDS: LISINOPRIL 5 MG TABLET (FP) PO SCH ×2 (09:10→13:07)
[2017-04-15] MEDS: METOPROLOL SUCCINATE 25 MG TAB.SR.24H (FP) PO SCH ×2 (09:10→13:06)
[2017-04-15 09:34] LABS: ANION GAP 11 (8-16); CALCIUM 8.5 mg/dL (8.5-10.1); CO2 24 mmol/L (21-32); CREATININE 1.8 mg/dL (0.7-1.3); GLUCOSE,RANDOM 165 mg/dL (74-106)
--- NOTE | 2017-04-15 09:41 | PN ---
Progress Note, Physician History of Present Illness: Pt was admitted here 2 weeks ago, signed out AMA, came back with c/o progressively worsening sob and LE edema. - Current Medication List Current Medications: Active Medications Aspirin (Asa -) 81 mg PO DAILY [facility] Last Admin: 04/15/17 09:09 Dose: Not Given Atorvastatin Calcium (Lipitor -) 40 mg PO HS [facility] Last Admin: 04/14/17 21:08 Dose: 40 mg Clopidogrel Bisulfate (Plavix -) 75 mg PO DAILY [facility] Last Admin: 04/15/17 09:10 Dose: Not Given Furosemide (Lasix Injection -) 40 mg IVPUSH BID@0600,1400 [facility] Last Admin: 04/15/17 06:51 Dose: 40 mg Heparin Sodium (Porcine) (Heparin -) 5,000 unit SQ TID [facility] Last Admin: 04/15/17 06:51 Dose: 5,000 unit Insulin Aspart (Novolog Vial Sliding Scale -) 1 vial SQ ACHS [facility] PRN Reason: Protocol Last Admin: 04/15/17 06:52 Dose: 2 units Insulin Detemir (Levemir Vial) 10 units SQ AM [facility] Last Admin: 04/15/17 06:52 Dose: 10 units Lisinopril (Prinivil) 5 mg PO DAILY [facility] Last Admin: 04/15/17 09:10 Dose: Not Given Metoprolol Succinate (Toprol Xl -) 25 mg PO DAILY [facility] Last Admin: 04/15/17 09:10 Dose: Not Given - Objective Vital Signs: Vital Signs Temperature 98.3 F 04/15/17 05:18 Pulse Rate 89 04/15/17 05:18 Respiratory Rate 18 04/15/17 05:18 Blood Pressure 123/78 04/15/17 05:18 O2 Sat by Pulse Oximetry (%) 93 L 04/14/17 21:00 Constitutional: Yes: No Distress, Calm Eyes: Yes: EOM Intact. No: Conjunctiva Clear, PERRL HENT: Yes: Atraumatic, Normocephalic Neck: Yes: Supple, Trachea Midline Cardiovascular: Yes: Regular Rate and Rhythm, Murmur, S1, S2. No: Bradycardia, Tachycardia, Pulse Irregular, Bruit, JVD, Gallop, Rub, S3, S4, Varicosities Respiratory: Yes: Regular, Diminished, Rales. No: Rhonchi, SOB, Wheezes Gastrointestinal: Yes: Normal Bowel Sounds, Soft. No: Distention, Tenderness Edema: LLE: 2+, RLE: Trace Neurological: Yes: Alert, Oriented Psychiatric: Yes: Alert, Oriented Labs: CBC, BMP 04/15/17 07:00 04/15/17 07:00 - ....Imaging Chest X-ray: Report Reviewed, Image Reviewed EKG: Report Reviewed, Image Reviewed Other: Report Reviewed, Image Reviewed (tele-nsr, PVCs, no sig arrhtyhmias) Assessment/Plan 56 year old man with a history of Acute on chronic systolic CHF, severe LV systolic dysf, refused ICD, ASHD, without viability: not candidate for PCI or CABG ([facility]), HTN/DM/PAD/CVA/CKD, Moderate to severe MR, CKD admitted 03/25 with decompensated CHF and suspeceted RLL PNA. Signed out AMA. and again 03/30 and signed out AMA as well. Does not follow up in office and does not follow medical recommendations. Now returns again with worsening PND and SOB. Assessment/Plan IMP: Acute on chronic systolic CHF, severe LV systolic dysf, refused ICD ASHD, without viability: not candidate for PCI or CABG ([facility]) HTN/DM/PAD/CVA/CKD Moderate to severe MR Possible PNA Cardiac enzymes wnl this admission but Recent + TnI (with normal CK) likely demand ischemia due to CHF, possible infection in setting of CKD: doubt true [place] REC: Con IV lasix at current dose Monitor strict I/Os and daily weights Monitor BUN/Creat, electrolytes and replete as needed Cont ASA, Plavix, Lipitor, Toprol, Lisinopril at current doses Again patient is not a candidate for coronary revascularization and has refused ICD placement. Pt again is refusing to wear cracker off. Therefore it makes sense to discontinue it. Pt has repeatedly displayed poor judgement when it comes to his care, I have tried to again reenforce the importance of his adherence to medical reccs and treatment including outpatient follow up.
--- NOTE | 2017-04-15 16:33 | PN ---
Progress Note (short form) - Note Progress Note: Subjective: No fever or chills, SOB has improved Objective: Vital Signs: Last Vital Signs Temp Pulse Resp BP Pulse Ox 97 F L 88 18 120/66 97 04/15/17 14:00 04/15/17 14:00 04/15/17 14:00 04/15/17 14:00 04/15/17 11:59 Laboratory Results - last 24 hr 04/14/17 04/14/17 04/14/17 12:04 17:09 21:04 WBC RBC Hgb Hct MCV MCH MCHC RDW Plt Count MPV Neutrophils % Lymphocytes % Monocytes % Eosinophils % Basophils % Sodium Potassium Chloride Carbon Dioxide Anion Gap BUN Creatinine POC Glucometer 207 146 Random Glucose Calcium Ur Leukocyte Esterase Negative 04/15/17 04/15/17 04/15/17 05:15 07:00 07:00 WBC 8.8 RBC 4.12 Hgb 11.4 L Hct 35.2 L MCV 85.5 MCH 27.6 MCHC 32.3 RDW 15.1 Plt Count 264 MPV 9.2 Neutrophils % 65.7 Lymphocytes % 20.6 Monocytes % 8.8 Eosinophils % 3.7 Basophils % 1.2 Sodium 137 Potassium 4.4 Chloride 102 Carbon Dioxide 24 Anion Gap 11 BUN 28 H Creatinine 1.8 H POC Glucometer 192 Random Glucose 165 H Calcium 8.5 Ur Leukocyte Esterase 04/15/17 11:45 WBC RBC Hgb Hct MCV MCH MCHC RDW Plt Count MPV Neutrophils % Lymphocytes % Monocytes % Eosinophils % Basophils % Sodium Potassium Chloride Carbon Dioxide Anion Gap BUN Creatinine POC Glucometer 179 Random Glucose Calcium Ur Leukocyte Esterase I&O: Intake & Output 04/12/17 04/13/17 04/14/17 04/15/17 23:59 23:59 23:59 23:59 Intake Total 300 150 Balance 300 150 Weight 195 lb Physical Exam: NAD, AAAOx3, cooperative . HEENT: MMM, EOMI, R corneal haziness and scarring. CV: RRR, NO MRG. No JVD , minimal hepato-jugular reflux Lungs: bibasilar crackles , half way down, with decreased breath sounds at R L base Abd: soft, NT, ND, NL BS ExT: 2+ edema L > R. L leg with improved erythema , no tenderness. L 4th and 5th toes amputation with dry scaly scarred skin over area. ASSESSMENT AND PLAN: 56 y/o man with h/o HTNm IDDM, ischemic cardiomyopathy ,chronic systolic CHF , HLP, CAD, non compliance and recent hospitalization for CHF s/p left AMA , who presented with SOB, N/V, and LE edema . 1- Acute L and R sided Systolic heart failure: last echo 03/30 with severely reduced EF, and multiple WMA. - cont lasix 40 BID - cont ACEI - cont BB - I&O , weight - no need for repeat echo - refused tele - appreciate card input 2- Left LE erythema due to edema , no evidence of infection 3- IDDM : -cover with levemir while here and SSI 4- H/O CAD: multiple WMA on echo - cont BB , ASA , refused plavix . 5- CKDIII: cr at base line 5- DVT P x. heparin sq Visit type - Emergency Visit Emergency Visit: Yes ED Registration Date: 04/14/17 Care time: The patient presented to the Emergency Department on the above date and was hospitalized for further evaluation of their emergent condition. - New Patient This patient is new to me today: No - Critical Care Critical Care patient: No
[2017-04-15] MEDS: ATORVASTATIN CA 40 MG TABLET (FP) PO SCH (22:08)
[2017-04-16] MEDS: INSULIN DETEMIR 100 UNITS/ML MDV SQ SCH (06:26)
[2017-04-16] MEDS: FUROSEMIDE 40 MG/4 ML INJECTABLE VIAL IVPUSH SCH ×2 (06:26→13:26)
[2017-04-16] MEDS: HEPARIN NA (PORCINE) 5,000 UNITS/ML 1ML VIAL SQ SCH ×3 (06:26→21:30)
[2017-04-16] MEDS: INSULIN SLIDING SCALE (NOVOLOG) 1 VIAL SQ SCH ×4 (06:27→21:40)
[2017-04-16 08:34] LABS: ANION GAP 8 (8-16); CALCIUM 8.2 mg/dL (8.5-10.1); CO2 25 mmol/L (21-32); GLUCOSE,RANDOM 178 mg/dL (74-106)
[2017-04-16] MEDS: LISINOPRIL 5 MG TABLET (FP) PO SCH (09:05)
[2017-04-16] MEDS: ASPIRIN 81 MG CHEWABLE TABLETS PO SCH (09:05)
[2017-04-16] MEDS: METOPROLOL SUCCINATE 25 MG TAB.SR.24H (FP) PO SCH (09:05)
[2017-04-16] MEDS: CLOPIDOGREL BISULFATE 75 MG TABLET (FP) PO SCH (09:05)
--- NOTE | 2017-04-16 13:06 | PN ---
Progress Note, Physician History of Present Illness: seen and examined today in [facility]. ambulating in hallway, feeling better, still feels congested. - Current Medication List Current Medications: Active Medications Aspirin (Asa -) 81 mg PO DAILY [facility] Last Admin: 04/16/17 09:05 Dose: 81 mg Atorvastatin Calcium (Lipitor -) 40 mg PO HS [facility] Last Admin: 04/15/17 22:08 Dose: 40 mg Clopidogrel Bisulfate (Plavix -) 75 mg PO DAILY [facility] Last Admin: 04/16/17 09:05 Dose: 75 mg Furosemide (Lasix Injection -) 40 mg IVPUSH BID@0600,1400 [facility] Last Admin: 04/16/17 06:26 Dose: 40 mg Heparin Sodium (Porcine) (Heparin -) 5,000 unit SQ TID [facility] Last Admin: 04/16/17 06:26 Dose: 5,000 unit Insulin Aspart (Novolog Vial Sliding Scale -) 1 vial SQ ACHS [facility] PRN Reason: Protocol Last Admin: 04/16/17 11:53 Dose: Not Given Insulin Detemir (Levemir Vial) 10 units SQ AM [facility] Last Admin: 04/16/17 06:26 Dose: 10 units Lisinopril (Prinivil) 5 mg PO DAILY [facility] Last Admin: 04/16/17 09:05 Dose: 5 mg Metoprolol Succinate (Toprol Xl -) 25 mg PO DAILY [facility] Last Admin: 04/16/17 09:05 Dose: 25 mg - Objective Vital Signs: Vital Signs Temperature 98 F 04/16/17 09:00 Pulse Rate 84 04/16/17 09:00 Respiratory Rate 20 04/16/17 09:00 Blood Pressure 136/73 04/16/17 09:00 O2 Sat by Pulse Oximetry (%) 96 04/16/17 09:00 Constitutional: Yes: Well Nourished, No Distress, Calm Eyes: Yes: EOM Intact HENT: Yes: WNL, Atraumatic, Normocephalic Neck: Yes: WNL, Supple, Trachea Midline Cardiovascular: Yes: Regular Rate and Rhythm, S1, S2. No: Bradycardia, Tachycardia, Pulse Irregular, Bruit, JVD, Gallop, Murmur, Rub, S3, S4, Varicosities Respiratory: Yes: Regular, Diminished, Rales. No: Rhonchi, SOB, Wheezes Gastrointestinal: Yes: Normal Bowel Sounds, Soft. No: Distention, Tenderness Musculoskeletal: Yes: WNL Extremities: Yes: WNL Edema: Yes Edema: LLE: 1+, RLE: 1+ Peripheral Pulses WNL: No Neurological: Yes: Alert, Oriented Psychiatric: Yes: Alert, Oriented Labs: CBC, BMP 04/15/17 07:00 04/16/17 06:58 - ....Imaging Chest X-ray: Report Reviewed, Image Reviewed EKG: Report Reviewed, Image Reviewed Other: Report Reviewed, Image Reviewed (tele-nsr, pvcs, no sig arrhythmias) Assessment/Plan 56 year old man with a history of Acute on chronic systolic CHF, severe LV systolic dysf, refused ICD, ASHD, without viability: not candidate for PCI or CABG ([facility]), HTN/DM/PAD/CVA/CKD, Moderate to severe MR, CKD admitted 03/25 with decompensated CHF and suspeceted RLL PNA. Signed out AMA. and again 03/30 and signed out AMA as well. Does not follow up in office and does not follow medical recommendations. Now returns again with worsening PND and SOB. Assessment/Plan IMP: Acute on chronic systolic CHF, severe LV systolic dysf, refused ICD ASHD, without viability: not candidate for PCI or CABG ([facility]) HTN/DM/PAD/CVA/CKD Moderate to severe MR Possible PNA Cardiac enzymes wnl this admission but Recent + TnI (with normal CK) likely demand ischemia due to CHF, possible infection in setting of CKD: doubt true [place] REC: still volume overloaded on exam, improving BUN/creat trending up Cont IV lasix at current dose for now and likely decrease dose tomorrow or convert to po Monitor strict I/Os and daily weights Monitor BUN/Creat, electrolytes and replete as needed Cont ASA, Plavix, Lipitor, Toprol, Lisinopril at current doses Once euvolemic plan for outpatient f/up, no other planned inpatient cardiac work up at this time.
--- NOTE | 2017-04-16 18:19 | PN ---
Teaching Attending Note Name of Resident: Antonio Alejo ATTENDING PHYSICIAN STATEMENT I saw and evaluated the patient. I reviewed the resident's note and discussed the case with the resident. I agree with the resident's findings and plan as documented. SUBJECTIVE: no fever or chills, SOB has improved OBJECTIVE: NAD, AAAOx3, cooperative . HEENT: MMM, EOMI, R corneal haziness and scarring. CV: RRR, NO MRG. No JVD Lungs: bibasilar crackles ExT: 2+ edema L > R. L leg with improved erythema , no tenderness. L 4th and 5th toes amputation with dry scaly scarred skin over area. ASSESSMENT AND PLAN: 56 y/o man with h/o HTNm IDDM, ischemic cardiomyopathy ,chronic systolic CHF , HLP, CAD, non compliance and recent hospitalization for CHF s/p left AMA , who presented with SOB, N/V, and LE edema . 1- Acute L and R sided Systolic heart failure: - cont lasix 40 BID - cont ACEI - cont BB 2- Left LE erythema due to edema , no evidence of infection 3- IDDM : -cover with levemir while here and SSI 4- H/O CAD: multiple WMA on echo - cont BB , ASA , refused plavix . 5- CKDIII: slightly increased cr , but not higher than his previous values 5- DVT P x. heparin sq
--- NOTE | 2017-04-16 19:13 | PN ---
Physical Exam: SUBJECTIVE: Patient seen and examined. No acute events overnight. Pt reports that SOB and LE edema are improved. OBJECTIVE: Vital Signs Period Temp Pulse Resp BP Sys/Humphreys Pulse Ox Last 24 Hr 97.8 F-98.7 F 80-93 18-20 116-148/67-79 96-97 GENERAL: middle-aged male, awake, alert, and fully oriented, in no acute distress. HEENT: NC, AT, EOMI NECK: Trachea midline, full range of motion, supple. LUNGS: b/l rales to mid-lung HEART: Regular rate and rhythm, S1, S2 without murmur, rub or gallop. ABDOMEN: Soft, nontender, nondistended, normoactive bowel sounds, no guarding, no rebound, no hepatosplenomegaly, no masses. EXTREMITIES: 2+ LE edema, chronic changes, left leg is more firm compared to right, NT to palpation NEUROLOGICAL: Cranial nerves II through XII grossly intact. Normal speech, gait not observed. Laboratory Results - last 24 hr 04/15/17 04/16/17 04/16/17 22:43 06:19 06:58 Sodium 136 Potassium 4.2 Chloride 103 Carbon Dioxide 25 Anion Gap 8 BUN 30 H Creatinine 2.0 H POC Glucometer 163 203 Random Glucose 178 H Calcium 8.2 L 04/16/17 04/16/17 11:53 17:29 Sodium Potassium Chloride Carbon Dioxide Anion Gap BUN Creatinine POC Glucometer 144 277 Random Glucose Calcium Active Medications Generic Name Dose Route Start Last Admin Trade Name Freq PRN Reason Stop Dose Admin Aspirin 81 mg 04/15/17 10:00 04/16/17 09:05 Asa - PO 81 mg DAILY [facility] Administration Atorvastatin Calcium 40 mg 04/14/17 22:00 04/15/17 22:08 Lipitor - PO 40 mg HS [facility] Administration Clopidogrel Bisulfate 75 mg 04/15/17 10:00 04/16/17 09:05 Plavix - PO 75 mg DAILY [facility] Administration Furosemide 40 mg 04/15/17 06:00 04/16/17 13:26 Lasix Injection - IVPUSH 40 mg BID@0600,1400 [facility] Administration Heparin Sodium (Porcine) 5,000 unit 04/14/17 22:00 04/16/17 13:26 Heparin - SQ Not Given TID [facility] Insulin Aspart 1 vial 04/14/17 16:30 04/16/17 17:30 Novolog Vial Sliding Scale - SQ 6 units ACHS [facility] Administration Protocol Insulin Detemir 10 units 04/15/17 07:00 04/16/17 06:26 Levemir Vial SQ 10 units AM [facility] Administration Lisinopril 5 mg 04/15/17 10:00 04/16/17 09:05 Prinivil PO 5 mg DAILY [facility] Administration Metoprolol Succinate 25 mg 04/15/17 10:00 04/16/17 09:05 Toprol Xl - PO 25 mg DAILY [facility] Administration ASSESSMENT/PLAN: 56M w/ hx of HTN, IDDM, ischemic cardiomyopathy, chronic systolic CHF, CAD, non- adherence and recent hospitalization for CHF and leaving AMA, who presented with SOB, N/V, and LE edema. #Acute L and R sided Systolic heart failure: - cont lasix 40 IV BID - cont lisinopril - cont toprol #L LE erythema- 2/2 edema - no evidence of infection #IDDM -continue levemir 10U -SSI #H/O CAD: multiple WMA on echo - cont toprol, ASA -refused ICD in past, not candidate for PCI or CABG #CKDIII -creatinine of 2, up from 1.8 -continue to monitor #FEN/ppx -no fluids -electrolytes wnl -sodium controlled diet -no GI ppx -heparin 5000U TID -Antonio Alejo MD PGY1 Visit type - Emergency Visit Emergency Visit: Yes ED Registration Date: 04/14/17 Care time: The patient presented to the Emergency Department on the above date and was hospitalized for further evaluation of their emergent condition. - New Patient This patient is new to me today: Yes Date on this admission: 04/17/17 - Critical Care Critical Care patient: No
[2017-04-16] MEDS: ATORVASTATIN CA 40 MG TABLET (FP) PO SCH (21:30)
--- NOTE | 2017-04-17 01:42 | EKG ---
Test Reason : Blood Pressure : / mmHG Vent. Rate : 086 BPM Atrial Rate : 086 BPM P-R Int : 150 ms QRS Dur : 106 ms QT Int : 384 ms P-R-T Axes : 063 001 231 degrees QTc Int : 459 ms NORMAL SINUS RHYTHM POSSIBLE LEFT ATRIAL ENLARGEMENT SEPTAL INFARCT (CITED ON OR BEFORE 25-AUG-2016) ABNORMAL ECG WHEN COMPARED WITH ECG OF 04-APR-2017 03:21, NO SIGNIFICANT CHANGE WAS FOUND Confirmed by ROBE YUAN MD ([id number]) on 04/17/2017 1:42:26 AM Referred By: Confirmed By:ROBE YUAN MD
[2017-04-17] MEDS: HEPARIN NA (PORCINE) 5,000 UNITS/ML 1ML VIAL SQ SCH (06:24)
[2017-04-17] MEDS: INSULIN DETEMIR 100 UNITS/ML MDV SQ SCH (06:24)
[2017-04-17] MEDS: FUROSEMIDE 40 MG/4 ML INJECTABLE VIAL IVPUSH SCH (06:24)
[2017-04-17] MEDS: INSULIN SLIDING SCALE (NOVOLOG) 1 VIAL SQ SCH (06:24)
[2017-04-17 07:33] LABS: CALCIUM 8.2 mg/dL (8.5-10.1)
[2017-04-17 07:37] LABS: ANION GAP 9 (8-16); CO2 26 mmol/L (21-32); CREATININE 2.1 mg/dL (0.7-1.3); GLUCOSE,RANDOM 266 mg/dL (74-106)
--- NOTE | 2017-04-17 10:02 | PN ---
Progress Note, Physician Chief Complaint: feeling better TELE: OFF tele - Current Medication List Current Medications: Active Medications Aspirin (Asa -) 81 mg PO DAILY [facility] Last Admin: 04/16/17 09:05 Dose: 81 mg Atorvastatin Calcium (Lipitor -) 40 mg PO HS [facility] Last Admin: 04/16/17 21:30 Dose: 40 mg Clopidogrel Bisulfate (Plavix -) 75 mg PO DAILY [facility] Last Admin: 04/16/17 09:05 Dose: 75 mg Furosemide (Lasix Injection -) 40 mg IVPUSH BID@0600,1400 [facility] Last Admin: 04/17/17 06:24 Dose: 40 mg Heparin Sodium (Porcine) (Heparin -) 5,000 unit SQ TID [facility] Last Admin: 04/17/17 06:24 Dose: 5,000 unit Insulin Aspart (Novolog Vial Sliding Scale -) 1 vial SQ ACHS [facility] PRN Reason: Protocol Last Admin: 04/17/17 06:24 Dose: 6 units Insulin Detemir (Levemir Vial) 10 units SQ AM [facility] Last Admin: 04/17/17 06:24 Dose: 10 units Lisinopril (Prinivil) 5 mg PO DAILY [facility] Last Admin: 04/16/17 09:05 Dose: 5 mg Metoprolol Succinate (Toprol Xl -) 25 mg PO DAILY [facility] Last Admin: 04/16/17 09:05 Dose: 25 mg - Objective Vital Signs: Vital Signs Temperature 98.6 F 04/17/17 06:00 Pulse Rate 85 04/17/17 06:00 Respiratory Rate 20 04/17/17 06:00 Blood Pressure 135/70 04/17/17 06:00 O2 Sat by Pulse Oximetry (%) 94 L 04/16/17 21:00 Constitutional: Yes: No Distress Eyes: Yes: Conjunctiva Clear Cardiovascular: Yes: Regular Rate and Rhythm Respiratory: Yes: Other (decreased breath sounds at bases.) Gastrointestinal: Yes: Soft Edema: Yes Edema: LLE: 1+, RLE: 1+ Neurological: Yes: Alert, Oriented ...Motor Strength: WNL Labs: CBC, BMP 04/15/17 07:00 04/17/17 05:05 Microbiology 04/14/17 12:04 Blood - Fresh Frozen Plasma Unit Blood Culture - Preliminary NO GROWTH OBTAINED AFTER 48 HOURS, INCUBATION TO CONTINUE FOR 3 DAYS. 04/14/17 12:04 Blood - Fresh Frozen Plasma Unit Blood Culture - Preliminary NO GROWTH OBTAINED AFTER 48 HOURS, INCUBATION TO CONTINUE FOR 3 DAYS. Laboratory Tests 04/15/17 04/17/17 07:00 05:05 WBC 8.8 Hgb 11.4 L Plt Count 264 Sodium 136 Potassium 4.6 BUN 39 H D Creatinine 2.1 H Assessment/Plan Assessment/Plan 56 year old man with a history of Acute on chronic systolic CHF, severe LV systolic dysf, refused ICD, ASHD, without viability: not candidate for PCI or CABG ([facility]), HTN/DM/PAD/CVA/CKD, Moderate to severe MR, CKD admitted 03/25 with decompensated CHF and suspeceted RLL PNA. Signed out AMA. and again 03/30 and signed out AMA as well. Does not follow up in office and does not follow medical recommendations. Now returns again with worsening PND and SOB. Assessment/Plan IMP: Acute on chronic systolic CHF, severe LV systolic dysf, refused ICD ASHD, without viability: not candidate for PCI or CABG ([facility]) HTN/DM/PAD/CVA/CKD Moderate to severe MR Possible PNA Cardiac enzymes wnl this admission but Recent + TnI (with normal CK) likely demand ischemia due to CHF, possible infection in setting of CKD: doubt true [place] REC: Clinically improved. Cont IV lasix at current dose for now, can decrease to daily dosing. Monitor strict I/Os and daily weights Monitor BUN/Creat, electrolytes and replete as needed Cont ASA, Plavix, Lipitor, Toprol, Lisinopril at current doses Once euvolemic plan for outpatient f/up, no other planned inpatient cardiac work up at this time.
[2017-04-17 10:20] VITALS: BP 128/70; PULSE 88; TEMP 98.2
[2017-04-17] MEDS: METOPROLOL SUCCINATE 25 MG TAB.SR.24H (FP) PO SCH (10:33)
[2017-04-17] MEDS: ASPIRIN 81 MG CHEWABLE TABLETS PO SCH (10:33)
[2017-04-17] MEDS: CLOPIDOGREL BISULFATE 75 MG TABLET (FP) PO SCH (10:33)
[2017-04-17] MEDS: LISINOPRIL 5 MG TABLET (FP) PO SCH (10:33)
--- NOTE | 2017-04-17 15:36 | DS ---
Physical Exam: SUBJECTIVE: Patient seen and examined. No acute events overnight. Pt reports that his breathing has improved, he has no cough, and his lower extremity edema has improved. He denies chest pain, abdominal pain, n/v/d/c, and dysuria. OBJECTIVE: Vital Signs Period Temp Pulse Resp BP Sys/Humphreys Pulse Ox Last 24 Hr 98.1 F-98.6 F 83-95 20-20 121-148/58-94 94 PHYSICAL EXAM GENERAL: middle-aged male, awake, alert, and fully oriented, in no acute distress. HEENT: NC, AT, EOMI NECK: Trachea midline, full range of motion, supple. LUNGS: b/l basilar rales HEART: Regular rate and rhythm, S1, S2 without murmur, rub or gallop. ABDOMEN: Soft, nontender, nondistended, normoactive bowel sounds, no guarding, no rebound, no hepatosplenomegaly, no masses. EXTREMITIES: 1+ LE edema, chronic changes, left leg is more firm compared to right, NT to palpation NEUROLOGICAL: Cranial nerves II through XII grossly intact. Normal speech, gait not observed. LABS Laboratory Results - last 24 hr 04/16/17 04/16/17 04/17/17 17:29 21:39 05:05 Sodium 136 Potassium 4.6 Chloride 101 Carbon Dioxide 26 Anion Gap 9 BUN 39 H D Creatinine 2.1 H POC Glucometer 277 189 Random Glucose 266 H D Calcium 8.2 L 04/17/17 05:31 Sodium Potassium Chloride Carbon Dioxide Anion Gap BUN Creatinine POC Glucometer 273 Random Glucose Calcium CXR: slight increased congestive changes. pleural reaction and atelectasis. HOSPITAL COURSE: 56M w/ hx of HTN, IDDM, ischemic cardiomyopathy, chronic systolic CHF, CAD, non- adherence and recent hospitalization for CHF and leaving AMA, who presented with SOB, N/V, and LE edema, and was admitted for a CHF exacerbation. He was treated with IV lasix and supplemental oxygen. His breathing improved, rales decreased, and lower extremity edema diminished. Today, pt has normal vitals, no subjective complaints, and is clinically improved and stable for discharge, to take lasix 60mg po at home. Before pt could be formally discharged, he left AMA. Date of Admission:04/14/17 Date of Discharge: 04/17/17 -Antonio Alejo MD PGY1 Discharge Summary Reason For Visit: CONGESTIVE HEART FAILURE, CELLULITIS Condition: Stable - Instructions Diet, Activity, Other Instructions: You presented to the hospital with shortness of breath, and you were found to have a congestive heart failure exacerbation. You were treated with intravenous lasix and oxygen supplementation. All your previous home medications have stayed the same except for your lasix. We have changed the dose to 60mg once a day. 1. Please follow up with your PCP within one week. If you don't have one, we have referred you to Dr. Hernandez. 2. Please follow up with your rebar bender, Dr. Espinosa. If you develop any worsening shortness of breath or chest pain, please return to the ED. Referrals: Andrew Hernandez MD [Staff Physician] - Александр Espinosa MD [Staff Physician] - STAFF,NOT ON [Primary Care Provider] - Disposition: AGAINST MEDICAL ADVICE - Home Medications Comprehensive Discharge Medication List: Ambulatory Orders Aspirin [ASA -] 81 mg PO DAILY 04/14/17 Atorvastatin Ca [Lipitor] 40 mg PO DAILY 04/14/17 Clopidogrel Bisulfate [Plavix -] 75 mg PO DAILY 04/14/17 Furosemide [Lasix -] 40 mg PO DAILY 04/14/17 Insulin (Levemir) [Levemir Vial] 15 units SQ DAILY 04/14/17 Insulin Lispro Protamin/Lispro [Humalog Mix 75-25 Vial] 10 unit SQ [facility] Lisinopril [Prinivil] 5 mg PO DAILY 04/14/17 Metoprolol Succinate [Toprol Xl -] 25 mg PO DAILY 04/14/17 Furosemide [Lasix -] 60 mg PO DAILY #30 tablet 04/17/17 Miscellaneous Drug Not In Syst [Outpatient Lab Test] 1 each [facility]IR #1 misc This patient is new to me today: No Emergency Visit: Yes ED Registration Date: 04/14/17 Care time: The patient presented to the Emergency Department on the above date and was hospitalized for further evaluation of their emergent condition. Critical Care patient: No
--- NOTE | 2017-04-17 19:25 | PN ---
Teaching Attending Note Name of Resident: Antonio Alejo ATTENDING PHYSICIAN STATEMENT I saw and evaluated the patient. I reviewed the resident's note and discussed the case with the resident. I agree with the resident's findings and plan as documented. SUBJECTIVE: no fever or chills , no OSB OBJECTIVE: NAD, AAAOx3, cooperative . HEENT: MMM, EOMI, R corneal haziness and scarring. CV: RRR, NO MRG. No JVD Lungs: bibasilar crackles improved ExT: 2+ edema L > R. L leg with improved erythema , no tenderness. L 4th and 5th toes amputation with dry scaly scarred skin over area. ASSESSMENT AND PLAN: 56 y/o man with h/o HTNm IDDM, ischemic cardiomyopathy ,chronic systolic CHF , HLP, CAD, non compliance and recent hospitalization for CHF s/p left AMA , who presented with SOB, N/V, and LE edema . 1- Acute L and R sided Systolic heart failure: - switch to lasix 60 daily - cont ACEI - cont BB 2- Left LE erythema due to edema , no evidence of infection 3- IDDM : - levemir and SSI . at dc he can cont his old regimen 4- H/O CAD: multiple WMA on echo - cont BB , ASA ,and plavix 5- CKDIII: stable cr 5-plan was to dc pt today , but he left before we did . dc paperwork to be mailed to him with instructions
[2017-04-18] MEDS ORDERED: FUROSEMIDE 40 MG/4 ML INJECTABLE VIAL IVPUSH SCH (10:00)
== END 2017-04-17 12:06 | disposition left against medical advice (07) | DRG 291 ==
LOC: JER 09:25 → JERBED 12:57 → J4W 14:18
PROVIDERS: ADMIT Internal Medicine; ATTEND Internal Medicine
DX: I13.0 Hypertensive heart and chronic kidney disease with heart failure and stage 1 through stage 4 chronic kidney disease, or unspecified chronic kidney disease (principal); I50.23 Acute on chronic systolic (congestive) heart failure; L03.116 Cellulitis of left lower limb; I25.10 Atherosclerotic heart disease of native coronary artery without angina pectoris; E11.51 Type 2 diabetes mellitus with diabetic peripheral angiopathy without gangrene; E78.00 Pure hypercholesterolemia, unspecified; J44.9 Chronic obstructive pulmonary disease, unspecified; I25.2 Old myocardial infarction; F17.200 Nicotine dependence, unspecified, uncomplicated; E11.40 Type 2 diabetes mellitus with diabetic neuropathy, unspecified; I25.5 Ischemic cardiomyopathy; E11.22 Type 2 diabetes mellitus with diabetic chronic kidney disease; N18.3 Chronic kidney disease, stage 3 (moderate); R11.2 Nausea with vomiting, unspecified; D63.8 Anemia in other chronic diseases classified elsewhere; I34.0 Nonrheumatic mitral (valve) insufficiency; Z79.4 Long term (current) use of insulin; Z95.810 Presence of automatic (implantable) cardiac defibrillator; Z89.429 Acquired absence of other toe(s), unspecified side; Z86.73 Personal history of transient ischemic attack (TIA), and cerebral infarction without residual deficits
CPT/HCPCS: 36415; 71020-TC; 80048; 80053; 81003; 81015; 82550; 83690; 83735; 83880; 84484; 85025; 87040; 87086; 93005; 93010; 93971-TC; 94640; 99285-25; J1644

== ENCOUNTER 2018-08-12 06:28 | Inpatient (IN) | payer OTHER ==
[2018-08-12 06:41] VITALS: BMI 30.1
--- NOTE | 2018-08-12 07:32 | PDOC ---
History of Present Illness - General Chief Complaint: Shortness of Breath Stated Complaint: S.O.B. Time Seen by Provider: 08/12/18 07:10 - History of Present Illness Initial Comments: 08/12/18 07:59 57 M with h/o IDDMII, Systolic CHF, CAD with ASHD not a candidate for PCI or CABG and refusing AICD, HTN, CVA, PAD, diabetic neuropathy s/p toe amputation, CKD, presenting to ED with 2 weeks of N+V and cough. Pt endorses feeling very bloated in his abdomen. He states that he feels like he is "filled with fluid". Denies any constipation or diarrhea. Denies any abdominal pain. However, he states that he has been vomiting occasionally. He states that sometimes it is in the context of coughing. Pt endorses cough and SOB that is worse when lying flat. Endorses bilateral leg swelling, with L>R. Denies any chest pain. Past History - Past Medical History Allergies/Adverse Reactions: Allergies Allergy/AdvReac Type Severity Reaction Status Date / Time No Known Allergies Allergy Verified 08/12/18 06:40 Home Medications: Ambulatory Orders Aspirin [ASA -] 81 mg PO DAILY 04/14/17 Atorvastatin Ca [Lipitor] 40 mg PO DAILY 04/14/17 Clopidogrel Bisulfate [Plavix -] 75 mg PO DAILY 04/14/17 Insulin (Levemir) [Levemir Vial] 15 units SQ DAILY 04/14/17 Insulin Lispro Protamin/Lispro [Humalog Mix 75-25 Vial] 10 unit SQ ASDIR Lisinopril [Prinivil] 5 mg PO DAILY 04/14/17 Metoprolol Succinate [Toprol Xl -] 25 mg PO DAILY 04/14/17 Furosemide [Lasix -] 80 mg PO DAILY 04/05/18 Gabapentin 100 mg PO PRN 08/12/18 Icosapent Ethyl [Vascepa] 1 gm PO DAILY 08/12/18 Anemia: No Asthma: No Cancer: No Cardiac Disorders: Yes (CAD, NSTEMI) CVA: Yes COPD: Yes CHF: Yes Dementia: No Diabetes: Yes GI Disorders: Yes ("I keep throwing up lately", last event 04/13/17) Disorders: Yes HTN: Yes Hypercholesterolemia: Yes Liver Disease: No Seizures: No Thyroid Disease: No - Surgical History Abdominal Surgery: No Appendectomy: No Cardiac Surgery: Yes (ANGIOGRAM MAY 2016) Cholecystectomy: No Lung Surgery: No Neurologic Surgery: No Orthopedic Surgery: Yes (Amputation Left foot 4th & 5th toes) - Suicide/Smoking/Psychosocial Hx Smoking History: Current some day smoker Have you smoked in the past 12 months: Yes Number of Cigarettes Smoked Daily: 20 If you are a former smoker, when did you quit?: 1 month ago Information on smoking cessation initiated: No 'Breaking Loose' booklet given: 04/14/17 Hx Alcohol Use: No Drug/Substance Use Hx: No Substance Use Type: None Hx Substance Use Treatment: No Review of Systems - Review of Systems Comments:: 08/12/18 08:00 "GENERAL/CONSTITUTIONAL: No fever or chills. No weakness. HEAD, EYES, EARS, NOSE AND THROAT: No change in vision. No ear pain or discharge. No sore throat. CARDIOVASCULAR: No chest pain, + shortness of breath, no loss of consciousness RESPIRATORY: + cough, no wheezing, or hemoptysis. GASTROINTESTINAL: + nausea, vomiting, no diarrhea or constipation. GENITOURINARY: No dysuria, frequency, or change in urination. MUSCULOSKELETAL: No joint or muscle swelling or pain. No neck or back pain. SKIN: No rash NEUROLOGIC: No vertigo, no change in strength/sensation. ENDOCRINE: No increased thirst. No abnormal weight change. HEMATOLOGIC/LYMPHATIC: No anemia, easy bleeding, or history of blood clots. ALLERGIC/IMMUNOLOGIC: No hives or skin allergy. *Physical Exam - Vital Signs Last Vital Signs Temp Pulse Resp BP Pulse Ox 98.1 F 71 24 H 97/72 100 08/12/18 06:28 08/12/18 06:28 08/12/18 06:28 08/12/18 06:28 08/12/18 06:28 - Physical Exam Comments: 08/12/18 08:01 GENERAL: Awake, alert, and fully oriented, in no acute distress. HEAD: No signs of trauma EYES: PERRLA, EOMI, sclera anicteric, conjunctiva clear ENT: Auricles normal inspection, hearing grossly normal, nares patent, oropharynx clear without exudates. Moist mucosa NECK: Nontender, no stepoffs, Normal ROM, supple, no lymphadenopathy, JVD, or masses LUNGS: Breath sounds equal, clear to auscultation bilaterally. No wheezes, and no crackles HEART: Regular rate and rhythm, normal S1 and S2, no murmurs, rubs or gallops ABDOMEN: Soft, nontender, normoactive bowel sounds. No guarding, no rebound. No masses EXTREMITIES: + BLE pitting edema, NEUROLOGICAL: Cranial nerves II through XII intact. 5/5 strength and sensation in all extremities, Normal speech, normal gait, normal cerebellar function SKIN: Warm, Dry, normal turgor, no rashes or lesions noted. Heart Score/ECG Review - ECG Impressions Comment:: 08/12/18 09:41 NSR, TWI and ST depression inferiorly, LBBB, no changes since prior EKG, rate 72 ED Treatment Course - LABORATORY CBC & Chemistry Diagram: 08/12/18 07:52 08/12/18 07:52 Medical Decision Making - Medical Decision Making 08/12/18 08:01 57 M with abdominal distention and vomiting. Pt with no clinical signs of obstruction, no prior surgical history. Is having normal BMs. Suspect that pt's abdominal distention is due to fluid retention given his significant cardiac history. Pt also with BLE edema. Appears symmetric on exam but pt stating it feels worse on the left. Will evaluate for DVT. - Labs, trop, BNP - CXR - Abd XR to r/o obstruction - BLE dopplers - IV lasix 08/12/18 09:42 Labs notable for worsening renal function Pt also with elevated BNP, mild troponinemia 0.07 08/12/18 10:30 CXR shows congestive changes No evidence of obstruction on abdominal film Will admit for CHF exacerbation 08/12/18 10:[address] Olivo 08/12/18 13:12 Pt requesting to leave AMA, stating that he does not like to be in hospitals and believes he will get sicker here. The patient is clinically sober, free from distracting injury, appears to have intact insight and judgment and reason and in my opinion has the capacity to make decisions. The patient presented with cough and SOB. I have explained that I am concerned that this may represent heart failure; they have verbalized an understanding of my concerns. I have discussed the need for cardiology consultation and possible admission to the hospital to get more information about potential causes of the patients SOB. I have told the patient that if they leave and have chest pain or shortness of breath, they could get much worse , could become critically ill, and could possibly become disabled or . I have offered to give the patient more pain medication. I have asked them to stay in the hospital for monitoring. He is unwilling to stay overnight for monitoring. He is refusing any further care and is leaving against medical advice. I am unable to convince the patient to stay, I have asked them to return as soon as possible to complete their evaluation. I have answered all their questions. *DC/Admit/Observation/Transfer Diagnosis at time of Disposition: CHF (congestive heart failure) - Discharge Dispostion Disposition: AGAINST MEDICAL ADVICE Condition at time of disposition: Fair Decision to Admit order: Yes - Referrals - Patient Instructions - Post Discharge Activity - Attestations Physician Attestion: 08/12/18 10:41 I, Dr. Rhett Corral MD, attest that this document has been prepared under my direction and personally reviewed by me in its entirety. I further attest, that it accurately reflects all work, treatment, procedures and medical decision -making performed by me.
[2018-08-12] MEDS ORDERED: FUROSEMIDE 40 MG/4 ML INJECTABLE VIAL IVPUSH ONE (08:03)
[2018-08-12 08:26] LABS: BASO % 1.2 % (0-2.0); EOS % 2.3 % (0-4.5); HEMATOCRIT 28.3 % (35.4-49); HEMOGLOBIN 9.5 GM/dL (11.7-16.9); MCH 28.8 pg (25.7-33.7); MCHC 33.6 g/dl (32.0-35.9); MEAN CELL VOLUME 85.6 fl (80-96); MEAN PLT VOLUME 9.3 fl (7.5-11.1); MONO % 9.2 % (3.8-10.2); NEUT % 70.3 % (42.8-82.8); PLATELET COUNT 230 K/MM3 (134-434); RBC 3.31 M/mm3 (4.00-5.60); RDW 15.4 % (11.9-15.9); WHITE BLOOD COUNT 10.7 K/mm3 (4.0-10.0)
[2018-08-12] MEDS ORDERED: FUROSEMIDE 40 MG/4 ML INJECTABLE VIAL ONE (08:37)
[2018-08-12 09:05] LABS: ALBUMIN 3.3 g/dl (3.4-5.0); ALK PHOS 87 U/L (45-117); ANION GAP 7 MMOL/L (8-16); BILIRUBIN,TOTAL 0.6 mg/dL (0.2-1); BLOOD UREA NITROGEN 71 mg/dL (7-18); CALCIUM 8.3 mg/dL (8.5-10.1); CHLORIDE 100 mmol/L (98-107); CO2 23 mmol/L (21-32); CREATININE 3.8 mg/dL (0.55-1.3); GLUCOSE,RANDOM 106 mg/dL (74-106); LIPASE 145 U/L (73-393); N-TERMINAL BNP 7088.1 pg/ml (5-125); POTASSIUM 4.9 mmol/L (3.5-5.1); SGOT/AST 9 U/L (15-37); SGPT/ALT 17 U/L (13-61); SODIUM 130 mmol/L (136-145); TOT PROT 7.5 g/dl (6.4-8.2)
[2018-08-12 09:17] LABS: EPI CELLS 1.6 /HPF (0-5/HPF); URINE APPEARANCE CLOUDY; URINE BACTERIA 0.5 /hpf (NEGATIVE); URINE BILIRUBIN NEGATIVE (NEGATIVE); URINE CASTS 8 /hpf (0-8); URINE COLOR YELLOW; URINE GLUCOSE (UA) TRACE (NEGATIVE); URINE KETONE NEGATIVE (NEGATIVE); URINE LEUK ESTERASE NEGATIVE (NEGATIVE); URINE NITRITE NEGATIVE (NEGATIVE); URINE PROTEIN 3+ (NEGATIVE); URINE RBC 1 /hpf (0-4); URINE UROBILINOGEN 0.2 mg/dL (0.2-1.0); URINE WBC 2 /hpf (0-5)
--- NOTE | 2018-08-12 10:25 | EKG ---
Test Reason : Blood Pressure : / mmHG Vent. Rate : 072 BPM Atrial Rate : 072 BPM P-R Int : 164 ms QRS Dur : 126 ms QT Int : 436 ms P-R-T Axes : 057 -08 167 degrees QTc Int : 477 ms NORMAL SINUS RHYTHM POSSIBLE LEFT ATRIAL ENLARGEMENT LEFT BUNDLE BRANCH BLOCK ABNORMAL ECG WHEN COMPARED WITH ECG OF 14-APR-2017 10:26, LEFT BUNDLE BRANCH BLOCK IS NOW PRESENT CRITERIA FOR SEPTAL INFARCT ARE NO LONGER PRESENT Confirmed by MAURICIO DE LA GARZA MD ([id number]) on 08/12/2018 10:25:24 AM Referred By: Confirmed By:MAURICIO DE LA GARZA MD
[2018-08-12 12:51] VITALS: BP 126/76; PULSE 76; TEMP 97.3
--- NOTE | 2018-08-12 13:28 | CON.CARD ---
Consult Consult Specialty:: Cardiology Referred by:: Medicine Reason for Consultation:: shortness of breath - History of Present Illness Chief Complaint: CHF History of Present Illness: 57M h/o DM, chronic systolic HF, CAD not candidate for PCI or CABG refusing AICD , HTN, CVA, PAD, s/p toe amputation, CKD p/w nausea, vomiting, cough, abdominal bloating. Feels that he is filled with fluid, jeanie leg swelling and orthopnea. 08/12/18 09:42 Labs notable for worsening renal function Pt also with elevated BNP, mild troponinemia 0.07 08/12/18 10:30 CXR shows congestive changes No evidence of obstruction on abdominal film Will admit for CHF exacerbation 08/12/18 10:[address] Olivo 08/12/18 13:12 Pt requesting to leave AMA, stating that he does not like to be in hospitals and believes he will get sicker here. The patient is clinically sober, free from distracting injury, appears to have intact insight and judgment and reason and in my opinion has the capacity to make decisions. The patient presented with cough and SOB. I have explained that I am concerned that this may represent heart failure; they have verbalized an understanding of my concerns. I have discussed the need for cardiology consultation and possible admission to the hospital to get more information about potential causes of the patients SOB. I have told the patient that if they leave and have chest pain or shortness of breath, they could get much worse , could become critically ill, and could possibly become disabled or . I have offered to give the patient more pain medication. I have asked them to stay in the hospital for monitoring. He is unwilling to stay overnight for monitoring. He is refusing any further care and is leaving against medical advice. I am unable to convince the patient to stay, I have asked them to return as soon as possible to complete their evaluation. I have answered all their questions. *DC/Admit/Observation/Transfer Diagnosis at time of Disposition: CHF (congestive heart failure) - Discharge Dispostion Disposition: AGAINST MEDICAL ADVICE Condition at time of disposition: Fair Decision to Admit order: Yes - Referrals - Patient Instructions - Post Discharge Activity - Attestations Physician Attestion: 08/12/18 10:41 I, Dr. Rhett Corral MD, attest that this document has been prepared under my direction and personally reviewed by me in its entirety. I further attest, that it accurately reflects all work, treatment, procedures and medical decision -making performed by me. 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: CVA, Peripheral Neuropathy, TIA Cardio/Vascular: Yes: HTN, Hyperlipdemia Renal/: Yes: Renal Inusuff Endocrine: Yes: Diabetes Mellitus (uncontrolled with insulin) - Past Surgical History Past Surgical History: Yes: Amputation - Alcohol/Substance Use Hx Alcohol Use: No - Smoking History Smoking history: Current some day smoker Have you smoked in the past 12 months: Yes Aproximately how many cigarettes per day: 20 If you are a former smoker, when did you quit?: 1 month ago - Social History ADL: Independent History of Recent Travel: No Home Medications - Allergies Allergies/Adverse Reactions: Allergies Allergy/AdvReac Type Severity Reaction Status Date / Time No Known Allergies Allergy Verified 08/12/18 06:40 - Home Medications Home Medications: Ambulatory Orders Aspirin [ASA -] 81 mg PO DAILY 04/14/17 Atorvastatin Ca [Lipitor] 40 mg PO DAILY 04/14/17 Clopidogrel Bisulfate [Plavix -] 75 mg PO DAILY 04/14/17 Insulin (Levemir) [Levemir Vial] 15 units SQ DAILY 04/14/17 Insulin Lispro Protamin/Lispro [Humalog Mix 75-25 Vial] 10 unit SQ ASDIR Lisinopril [Prinivil] 5 mg PO DAILY 04/14/17 Metoprolol Succinate [Toprol Xl -] 25 mg PO DAILY 04/14/17 Furosemide [Lasix -] 80 mg PO DAILY 04/05/18 Gabapentin 100 mg PO PRN 08/12/18 Icosapent Ethyl [Vascepa] 1 gm PO DAILY 08/12/18 Vital Signs: Vital Signs Temperature 97.3 F L 08/12/18 12:50 Pulse Rate 76 08/12/18 12:50 Respiratory Rate 16 08/12/18 12:50 Blood Pressure 126/76 08/12/18 12:50 O2 Sat by Pulse Oximetry (%) 100 08/12/18 12:50 - Other Data Labs, Other Data: CBC, BMP 08/12/18 07:52 08/12/18 07:52 Troponin, BNP 08/12/18 07:52 Troponin I 0.07 H B-Natriuretic Peptide 7088.1 H Troponin, BNP 08/12/18 07:52 Troponin I 0.07 H B-Natriuretic Peptide 7088.1 H
== END 2018-08-12 13:18 | disposition left against medical advice (07) | DRG 291 ==
LOC: JER 06:28 → JERBED 10:41
PROVIDERS: ADMIT Internal Medicine; ATTEND Internal Medicine
DX: I13.0 Hypertensive heart and chronic kidney disease with heart failure and stage 1 through stage 4 chronic kidney disease, or unspecified chronic kidney disease (principal); I50.23 Acute on chronic systolic (congestive) heart failure; I25.10 Atherosclerotic heart disease of native coronary artery without angina pectoris; E11.40 Type 2 diabetes mellitus with diabetic neuropathy, unspecified; Z86.73 Personal history of transient ischemic attack (TIA), and cerebral infarction without residual deficits; E11.22 Type 2 diabetes mellitus with diabetic chronic kidney disease; N18.9 Chronic kidney disease, unspecified; Z79.4 Long term (current) use of insulin
CPT/HCPCS: 11042; 11045; 15275; 36415; 71046-TC-FY; 74019-TC-FY; 80053; 81003; 82140; 82550; 82553; 83690; 83880; 84484; 85025; 93005; 93010; 99281-25; 99406; Q4160

== ENCOUNTER 2018-08-13 05:49 | Inpatient (IN) | payer OTHER ==
--- NOTE | 2018-08-13 07:05 | PDOC ---
History of Present Illness - General Chief Complaint: Shortness of Breath Stated Complaint: S.O.B. Time Seen by Provider: 08/13/18 07:05 - History of Present Illness Initial Comments: 08/13/18 07:20 The patient is a 57 year old male with a history of IDDMII, Systolic CHF, CAD with ASHD not a candidate for PCI or CABG and refusing AICD, HTN, CVA, PAD, diabetic neuropathy s/p toe amputation, CKD who presents for evaluation of shortness of breath and nausea/vomiting. The patient reports a 2 week history of worsening shortness of breath with associated nausea and vomiting. He notes worsening orthopnea as well and states that he feels that abdomen is "full of water" and his lasix is not working. He states that the bloating sensation he is experiencing is also causing him to have occasional non-bloody, non-bilious vomiting. He presented to the ED 1 day ago with similar symptoms and was recommended admission for further management, however the patient left AMA at that time. He reports persistent and worsening symptoms prompting his presentation back to the ED. He otherwise denies fevers, chills, chest pain, abdominal pain, numbness, tingling, weakness, or changes with urination or bowel movements. Past History - Past Medical History Allergies/Adverse Reactions: Allergies Allergy/AdvReac Type Severity Reaction Status Date / Time No Known Allergies Allergy Verified 08/13/18 05:54 Home Medications: Ambulatory Orders Aspirin [ASA -] 81 mg PO DAILY 04/14/17 Atorvastatin Ca [Lipitor] 40 mg PO DAILY 04/14/17 Clopidogrel Bisulfate [Plavix -] 75 mg PO DAILY 04/14/17 Insulin (Levemir) [Levemir Vial] 15 units SQ DAILY 04/14/17 Insulin Lispro Protamin/Lispro [Humalog Mix 75-25 Vial] 10 unit SQ ASDIR Lisinopril [Prinivil] 5 mg PO DAILY 04/14/17 Metoprolol Succinate [Toprol Xl -] 25 mg PO DAILY 04/14/17 Furosemide [Lasix -] 80 mg PO DAILY 04/05/18 Gabapentin 100 mg PO PRN 08/12/18 Icosapent Ethyl [Vascepa] 2 gm PO DAILY 08/12/18 Anemia: No Asthma: No Cancer: No Cardiac Disorders: Yes (CAD, NSTEMI) CVA: Yes COPD: Yes CHF: Yes Dementia: No Diabetes: Yes GI Disorders: Yes ("I keep throwing up lately", last event 04/13/17) Disorders: Yes HTN: Yes Hypercholesterolemia: Yes Liver Disease: No Seizures: No Thyroid Disease: No - Surgical History Abdominal Surgery: No Appendectomy: No Cardiac Surgery: Yes (ANGIOGRAM MAY 2016) Cholecystectomy: No Lung Surgery: No Neurologic Surgery: No Orthopedic Surgery: Yes (Amputation Left foot 4th & 5th toes) - Suicide/Smoking/Psychosocial Hx Smoking History: Current every day smoker Have you smoked in the past 12 months: Yes Number of Cigarettes Smoked Daily: 10 If you are a former smoker, when did you quit?: 1 month ago Information on smoking cessation initiated: Yes 'Breaking Loose' booklet given: 04/14/17 Hx Alcohol Use: No Drug/Substance Use Hx: No Substance Use Type: None Hx Substance Use Treatment: No Review of Systems - Review of Systems Comments:: 08/13/18 07:23 Constitutional: No fevers, chills, fatigue, malaise HEENT: No Rhinorrhea, nasal congestion, visual changes Cardiovascular: No chest pain, syncope, palpitations, lightheadedness Respiratory: SOB. Orthopnea. No Cough, Hemoptysis, Gastrointestinal: Nausea, vomiting. No Abdominal pain, Constipation, Diarrhea, Melena Genitourinary: No Dysuria, Frequency, Urgency, Hesitancy, Hematuria, Flank pain Musculoskeletal: No Myalgia, arthralgia Skin: No rashes, itching, bruising, pallor Neurologic: No Headache, Dizziness, Numbness, Weakness, or Tingling Psychiatric: No Hallucinations. No SI or HI *Physical Exam - Vital Signs Last Vital Signs Temp Pulse Resp BP Pulse Ox 97.9 F 80 20 98/67 98 08/13/18 05:51 08/13/18 06:44 08/13/18 05:51 08/13/18 05:51 08/13/18 06:44 - Physical Exam Comments: 08/13/18 07:25 General Appearance: Nourished. No Apparent Distress HEENT: No Pharyngeal Erythema, Tonsillar Exudate, Tonsillar Erythema Neck: No Cervical Lymphadenopathy Respiratory/Chest: Bibasial rales with diffuse wheezing auscultated on exam. No Crackles, Rhonchi, Cardiovascular: Regular Rhythm, Regular Rate. No Murmur, Gallops, Rubs Gastrointestinal/Abdominal: Normal Bowel Sounds, Soft. No Guarding, Rebound, Tenderness Musculoskeletal: No CVA Tenderness Extremity: 2+ pitting edema in the lower extremities bilaterally. Normal Capillary Refill Integumentary: Normal Color, Dry, Warm Neurologic: Fully Oriented, Alert, Normal Mood/Affect, Normal Response, Heart Score/ECG Review #1 ECG reviewed & interpreted by me at: 07:50 General ECG Interpretation: Sinus Rhythm, Normal Rate, No acute ischemic changes Compared to previous ECG there are: No significant change (08/12/18) 08/13/18 07:50 Left Bundle Branch Block HR 73 QRS 126 QTc 478 ED Treatment Course - LABORATORY CBC & Chemistry Diagram: 08/13/18 08:00 08/13/18 08:00 Medical Decision Making - Medical Decision Making 08/13/18 07:26 The patient is a 57 year old male with a history of IDDMII, Systolic CHF, CAD with ASHD not a candidate for PCI or CABG and refusing AICD, HTN, CVA, PAD, diabetic neuropathy s/p toe amputation, CKD who presents for evaluation of shortness of breath and nausea/vomiting. Differential includes but is not limited to: ACS, CHF, COPD, Infectious, Metabolic Derangement. Given the patient's history and physical exam, it is likely his symptoms are due to a chf exacerbation. We will obtain a cbc, cmp, troponin, bnp, ekg, chest plain film to evaluate further. We will treat with lasix and duonebs and continue to monitor and reassess while here in the ED. We discussed the possibility of admission with the patient who states that he is agreeable to admission should he require it. 08/13/18 09:01 CBC is unchanged. CMP demonstrates elevated CK to 6, troponin to 0.06, and creatinine to 4.0. BNP is elevated to 7000s. Chest plain film demonstrates pulmonary congestion as read by our radiologist. EKG is unchanged from priors. The patient will require observation admission for further management. We discussed the case with Dr. Mcdaniel with the admitting team who accepted the patient for admission. *DC/Admit/Observation/Transfer Diagnosis at time of Disposition: SOB (shortness of breath), Acute on chronic systolic CHF (congestive heart failure) - Discharge Dispostion Condition at time of disposition: Stable Decision to Admit order: Yes - Referrals - Patient Instructions - Post Discharge Activity
[2018-08-13] MEDS ORDERED: FUROSEMIDE 40 MG/4 ML INJECTABLE VIAL IVPUSH ONE (07:16)
[2018-08-13] MEDS ORDERED: ALBUTEROL SO4 2.5/IPRATROPIUM 0.5 INH SOL 3 ML VIAL.NEB. NEB ONE ×2 (07:16→08:07)
--- NOTE | 2018-08-13 07:32 | PDOC ---
Attending Attestation - Resident Resident Name: Yousuf Stockton - ED Attending Attestation I have performed the following: I have examined & evaluated the patient, The case was reviewed & discussed with the resident, I agree w/resident's findings & plan, Exceptions are as noted - HPI HPI: 08/13/18 14:10 Reviewed Residents HPI - Physicial Exam PE: 08/13/18 14:11 Reviewed Residents PE - Medical Decision Making 57M h/o DM, chronic systolic HF, CAD not candidate for PCI or CABG, refusing ICD , HTN, CVA, PAD, s/p toe amputation, CKD p/w nausea/vomiting, bloating, shortness of breath. Symptoms have been going on for about two years but worse in last 3 weeks. complains of sob with little exertion, edema and abdominal bloating. Presented to ER yesterday, left AMA. 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 Received lasix, nebs in ER. Acute on chronic CHF We'll diuresis and observe for further management. Heart Score/ECG Review - ECG Impressions Comment:: 08/13/18 14:11 EKG performed at 7:40 AM. Demonstrates normal sinus rhythm 73 bpm. Left bundle- branch block. T-wave inversions inferior laterally Unchanged from previous EKG. Interpreted by me.
[2018-08-13] MEDS ORDERED: FUROSEMIDE 40 MG/4 ML INJECTABLE VIAL ONE (08:07)
[2018-08-13 08:14] LABS: BASO % 1.2 % (0-2.0); HEMATOCRIT 28.1 % (35.4-49); HEMOGLOBIN 9.6 GM/dL (11.7-16.9); MCH 28.8 pg (25.7-33.7); MCHC 34.2 g/dl (32.0-35.9); MEAN CELL VOLUME 84.3 fl (80-96); MEAN PLT VOLUME 8.9 fl (7.5-11.1); NEUT % 70.8 % (42.8-82.8); PLATELET COUNT 233 K/MM3 (134-434); RBC 3.33 M/mm3 (4.00-5.60); WHITE BLOOD COUNT 9.4 K/mm3 (4.0-10.0)
[2018-08-13 08:30] LABS: ALBUMIN 3.3 g/dl (3.4-5.0); ALK PHOS 85 U/L (45-117); ANION GAP 7 MMOL/L (8-16); BILIRUBIN,TOTAL 0.5 mg/dL (0.2-1); BLOOD UREA NITROGEN 71 mg/dL (7-18); CALCIUM 8.3 mg/dL (8.5-10.1); CHLORIDE 101 mmol/L (98-107); CO2 23 mmol/L (21-32); GLUCOSE,RANDOM 148 mg/dL (74-106); N-TERMINAL BNP 7008.2 pg/ml (5-125); POTASSIUM 5.1 mmol/L (3.5-5.1); SGOT/AST 10 U/L (15-37); SGPT/ALT 17 U/L (13-61); SODIUM 131 mmol/L (136-145); TOT PROT 7.2 g/dl (6.4-8.2)
--- NOTE | 2018-08-13 08:54 | PN ---
Teaching Attending Note Name of Resident: Meño Mcdaniel ATTENDING PHYSICIAN STATEMENT I saw and evaluated the patient. I reviewed the resident's note and discussed the case with the resident. I agree with the resident's findings and plan as documented. SUBJECTIVE: Patient is 57yom with PMhx of IDT2DM, Systolic CHF, CAD with ASHD not a candidate for PCI or CABG and refused AICD in the past, HTN, CVA, PAD, diabetic neuropathy s/p toe amputation, CKD presented to the hospital for 3 weeks of progressive shortness of breath with peripheral edema. Denies having any recent travelling. OBJECTIVE: Vital Signs Temperature 97.9 F 08/13/18 05:51 Pulse Rate 80 08/13/18 06:44 Respiratory Rate 20 08/13/18 05:51 Blood Pressure 98/67 08/13/18 05:51 O2 Sat by Pulse Oximetry (%) 98 08/13/18 08:31 GENERAL: The patient is awake, alert, and fully oriented, in no acute distress. HEAD: Normal with no signs of trauma. EYES: PERRL, extraocular movements intact, sclera anicteric, conjunctiva clear. ENT: Ears normal, oropharynx clear without exudates, moist mucous membranes. NECK: Trachea midline, full range of motion, supple. LUNGS: decreased BS BL, positive for rales at the basis, no crackles, positive for mild accessory muscle use. On 4 liter oxygen HEART: Regular rate and rhythm, S1, S2 without murmur, rub or gallop. ABDOMEN: Soft, ND, NT, normoactive bowel sounds, no guarding, no rebound, no hepatosplenomegaly, no masses. EXTREMITIES: 2+ pulses, warm, well-perfused, no edema. NEUROLOGICAL: Cranial nerves II through XII grossly intact. Normal speech, gait not observed. PSYCH: Normal mood, normal affect. SKIN: Warm, dry, normal turgor, no rashes or lesions noted CBCD WBC 9.4 K/mm3 (4.0-10.0) 08/13/18 08:00 RBC 3.33 M/mm3 (4.00-5.60) L 08/13/18 08:00 Hgb 9.6 GM/dL (11.7-16.9) L 08/13/18 08:00 Hct 28.1 % (35.4-49) L 08/13/18 08:00 MCV 84.3 fl (80-96) 08/13/18 08:00 MCHC 34.2 g/dl (32.0-35.9) 08/13/18 08:00 RDW 15.0 % (11.9-15.9) 08/13/18 08:00 Plt Count 233 K/MM3 (134-434) 08/13/18 08:00 MPV 8.9 fl (7.5-11.1) 08/13/18 08:00 CMP Sodium 131 mmol/L (136-145) L 08/13/18 08:00 Potassium 5.1 mmol/L (3.5-5.1) 08/13/18 08:00 Chloride 101 mmol/L (98-107) 08/13/18 08:00 Carbon Dioxide 23 mmol/L (21-32) 08/13/18 08:00 Anion Gap 7 MMOL/L (8-16) L 08/13/18 08:00 BUN 71 mg/dL (7-18) H 08/13/18 08:00 Creatinine 4.0 mg/dL (0.55-1.3) H 08/13/18 08:00 Creat Clearance w eGFR 15.55 (>60) 08/13/18 08:00 Random Glucose 148 mg/dL (74-106) H 08/13/18 08:00 Calcium 8.3 mg/dL (8.5-10.1) L 08/13/18 08:00 Total Bilirubin 0.5 mg/dL (0.2-1) 08/13/18 08:00 AST 10 U/L (15-37) L 08/13/18 08:00 ALT 17 U/L (13-61) 08/13/18 08:00 Alkaline Phosphatase 85 U/L (45-117) 08/13/18 08:00 Total Protein 7.2 g/dl (6.4-8.2) 08/13/18 08:00 Albumin 3.3 g/dl (3.4-5.0) L 08/13/18 08:00 CARDIAC ENZYMES Creatine Kinase 213 U/L (26-308) 08/13/18 08:00 Troponin I 0.06 ng/ml (0.00-0.05) H 08/13/18 08:00 Home Medications Medication Instructions Recorded Aspirin [ASA -] 81 mg PO DAILY 04/14/17 Atorvastatin Ca [Lipitor] 40 mg PO DAILY 04/14/17 Clopidogrel Bisulfate [Plavix -] 75 mg PO DAILY 04/14/17 Insulin (Levemir) [Levemir Vial] 15 units SQ DAILY 04/14/17 Insulin Lispro Protamin/Lispro 10 unit SQ ASDIR 04/14/17 [Humalog Mix 75-25 Vial] Lisinopril [Prinivil] 5 mg PO DAILY 04/14/17 Metoprolol Succinate [Toprol Xl -] 25 mg PO DAILY 04/14/17 Furosemide [Lasix -] 80 mg PO DAILY 04/05/18 Gabapentin 100 mg PO PRN 08/12/18 Icosapent Ethyl [Vascepa] 2 gm PO DAILY 08/12/18 Current Medications Generic Name Dose Route Start Last Admin Trade Name Freq PRN Reason Stop Dose Admin Albuterol/Ipratropium 1 amp 08/13/18 09:00 Duoneb - NEB Q6H PRN SHORTNESS OF BREATH Aspirin 81 mg 08/13/18 10:00 08/13/18 11:00 Asa - PO 81 mg DAILY GABBY Administration Atorvastatin Calcium 40 mg 08/13/18 22:00 Lipitor - PO HS GABBY Clopidogrel Bisulfate 75 mg 08/13/18 10:00 08/13/18 12:00 Plavix - PO 75 mg DAILY GABBY Administration Furosemide 40 mg 08/13/18 14:00 08/13/18 13:44 Lasix Injection - IVPUSH 40 mg BID@0600,1400 GABBY Administration Heparin Sodium (Porcine) 5,000 unit 08/13/18 14:00 08/13/18 13:43 Heparin - SQ 5,000 unit TID GABBY Administration Insulin Aspart 1 vial 08/13/18 11:00 08/13/18 18:30 Novolog Vial Sliding Scale - SQ Not Given ACHS [facility] Protocol Insulin Detemir 15 units 08/13/18 22:00 Levemir Vial SQ HS GABBY Metoprolol Succinate 25 mg 08/13/18 10:00 08/13/18 11:00 Toprol Xl - PO 25 mg DAILY GABBY Administration CXR: congestive changes EKG: sinus, LBBB echo 03/2017 mildly dilated LV, mid anteroseptal akinesis, apical anterior akinesis, apical akinesis, basal inferior wall severe hypokinesis, mid inferior wall severe hypokinesis, mod MV thickening, mild MR, mild TR, mild to mod ao sclerosis. ASSESSMENT AND PLAN: Patient is a 57yom with a past medical history of IDDMII, Systolic CHF, CAD with ASHD not a candidate for PCI or CABG and refusing AICD, HTN, CVA, PAD, diabetic neuropathy s/p toe amputation, CKD presented with sob that has been going on for the past 3 weeks. # Acute on chronic systolic HF, moderate to severe MR, poor medication compliance ; ICD candidate but refused it in the past. continue lasix 40 mg IV BID daily weights, Is&Os, monitor Cr, echo ordered, cardio # elevated troponin likely demand ischemia continue to monitor # Hx of CAD , patient is not a candidate for PCI or CABG at [facility] (no viability per prior reports), continue aspirin, plavix, lipitor, toprol # Acute renal failure over CKD , baseline is around 2, will get nephro involved # tobacco use: encouraged cessation # DM sliding scale with coverage . levemir # PAD continue aspirin, plavix, statin # HTN continue metoprolol DVT Px: heparin sq
[2018-08-13] MEDS ORDERED: GABAPENTIN 100 MG CAPSULE (FP) PO SCH (09:00)
--- NOTE | 2018-08-13 09:31 | CON.CARD ---
Consult Consult Specialty:: Cardiology Referred by:: Medicine Reason for Consultation:: CHF - History of Present Illness Chief Complaint: CHF History of Present Illness: 57M h/o DM, chronic systolic HF, CAD not candidate for PCI or CABG, refusing ICD , HTN, CVA, PAD, s/p toe amputation, CKD p/w nausea/vomiting, bloating, shortness of breath. Symptoms have been going on for about two years but worse in last 3 weeks. complains of sob with little exertion, edema and abdominal bloating. Presented to ER yesterday, left AMA. 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 Received lasix, nebs in ER. 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, Peripheral Neuropathy, TIA Cardio/Vascular: Yes: HTN, Hyperlipdemia Renal/: Yes: Renal Inusuff Endocrine: Yes: Diabetes Mellitus (uncontrolled with insulin) - Past Surgical History Past Surgical History: Yes: Amputation - Alcohol/Substance Use Hx Alcohol Use: No - Smoking History Smoking history: Current every day smoker Have you smoked in the past 12 months: Yes Aproximately how many cigarettes per day: 10 If you are a former smoker, when did you quit?: 1 month ago - Social History ADL: Independent History of Recent Travel: No Home Medications - Allergies Allergies/Adverse Reactions: Allergies Allergy/AdvReac Type Severity Reaction Status Date / Time No Known Allergies Allergy Verified 08/13/18 05:54 - Home Medications Home Medications: Ambulatory Orders Aspirin [ASA -] 81 mg PO DAILY 04/14/17 Atorvastatin Ca [Lipitor] 40 mg PO DAILY 04/14/17 Clopidogrel Bisulfate [Plavix -] 75 mg PO DAILY 04/14/17 Insulin (Levemir) [Levemir Vial] 15 units SQ DAILY 04/14/17 Insulin Lispro Protamin/Lispro [Humalog Mix 75-25 Vial] 10 unit SQ ASDIR Lisinopril [Prinivil] 5 mg PO DAILY 04/14/17 Metoprolol Succinate [Toprol Xl -] 25 mg PO DAILY 04/14/17 Furosemide [Lasix -] 80 mg PO DAILY 04/05/18 Gabapentin 100 mg PO PRN 08/12/18 Icosapent Ethyl [Vascepa] 2 gm PO DAILY 08/12/18 Family Disease History - Family Disease History Family History: Unremarkable Review of Systems - Review of Systems Constitutional: reports: No Symptoms Eyes: reports: No Symptoms HENT: reports: No Symptoms Neck: reports: No Symptoms Cardiovascular: reports: No Symptoms Respiratory: reports: No Symptoms Gastrointestinal: reports: No Symptoms Genitourinary: reports: No Symptoms Musculoskeletal: reports: No Symptoms Integumentary: reports: No Symptoms Neurological: reports: No Symptoms Endocrine: reports: No Symptoms Hematology/Lymphatic: reports: No Symptoms Psychiatric: reports: No Symptoms Vital Signs: Vital Signs Temperature 97.9 F 08/13/18 05:51 Pulse Rate 80 08/13/18 06:44 Respiratory Rate 20 08/13/18 05:51 Blood Pressure 98/67 08/13/18 05:51 O2 Sat by Pulse Oximetry (%) 98 08/13/18 08:31 Constitutional: Yes: No Distress, Calm Eyes: Yes: Conjunctiva Clear, EOM Intact HENT: Yes: Atraumatic, Normocephalic Neck: Yes: Supple, Trachea Midline Respiratory: Yes: Regular, Diminished (bases bilaterally) Gastrointestinal: Yes: Normal Bowel Sounds, Soft Cardiovascular: Yes: Regular Rate and Rhythm JVD: Yes Carotid Bruit: No PMI: Non-Displaced Heart Sounds: Yes: S1, S2 Murmur: No: Systolic Murmur Musculoskeletal: No: Back Pain Extremities: No: Cold Edema: Yes Edema: LLE: 1+, RLE: 1+ Peripheral Pulses WNL: Yes Peripheral Pulses: 2+ Left Doralis Pedis, 2+ Right Dorsalis Pedis Integumentary: Yes: Jaundice Neurological: Yes: Alert, Oriented Psychiatric: No: Agitated - Other Data Labs, Other Data: CBC, BMP 08/13/18 08:00 08/13/18 08:00 Troponin, BNP 08/13/18 08:00 Troponin I 0.06 H B-Natriuretic Peptide 7008.2 H Troponin, BNP 08/13/18 08:00 Troponin I 0.06 H B-Natriuretic Peptide 7008.2 H Assessment/Plan CXR: congestive changes EKG: sinus, LBBB 57 year old male with a past medical history of IDDMII, Systolic CHF, CAD with ASHD not a candidate for PCI or CABG and refusing AICD, HTN, CVA, PAD, diabetic neuropathy s/p toe amputation, CKD p/w sob echo 03/2017 mildly dilated LV, mid anteroseptal akinesis, apical anterior akinesis, apical akinesis, basal inferior wall severe hypokinesis, mid inferior wall severe hypokinesis, mod MV thickening, mild MR, mild TR, mild to mod ao sclerosis Acute on chronic systolic HF, moderate to severe MR - history of noncompliance with medications, poor follow up - previously refused ICD placement - continue lasix 40 mg IV BID - monitor Cr, daily standing weight, lytes - echo ordered elevated troponin - indeterminate range, flat trend - likely demand in setting of acute CHF exac CAD - reportedly not candidate for PCI or CABG at [facility] (no viability per prior reports) - continue aspirin, plavix, lipitor, toprol CKD - Cr 4.0, unknown baseline - renal consulted tobacco use - encouraged cessation DM - manage per primary PAD - cont aspirin, plavix, statin HTN - cont metoprolol
--- NOTE | 2018-08-13 09:46 | HP ---
CHIEF COMPLAINT: shortness of breath HISTORY OF PRESENT ILLNESS: 57 year old male with a past medical history of IDDMII, Systolic CHF, CAD with ASHD not a candidate for PCI or CABG and refusing AICD, HTN, CVA, PAD, diabetic neuropathy s/p toe amputation, CKD presented to the hospital for 3 weeks of progressive shortness of breath. He reports that he started noticing the shortness of breath on exertion 3 weeks ago and increasing peripheral edema. Reports 2 episodes of non-bloody, non-bilious vomiting several days ago, currently not nauseous. Reports that his usual dose of lasix (40mg PO daily) is not working for him. Patient currently denies chest pain, nausea, vomiting, abdominal pain, diarrhea, fevers, chills, cough. Denies being sick recently, sick contacts or recent travel. Patient was notably here yesterday for the same symptoms but left AMA before any assessment or intervention. 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 HOME MEDICATIONS: Home Medications Medication Instructions Recorded Aspirin [ASA -] 81 mg PO DAILY 04/14/17 Atorvastatin Ca [Lipitor] 40 mg PO DAILY 04/14/17 Clopidogrel Bisulfate [Plavix -] 75 mg PO DAILY 04/14/17 Insulin (Levemir) [Levemir Vial] 15 units SQ DAILY 04/14/17 Insulin Lispro Protamin/Lispro 10 unit SQ ASDIR 04/14/17 [Humalog Mix 75-25 Vial] Lisinopril [Prinivil] 5 mg PO DAILY 04/14/17 Metoprolol Succinate [Toprol Xl -] 25 mg PO DAILY 04/14/17 Furosemide [Lasix -] 80 mg PO DAILY 04/05/18 Gabapentin 100 mg PO PRN 08/12/18 Icosapent Ethyl [Vascepa] 2 gm PO DAILY 08/12/18 REVIEW OF SYSTEMS CONSTITUTIONAL: Absent: fever, chills, diaphoresis, generalized weakness, malaise, loss of appetite, weight change HEENT: Absent: rhinorrhea, nasal congestion, throat pain, throat swelling, difficulty swallowing, mouth swelling, ear pain, eye pain, visual changes CARDIOVASCULAR: peripheral edema Absent: chest pain, syncope, palpitations, irregular heart rate, lightheadedness , RESPIRATORY: shortness of breath Absent: cough, dyspnea with exertion, orthopnea, wheezing, stridor, hemoptysis GASTROINTESTINAL: Absent: abdominal pain, abdominal distension, nausea, vomiting, diarrhea, constipation, melena, hematochezia GENITOURINARY: Absent: dysuria, frequency, urgency, hesitancy, hematuria, flank pain, genital pain MUSCULOSKELETAL: Absent: myalgia, arthralgia, joint swelling, back pain, neck pain SKIN: Absent: rash, itching, pallor HEMATOLOGIC/IMMUNOLOGIC: Absent: easy bleeding, easy bruising, lymphadenopathy, frequent infections ENDOCRINE: Absent: unexplained weight gain, unexplained weight loss, heat intolerance, cold intolerance NEUROLOGIC: Absent: headache, focal weakness or paresthesias, dizziness, unsteady gait, seizure, mental status changes, bladder or bowel incontinence PSYCHIATRIC: Absent: anxiety, depression, suicidal or homicidal ideation, hallucinations. PHYSICAL EXAMINATION Vital Signs - 24 hr 08/13/18 08/13/18 08/13/18 05:51 06:44 08:12 Temperature 97.9 F Pulse Rate 77 80 Respiratory 20 Rate Blood Pressure 98/67 O2 Sat by Pulse 98 98 96 Oximetry (%) 08/13/18 08:31 Temperature Pulse Rate Respiratory Rate Blood Pressure O2 Sat by Pulse 98 Oximetry (%) GENERAL: A&Ox3, no acute distress EYES: R eye blind and cloudy, does not react to light, L eye normal ENT: Moist mucus membranes NECK: No JVD noted LUNGS: bilateral wheezes and rhonchi noted on exam HEART: RRR, no murmurs appreciated ABDOMEN: Soft, nontender, BS present MUSCULOSKELETAL: No CVA Tenderness EXTREMITIES: 2+ pulses, 2+ peripheral edema noted at the calf and ankle. Patient did not want to take off his shoes for me to examine his foot. NEUROLOGICAL: Cranial nerves II-XII intact. No motor deficits. Laboratory Results - last 24 hr 08/13/18 08/13/18 08:00 08:00 WBC 9.4 RBC 3.33 L Hgb 9.6 L Hct 28.1 L MCV 84.3 MCH 28.8 MCHC 34.2 RDW 15.0 Plt Count 233 MPV 8.9 Absolute Neuts (auto) 6.6 Neutrophils % 70.8 Lymphocytes % 17.0 Monocytes % 9.0 Eosinophils % 2.0 Basophils % 1.2 Nucleated RBC % 0 Sodium 131 L Potassium 5.1 Chloride 101 Carbon Dioxide 23 Anion Gap 7 L BUN 71 H Creatinine 4.0 H Creat Clearance w eGFR 15.55 Random Glucose 148 H Calcium 8.3 L Total Bilirubin 0.5 AST 10 L ALT 17 Alkaline Phosphatase 85 Creatine Kinase 213 Creatine Kinase Index 6.5 H* CK-MB (CK-2) 14.0 H Troponin I 0.06 H B-Natriuretic Peptide 7008.2 H Total Protein 7.2 Albumin 3.3 L ASSESSMENT/PLAN: 57 year old male with a past medical history of IDDMII, Systolic CHF, CAD not a candidate for PCI or CABG and refusing AICD, HTN, CVA, PAD, diabetic neuropathy s/p toe amputation, CKD presented to the hospital for 3 weeks of progressive shortness of breath and admitted for tx of acute CHF exacerbation #Shortness of Breath 2/2 Acute CHF Exacerbation: patient has peripheral edema, rhonchi on exam and has known hx of CHF, BNP 7000. Home lasix dose is not working for him. Previously refused AICD placement and was not candidate for CABG, he may be amenable at this time. SOB could also be component of SOB since patient is a heavy smoker and is wheezing. -EKG shows NSRM w. LBBB rate 73, Qtc 478 -echo in 2017 showed EF 23% and hypokinesis of multiple chambers -repeat echo now -cards consultation -lasix 40 BID -continue metoprolol and lisinopril -daily weights -strict I's/O's -trend positive troponin, although likely demand -duonebs ordered for wheezing #Acute on Chronic Kidney Disease: last creatinine 2.1 in 2017, 4.0 on this admission and 3.8 yesterday, likely diabetic nephropathy in origin vs hypertensive/ischemic -will get renal ultrasound -will get urine electrolytes -renal consultation #Troponinemia: likely demand related -trend troponin -EKG noted -cards and renal on board #Diabetes Mellitus Type II: insulin dependent -reports taking 15-20 of levemir every day -continue on 15 of levemir at night -BGM ACHS -sliding scale ordered -diabetic, sodium diet #Coronary Artery Disease: on aspirin/plavix at home -continue ASA/plavix -continue atorvasatin #Hypertension: stable for now -continue lisinopril #Peripheral Arterial Disease: patient reportedly does not like gabapentin and refuses to take it -hold gabapentin #FEN -no standing fluids -check lytes in AM -diabetic/sodium idet #Prophylaxis -heparin 5000 subQ TID #Disposition -admit tele. anticipate DC 1-3 days Visit type - Emergency Visit Emergency Visit: Yes ED Registration Date: 08/13/18 Care time: The patient presented to the Emergency Department on the above date and was hospitalized for further evaluation of their emergent condition. - New Patient This patient is new to me today: Yes Date on this admission: 08/13/18 - Critical Care Critical Care patient: No
[2018-08-13] MEDS ORDERED: LISINOPRIL 5 MG TABLET (FP) PO SCH (10:00)
[2018-08-13] MEDS: metoPROLOL SUCCINATE 25 MG TAB.SR.24H (FP) PO SCH (11:00)
[2018-08-13] MEDS: ASPIRIN 81 MG CHEWABLE TABLETS PO SCH (11:00)
--- NOTE | 2018-08-13 11:26 | ECHO ---
Name: RICCIONE, CORRADINO Exam:Adult Echocardiogram Study Date: 08/13/2018 10:12 AM Age: 57 yrs Reason For Study: CHF Height: 67 in Weight: 210 lb BSA: 2.1 m2 MMode/2D Measurements & Calculations IVSd: 1.1 cm ACS: 1.7 cm LVIDd: 4.2 cm LVIDs: 3.4 cm LVPWd: 1.6 cm EDV(Teich): 78.1 ml LVOT diam: 1.9 cm ESV(Teich): 46.9 ml RV S Anant: 8.3 cm/sec Doppler Measurements & Calculations MV E max anant: 106.8 cm/sec MR max anant: 442.0 cm/sec MV A max anant: 48.3 cm/sec MR max P.1 mmHg MV E/A: 2.2 MV dec time: 0.11 sec Med Peak E' Anant: 3.5 cm/sec Med E/e': 30.4 Lat Peak E' Anant: 6.8 cm/sec Lat E/e': 15.6 Procedure The study was technically difficult with many images being suboptimal in quality. Left Ventricle The left ventricle is normal in size. Severe diffuse LV hypokinesis. Large region of apical akinesis. EF=25%. Diastolic dysfunction, Grade II, consistent with elevated left atrial pressure. Right Ventricle The right ventricle is normal in size and function. Atria Normal left and right atrial size and function. Mitral Valve The mitral valve is normal in structure and function. There is moderate mitral regurgitation. Tricuspid Valve The tricuspid valve is normal in structure and function. Mildly elevated RA pressure. There was insuf ficient TR detected to calculate RV systolic pressure. Aortic Valve The aortic valve is normal in structure and function. Pulmonic Valve The pulmonic valve is not well visualized. Great Vessels The aortic root is normal size. Pericardium/Pleura There is no pericardial effusion. Interpretation Summary Patient with respiratory distress which limits study. Severe diffuse LV hypokinesis. Large region of apical akinesis. EF=25%. Diastolic dysfunction, Grade II, consistent with elevated left atrial pressure. There is moderate mitral regurgitation. Caio Azul 08/13/2018 11:26 AM
[2018-08-13] MEDS: CLOPIDOGREL BISULFATE 75 MG TABLET (FP) PO SCH (12:00)
[2018-08-13] MEDS: INSULIN SLIDING SCALE (NOVOLOG) 1 VIAL SQ SCH ×3 (12:46→21:11)
[2018-08-13] MEDS: HEPARIN NA (PORCINE) 5,000 UNITS/ML 1ML VIAL SQ SCH ×2 (13:43→21:16)
[2018-08-13] MEDS: FUROSEMIDE 40 MG/4 ML INJECTABLE VIAL IVPUSH SCH (13:44)
--- NOTE | 2018-08-13 14:37 | CONSULT ---
Consult Consult Specialty:: Nephrology Reason for Consultation:: MIRTHA - History of Present Illness Chief Complaint: shortness of breath and lower ext edema History of Present Illness: Pt is a 57 year old male with pmhx of CKD, DM, CHF, CAD, HTN, CVA, PAD and neuropathy who presents to the hospital with increased shortness of breath. He says that he usually has lower ext edema and dyspnea however it has gotten worse over the last few weeks. He was found to have worsening renal failure and I was called to evaluate him. He denies nsaid use. I did see him in the past in the hospital but he did not follow up. He had presented to the ER but left AMA yesterday. He denies chest pain. He denies dysuria or hematuria. He is on furosemide at home. 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 - History Source History Provided By: Patient, Medical Record - Past Medical History CHAR PULLER: Yes: CVA, Peripheral Neuropathy, TIA Cardio/Vascular: Yes: CAD, CHF, HTN, Hyperlipdemia Renal/: Yes: Renal Inusuff Endocrine: Yes: Diabetes Mellitus (uncontrolled with insulin) - Past Surgical History Past Surgical History: Yes: Amputation - Alcohol/Substance Use Hx Alcohol Use: No - Smoking History Smoking history: Current every day smoker Have you smoked in the past 12 months: Yes Aproximately how many cigarettes per day: 10 If you are a former smoker, when did you quit?: 1 month ago - Social History ADL: Independent History of Recent Travel: No Home Medications - Allergies Allergies/Adverse Reactions: Allergies Allergy/AdvReac Type Severity Reaction Status Date / Time No Known Allergies Allergy Verified 08/13/18 05:54 - Home Medications Home Medications: Ambulatory Orders Aspirin [ASA -] 81 mg PO DAILY 04/14/17 Atorvastatin Ca [Lipitor] 40 mg PO DAILY 04/14/17 Clopidogrel Bisulfate [Plavix -] 75 mg PO DAILY 04/14/17 Insulin (Levemir) [Levemir Vial] 15 units SQ DAILY 04/14/17 Insulin Lispro Protamin/Lispro [Humalog Mix 75-25 Vial] 10 unit SQ ASDIR Lisinopril [Prinivil] 5 mg PO DAILY 04/14/17 Metoprolol Succinate [Toprol Xl -] 25 mg PO DAILY 04/14/17 Furosemide [Lasix -] 80 mg PO DAILY 04/05/18 Gabapentin 100 mg PO PRN 08/12/18 Icosapent Ethyl [Vascepa] 2 gm PO DAILY 08/12/18 Family Disease History - Family Disease History Family History: Denies Review of Systems - Review of Systems Constitutional: reports: Malaise Eyes: reports: No Symptoms HENT: reports: No Symptoms Neck: reports: No Symptoms Cardiovascular: reports: Edema, Shortness of Breath. denies: Palpitations Respiratory: reports: SOB, SOB on Exertion Gastrointestinal: reports: No Symptoms Genitourinary: reports: No Symptoms Musculoskeletal: reports: No Symptoms Integumentary: reports: No Symptoms Neurological: reports: No Symptoms Endocrine: reports: No Symptoms Hematology/Lymphatic: reports: No Symptoms Psychiatric: reports: No Symptoms Physical Exam Vital Signs: Vital Signs Temperature 97.9 F 08/13/18 05:51 Pulse Rate 82 08/13/18 11:15 Respiratory Rate 17 08/13/18 11:15 Blood Pressure 110/72 08/13/18 11:15 O2 Sat by Pulse Oximetry (%) 97 08/13/18 11:15 Constitutional: Yes: Calm Eyes: Yes: Conjunctiva Clear Cardiovascular: Yes: JVD, S1, S2 Respiratory: Yes: On Nasal O2, Rhonchi Gastrointestinal: Yes: Soft Renal/: Yes: WNL Musculoskeletal: Yes: WNL Edema: Yes Edema: LLE: 2+, RLE: 2+ Integumentary: Yes: Venous Stasis Changes Neurological: Yes: Oriented Psychiatric: Yes: Oriented Labs: CBC, BMP 08/13/18 08:00 08/13/18 08:00 Laboratory Tests 04/15/17 04/16/17 04/17/17 07:00 06:58 05:05 WBC Hgb Creatinine 1.8 H 2.0 H 2.1 H Urine Protein Urine Blood 08/12/18 08/12/18 08/12/18 06:40 07:52 07:52 WBC 10.7 H Hgb Creatinine 3.8 H Urine Protein 3+ H Urine Blood Trace 08/13/18 08/13/18 08:00 08:00 WBC 9.4 Hgb 9.6 L Creatinine 4.0 H Urine Protein Urine Blood Imaging - Results Chest X-ray: Report Reviewed Ultrasound: Report Reviewed Problem List - Problems (1) Acute on chronic systolic CHF (congestive heart failure) Code(s): I50.23 - ACUTE ON CHRONIC SYSTOLIC (CONGESTIVE) HEART FAILURE (2) SOB (shortness of breath) Code(s): R06.02 - SHORTNESS OF BREATH (3) MIRTHA (acute kidney injury) Code(s): N17.9 - ACUTE KIDNEY FAILURE, UNSPECIFIED (4) CHF (congestive heart failure) Code(s): I50.9 - HEART FAILURE, UNSPECIFIED (5) Type 2 diabetes mellitus Code(s): E11.9 - TYPE 2 DIABETES MELLITUS WITHOUT COMPLICATIONS (6) CKD (chronic kidney disease) Code(s): N18.9 - CHRONIC KIDNEY DISEASE, UNSPECIFIED Assessment/Plan Current Medications Generic Name Dose Route Start Last Admin Trade Name Freq PRN Reason Stop Dose Admin Albuterol/Ipratropium 1 amp 08/13/18 09:00 Duoneb - NEB Q6H PRN SHORTNESS OF BREATH Aspirin 81 mg 08/13/18 10:00 08/13/18 11:00 Asa - PO 81 mg DAILY GABBY Administration Atorvastatin Calcium 40 mg 08/13/18 22:00 Lipitor - PO HS GABBY Clopidogrel Bisulfate 75 mg 08/13/18 10:00 08/13/18 12:00 Plavix - PO 75 mg DAILY GABBY Administration Furosemide 40 mg 08/13/18 14:00 08/13/18 13:44 Lasix Injection - IVPUSH 40 mg BID@0600,1400 GABBY Administration Heparin Sodium (Porcine) 5,000 unit 08/13/18 14:00 08/13/18 13:43 Heparin - SQ 5,000 unit TID GABBY Administration Insulin Aspart 1 vial 08/13/18 11:00 08/13/18 12:46 Novolog Vial Sliding Scale - SQ Not Given ACHS [facility] Protocol Insulin Detemir 15 units 08/13/18 22:00 Levemir Vial SQ HS GABBY Lisinopril 5 mg 08/13/18 10:00 08/13/18 11:00 Prinivil PO 5 mg DAILY GABBY Administration Metoprolol Succinate 25 mg 08/13/18 10:00 08/13/18 11:00 Toprol Xl - PO 25 mg DAILY GABBY Administration Impression 1. MIRTHA 2. CKD 3. CHF 4. fluid overload 5. DM 6. hyperlipidemia 7. HTN 8. non compliance 9. 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
--- NOTE | 2018-08-13 15:36 | EKG ---
Test Reason : Blood Pressure : / mmHG Vent. Rate : 073 BPM Atrial Rate : 073 BPM P-R Int : 166 ms QRS Dur : 126 ms QT Int : 434 ms P-R-T Axes : 064 031 234 degrees QTc Int : 478 ms POOR DATA QUALITY, INTERPRETATION MAY BE ADVERSELY AFFECTED NORMAL SINUS RHYTHM LEFT BUNDLE BRANCH BLOCK ABNORMAL ECG WHEN COMPARED WITH ECG OF 12-AUG-2018 08:28, T WAVE INVERSION MORE EVIDENT IN INFERIOR LEADS Confirmed by Caio Azul ([id number]) on 08/13/2018 3:36:07 PM Referred By: Esther UNGER Confirmed By:Caio Azul
[2018-08-13] MEDS: INSULIN (LEVEMIR) 100 UNITS/ML UNITS SQ SCH (21:16)
[2018-08-13] MEDS: ATORVASTATIN CA 40 MG TABLET (FP) PO SCH (21:16)
[2018-08-13] MEDS: ALBUTEROL SO4 2.5/IPRATROPIUM 0.5 INH SOL 3 ML VIAL.NEB. NEB PRN (22:21)
[2018-08-13 23:50] LABS: RATIO URIN PROTEIN/URIN CREAT 3.62 MG/DL
[2018-08-14] MEDS: INSULIN SLIDING SCALE (NOVOLOG) 1 VIAL SQ SCH ×4 (06:14→21:01)
[2018-08-14] MEDS: HEPARIN NA (PORCINE) 5,000 UNITS/ML 1ML VIAL SQ SCH ×3 (06:16→21:07)
[2018-08-14] MEDS: FUROSEMIDE 40 MG/4 ML INJECTABLE VIAL IVPUSH SCH ×2 (06:18→17:06)
[2018-08-14 06:37] LABS: HEMATOCRIT 28.4 % (35.4-49); HEMOGLOBIN 9.5 GM/dL (11.7-16.9); MCH 28.4 pg (25.7-33.7); MCHC 33.6 g/dl (32.0-35.9); MEAN CELL VOLUME 84.7 fl (80-96); MEAN PLT VOLUME 9.3 fl (7.5-11.1); PLATELET COUNT 230 K/MM3 (134-434); RBC 3.35 M/mm3 (4.00-5.60); RDW 15.2 % (11.9-15.9); WHITE BLOOD COUNT 10.1 K/mm3 (4.0-10.0)
[2018-08-14 07:09] LABS: ALBUMIN 3.1 g/dl (3.4-5.0); ALK PHOS 81 U/L (45-117); ANION GAP 7 MMOL/L (8-16); BILIRUBIN,TOTAL 0.5 mg/dL (0.2-1); BLOOD UREA NITROGEN 72 mg/dL (7-18); CALCIUM 7.7 mg/dL (8.5-10.1); CHLORIDE 104 mmol/L (98-107); CO2 23 mmol/L (21-32); CREATININE 3.9 mg/dL (0.55-1.3); GLUCOSE,RANDOM 178 mg/dL (74-106); MAGNESIUM 2.3 mg/dL (1.8-2.4); PHOSPHOROUS 5.5 mg/dL (2.5-4.9); POTASSIUM 5.1 mmol/L (3.5-5.1); SGOT/AST 7 U/L (15-37); SGPT/ALT 15 U/L (13-61); SODIUM 133 mmol/L (136-145); TOT PROT 7.1 g/dl (6.4-8.2)
[2018-08-14] MEDS: ALBUTEROL SO4 2.5/IPRATROPIUM 0.5 INH SOL 3 ML VIAL.NEB. NEB PRN ×2 (08:20→20:25)
[2018-08-14] MEDS: CLOPIDOGREL BISULFATE 75 MG TABLET (FP) PO SCH (10:19)
[2018-08-14] MEDS: ASPIRIN 81 MG CHEWABLE TABLETS PO SCH (10:19)
[2018-08-14] MEDS: metoPROLOL SUCCINATE 25 MG TAB.SR.24H (FP) PO SCH (10:19)
--- NOTE | 2018-08-14 10:47 | PN ---
Progress Note (short form) - Note Progress Note: s: sob improving, still orthopnea. no chest pain, palps, dizziness Current Medications Albuterol/Ipratropium (Duoneb -) 1 amp NEB Q6H PRN PRN Reason: SHORTNESS OF BREATH Last Admin: 08/13/18 22:21 Dose: 1 amp Aspirin (Asa -) 81 mg PO DAILY [facility] Last Admin: 08/14/18 10:19 Dose: 81 mg Atorvastatin Calcium (Lipitor -) 40 mg PO HS [facility] Last Admin: 08/13/18 21:16 Dose: Not Given Clopidogrel Bisulfate (Plavix -) 75 mg PO DAILY [facility] Last Admin: 08/14/18 10:19 Dose: 75 mg Furosemide (Lasix Injection -) 40 mg IVPUSH BID@0600,1400 [facility] Last Admin: 08/14/18 06:18 Dose: 40 mg Heparin Sodium (Porcine) (Heparin -) 5,000 unit SQ TID [facility] Last Admin: 08/14/18 06:16 Dose: 5,000 unit Insulin Aspart (Novolog Vial Sliding Scale -) 1 vial SQ [facility]; Protocol Last Admin: 08/14/18 06:14 Dose: 4 units Insulin Detemir (Levemir Vial) 15 units SQ [facility] Last Admin: 08/13/18 21:16 Dose: 15 units Metoprolol Succinate (Toprol Xl -) 25 mg PO DAILY [facility] Last Admin: 08/14/18 10:19 Dose: 25 mg Vital Signs Period Temp Pulse Resp BP Sys/Humphreys Pulse Ox Last 24 Hr 97.5 F-99 F 76-92 17-22 87-135/60-83 95-98 Constitutional: Yes: No Distress, Calm Eyes: Yes: Conjunctiva Clear, EOM Intact HENT: Yes: Atraumatic, Normocephalic Neck: Yes: Supple, Trachea Midline Respiratory: Yes: Regular, Diminished (bases bilaterally) Gastrointestinal: Yes: Normal Bowel Sounds, Soft Cardiovascular: Yes: Regular Rate and Rhythm JVD: Yes Carotid Bruit: No PMI: Non-Displaced Heart Sounds: Yes: S1, S2 Murmur: No: Systolic Murmur Musculoskeletal: No: Back Pain Extremities: No: Cold Edema: Yes Edema: LLE: 1+, RLE: 1+ Peripheral Pulses WNL: Yes Peripheral Pulses: 2+ Left Doralis Pedis, 2+ Right Dorsalis Pedis Integumentary: Yes: Jaundice Neurological: Yes: Alert, Oriented Psychiatric: No: Agitated Assessment/Plan CXR: congestive changes EKG: sinus, LBBB echo 03/2017 mildly dilated LV, mid anteroseptal akinesis, apical anterior akinesis, apical akinesis, basal inferior wall severe hypokinesis, mid inferior wall severe hypokinesis, mod MV thickening, mild MR, mild TR, mild to mod ao sclerosis echo 07/2018 severe LV hypokinesis with lg region of apical akinesis, EF 25%, grade II diastolic dysfunctoin with elevated LA pressure, mod MR tele: refusing 57 year old male with a past medical history of IDDMII, Systolic CHF, CAD with ASHD not a candidate for PCI or CABG and refusing AICD, HTN, CVA, PAD, diabetic neuropathy s/p toe amputation, CKD p/w sob Acute on chronic systolic HF, moderate to severe MR - history of noncompliance with medications, poor follow up - previously refused ICD placement - monitor Cr, daily standing weight, lytes - echo severe LV hypokinesis, EF 25% - continue toprol, holding lisinopril for MIRTHA - wt decreasing, Cr stable. continue lasix 40 mg IV BID elevated troponin - indeterminate range, flat trend - likely demand in setting of acute CHF exac CAD - reportedly not candidate for PCI or CABG at [facility] (no viability per prior reports) - continue aspirin, plavix, lipitor, toprol CKD - Cr 4.0, unknown baseline - renal consulted tobacco use - encouraged cessation DM - manage per primary PAD - cont aspirin, plavix, statin HTN - cont metoprolol refusing tele, would dc
--- NOTE | 2018-08-14 12:59 | PN ---
Progress Note, Physician History of Present Illness: Pt seen and examined at bedside. He is awake and alert. He feels that his lower ext edema is improving. He is again refusing to wear the hospital gown and is sitting in his jeans and jacket. - Current Medication List Current Medications: Active Medications Albuterol/Ipratropium (Duoneb -) 1 amp NEB Q6H PRN PRN Reason: SHORTNESS OF BREATH Last Admin: 08/14/18 08:20 Dose: 1 amp Aspirin (Asa -) 81 mg PO DAILY [facility] Last Admin: 08/14/18 10:19 Dose: 81 mg Atorvastatin Calcium (Lipitor -) 40 mg PO HS [facility] Last Admin: 08/13/18 21:16 Dose: Not Given Clopidogrel Bisulfate (Plavix -) 75 mg PO DAILY [facility] Last Admin: 08/14/18 10:19 Dose: 75 mg Furosemide (Lasix Injection -) 40 mg IVPUSH BID@0600,1400 [facility] Last Admin: 08/14/18 06:18 Dose: 40 mg Heparin Sodium (Porcine) (Heparin -) 5,000 unit SQ TID [facility] Last Admin: 08/14/18 06:16 Dose: 5,000 unit Insulin Aspart (Novolog Vial Sliding Scale -) 1 vial SQ [facility]; Protocol Last Admin: 08/14/18 12:37 Dose: 2 units Insulin Detemir (Levemir Vial) 15 units SQ [facility] Last Admin: 08/13/18 21:16 Dose: 15 units Metoprolol Succinate (Toprol Xl -) 25 mg PO DAILY [facility] Last Admin: 08/14/18 10:19 Dose: 25 mg - Objective Vital Signs: Vital Signs Temperature 98.4 F 08/14/18 09:00 Pulse Rate 92 H 08/14/18 09:00 Respiratory Rate 20 08/14/18 09:00 Blood Pressure 87/60 L 08/14/18 09:00 O2 Sat by Pulse Oximetry (%) 97 08/14/18 08:00 Constitutional: Yes: Calm HENT: Yes: Atraumatic Cardiovascular: Yes: S1, S2 Respiratory: Yes: Rhonchi Gastrointestinal: Yes: Soft, Abdomen, Obese Genitourinary: Yes: WNL Musculoskeletal: Yes: WNL Edema: Yes Edema: LLE: 2+, RLE: 2+ Integumentary: Yes: Venous Stasis Changes Neurological: Yes: Oriented Psychiatric: Yes: Oriented Labs: CBC, BMP 08/14/18 05:30 08/14/18 05:30 Problem List - Problems (1) Acute on chronic systolic CHF (congestive heart failure) Code(s): I50.23 - ACUTE ON CHRONIC SYSTOLIC (CONGESTIVE) HEART FAILURE (2) SOB (shortness of breath) Code(s): R06.02 - SHORTNESS OF BREATH (3) MIRTHA (acute kidney injury) Code(s): N17.9 - ACUTE KIDNEY FAILURE, UNSPECIFIED (4) CHF (congestive heart failure) Code(s): I50.9 - HEART FAILURE, UNSPECIFIED (5) Type 2 diabetes mellitus Code(s): E11.9 - TYPE 2 DIABETES MELLITUS WITHOUT COMPLICATIONS (6) CKD (chronic kidney disease) Code(s): N18.9 - CHRONIC KIDNEY DISEASE, UNSPECIFIED Assessment/Plan Current Medications Generic Name Dose Route Start Last Admin Trade Name Freq PRN Reason Stop Dose Admin Albuterol/Ipratropium 1 amp 08/13/18 09:00 08/14/18 08:20 Duoneb - NEB 1 amp Q6H PRN Administration SHORTNESS OF BREATH Aspirin 81 mg 08/13/18 10:00 08/14/18 10:19 Asa - PO 81 mg DAILY GABBY Administration Atorvastatin Calcium 40 mg 08/13/18 22:00 08/13/18 21:16 Lipitor - PO Not Given HS GABBY Clopidogrel Bisulfate 75 mg 08/13/18 10:00 08/14/18 10:19 Plavix - PO 75 mg DAILY GABBY Administration Furosemide 40 mg 08/13/18 14:00 08/14/18 06:18 Lasix Injection - IVPUSH 40 mg BID@0600,1400 GABBY Administration Heparin Sodium (Porcine) 5,000 unit 08/13/18 14:00 08/14/18 06:16 Heparin - SQ 5,000 unit TID GABBY Administration Insulin Aspart 1 vial 08/13/18 11:00 08/14/18 12:37 Novolog Vial Sliding Scale - SQ 2 units ACHS GABBY Administration Protocol Insulin Detemir 15 units 08/13/18 22:00 08/13/18 21:16 Levemir Vial SQ 15 units HS GABBY Administration Metoprolol Succinate 25 mg 08/13/18 10:00 08/14/18 10:19 Toprol Xl - PO 25 mg DAILY G[facility]BY Administration Impression 1. MIRTHA 2. CKD 3. CHF 4. fluid overload 5. DM 6. hyperlipidemia 7. HTN 8. non compliance 9. CAD Plan - cont IV lasix - he remains fluid overloaded - will need close outpt follow up, however he has history of non compliance - check prt to insurance adviser ratio - cont oxygen - keep lisinopril on hold for now - check echo - pt likely has underlying kidney disease from DM and likely has a superimposed cardiorenal disease Dr Blackwood
--- NOTE | 2018-08-14 14:05 | PN ---
Physical Exam: SUBJECTIVE: Patient seen and examined this AM. Continues to have orthopnea. Request to be placed on supplemental O2. 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 NECK: Supple LUNGS: Rhonchi thoughout, On 6L supplemental O2 HEART: Regular rate and rhythm, S1, S2 without murmur ABDOMEN: Soft, nontender, nondistended, + bowel sounds EXTREMITIES: 2+ edema. NEUROLOGICAL: Cranial nerves II through XII grossly intact. SKIN: Warm, dry Laboratory Results - last 24 hr 08/13/18 08/13/18 08/14/18 17:01 21:10 05:30 WBC 10.1 H RBC 3.35 L Hgb 9.5 L Hct 28.4 L MCV 84.7 MCH 28.4 MCHC 33.6 RDW 15.2 Plt Count 230 MPV 9.3 Sodium Potassium Chloride Carbon Dioxide Anion Gap BUN Creatinine Creat Clearance w eGFR POC Glucometer 137 203 Random Glucose Calcium Phosphorus Magnesium Total Bilirubin AST ALT Alkaline Phosphatase Creatine Kinase Creatine Kinase Index CK-MB (CK-2) Troponin I Total Protein Albumin TSH U Random Total Protein Urine Creatinine Protein/Creatinin Ratio 08/14/18 08/14/18 08/14/18 05:30 06:13 08:03 WBC RBC Hgb Hct MCV MCH MCHC RDW Plt Count MPV Sodium 133 L Potassium 5.1 Chloride 104 Carbon Dioxide 23 Anion Gap 7 L BUN 72 H Creatinine 3.9 H Creat Clearance w eGFR 16.01 POC Glucometer 208 151 Random Glucose 178 H Calcium 7.7 L Phosphorus 5.5 H Magnesium 2.3 Total Bilirubin 0.5 AST 7 L ALT 15 Alkaline Phosphatase 81 Creatine Kinase Creatine Kinase Index CK-MB (CK-2) Troponin I Total Protein 7.1 Albumin 3.1 L TSH 0.79 U Random Total Protein Urine Creatinine Protein/Creatinin Ratio Active Medications Albuterol/Ipratropium (Duoneb -) 1 amp NEB Q6H PRN PRN Reason: SHORTNESS OF BREATH Last Admin: 08/14/18 08:20 Dose: 1 amp Aspirin (Asa -) 81 mg PO DAILY [facility] Last Admin: 08/14/18 10:19 Dose: 81 mg Atorvastatin Calcium (Lipitor -) 40 mg PO HS [facility] Last Admin: 08/13/18 21:16 Dose: Not Given Clopidogrel Bisulfate (Plavix -) 75 mg PO DAILY [facility] Last Admin: 08/14/18 10:19 Dose: 75 mg Furosemide (Lasix Injection -) 40 mg IVPUSH BID@0600,1400 [facility] Last Admin: 08/14/18 06:18 Dose: 40 mg Heparin Sodium (Porcine) (Heparin -) 5,000 unit SQ TID [facility] Last Admin: 08/14/18 06:16 Dose: 5,000 unit Insulin Aspart (Novolog Vial Sliding Scale -) 1 vial SQ ACHS [facility]; Protocol Last Admin: 08/14/18 12:37 Dose: 2 units Insulin Detemir (Levemir Vial) 15 units SQ HS [facility] Last Admin: 08/13/18 21:16 Dose: 15 units Metoprolol Succinate (Toprol Xl -) 25 mg PO DAILY [facility] Last Admin: 08/14/18 10:19 Dose: 25 mg IMAGING: -CXR: Some improvement. Decreased congestive changes. -Kidney/Renal US: Small left renal simple cyst measuring 1.6 cm. Both kidneys appear otherwise unremarkable without evidence of hydronephrosis or stones. Bilateral pleural effusion -EKG: NSR, LBBB, VR 73, QTc 478 -ECHO: Severe diffuse LV Hypokinesis, Large region of apical kinesis, EF = 25%, Grade 2 diastolic dysfunction, Moderate MR ASSESSMENT/PLAN: 57 y/o M with PMHx of IDDM, Systolic CHF, CAD (not a candidate for PCI or CABG, refuses AICD), HTN, CVA, PAD, diabetic neuropathy s/p toe amputation, CKD was admitted for Acute CHF exacerbation. #SOB---remains fluid overloaded -Likely due to Acute CHF Exacerbation; Still Consider components of COPD -EKG, Echo noted above -Cardiology consulted, appreciate rec's -IV Furosemide 40mg BID, Metoprolol Succinate 25mg PO Daily -Hold ACEi in the setting of CKD -Duoneb -Daily weights, strict I&O's -Discussed AICD placement at length however patient continues to refuse -Refuses tele monitor -Supplemental O2 to maintain SpO2 88-92%; Will attempt to taper down #Acute on CKD -In the setting of likely underlying diabetic nephropathy with components of hypertension -Renal ultrasound and urine lytes noted -Nephrology consulted, appreciate rec's #Troponinemia -likely demand ischemia in the setting of acute CHF exacerbation #IDDM -Detemir 15u HS -ISS BGMs ACHS #CAD -Continue ASA, plavix, atorvasatin, Metoprolol #HTN -Continue Metoprolol -Hold ACEi #PAD -Continue ASA, Plavix, Statin #FEN -no standing fluids -Monitor lytes -Diabetic/sodium controlled diet #PPx -DVT: Heparin TID Visit type - Emergency Visit Emergency Visit: Yes ED Registration Date: 08/13/18 Care time: The patient presented to the Emergency Department on the above date and was hospitalized for further evaluation of their emergent condition. - New Patient This patient is new to me today: Yes Date on this admission: 08/14/18 - Critical Care Critical Care patient: No - Discharge Referral Referred to [facility] Med [facility] No
--- NOTE | 2018-08-14 16:21 | PN ---
Teaching Attending Note Name of Resident: Cayla Ojeda ATTENDING PHYSICIAN STATEMENT I saw and evaluated the patient. I reviewed the resident's note and discussed the case with the resident. I agree with the resident's findings and plan as documented. SUBJECTIVE: Patient feels well, no complaints. As per nurse and respiratory therapy, patient has been increasing his oxygen to 6 liters, thinks it will improve his condition. Denies cp, sob, palpitations. OBJECTIVE: Vital Signs - 24 hr 08/13/18 08/13/18 08/13/18 16:54 17:00 18:10 Temperature 98.8 F Pulse Rate 76 Respiratory 20 Rate Blood Pressure 129/81 O2 Sat by Pulse 97 98 Oximetry (%) 08/13/18 08/14/18 08/14/18 21:00 01:17 05:00 Temperature 97.5 F L 99 F 98 F Pulse Rate 87 85 80 Respiratory 19 18 19 Rate Blood Pressure 104/68 135/83 110/60 O2 Sat by Pulse 95 Oximetry (%) 08/14/18 08/14/18 08/14/18 08:00 09:00 13:00 Temperature 98.4 F 97.7 F Pulse Rate 92 H 78 Respiratory 20 20 Rate Blood Pressure 87/60 L 108/51 L O2 Sat by Pulse 97 Oximetry (%) PHYSICAL EXAM: GENERAL: NAD, sitting up in bed HEENT: nc/at, NC on CVS: s1s2, RRR, +elisabeth LUNGS: b/l rhonchi at bases, unlabored ABDOMEN: soft, NT/ND, nabs EXTREMITIES: 2+ pitting edema bilateral lower extremities, chronic venous stasis changes Current Medications Generic Name Dose Route Start Last Admin Trade Name Freq PRN Reason Stop Dose Admin Albuterol/Ipratropium 1 amp 08/13/18 09:00 08/14/18 08:20 Duoneb - NEB 1 amp Q6H PRN Administration SHORTNESS OF BREATH Aspirin 81 mg 08/13/18 10:00 08/14/18 10:19 Asa - PO 81 mg DAILY GABBY Administration Atorvastatin Calcium 40 mg 08/13/18 22:00 08/13/18 21:16 Lipitor - PO Not Given HS GABBY Clopidogrel Bisulfate 75 mg 08/13/18 10:00 08/14/18 10:19 Plavix - PO 75 mg DAILY GABBY Administration Furosemide 40 mg 08/13/18 14:00 08/14/18 06:18 Lasix Injection - IVPUSH 40 mg BID@0600,1400 GABBY Administration Heparin Sodium (Porcine) 5,000 unit 08/13/18 14:00 08/14/18 06:16 Heparin - SQ 5,000 unit TID GABBY Administration Insulin Aspart 1 vial 08/13/18 11:00 08/14/18 12:37 Novolog Vial Sliding Scale - SQ 2 units ACHS GABBY Administration Protocol Insulin Detemir 15 units 08/13/18 22:00 08/13/18 21:16 Levemir Vial SQ 15 units HS GABBY Administration Metoprolol Succinate 25 mg 08/13/18 10:00 08/14/18 10:19 Toprol Xl - PO 25 mg DAILY GABBY Administration Laboratory Last Values WBC 10.1 K/mm3 (4.0-10.0) H 08/14/18 05:30 RBC 3.35 M/mm3 (4.00-5.60) L 08/14/18 05:30 Hgb 9.5 GM/dL (11.7-16.9) L 08/14/18 05:30 Hct 28.4 % (35.4-49) L 08/14/18 05:30 MCV 84.7 fl (80-96) 08/14/18 05:30 MCH 28.4 pg (25.7-33.7) 08/14/18 05:30 MCHC 33.6 g/dl (32.0-35.9) 08/14/18 05:30 RDW 15.2 % (11.9-15.9) 08/14/18 05:30 Plt Count 230 K/MM3 (134-434) 08/14/18 05:30 MPV 9.3 fl (7.5-11.1) 08/14/18 05:30 Absolute Neuts (auto) 6.6 K/mm3 (1.5-8.0) 08/13/18 08:00 Neutrophils % 70.8 % (42.8-82.8) 08/13/18 08:00 Lymphocytes % 17.0 % (8-40) 08/13/18 08:00 Monocytes % 9.0 % (3.8-10.2) 08/13/18 08:00 Eosinophils % 2.0 % (0-4.5) 08/13/18 08:00 Basophils % 1.2 % (0-2.0) 08/13/18 08:00 Nucleated RBC % 0 % (0-0) 08/13/18 08:00 Sodium 133 mmol/L (136-145) L 08/14/18 05:30 Potassium 5.1 mmol/L (3.5-5.1) 08/14/18 05:30 Chloride 104 mmol/L (98-107) 08/14/18 05:30 Carbon Dioxide 23 mmol/L (21-32) 08/14/18 05:30 Anion Gap 7 MMOL/L (8-16) L 08/14/18 05:30 BUN 72 mg/dL (7-18) H 08/14/18 05:30 Creatinine 3.9 mg/dL (0.55-1.3) H 08/14/18 05:30 Creat Clearance w eGFR 16.01 (>60) 08/14/18 05:30 POC Glucometer 163 UNITS (80-120) 08/14/18 11:06 Random Glucose 178 mg/dL (74-106) H 08/14/18 05:30 Calcium 7.7 mg/dL (8.5-10.1) L 08/14/18 05:30 Phosphorus 5.5 mg/dL (2.5-4.9) H 08/14/18 05:30 Magnesium 2.3 mg/dL (1.8-2.4) 08/14/18 05:30 Total Bilirubin 0.5 mg/dL (0.2-1) 08/14/18 05:30 AST 7 U/L (15-37) L 08/14/18 05:30 ALT 15 U/L (13-61) 08/14/18 05:30 Alkaline Phosphatase 81 U/L (45-117) 08/14/18 05:30 Creatine Kinase 215 U/L (26-308) 08/13/18 14:28 Creatine Kinase Index 6.0 % (0.0-5.0) H 08/13/18 14:28 CK-MB (CK-2) 13.0 ng/mL (0.5-3.6) H 08/13/18 14:28 Troponin I 0.05 ng/ml (0.00-0.05) 08/13/18 14:28 B-Natriuretic Peptide 7008.2 pg/ml (5-125) H 08/13/18 08:00 Total Protein 7.1 g/dl (6.4-8.2) 08/14/18 05:30 Albumin 3.1 g/dl (3.4-5.0) L 08/14/18 05:30 TSH 0.79 uIU/ml (0.358-3.74) 08/14/18 05:30 U Random Total Protein 79.8 mg/dl (0-11.9) H 08/13/18 16:30 Ur Random Sodium 45 MMOL/L (40-220) 08/13/18 11:00 Urine Creatinine 22.0 mg/dL (20-320) 08/13/18 16:30 Protein/Creatinin Ratio 3.620 MG/DL 08/13/18 16:30 all imaging reports reviewed, including echocardiogram ASSESSMENT: Acute on Chronic decompensated systolic CHF CAD-not a candidate for CABG/PCI, unclear why? Ischemic cardiomyopathy-refusing AICD Acute on Chronic Kidney Disease HTN CVA DM2 PAD Diabetic neuropathy s/p toe amputation PLAN: -IV lasix -i/os and daily weights -medical mnmgt-asa/plavix/statin/bb -holding ACEI given worsening renal function, monitor -refusing tele, DC -check 02 sats off 02 once patient is willing -inhaled BD -patient refuses AICD, says he would "rather ", understands risks including -demand ischemia due to above, troponins flat -c/w current insulin regimen, bs checks -nephro and cardio following -BP control -continues to smoke tobacco-encouraged cessation Problem List - Problems (1) Acute on chronic systolic CHF (congestive heart failure) Code(s): I50.23 - ACUTE ON CHRONIC SYSTOLIC (CONGESTIVE) HEART FAILURE (2) MIRTHA (acute kidney injury) Code(s): N17.9 - ACUTE KIDNEY FAILURE, UNSPECIFIED (3) Peripheral vascular disease Code(s): I73.9 - PERIPHERAL VASCULAR DISEASE, UNSPECIFIED (4) Type 2 diabetes mellitus Code(s): E11.9 - TYPE 2 DIABETES MELLITUS WITHOUT COMPLICATIONS (5) CAD (coronary artery disease) Code(s): I25.10 - ATHSCL HEART DISEASE OF [place] CORONARY ARTERY W/O ANG PCTRS (6) CKD (chronic kidney disease) Code(s): N18.9 - CHRONIC KIDNEY DISEASE, UNSPECIFIED (7) HTN (hypertension) Code(s): I10 - ESSENTIAL (PRIMARY) HYPERTENSION
[2018-08-14] MEDS: ATORVASTATIN CA 40 MG TABLET (FP) PO SCH (21:00)
[2018-08-14] MEDS: INSULIN (LEVEMIR) 100 UNITS/ML UNITS SQ SCH (21:07)
[2018-08-15] MEDS: HEPARIN NA (PORCINE) 5,000 UNITS/ML 1ML VIAL SQ SCH ×3 (06:11→21:01)
[2018-08-15] MEDS: INSULIN SLIDING SCALE (NOVOLOG) 1 VIAL SQ SCH ×4 (06:11→21:01)
[2018-08-15] MEDS: FUROSEMIDE 40 MG/4 ML INJECTABLE VIAL IVPUSH SCH ×2 (06:11→14:13)
[2018-08-15 06:51] LABS: BASO % 0.6 % (0-2.0); EOS % 2.7 % (0-4.5); HEMATOCRIT 28.5 % (35.4-49); HEMOGLOBIN 9.4 GM/dL (11.7-16.9); MCH 28.1 pg (25.7-33.7); MCHC 33.1 g/dl (32.0-35.9); MEAN CELL VOLUME 84.8 fl (80-96); MEAN PLT VOLUME 9.2 fl (7.5-11.1); MONO % 9.1 % (3.8-10.2); NEUT % 73.6 % (42.8-82.8); PLATELET COUNT 247 K/MM3 (134-434); RBC 3.36 M/mm3 (4.00-5.60); RDW 15.3 % (11.9-15.9); WHITE BLOOD COUNT 11.3 K/mm3 (4.0-10.0)
[2018-08-15 07:25] LABS: ALBUMIN 3.3 g/dl (3.4-5.0); ALK PHOS 81 U/L (45-117); ANION GAP 7 MMOL/L (8-16); BILIRUBIN,TOTAL 0.4 mg/dL (0.2-1); BLOOD UREA NITROGEN 82 mg/dL (7-18); CALCIUM 8.2 mg/dL (8.5-10.1); CHLORIDE 103 mmol/L (98-107); CO2 25 mmol/L (21-32); CREATININE 4.1 mg/dL (0.55-1.3); GLUCOSE,RANDOM 226 mg/dL (74-106); MAGNESIUM 2.5 mg/dL (1.8-2.4); PHOSPHOROUS 5.2 mg/dL (2.5-4.9); POTASSIUM 5.2 mmol/L (3.5-5.1); SGOT/AST 7 U/L (15-37); SGPT/ALT 14 U/L (13-61); SODIUM 135 mmol/L (136-145); TOT PROT 7.2 g/dl (6.4-8.2)
[2018-08-15] MEDS: metoPROLOL SUCCINATE 25 MG TAB.SR.24H (FP) PO SCH (09:55)
[2018-08-15] MEDS: CLOPIDOGREL BISULFATE 75 MG TABLET (FP) PO SCH (09:55)
[2018-08-15] MEDS: ASPIRIN 81 MG CHEWABLE TABLETS PO SCH (09:55)
--- NOTE | 2018-08-15 11:43 | PN ---
Progress Note (short form) - Note Progress Note: s: sob improving, no chest pain, palps, dizziness Current Medications Generic Name Dose Route Start Last Admin Trade Name Radha PRN Reason Stop Dose Admin Albuterol/Ipratropium 1 amp 08/13/18 09:00 08/14/18 20:25 Duoneb - NEB 1 amp Q6H PRN Administration SHORTNESS OF BREATH Aspirin 81 mg 08/13/18 10:00 08/15/18 09:55 Asa - PO 81 mg DAILY GABBY Administration Atorvastatin Calcium 40 mg 08/13/18 22:00 08/14/18 21:00 Lipitor - PO Not Given HS GABBY Clopidogrel Bisulfate 75 mg 08/13/18 10:00 08/15/18 09:55 Plavix - PO 75 mg DAILY GABBY Administration Furosemide 40 mg 08/13/18 14:00 08/15/18 06:11 Lasix Injection - IVPUSH 40 mg BID@0600,1400 GABBY Administration Heparin Sodium (Porcine) 5,000 unit 08/13/18 14:00 08/15/18 06:11 Heparin - SQ 5,000 unit TID GABBY Administration Insulin Aspart 1 vial 08/13/18 11:00 08/15/18 06:11 Novolog Vial Sliding Scale - SQ 4 units ACHS GABBY Administration Protocol Insulin Detemir 15 units 08/13/18 22:00 08/14/18 21:07 Levemir Vial SQ 15 units HS GABBY Administration Metoprolol Succinate 25 mg 08/13/18 10:00 08/15/18 09:55 Toprol Xl - PO 25 mg DAILY GABBY Administration Vital Signs Period Temp Pulse Resp BP Sys/Humphreys Pulse Ox Last 24 Hr 87 F-99.5 F 78-91 17-20 108-123/47-77 94-98 Constitutional: Yes: No Distress, Calm Eyes: Yes: Conjunctiva Clear, Neck: Yes: Supple, Trachea Midline Respiratory: Yes: Regular, Diminished (bases bilaterally) Gastrointestinal: Yes: Normal Bowel Sounds, Soft Cardiovascular: Yes: Regular Rate and Rhythm JVD: Yes Heart Sounds: Yes: S1, S2 Murmur: No: Systolic Murmur Musculoskeletal: No: Back Pain Extremities: No: Cold Edema: Yes Edema: LLE: 1+, RLE: 1+ Peripheral Pulses: 2+ Left Doralis Pedis, 2+ Right Dorsalis Pedis Neurological: Yes: Alert, Oriented Psychiatric: No: Agitated CBC, BMP 08/15/18 05:30 08/15/18 05:30 Assessment/Plan CXR: congestive changes EKG: sinus, LBBB echo 03/2017 mildly dilated LV, mid anteroseptal akinesis, apical anterior akinesis, apical akinesis, basal inferior wall severe hypokinesis, mid inferior wall severe hypokinesis, mod MV thickening, mild MR, mild TR, mild to mod ao sclerosis echo 07/2018 severe LV hypokinesis with lg region of apical akinesis, EF 25%, grade II diastolic dysfunctoin with elevated LA pressure, mod MR tele: refusing 57 year old male with a past medical history of IDDMII, Systolic CHF, CAD with ASHD not a candidate for PCI or CABG and refusing AICD, HTN, CVA, PAD, diabetic neuropathy s/p toe amputation, CKD p/w sob Acute on chronic systolic HF, moderate to severe MR - history of noncompliance with medications, poor follow up - previously refused ICD placement - echo severe LV hypokinesis, EF 25% - continue toprol, holding lisinopril for MIRTHA - Cr stable. continue lasix 40 mg IV BID - monitor Cr, daily standing weight, lytes elevated troponin - indeterminate range, flat trend - likely demand in setting of acute CHF exac CAD - reportedly not candidate for PCI or CABG at [facility] (no viability per prior reports) - continue aspirin, plavix, lipitor, toprol CKD - Cr 4.0, unknown baseline - renal consulted tobacco use - encouraged cessation DM - manage per primary PAD - cont aspirin, plavix, statin HTN - cont metoprolol
--- NOTE | 2018-08-15 12:04 | PN ---
Physical Exam: SUBJECTIVE: Patient seen and examined this AM. Continues to have orthopnea and remains on supplemental O2. Edema improving. Otherwise no new complaints. No acute overnight events as per nursing. 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 NECK: Supple LUNGS: Crackles at the bases, On 6L supplemental O2 HEART: Regular rate and rhythm, S1, S2 without murmur ABDOMEN: Soft, nontender, nondistended, + bowel sounds EXTREMITIES: 1+ edema. NEUROLOGICAL: Cranial nerves II through XII grossly intact. SKIN: Warm, dry Laboratory Results - last 24 hr 08/14/18 08/14/18 08/15/18 17:40 20:57 05:30 WBC RBC Hgb Hct MCV MCH MCHC RDW Plt Count MPV Absolute Neuts (auto) Neutrophils % Lymphocytes % Monocytes % Eosinophils % Basophils % Nucleated RBC % Sodium 135 L Potassium 5.2 H Chloride 103 Carbon Dioxide 25 Anion Gap 7 L BUN 82 H Creatinine 4.1 H Creat Clearance w eGFR 15.12 POC Glucometer 139 151 Random Glucose 226 H Calcium 8.2 L Phosphorus 5.2 H Magnesium 2.5 H Total Bilirubin 0.4 AST 7 L ALT 14 Alkaline Phosphatase 81 Total Protein 7.2 Albumin 3.3 L 08/15/18 08/15/18 08/15/18 05:30 05:35 11:51 WBC 11.3 H RBC 3.36 L Hgb 9.4 L Hct 28.5 L MCV 84.8 MCH 28.1 MCHC 33.1 RDW 15.3 Plt Count 247 MPV 9.2 Absolute Neuts (auto) 8.3 H Neutrophils % 73.6 Lymphocytes % 14.0 Monocytes % 9.1 Eosinophils % 2.7 Basophils % 0.6 Nucleated RBC % 0 Sodium Potassium Chloride Carbon Dioxide Anion Gap BUN Creatinine Creat Clearance w eGFR POC Glucometer 218 149 Random Glucose Calcium Phosphorus Magnesium Total Bilirubin AST ALT Alkaline Phosphatase Total Protein Albumin Active Medications Albuterol/Ipratropium (Duoneb -) 1 amp NEB Q6H PRN PRN Reason: SHORTNESS OF BREATH Last Admin: 08/14/18 20:25 Dose: 1 amp Aspirin (Asa -) 81 mg PO DAILY [facility] Last Admin: 08/15/18 09:55 Dose: 81 mg Atorvastatin Calcium (Lipitor -) 40 mg PO HS [facility] Last Admin: 08/14/18 21:00 Dose: Not Given Clopidogrel Bisulfate (Plavix -) 75 mg PO DAILY [facility] Last Admin: 08/15/18 09:55 Dose: 75 mg Furosemide (Lasix Injection -) 40 mg IVPUSH BID@0600,1400 [facility] Last Admin: 08/15/18 06:11 Dose: 40 mg Heparin Sodium (Porcine) (Heparin -) 5,000 unit SQ TID [facility] Last Admin: 08/15/18 06:11 Dose: 5,000 unit Insulin Aspart (Novolog Vial Sliding Scale -) 1 vial SQ ACHS [facility]; Protocol Last Admin: 08/15/18 11:54 Dose: Not Given Insulin Detemir (Levemir Vial) 15 units SQ HS [facility] Last Admin: 08/14/18 21:07 Dose: 15 units Metoprolol Succinate (Toprol Xl -) 25 mg PO DAILY [facility] Last Admin: 08/15/18 09:55 Dose: 25 mg IMAGING: -CXR: Some improvement. Decreased congestive changes. -Kidney/Renal US: Small left renal simple cyst measuring 1.6 cm. Both kidneys appear otherwise unremarkable without evidence of hydronephrosis or stones. Bilateral pleural effusion -EKG: NSR, LBBB, VR 73, QTc 478 -ECHO: Severe diffuse LV Hypokinesis, Large region of apical kinesis, EF = 25%, Grade 2 diastolic dysfunction, Moderate MR ASSESSMENT/PLAN: 57 y/o M with PMHx of IDDM, Systolic CHF, CAD (not a candidate for PCI or CABG, refuses AICD), HTN, CVA, PAD, diabetic neuropathy s/p toe amputation, CKD was admitted for Acute CHF exacerbation. #SOB---remains fluid overloaded -Likely due to Acute CHF Exacerbation; Still Consider components of COPD -Cardiology consulted, appreciate rec's -IV Furosemide 40mg BID -Daily weights, strict I&O's -Refuses tele monitor -Duoneb -Supplemental O2 to maintain SpO2 88-92%; Will attempt to taper down #Acute on CKD -In the setting of likely underlying diabetic nephropathy with components of hypertension -Nephrology consulted, appreciate rec's #Troponinemia -likely demand ischemia in the setting of acute CHF exacerbation #IDDM -Detemir 15u HS -ISS BGMs ACHS #CAD -Continue ASA, plavix, atorvasatin, Metoprolol -Discussed AICD placement at length however patient continues to refuse #HTN -Continue Metoprolol Succinate 25mg PO Daily -Hold ACEi in the setting of CKD #PAD -Continue ASA, Plavix, Statin #FEN -no standing fluids -Monitor lytes -Diabetic/sodium controlled diet #PPx -DVT: Heparin TID Visit type - Emergency Visit Emergency Visit: Yes ED Registration Date: 08/13/18 Care time: The patient presented to the Emergency Department on the above date and was hospitalized for further evaluation of their emergent condition. - New Patient This patient is new to me today: No - Critical Care Critical Care patient: No - Discharge Referral Referred to [facility] Med P.C.: No
--- NOTE | 2018-08-15 13:32 | PN ---
Progress Note, Physician History of Present Illness: Pt seen and examined at bedside. He is awake and appears comfortable. He complains of shortness of breath with ambulation. He feels that the edema has not improved today. - Current Medication List Current Medications: Active Medications Albuterol/Ipratropium (Duoneb -) 1 amp NEB Q6H PRN PRN Reason: SHORTNESS OF BREATH Last Admin: 08/14/18 20:25 Dose: 1 amp Aspirin (Asa -) 81 mg PO DAILY [facility] Last Admin: 08/15/18 09:55 Dose: 81 mg Atorvastatin Calcium (Lipitor -) 40 mg PO HS [facility] Last Admin: 08/14/18 21:00 Dose: Not Given Clopidogrel Bisulfate (Plavix -) 75 mg PO DAILY [facility] Last Admin: 08/15/18 09:55 Dose: 75 mg Furosemide (Lasix Injection -) 40 mg IVPUSH BID@0600,1400 [facility] Last Admin: 08/15/18 06:11 Dose: 40 mg Heparin Sodium (Porcine) (Heparin -) 5,000 unit SQ TID [facility] Last Admin: 08/15/18 06:11 Dose: 5,000 unit Insulin Aspart (Novolog Vial Sliding Scale -) 1 vial SQ [facility]; Protocol Last Admin: 08/15/18 11:54 Dose: Not Given Insulin Detemir (Levemir Vial) 15 units SQ [facility] Last Admin: 08/14/18 21:07 Dose: 15 units Metoprolol Succinate (Toprol Xl -) 25 mg PO DAILY [facility] Last Admin: 08/15/18 09:55 Dose: 25 mg - Objective Vital Signs: Vital Signs Temperature 98.3 F 08/15/18 09:46 Pulse Rate 86 08/15/18 09:46 Respiratory Rate 17 08/15/18 09:46 Blood Pressure 115/52 L 08/15/18 09:46 O2 Sat by Pulse Oximetry (%) 98 08/15/18 08:00 Constitutional: Yes: Calm Eyes: Yes: Conjunctiva Clear HENT: Yes: Atraumatic Neck: Yes: Supple Cardiovascular: Yes: S1, S2 Respiratory: Yes: On Nasal O2, Rhonchi Gastrointestinal: Yes: Soft Genitourinary: Yes: WNL Musculoskeletal: Yes: WNL Edema: Yes Edema: LLE: 2+, RLE: 2+ Neurological: Yes: Oriented Psychiatric: Yes: Oriented Labs: CBC, BMP 08/15/18 05:30 08/15/18 05:30 Problem List - Problems (1) Acute on chronic systolic CHF (congestive heart failure) Code(s): I50.23 - ACUTE ON CHRONIC SYSTOLIC (CONGESTIVE) HEART FAILURE (2) SOB (shortness of breath) Code(s): R06.02 - SHORTNESS OF BREATH (3) MIRTHA (acute kidney injury) Code(s): N17.9 - ACUTE KIDNEY FAILURE, UNSPECIFIED (4) CHF (congestive heart failure) Code(s): I50.9 - HEART FAILURE, UNSPECIFIED (5) Type 2 diabetes mellitus Code(s): E11.9 - TYPE 2 DIABETES MELLITUS WITHOUT COMPLICATIONS (6) CKD (chronic kidney disease) Code(s): N18.9 - CHRONIC KIDNEY DISEASE, UNSPECIFIED Assessment/Plan Current Medications Generic Name Dose Route Start Last Admin Trade Name Freq PRN Reason Stop Dose Admin Albuterol/Ipratropium 1 amp 08/13/18 09:00 08/14/18 20:25 Duoneb - NEB 1 amp Q6H PRN Administration SHORTNESS OF BREATH Aspirin 81 mg 08/13/18 10:00 08/15/18 09:55 Asa - PO 81 mg DAILY GABBY Administration Atorvastatin Calcium 40 mg 08/13/18 22:00 08/14/18 21:00 Lipitor - PO Not Given HS GABBY Clopidogrel Bisulfate 75 mg 08/13/18 10:00 08/15/18 09:55 Plavix - PO 75 mg DAILY GABBY Administration Furosemide 40 mg 08/13/18 14:00 08/15/18 06:11 Lasix Injection - IVPUSH 40 mg BID@0600,1400 GABBY Administration Heparin Sodium (Porcine) 5,000 unit 08/13/18 14:00 08/15/18 06:11 Heparin - SQ 5,000 unit TID GABBY Administration Insulin Aspart 1 vial 08/13/18 11:00 08/15/18 11:54 Novolog Vial Sliding Scale - SQ Not Given ACHS [facility] Protocol Insulin Detemir 15 units 08/13/18 22:00 08/14/18 21:07 Levemir Vial SQ 15 units HS GABBY Administration Metoprolol Succinate 25 mg 08/13/18 10:00 08/15/18 09:55 Toprol Xl - PO 25 mg DAILY GABBY Administration Impression 1. MIRTHA 2. CKD 3. CHF 4. fluid overload 5. DM 6. hyperlipidemia 7. HTN 8. non compliance 9. CAD 10. nephrotic proteinuria Plan - increase dose of lasix to 60 bid - discussed HD and av fistula placement at length with pt - he does not want a kidney biopsy - hold elizabeth - renal diet - check phos level Dr Blackwood
--- NOTE | 2018-08-15 14:02 | PN ---
Teaching Attending Note Name of Resident: Cayla Ojeda ATTENDING PHYSICIAN STATEMENT I saw and evaluated the patient. I reviewed the resident's note and discussed the case with the resident. I agree with the resident's findings and plan as documented. SUBJECTIVE: Patient reports he still feels SOB. OBJECTIVE: Vital Signs Period Temp Pulse Resp BP Sys/Humphreys Pulse Ox Last 24 Hr 87 F-99.5 F 84-91 17-20 108-123/47-77 94-98 HEART: S1S2, RRR LUNGS: Bilateral rales ABDOMEN: Obese, soft, non-tender, non-distended, normal BS EXTREMITIES: 2+ edema Laboratory Results - last 24 hr 08/14/18 08/14/18 08/15/18 17:40 20:57 05:30 WBC RBC Hgb Hct MCV MCH MCHC RDW Plt Count MPV Absolute Neuts (auto) Neutrophils % Lymphocytes % Monocytes % Eosinophils % Basophils % Nucleated RBC % Sodium 135 L Potassium 5.2 H Chloride 103 Carbon Dioxide 25 Anion Gap 7 L BUN 82 H Creatinine 4.1 H Creat Clearance w eGFR 15.12 POC Glucometer 139 151 Random Glucose 226 H Calcium 8.2 L Phosphorus 5.2 H Magnesium 2.5 H Total Bilirubin 0.4 AST 7 L ALT 14 Alkaline Phosphatase 81 Total Protein 7.2 Albumin 3.3 L 08/15/18 08/15/18 08/15/18 05:30 05:35 11:51 WBC 11.3 H RBC 3.36 L Hgb 9.4 L Hct 28.5 L MCV 84.8 MCH 28.1 MCHC 33.1 RDW 15.3 Plt Count 247 MPV 9.2 Absolute Neuts (auto) 8.3 H Neutrophils % 73.6 Lymphocytes % 14.0 Monocytes % 9.1 Eosinophils % 2.7 Basophils % 0.6 Nucleated RBC % 0 Sodium Potassium Chloride Carbon Dioxide Anion Gap BUN Creatinine Creat Clearance w eGFR POC Glucometer 218 149 Random Glucose Calcium Phosphorus Magnesium Total Bilirubin AST ALT Alkaline Phosphatase Total Protein Albumin Current Medications Generic Name Dose Route Start Last Admin Trade Name Freq PRN Reason Stop Dose Admin Albuterol/Ipratropium 1 amp 08/13/18 09:00 08/14/18 20:25 Duoneb - NEB 1 amp Q6H PRN Administration SHORTNESS OF BREATH Aspirin 81 mg 08/13/18 10:00 04/18/19 09:55 Asa - PO 81 mg DAILY [facility] Administration Atorvastatin Calcium 40 mg 08/13/18 22:00 08/14/18 21:00 Lipitor - PO Not Given HS [facility] Clopidogrel Bisulfate 75 mg 08/13/18 10:00 08/15/18 09:55 Plavix - PO 75 mg DAILY [facility] Administration Furosemide 60 mg 08/15/18 13:32 Lasix Injection - IVPUSH BID@0600,1400 [facility] Heparin Sodium (Porcine) 5,000 unit 08/13/18 14:00 08/15/18 06:11 Heparin - SQ 5,000 unit TID [facility] Administration Insulin Aspart 1 vial 08/13/18 11:00 08/15/18 11:54 Novolog Vial Sliding Scale - SQ Not Given ACHS [facility] Protocol Insulin Detemir 15 units 08/13/18 22:00 08/14/18 21:07 Levemir Vial SQ 15 units HS [facility] Administration Metoprolol Succinate 25 mg 08/13/18 10:00 08/15/18 09:55 Toprol Xl - PO 25 mg DAILY [facility] Administration ASSESSMENT AND PLAN: This is a 57 year old man with a history of chronic systolic heart failure, ischemic cardiomyopathy, CAD, HTN, hyperlipidemia, CKD, type 2 DM with neuropathy, PAD, CVA who presented to the ED with SOB. 1. Acute on chronic systolic heart failure - Continue Lasix IV - dose increased today - Lisinopril held secondary to MIRTHA 2. Demand ischemia 3. CAD with ischemic cardiomyopathy - Continue aspirin, Plavix, Toprol XL, Lipitor 4. Moderate to severe mitral regurgitation 5. Acute kidney injury on stage 3 CKD, possible cardiorenal syndrome - Lasix increased - Continue to monitor creatinine - Patient refused kidney biopsy 6. HTN - Continue Toprol XL, Lasix 7. Hyperlipidemia - Continue Lipitor 8. Type 2 DM with peripheral neuropathy - Continue Levemir, Novolog sliding scale 9. PAD - Continue aspirin, Plavix, Lipitor 10. History of CVA - Continue aspirin, Plavix, Lipitor 11. Nicotine dependence - Smoking cessation counselling 12. Obesity with BMI 32.7
[2018-08-15 14:21] VITALS: BMI 32.5
[2018-08-15] MEDS ORDERED: INSULIN (NOVOLOG) ASPART 100 UNITS/ML 10ML VIAL ONE (17:16)
[2018-08-15] MEDS: SENNOSIDES 8.6MG TABLET (FP) PO SCH ×2 (18:31→21:01)
[2018-08-15] MEDS: DOCUSATE SODIUM 100 MG CAPSULE (FP) PO SCH ×2 (18:32→21:01)
[2018-08-15] MEDS: INSULIN (LEVEMIR) 100 UNITS/ML UNITS SQ SCH (21:00)
[2018-08-15] MEDS: ATORVASTATIN CA 40 MG TABLET (FP) PO SCH (21:01)
[2018-08-15] MEDS: ALBUTEROL SO4 2.5/IPRATROPIUM 0.5 INH SOL 3 ML VIAL.NEB. NEB PRN (21:31)
[2018-08-16] MEDS: HEPARIN NA (PORCINE) 5,000 UNITS/ML 1ML VIAL SQ SCH ×3 (07:03→21:18)
[2018-08-16] MEDS: FUROSEMIDE 40 MG/4 ML INJECTABLE VIAL IVPUSH SCH ×2 (07:03→15:08)
[2018-08-16] MEDS: DOCUSATE SODIUM 100 MG CAPSULE (FP) PO SCH ×3 (07:10→21:18)
[2018-08-16] MEDS: INSULIN SLIDING SCALE (NOVOLOG) 1 VIAL SQ SCH ×4 (07:14→21:21)
[2018-08-16] MEDS: ALBUTEROL SO4 2.5/IPRATROPIUM 0.5 INH SOL 3 ML VIAL.NEB. NEB PRN ×2 (07:31→23:01)
[2018-08-16 09:11] LABS: ANION GAP 8 MMOL/L (8-16); BLOOD UREA NITROGEN 81 mg/dL (7-18); CALCIUM 8.4 mg/dL (8.5-10.1); CHLORIDE 101 mmol/L (98-107); CO2 25 mmol/L (21-32); CREATININE 3.9 mg/dL (0.55-1.3); GLUCOSE,RANDOM 216 mg/dL (74-106); MAGNESIUM 2.5 mg/dL (1.8-2.4); PHOSPHOROUS 4.4 mg/dL (2.5-4.9); POTASSIUM 4.7 mmol/L (3.5-5.1); SODIUM 134 mmol/L (136-145)
--- NOTE | 2018-08-16 09:32 | PN ---
Progress Note, Physician Chief Complaint: no distress No CP refused tele History of Present Illness: no weight yet today - Current Medication List Current Medications: Active Medications Albuterol/Ipratropium (Duoneb -) 1 amp NEB Q6H PRN PRN Reason: SHORTNESS OF BREATH Last Admin: 08/16/18 07:31 Dose: 1 amp Aspirin (Asa -) 81 mg PO DAILY [facility] Last Admin: 08/15/18 09:55 Dose: 81 mg Atorvastatin Calcium (Lipitor -) 40 mg PO HS [facility] Last Admin: 08/15/18 21:01 Dose: Not Given Clopidogrel Bisulfate (Plavix -) 75 mg PO DAILY [facility] Last Admin: 08/15/18 09:55 Dose: 75 mg Docusate Sodium (Colace -) 100 mg PO TID [facility] Last Admin: 08/16/18 07:10 Dose: Not Given Furosemide (Lasix Injection -) 60 mg IVPUSH BID@0600,1400 [facility] Last Admin: 08/16/18 07:03 Dose: 60 mg Heparin Sodium (Porcine) (Heparin -) 5,000 unit SQ TID [facility] Last Admin: 08/16/18 07:03 Dose: Not Given Insulin Aspart (Novolog Vial Sliding Scale -) 1 vial SQ [facility]; Protocol Last Admin: 08/16/18 07:14 Dose: 2 units Insulin Detemir (Levemir Vial) 15 units SQ [facility] Last Admin: 08/15/18 21:00 Dose: 15 units Metoprolol Succinate (Toprol Xl -) 25 mg PO DAILY [facility] Last Admin: 08/15/18 09:55 Dose: 25 mg Senna (Senna -) 1 tab PO BID [facility] Last Admin: 08/15/18 21:01 Dose: Not Given - Objective Vital Signs: Vital Signs Temperature 98.1 F 08/16/18 05:00 Pulse Rate 81 08/16/18 05:00 Respiratory Rate 18 08/16/18 05:00 Blood Pressure 136/67 08/16/18 05:00 O2 Sat by Pulse Oximetry (%) 98 08/15/18 22:04 Constitutional: Yes: No Distress Cardiovascular: Yes: Regular Rate and Rhythm Respiratory: Yes: Other (bilateral rales) Gastrointestinal: Yes: Soft Edema: Yes Edema: LLE: 2+, RLE: 2+ Neurological: Yes: Alert Labs: CBC, BMP 08/15/18 05:30 04/19/19 08:30 Laboratory Tests 08/16/18 08:30 Sodium 134 L Potassium 4.7 BUN 81 H Creatinine 3.9 H Assessment/Plan IMP: 1. Ischemic CM, severe LV dysfx, EF 25% (refused ICD) 2. CAD not amenable to revasc 3. Acute on chronic systolic CHF 4. CKD REC: 1. Agree w/ Increase in IV Lasix. Daily BMP monitor renal fx. Daily weight 2. Cont. ASA/Plavix/statin/Toprol. 3. Telemetry while on IV diuretics.
[2018-08-16] MEDS: metoPROLOL SUCCINATE 25 MG TAB.SR.24H (FP) PO SCH (09:40)
[2018-08-16] MEDS: ASPIRIN 81 MG CHEWABLE TABLETS PO SCH (09:40)
[2018-08-16] MEDS: SENNOSIDES 8.6MG TABLET (FP) PO SCH ×2 (09:41→21:21)
[2018-08-16] MEDS: CLOPIDOGREL BISULFATE 75 MG TABLET (FP) PO SCH (09:41)
--- NOTE | 2018-08-16 12:13 | PN ---
Progress Note, Physician History of Present Illness: Pt seen and examined at bedside. He is awake and alert. He still has edema but feels that his breathing is a little better. - Current Medication List Current Medications: Active Medications Albuterol/Ipratropium (Duoneb -) 1 amp NEB Q6H PRN PRN Reason: SHORTNESS OF BREATH Last Admin: 08/16/18 07:31 Dose: 1 amp Aspirin (Asa -) 81 mg PO DAILY [facility] Last Admin: 08/16/18 09:40 Dose: Not Given Atorvastatin Calcium (Lipitor -) 40 mg PO HS [facility] Last Admin: 08/15/18 21:01 Dose: Not Given Clopidogrel Bisulfate (Plavix -) 75 mg PO DAILY [facility] Last Admin: 08/16/18 09:41 Dose: Not Given Docusate Sodium (Colace -) 100 mg PO TID [facility] Last Admin: 08/16/18 07:10 Dose: Not Given Furosemide (Lasix Injection -) 60 mg IVPUSH BID@0600,1400 [facility] Last Admin: 08/16/18 07:03 Dose: 60 mg Heparin Sodium (Porcine) (Heparin -) 5,000 unit SQ TID [facility] Last Admin: 08/16/18 07:03 Dose: Not Given Insulin Aspart (Novolog Vial Sliding Scale -) 1 vial SQ [facility]; Protocol Last Admin: 08/16/18 11:28 Dose: 2 units Insulin Detemir (Levemir Vial) [address] [facility] Last Admin: 08/15/18 21:00 Dose: 15 units Metoprolol Succinate (Toprol Xl -) 25 mg PO DAILY [facility] Last Admin: 08/16/18 09:40 Dose: 25 mg Senna (Senna -) 1 tab PO BID [facility] Last Admin: 08/16/18 09:41 Dose: Not Given - Objective Vital Signs: Vital Signs Temperature 98.0 F 08/16/18 09:00 Pulse Rate 95 H 08/16/18 09:00 Respiratory Rate 20 08/16/18 09:00 Blood Pressure 129/69 08/16/18 09:00 O2 Sat by Pulse Oximetry (%) 97 08/16/18 08:00 Constitutional: Yes: Calm Eyes: Yes: Conjunctiva Clear HENT: Yes: Atraumatic Neck: Yes: Supple Cardiovascular: Yes: S1, S2 Respiratory: Yes: On Nasal O2, Rhonchi Gastrointestinal: Yes: Soft Genitourinary: Yes: WNL Musculoskeletal: Yes: WNL Edema: Yes Edema: LLE: 2+, RLE: 2+ Neurological: Yes: Oriented Psychiatric: Yes: Oriented Labs: CBC, BMP 08/15/18 05:30 08/16/18 08:30 Problem List - Problems (1) Acute on chronic systolic CHF (congestive heart failure) Code(s): I50.23 - ACUTE ON CHRONIC SYSTOLIC (CONGESTIVE) HEART FAILURE (2) SOB (shortness of breath) Code(s): R06.02 - SHORTNESS OF BREATH (3) MIRTHA (acute kidney injury) Code(s): N17.9 - ACUTE KIDNEY FAILURE, UNSPECIFIED (4) CHF (congestive heart failure) Code(s): I50.9 - HEART FAILURE, UNSPECIFIED (5) Type 2 diabetes mellitus Code(s): E11.9 - TYPE 2 DIABETES MELLITUS WITHOUT COMPLICATIONS (6) CKD (chronic kidney disease) Code(s): N18.9 - CHRONIC KIDNEY DISEASE, UNSPECIFIED Assessment/Plan Current Medications Generic Name Dose Route Start Last Admin Trade Name Freq PRN Reason Stop Dose Admin Albuterol/Ipratropium 1 amp 08/13/18 09:00 08/16/18 07:31 Duoneb - NEB 1 amp Q6H PRN Administration SHORTNESS OF BREATH Aspirin 81 mg 08/13/18 10:00 08/16/18 09:40 Asa - PO Not Given DAILY [facility] Atorvastatin Calcium 40 mg 08/13/18 22:00 08/15/18 21:01 Lipitor - PO Not Given HS [facility] Clopidogrel Bisulfate 75 mg 08/13/18 10:00 08/16/18 09:41 Plavix - PO Not Given DAILY [facility] Docusate Sodium 100 mg 08/15/18 18:13 08/16/18 07:10 Colace - PO Not Given TID [facility] Furosemide 60 mg 08/15/18 13:32 08/16/18 07:03 Lasix Injection - IVPUSH 60 mg BID@0600,1400 [facility] Administration Heparin Sodium (Porcine) 5,000 unit 08/13/18 14:00 08/16/18 07:03 Heparin - SQ Not Given TID [facility] Insulin Aspart 1 vial 08/13/18 11:00 08/16/18 11:28 Novolog Vial Sliding Scale - SQ 2 units ACHS [facility] Administration Protocol Insulin Detemir 15 units 08/13/18 22:00 08/15/18 21:00 Levemir Vial SQ 15 units HS [facility] Administration Metoprolol Succinate 25 mg 08/13/18 10:00 08/16/18 09:40 Toprol Xl - PO 25 mg DAILY [facility] Administration Senna 1 tab 08/15/18 18:14 08/16/18 09:41 Senna - PO Not Given BID [facility] Impression 1. MIRTHA 2. CKD 3. CHF 4. fluid overload 5. DM 6. hyperlipidemia 7. HTN 8. non compliance 9. CAD 10. nephrotic proteinuria Plan - cont with lasix, may need to increase to 80 bid tomorrow, check labs and volume status - monitor lytes - he does not want a kidney biopsy - hold elizabeth - renal diet Dr Blackwood
--- NOTE | 2018-08-16 12:26 | PN ---
Physical Exam: SUBJECTIVE: Patient seen and examined this AM. Edema improving. No new complaints. No acute overnight events as per nursing. On 3L Supplemental O2 this AM. OBJECTIVE: Vital Signs Period Temp Pulse Resp BP Sys/Humphreys Pulse Ox Last 24 Hr 98.0 F-98.9 F 76-95 18-20 110-139/62-87 97-98 GENERAL: A&Ox3, NAD HEAD: NCAT EYES: Right eye cloudiness accompanied by blindness ENT: Moist mucous membranes. NECK: Supple LUNGS: Crackles at the bases however improving from prior HEART: Regular rate and rhythm, S1, S2 without murmur ABDOMEN: Soft, nontender, nondistended, + bowel sounds EXTREMITIES: 1+ edema, improving NEUROLOGICAL: Cranial nerves II through XII grossly intact. SKIN: Warm, dry Laboratory Results - last 24 hr 08/16/18 08/16/18 08:30 11:24 Sodium 134 L Potassium 4.7 Chloride 101 Carbon Dioxide 25 Anion Gap 8 BUN 81 H Creatinine 3.9 H Creat Clearance w eGFR 16.01 POC Glucometer 200 Random Glucose 216 H Calcium 8.4 L Phosphorus 4.4 Magnesium 2.5 H Active Medications Albuterol/Ipratropium (Duoneb -) 1 amp NEB Q6H PRN PRN Reason: SHORTNESS OF BREATH Last Admin: 08/16/18 07:31 Dose: 1 amp Aspirin (Asa -) 81 mg PO DAILY [facility] Last Admin: 08/16/18 09:40 Dose: Not Given Atorvastatin Calcium (Lipitor -) 40 mg PO HS [facility] Last Admin: 08/15/18 21:01 Dose: Not Given Clopidogrel Bisulfate (Plavix -) 75 mg PO DAILY [facility] Last Admin: 08/16/18 09:41 Dose: Not Given Docusate Sodium (Colace -) 100 mg PO TID [facility] Last Admin: 08/16/18 07:10 Dose: Not Given Furosemide (Lasix Injection -) 60 mg IVPUSH BID@0600,1400 [facility] Last Admin: 08/16/18 07:03 Dose: 60 mg Heparin Sodium (Porcine) (Heparin -) 5,000 unit SQ TID [facility] Last Admin: 08/16/18 07:03 Dose: Not Given Insulin Aspart (Novolog Vial Sliding Scale -) [address] [facility]; Protocol Last Admin: 08/16/18 11:28 Dose: 2 units Insulin Detemir (Levemir Vial) 15 units SQ HS [facility] Last Admin: 08/15/18 21:00 Dose: 15 units Metoprolol Succinate (Toprol Xl -) 25 mg PO DAILY [facility] Last Admin: 08/16/18 09:40 Dose: 25 mg Senna (Senna -) 1 tab PO BID [facility] Last Admin: 08/16/18 09:41 Dose: Not Given IMAGING: -CXR: Some improvement. Decreased congestive changes. -Kidney/Renal US: Small left renal simple cyst measuring 1.6 cm. Both kidneys appear otherwise unremarkable without evidence of hydronephrosis or stones. Bilateral pleural effusion -EKG: NSR, LBBB, VR 73, QTc 478 -ECHO: Severe diffuse LV Hypokinesis, Large region of apical kinesis, EF = 25%, Grade 2 diastolic dysfunction, Moderate MR ASSESSMENT/PLAN: 57 y/o M with PMHx of IDDM, Systolic CHF, CAD (not a candidate for PCI or CABG, refuses AICD), HTN, CVA, PAD, diabetic neuropathy s/p toe amputation, CKD was admitted for Acute CHF exacerbation. #SOB---remains fluid overloaded likely due to Acute CHF Exacerbation -Cardiology consulted, appreciate rec's -IV Furosemide 60mg BID; Will consider 80mg BID tmrw pending labs and volume status -Daily weights, strict I&O's -Refuses tele monitor -Duoneb -Supplemental O2 to maintain SpO2 88-92%; Will attempt to taper down #Acute on CKD -In the setting of likely underlying diabetic nephropathy with components of hypertension -Nephrology consulted, appreciate rec's #IDDM -Detemir 15u HS -ISS BGMs ACHS #CAD--Refuses AICD placement -Continue ASA, plavix, atorvasatin, Metoprolol #HTN -Continue Metoprolol Succinate 25mg PO Daily -Hold ACEi in the setting of CKD #PAD -Continue ASA, Plavix, Statin #Troponinemia -likely demand ischemia in the setting of acute CHF exacerbation #FEN -no standing fluids -Monitor lytes -Diabetic/sodium controlled diet #PPx -DVT: Heparin TID Visit type - Emergency Visit Emergency Visit: Yes ED Registration Date: 08/13/18 Care time: The patient presented to the Emergency Department on the above date and was hospitalized for further evaluation of their emergent condition. - New Patient This patient is new to me today: No - Critical Care Critical Care patient: No - Discharge Referral Referred to [facility] Med P.C.: No
--- NOTE | 2018-08-16 16:30 | PN ---
Teaching Attending Note Name of Resident: Cayla Ojeda ATTENDING PHYSICIAN STATEMENT I saw and evaluated the patient. I reviewed the resident's note and discussed the case with the resident. I agree with the resident's findings and plan as documented. SUBJECTIVE: Patient says he feels a little better. He still feels SOB with exertion. OBJECTIVE: Vital Signs Period Temp Pulse Resp BP Sys/Humphreys Pulse Ox Last 24 Hr 98.0 F-98.9 F 76-95 18-20 110-139/67-87 97-98 HEART: S1S2, RRR LUNGS: Bibasilar rales ABDOMEN: Obese, soft, non-tender, non-distended, normal BS EXTREMITIES: 2+ edema Laboratory Results - last 24 hr 08/15/18 08/15/18 08/16/18 17:11 20:52 07:02 Sodium Potassium Chloride Carbon Dioxide Anion Gap BUN Creatinine Creat Clearance w eGFR POC Glucometer 153 154 199 Random Glucose Calcium Phosphorus Magnesium 08/16/18 08/16/18 08:30 11:24 Sodium 134 L Potassium 4.7 Chloride 101 Carbon Dioxide 25 Anion Gap 8 BUN 81 H Creatinine 3.9 H Creat Clearance w eGFR 16.01 POC Glucometer 200 Random Glucose 216 H Calcium 8.4 L Phosphorus 4.4 Magnesium 2.5 H Current Medications Generic Name Dose Route Start Last Admin Trade Name Freq PRN Reason Stop Dose Admin Albuterol/Ipratropium 1 amp 08/13/18 09:00 08/16/18 07:31 Duoneb - NEB 1 amp Q6H PRN Administration SHORTNESS OF BREATH Aspirin 81 mg 08/13/18 10:00 08/16/18 09:40 Asa - PO Not Given DAILY [facility] Atorvastatin Calcium 40 mg 08/13/18 22:00 08/15/18 21:01 Lipitor - PO Not Given HS [facility] Clopidogrel Bisulfate 75 mg 08/13/18 10:00 08/16/18 09:41 Plavix - PO Not Given DAILY [facility] Docusate Sodium 100 mg 08/15/18 18:13 08/16/18 15:07 Colace - PO Not Given TID [facility] Furosemide 60 mg 08/15/18 13:32 08/16/18 15:08 Lasix Injection - IVPUSH 60 mg BID@0600,1400 [facility] Administration Heparin Sodium (Porcine) 5,000 unit 08/13/18 14:00 08/16/18 15:07 Heparin - SQ Not Given TID [facility] Insulin Aspart 1 vial 08/13/18 11:00 08/16/18 11:28 Novolog Vial Sliding Scale - SQ 2 units ACHS [facility] Administration Protocol Insulin Detemir 15 units 08/13/18 22:00 08/15/18 21:00 Levemir Vial SQ 15 units HS [facility] Administration Metoprolol Succinate 25 mg 08/13/18 10:00 08/16/18 09:40 Toprol Xl - PO 25 mg DAILY [facility] Administration Senna 1 tab 08/15/18 18:14 08/16/18 09:41 Senna - PO Not Given BID [facility] ASSESSMENT AND PLAN: This is a 57 year old man with a history of chronic systolic heart failure, ischemic cardiomyopathy, CAD, HTN, hyperlipidemia, CKD, type 2 DM with neuropathy, PAD, CVA who presented to the ED with SOB. 1. Acute on chronic systolic heart failure - Weight down 1.4 kg in 3 days - Continue Lasix IV - consider increasing to 80 mg bid tomorrow - Lisinopril held secondary to MIRTHA 2. Demand ischemia 3. CAD with ischemic cardiomyopathy - Continue aspirin, Plavix, Toprol XL, Lipitor - Records show he has severe triple vessel disease with no reversible ischemia - Refused AICD 4. Moderate to severe mitral regurgitation 5. Acute kidney injury on stage 3 CKD, possible cardiorenal syndrome - Continue Lasix - Creatinine starting to improve - Patient refused kidney biopsy 6. HTN - Continue Toprol XL, Lasix 7. Hyperlipidemia - Continue Lipitor 8. Type 2 DM with peripheral neuropathy - Continue Levemir, Novolog sliding scale 9. PAD - Continue aspirin, Plavix, Lipitor 10. History of CVA - Continue aspirin, Plavix, Lipitor 11. Nicotine dependence - Smoking cessation counselling 12. Obesity with BMI 32.4
[2018-08-16] MEDS: INSULIN (LEVEMIR) 100 UNITS/ML UNITS SQ SCH (21:19)
[2018-08-16] MEDS: ATORVASTATIN CA 40 MG TABLET (FP) PO SCH (21:20)
[2018-08-17 06:31] LABS: BASO % 0.9 % (0-2.0); EOS % 3.1 % (0-4.5); HEMOGLOBIN 9.7 GM/dL (11.7-16.9); LYMPH % 13.1 % (8-40); MCH 28.2 pg (25.7-33.7); MCHC 33.5 g/dl (32.0-35.9); MEAN CELL VOLUME 84.1 fl (80-96); MEAN PLT VOLUME 9.2 fl (7.5-11.1); MONO % 9.2 % (3.8-10.2); NEUT % 73.7 % (42.8-82.8); PLATELET COUNT 243 K/MM3 (134-434); RBC 3.44 M/mm3 (4.00-5.60); RDW 15.1 % (11.9-15.9); WHITE BLOOD COUNT 10.2 K/mm3 (4.0-10.0)
[2018-08-17] MEDS: HEPARIN NA (PORCINE) 5,000 UNITS/ML 1ML VIAL SQ SCH ×3 (06:44→21:47)
[2018-08-17] MEDS: DOCUSATE SODIUM 100 MG CAPSULE (FP) PO SCH ×3 (06:44→21:47)
[2018-08-17] MEDS: FUROSEMIDE 40 MG/4 ML INJECTABLE VIAL IVPUSH SCH ×2 (06:45→14:30)
[2018-08-17] MEDS: INSULIN SLIDING SCALE (NOVOLOG) 1 VIAL SQ SCH ×4 (06:47→23:02)
[2018-08-17 07:01] LABS: ANION GAP 9 MMOL/L (8-16); BLOOD UREA NITROGEN 80 mg/dL (7-18); CALCIUM 8.3 mg/dL (8.5-10.1); CHLORIDE 102 mmol/L (98-107); CO2 24 mmol/L (21-32); CREATININE 3.8 mg/dL (0.55-1.3); GLUCOSE,RANDOM 221 mg/dL (74-106); MAGNESIUM 2.4 mg/dL (1.8-2.4); PHOSPHOROUS 4.6 mg/dL (2.5-4.9); SODIUM 134 mmol/L (136-145)
[2018-08-17] MEDS: ALBUTEROL SO4 2.5/IPRATROPIUM 0.5 INH SOL 3 ML VIAL.NEB. NEB PRN ×3 (07:20→23:08)
--- NOTE | 2018-08-17 07:51 | PN ---
Progress Note (short form) - Note Progress Note: RENAL Pt is awake and alert sitting on side of bed Last Vital Signs Temp Pulse Resp BP Pulse Ox 98.9 F 84 20 115/63 98 08/17/18 06:00 08/17/18 06:00 08/17/18 06:00 08/17/18 06:00 08/16/18 21:00 lungs crackles at left base cvs s1s2 rr abd soft obese ext bilat edema neuro a+ox3 CBC, BMP 08/17/18 05:30 08/17/18 05:30 Current Medications Generic Name Dose Route Start Last Admin Trade Name Freq PRN Reason Stop Dose Admin Albuterol/Ipratropium 1 amp 08/13/18 09:00 08/16/18 23:01 Duoneb - NEB 1 amp Q6H PRN Administration SHORTNESS OF BREATH Aspirin 81 mg 08/13/18 10:00 08/16/18 09:40 Asa - PO Not Given DAILY [facility] Atorvastatin Calcium 40 mg 08/13/18 22:00 08/16/18 21:20 Lipitor - PO Not Given HS [facility] Clopidogrel Bisulfate 75 mg 08/13/18 10:00 08/16/18 09:41 Plavix - PO Not Given DAILY [facility] Docusate Sodium 100 mg 08/15/18 18:13 08/17/18 06:44 Colace - PO Not Given TID [facility] Furosemide 60 mg 08/15/18 13:32 08/17/18 06:45 Lasix Injection - IVPUSH 60 mg BID@0600,1400 [facility] Administration Heparin Sodium (Porcine) 5,000 unit 08/13/18 14:00 08/17/18 06:44 Heparin - SQ Not Given TID [facility] Insulin Aspart 1 vial 08/13/18 11:00 08/17/18 06:47 Novolog Vial Sliding Scale - SQ 4 units ACHS [facility] Administration Protocol Insulin Detemir 15 units 08/13/18 22:00 08/16/18 21:19 Levemir Vial SQ 15 units HS [facility] Administration Metoprolol Succinate 25 mg 08/13/18 10:00 08/16/18 09:40 Toprol Xl - PO 25 mg DAILY [facility] Administration Senna 1 tab 08/15/18 18:14 08/16/18 21:21 Senna - PO Not Given BID [facility] IMPRESSION 1. MIRTHA 2. CKD progressive since 2017 3. CHF 4. fluid overload 5. DM 6. hyperlipidemia 7. HTN 8. non compliance 9. CAD 10. nephrotic proteinuria Plan - cont with lasix - monitor lytes - he does not want a kidney biopsy - hold elizabeth - renal diet -hep panel -needs outpatient follow up -save left arm MV
[2018-08-17] MEDS: metoPROLOL SUCCINATE 25 MG TAB.SR.24H (FP) PO SCH (11:37)
[2018-08-17] MEDS: ASPIRIN 81 MG CHEWABLE TABLETS PO SCH (11:37)
[2018-08-17] MEDS: CLOPIDOGREL BISULFATE 75 MG TABLET (FP) PO SCH (11:38)
[2018-08-17] MEDS: SENNOSIDES 8.6MG TABLET (FP) PO SCH ×2 (11:39→21:47)
--- NOTE | 2018-08-17 12:42 | PN ---
Physical Exam: SUBJECTIVE: Patient seen and examined. No events overnight. Offers no complaints. OBJECTIVE: Vital Signs Period Temp Pulse Resp BP Sys/Humphreys Pulse Ox Last 24 Hr 97.9 F-98.9 F 77-84 18-20 113-133/61-76 98-98 Limited PE. Patient refusing. GENERAL: sleeping comfortably EYES: conjunctiva clear. ENT: moist mucous membranes. LUNGS: some crackles at the bases HEART: RRR ABDOMEN: Soft, nontender, nondistended EXTREMITIES: 1+ edema Laboratory Results - last 24 hr 08/16/18 08/16/18 08/17/18 17:29 21:17 05:30 WBC 10.2 H RBC 3.44 L Hgb 9.7 L Hct 29.0 L MCV 84.1 MCH 28.2 MCHC 33.5 RDW 15.1 Plt Count 243 MPV 9.2 Absolute Neuts (auto) 7.5 Neutrophils % 73.7 Lymphocytes % 13.1 Monocytes % 9.2 Eosinophils % 3.1 Basophils % 0.9 Nucleated RBC % 0 Sodium Potassium Chloride Carbon Dioxide Anion Gap BUN Creatinine Creat Clearance w eGFR POC Glucometer 197 206 Random Glucose Calcium Phosphorus Magnesium 08/17/18 08/17/18 08/17/18 05:30 06:08 11:35 WBC RBC Hgb Hct MCV MCH MCHC RDW Plt Count MPV Absolute Neuts (auto) Neutrophils % Lymphocytes % Monocytes % Eosinophils % Basophils % Nucleated RBC % Sodium 134 L Potassium 5.0 Chloride 102 Carbon Dioxide 24 Anion Gap 9 BUN 80 H Creatinine 3.8 H Creat Clearance w eGFR 16.50 POC Glucometer 208 192 Random Glucose 221 H Calcium 8.3 L Phosphorus 4.6 Magnesium 2.4 Active Medications Generic Name Dose Route Start Last Admin Trade Name Freq PRN Reason Stop Dose Admin Albuterol/Ipratropium 1 amp 08/13/18 09:00 08/17/18 07:20 Duoneb - NEB 1 amp Q6H PRN Administration SHORTNESS OF BREATH Aspirin 81 mg 08/13/18 10:00 08/17/18 11:37 Asa - PO 81 mg DAILY [facility] Administration Atorvastatin Calcium 40 mg 08/13/18 22:00 08/16/18 21:20 Lipitor - PO Not Given HS [facility] Clopidogrel Bisulfate 75 mg 08/13/18 10:00 08/17/18 11:38 Plavix - PO Not Given DAILY [facility] Docusate Sodium 100 mg 08/15/18 18:13 08/17/18 06:44 Colace - PO Not Given TID [facility] Furosemide 60 mg 08/15/18 13:32 08/17/18 06:45 Lasix Injection - IVPUSH 60 mg BID@0600,1400 [facility] Administration Heparin Sodium (Porcine) 5,000 unit 08/13/18 14:00 08/17/18 06:44 Heparin - SQ Not Given TID [facility] Insulin Aspart 1 vial 08/13/18 11:00 08/17/18 11:39 Novolog Vial Sliding Scale - SQ 2 units ACHS [facility] Administration Protocol Insulin Detemir 15 units 08/13/18 22:00 08/16/18 21:19 Levemir Vial SQ 15 units HS [facility] Administration Metoprolol Succinate 25 mg 08/13/18 10:00 08/17/18 11:37 Toprol Xl - PO 25 mg DAILY [facility] Administration Senna 1 tab 08/15/18 18:14 08/17/18 11:39 Senna - PO Not Given BID [facility] ASSESSMENT/PLAN: 57 y/o M with PMHx of IDDM, Systolic CHF, CAD (not a candidate for PCI or CABG, refuses AICD), HTN, CVA, PAD, diabetic neuropathy s/p toe amputation, CKD was admitted for Acute CHF exacerbation. #Acute on Chronic Systolic CHF exacerbation -Cont. IV Furosemide 60mg BID. Increase if needed -Cardiology consulted, appreciate rec's -Daily weights, strict I&O's. Patient not complying with I/o's -Refuses tele monitor -Duoneb -Supplemental O2 #Acute on Chronic CKD -In the setting of likely underlying diabetic nephropathy with components of hypertension -Nephrology consulted, appreciate rec's -patient refusing Kidney biopsy #IDDM -Detemir 15u HS -ISS BGMs ACHS #CAD -Refuses AICD placement -Continue ASA, plavix, atorvasatin, Metoprolol #HTN -Continue Metoprolol Succinate 25mg PO Daily -Hold ACEi in the setting of CKD #PAD -Continue ASA, Plavix, Statin #FEN -no fluids -Monitor lytes -Diabetic/sodium controlled diet #PPx Heparin sq Visit type - Emergency Visit Emergency Visit: Yes ED Registration Date: 08/13/18 Care time: The patient presented to the Emergency Department on the above date and was hospitalized for further evaluation of their emergent condition. - New Patient This patient is new to me today: Yes Date on this admission: 08/17/18 - Critical Care Critical Care patient: No
--- NOTE | 2018-08-17 12:56 | PN ---
Progress Note (short form) - Note Progress Note: s: sob improving, no chest pain, palps, dizziness Current Medications Albuterol/Ipratropium (Duoneb -) 1 amp NEB Q6H PRN PRN Reason: SHORTNESS OF BREATH Last Admin: 08/17/18 07:20 Dose: 1 amp Aspirin (Asa -) 81 mg PO DAILY [facility] Last Admin: 08/17/18 11:37 Dose: 81 mg Atorvastatin Calcium (Lipitor -) 40 mg PO HS [facility] Last Admin: 08/16/18 21:20 Dose: Not Given Clopidogrel Bisulfate (Plavix -) 75 mg PO DAILY [facility] Last Admin: 08/17/18 11:38 Dose: Not Given Docusate Sodium (Colace -) 100 mg PO TID [facility] Last Admin: 08/17/18 06:44 Dose: Not Given Heparin Sodium (Porcine) (Heparin -) 5,000 unit SQ TID [facility] Last Admin: 08/17/18 06:44 Dose: Not Given Insulin Aspart (Novolog Vial Sliding Scale -) 1 vial SQ [facility]; Protocol Last Admin: 08/17/18 11:39 Dose: 2 units Insulin Detemir (Levemir Vial) 15 units SQ [facility] Last Admin: 08/16/18 21:19 Dose: 15 units Metoprolol Succinate (Toprol Xl -) 25 mg PO DAILY [facility] Last Admin: 08/17/18 11:37 Dose: 25 mg Senna (Senna -) 1 tab PO BID [facility] Last Admin: 08/17/18 11:39 Dose: Not Given Vital Signs Period Temp Pulse Resp BP Sys/Humphreys Pulse Ox Last 24 Hr 97.9 F-98.9 F 77-84 18-20 113-133/61-76 98-98 Constitutional: Yes: No Distress, Calm Eyes: Yes: Conjunctiva Clear, Neck: Yes: Supple, Trachea Midline Respiratory: Yes: Regular, Diminished (bases bilaterally) Gastrointestinal: Yes: Normal Bowel Sounds, Soft Cardiovascular: Yes: Regular Rate and Rhythm JVD: Yes Heart Sounds: Yes: S1, S2 Murmur: No: Systolic Murmur Musculoskeletal: No: Back Pain Extremities: No: Cold Edema: Yes Edema: LLE: 1+, RLE: 1+ Peripheral Pulses: 2+ Left Doralis Pedis, 2+ Right Dorsalis Pedis Neurological: Yes: Alert, Oriented Psychiatric: No: Agitated Assessment/Plan CXR: congestive changes EKG: sinus, LBBB echo 03/2017 mildly dilated LV, mid anteroseptal akinesis, apical anterior akinesis, apical akinesis, basal inferior wall severe hypokinesis, mid inferior wall severe hypokinesis, mod MV thickening, mild MR, mild TR, mild to mod ao sclerosis echo 07/2018 severe LV hypokinesis with lg region of apical akinesis, EF 25%, grade II diastolic dysfunctoin with elevated LA pressure, mod MR tele: refusing 57 year old male with a past medical history of IDDMII, Systolic CHF, CAD with ASHD not a candidate for PCI or CABG and refusing AICD, HTN, CVA, PAD, diabetic neuropathy s/p toe amputation, CKD p/w sob Acute on chronic systolic HF, moderate to severe MR - history of noncompliance with medications, poor follow up - previously refused ICD placement - echo severe LV hypokinesis, EF 25% - continue toprol, holding lisinopril for MIRTHA - Cr stable. lasix increased to 60 mg IV BID yesterday, weight stable - increase to 80 mg IV BID today - monitor Cr, daily standing weight, lytes elevated troponin - indeterminate range, flat trend - likely demand in setting of acute CHF exac CAD - reportedly not candidate for PCI or CABG at [facility] (no viability per prior reports) - continue aspirin, plavix, lipitor, toprol CKD - Cr 4.0 on admission, unknown baseline - renal consulted tobacco use - encouraged cessation DM - manage per primary PAD - cont aspirin, plavix, statin HTN - cont metoprolol
--- NOTE | 2018-08-17 14:29 | PN ---
Teaching Attending Note Name of Resident: Georgi Bryant ATTENDING PHYSICIAN STATEMENT I saw and evaluated the patient. I reviewed the resident's note and discussed the case with the resident. I agree with the resident's findings and plan as documented. refused interview and exam ASSESSMENT AND PLAN: 57 y/o man with h/o chronic systolic and diastolic heart failure , ischemic CMP , CAD, HLP, HTN, non compliance, DM , HLP, neuropathy, CVA, and PVD who presented with SOB and was found to be in acute heart failure 1- Acute on chronic systolic and diastolic heart failure : unable to clinically evaluate pt as he refused, but weight is stable - appreciate Card help, lasix was increased today - echo reviewed. - cont BB , hold ACEI. - elevated trop is likely demand ischemia - refused AICD in past 2- MIRTHA, ? CKD: unknown base line. - cont to monitor renal function with diuresis - hold ACEI 3- H/O CAD, not a candidate for cath - cont ASA , plavix, BB and statin 4- Mod to evere MR, f/u as out pt 5- DM: Levemir and SSI 6- Incidental finding of L renal cyst : f/u as out pt DVT PX : heparin Sq
[2018-08-17] MEDS: ATORVASTATIN CA 40 MG TABLET (FP) PO SCH ×2 (21:47→21:50)
[2018-08-17] MEDS: INSULIN (LEVEMIR) 100 UNITS/ML UNITS SQ SCH (23:03)
[2018-08-18] MEDS: ALBUTEROL SO4 2.5/IPRATROPIUM 0.5 INH SOL 3 ML VIAL.NEB. NEB PRN (04:45)
[2018-08-18] MEDS: DOCUSATE SODIUM 100 MG CAPSULE (FP) PO SCH ×3 (06:00→21:48)
[2018-08-18] MEDS: HEPARIN NA (PORCINE) 5,000 UNITS/ML 1ML VIAL SQ SCH ×3 (06:10→21:49)
[2018-08-18] MEDS: FUROSEMIDE 40 MG/4 ML INJECTABLE VIAL IVPUSH SCH (06:10)
[2018-08-18] MEDS: INSULIN SLIDING SCALE (NOVOLOG) 1 VIAL SQ SCH ×4 (06:23→21:48)
[2018-08-18 07:38] LABS: HEMATOCRIT 29.4 % (35.4-49); HEMOGLOBIN 9.8 GM/dL (11.7-16.9); MCH 28.6 pg (25.7-33.7); MCHC 33.3 g/dl (32.0-35.9); MEAN CELL VOLUME 85.9 fl (80-96); MEAN PLT VOLUME 9.3 fl (7.5-11.1); PLATELET COUNT 232 K/MM3 (134-434); RBC 3.42 M/mm3 (4.00-5.60); RDW 15.6 % (11.9-15.9); WHITE BLOOD COUNT 10.2 K/mm3 (4.0-10.0)
[2018-08-18] MEDS ORDERED: METOLAZONE 5 MG TABLET PO ONE (08:15)
--- NOTE | 2018-08-18 08:15 | PN ---
Progress Note (short form) - Note Progress Note: RENAL Pt is awake and alert sitting on side of bed feels cold and is dressed Last Vital Signs Temp Pulse Resp BP Pulse Ox 98.3 F 88 18 121/68 98 08/18/18 05:53 08/18/18 05:53 08/18/18 05:53 08/18/18 05:53 08/17/18 21:00 lungs crackles at left base cvs s1s2 rr abd soft obese ext bilat edema neuro a+ox3 CBC, BMP 08/18/18 05:30 Current Medications Generic Name Dose Route Start Last Admin Trade Name Freq PRN Reason Stop Dose Admin Albuterol/Ipratropium 1 amp 08/13/18 09:00 08/18/18 04:45 Duoneb - NEB 1 amp Q6H PRN Administration SHORTNESS OF BREATH Aspirin 81 mg 08/13/18 10:00 08/17/18 11:37 Asa - PO 81 mg DAILY GABBY Administration Atorvastatin Calcium 40 mg 08/13/18 22:00 08/17/18 21:50 Lipitor - PO Not Given HS GABBY Clopidogrel Bisulfate 75 mg 08/13/18 10:00 08/17/18 11:38 Plavix - PO Not Given DAILY G[facility] Docusate Sodium 100 mg 08/15/18 18:13 08/18/18 06:00 Colace - PO Not Given TID GABBY Furosemide 80 mg 08/17/18 12:55 08/18/18 06:10 Lasix Injection - IVPUSH 80 mg BID@0600,1400 GABBY Administration Heparin Sodium (Porcine) 5,000 unit 08/13/18 14:00 08/18/18 06:10 Heparin - SQ 5,000 unit TID GABBY Administration Insulin Aspart 1 vial 08/13/18 11:00 08/18/18 06:23 Novolog Vial Sliding Scale - SQ 4 units ACHS GABBY Administration Protocol Insulin Detemir 15 units 08/13/18 22:00 08/17/18 23:03 Levemir Vial SQ 15 units HS GABBY Administration Metoprolol Succinate 25 mg 08/13/18 10:00 08/17/18 11:37 Toprol Xl - PO 25 mg DAILY GABBY Administration Senna 1 tab 08/15/18 18:14 08/17/18 21:47 Senna - PO Not Given BID COUNTS INCLUDE 234 BEDS AT THE [facility] IMPRESSION 1. MIRTHA 2. CKD progressive since 2017 3. CHF 4. fluid overload 5. DM 6. hyperlipidemia 7. HTN 8. non compliance 9. CAD 10. nephrotic proteinuria Plan - cont with lasix - monitor lytes - he does not want a kidney biopsy - hold elizabeth - renal diet -hep panel -needs outpatient follow up -save left arm- needs fistula -add metolazone MV
[2018-08-18 08:31] LABS: ALBUMIN 3.3 g/dl (3.4-5.0); ALK PHOS 76 U/L (45-117); ANION GAP 8 MMOL/L (8-16); BILIRUBIN,TOTAL 0.6 mg/dL (0.2-1); BLOOD UREA NITROGEN 81 mg/dL (7-18); CALCIUM 8.3 mg/dL (8.5-10.1); CHLORIDE 99 mmol/L (98-107); CO2 24 mmol/L (21-32); GLUCOSE,RANDOM 214 mg/dL (74-106); SGOT/AST 8 U/L (15-37); SGPT/ALT 15 U/L (13-61); SODIUM 131 mmol/L (136-145); TOT PROT 7.6 g/dl (6.4-8.2)
[2018-08-18] MEDS: metoPROLOL SUCCINATE 25 MG TAB.SR.24H (FP) PO SCH (10:02)
[2018-08-18] MEDS: SENNOSIDES 8.6MG TABLET (FP) PO SCH ×2 (10:04→21:49)
[2018-08-18] MEDS: CLOPIDOGREL BISULFATE 75 MG TABLET (FP) PO SCH (10:04)
[2018-08-18] MEDS: ASPIRIN 81 MG CHEWABLE TABLETS PO SCH (10:04)
--- NOTE | 2018-08-18 11:05 | PN ---
Progress Note (short form) - Note Progress Note: s: sob stable. no chest pain, palps, dizziness Current Medications Aspirin (Asa -) 81 mg PO DAILY [facility] Last Admin: 08/18/18 10:04 Dose: Not Given Atorvastatin Calcium (Lipitor -) 40 mg PO HS [facility] Last Admin: 08/17/18 21:50 Dose: Not Given Clopidogrel Bisulfate (Plavix -) 75 mg PO DAILY [facility] Last Admin: 08/18/18 10:04 Dose: Not Given Docusate Sodium (Colace -) 100 mg PO TID [facility] Last Admin: 08/18/18 06:00 Dose: Not Given Furosemide (Lasix Injection -) 80 mg IVPUSH BID@0600,1400 [facility] Last Admin: 08/18/18 06:10 Dose: 80 mg Heparin Sodium (Porcine) (Heparin -) 5,000 unit SQ TID [facility] Last Admin: 08/18/18 06:10 Dose: 5,000 unit Insulin Aspart (Novolog Vial Sliding Scale -) 1 vial SQ [facility]; Protocol Last Admin: 08/18/18 06:23 Dose: 4 units Insulin Detemir (Levemir Vial) 15 units SQ [facility] Last Admin: 08/17/18 23:03 Dose: 15 units Metoprolol Succinate (Toprol Xl -) 25 mg PO DAILY [facility] Last Admin: 08/18/18 10:02 Dose: 25 mg Senna (Senna -) 1 tab PO BID [facility] Last Admin: 08/18/18 10:04 Dose: Not Given Vital Signs Period Temp Pulse Resp BP Sys/Humphreys Pulse Ox Last 24 Hr 98.3 F-98.9 F 71-88 18-20 107-137/62-88 98 Constitutional: Yes: No Distress, Calm Eyes: Yes: Conjunctiva Clear, Neck: Yes: Supple, Trachea Midline Respiratory: Yes: Regular, Diminished (bases bilaterally) Gastrointestinal: Yes: Normal Bowel Sounds, Soft Cardiovascular: Yes: Regular Rate and Rhythm JVD: Yes Heart Sounds: Yes: S1, S2 Murmur: No: Systolic Murmur Musculoskeletal: No: Back Pain Extremities: No: Cold Edema: Yes Edema: LLE: 1+, RLE: 1+ Peripheral Pulses: 2+ Left Doralis Pedis, 2+ Right Dorsalis Pedis Neurological: Yes: Alert, Oriented Psychiatric: No: Agitated Assessment/Plan CXR: congestive changes EKG: sinus, LBBB echo 03/2017 mildly dilated LV, mid anteroseptal akinesis, apical anterior akinesis, apical akinesis, basal inferior wall severe hypokinesis, mid inferior wall severe hypokinesis, mod MV thickening, mild MR, mild TR, mild to mod ao sclerosis echo 07/2018 severe LV hypokinesis with lg region of apical akinesis, EF 25%, grade II diastolic dysfunctoin with elevated LA pressure, mod MR tele: refusing 57 year old male with a past medical history of IDDMII, Systolic CHF, CAD with ASHD not a candidate for PCI or CABG and refusing AICD, HTN, CVA, PAD, diabetic neuropathy s/p toe amputation, CKD p/w sob Acute on chronic systolic HF, moderate to severe MR - history of noncompliance with medications, poor follow up - previously refused ICD placement - echo severe LV hypokinesis, EF 25% - continue toprol, holding lisinopril for MIRTHA - Cr stable. weight stable, increase lasix to 100 mg IV BID - monitor Cr, daily standing weight, lytes elevated troponin - indeterminate range, flat trend - likely demand in setting of acute CHF exac CAD - reportedly not candidate for PCI or CABG at [facility] (no viability per prior reports) - continue aspirin, plavix, lipitor, toprol CKD - Cr 4.0 on admission, unknown baseline - renal consulted tobacco use - encouraged cessation DM - manage per primary PAD - cont aspirin, plavix, statin HTN - cont metoprolol
[2018-08-18] MEDS: FUROSEMIDE 100 MG/10 ML INJECTABLE VIAL IVPUSH SCH (13:31)
--- NOTE | 2018-08-18 16:07 | PN ---
Physical Exam: SUBJECTIVE: Patient seen and examined. He is ambulating in hallway without difficulty. OBJECTIVE: Vital Signs Period Temp Pulse Resp BP Sys/Humphreys Pulse Ox Last 24 Hr 98.3 F-98.9 F 71-88 18-20 107-137/62-88 97-98 GENERAL: The patient is awake, alert, and fully oriented, in no acute distress. LUNGS: Breath sounds equal, clear to auscultation bilaterally, no wheezes, no crackles, no accessory muscle use. HEART: Regular rate and rhythm, S1, S2 without murmur, rub or gallop. ABDOMEN: Obese, soft, nontender, nondistended, normoactive bowel sounds, no guarding, no rebound, no hepatosplenomegaly, no masses. EXTREMITIES: 2+ pulses, warm, well-perfused, 2+ edema. Laboratory Results - last 24 hr 08/17/18 08/17/18 08/18/18 16:55 22:06 05:30 WBC 10.2 H RBC 3.42 L Hgb 9.8 L Hct 29.4 L MCV 85.9 MCH 28.6 MCHC 33.3 RDW 15.6 Plt Count 232 MPV 9.3 Sodium Potassium Chloride Carbon Dioxide Anion Gap BUN Creatinine Creat Clearance w eGFR POC Glucometer 209 185 Random Glucose Calcium Total Bilirubin AST ALT Alkaline Phosphatase Total Protein Albumin 08/18/18 08/18/18 08/18/18 05:30 06:13 12:16 WBC RBC Hgb Hct MCV MCH MCHC RDW Plt Count MPV Sodium 131 L Potassium 5.0 Chloride 99 Carbon Dioxide 24 Anion Gap 8 BUN 81 H Creatinine 4.0 H Creat Clearance w eGFR 15.55 POC Glucometer 211 188 Random Glucose 214 H Calcium 8.3 L Total Bilirubin 0.6 AST 8 L ALT 15 Alkaline Phosphatase 76 Total Protein 7.6 Albumin 3.3 L Active Medications Generic Name Dose Route Start Last Admin Trade Name Freq PRN Reason Stop Dose Admin Aspirin 81 mg 08/13/18 10:00 08/18/18 10:04 Asa - PO Not Given DAILY [facility] Atorvastatin Calcium 40 mg 08/13/18 22:00 08/17/18 21:50 Lipitor - PO Not Given HS GABBY Clopidogrel Bisulfate 75 mg 08/13/18 10:00 08/18/18 10:04 Plavix - PO Not Given DAILY [facility] Docusate Sodium 100 mg 08/15/18 18:13 08/18/18 13:01 Colace - PO Not Given TID [facility] Furosemide 100 mg 08/18/18 11:40 08/18/18 13:31 Lasix Injection - IVPUSH 100 mg BID@0600,1400 GABBY Administration Heparin Sodium (Porcine) 5,000 unit 08/13/18 14:00 08/18/18 13:01 Heparin - SQ Not Given TID GABBY Insulin Aspart 1 vial 08/13/18 11:00 08/18/18 13:00 Novolog Vial Sliding Scale - SQ Not Given ACHS [facility] Protocol Insulin Detemir 15 units 08/13/18 22:00 08/17/18 23:03 Levemir Vial SQ 15 units HS GABBY Administration Metoprolol Succinate 25 mg 08/13/18 10:00 08/18/18 10:02 Toprol Xl - PO 25 mg DAILY GABBY Administration Senna 1 tab 08/15/18 18:14 08/18/18 10:04 Senna - PO Not Given BID [facility] ASSESSMENT/PLAN: This is a 57 year old man with a history of chronic systolic heart failure, ischemic cardiomyopathy, CAD, HTN, hyperlipidemia, CKD, type 2 DM with neuropathy, PAD, CVA who presented to the ED with SOB. 1. Acute on chronic systolic heart failure - Continue Lasix IV - has been increased to 100mg bid - Zaroxolyn 5mg given today - Lisinopril held secondary to MIRTHA 2. Demand ischemia 3. CAD with ischemic cardiomyopathy - Continue aspirin, Plavix, Toprol XL, Lipitor - Records show he has severe triple vessel disease with infarct and no reversible ischemia - Refused AICD 4. Moderate to severe mitral regurgitation 5. Acute kidney injury on stage 3 CKD, possible cardiorenal syndrome - Continue Lasix - Creatinine unchanged at 4.0, BUN remains high at 81 - Patient refused kidney biopsy 6. HTN - Continue Toprol XL, Lasix 7. Hyperlipidemia - Continue Lipitor 8. Type 2 DM with peripheral neuropathy - Continue Levemir, Novolog sliding scale 9. PAD - Continue aspirin, Plavix, Lipitor 10. History of CVA - Continue aspirin, Plavix, Lipitor 11. Nicotine dependence - Smoking cessation counselling 12. Obesity with BMI 32.5 13. DVT prophylaxis - On heparin subq Visit type - Emergency Visit Emergency Visit: Yes ED Registration Date: 08/13/18 Care time: The patient presented to the Emergency Department on the above date and was hospitalized for further evaluation of their emergent condition. - New Patient This patient is new to me today: No - Critical Care Critical Care patient: No - Discharge Referral Referred to [facility] No
[2018-08-18] MEDS: ATORVASTATIN CA 40 MG TABLET (FP) PO SCH (21:49)
[2018-08-18] MEDS: INSULIN (LEVEMIR) 100 UNITS/ML UNITS SQ SCH (21:50)
[2018-08-19] MEDS: DOCUSATE SODIUM 100 MG CAPSULE (FP) PO SCH ×3 (05:59→23:07)
[2018-08-19] MEDS: HEPARIN NA (PORCINE) 5,000 UNITS/ML 1ML VIAL SQ SCH ×3 (05:59→23:11)
[2018-08-19] MEDS: FUROSEMIDE 100 MG/10 ML INJECTABLE VIAL IVPUSH SCH ×2 (06:00→14:01)
[2018-08-19] MEDS: INSULIN SLIDING SCALE (NOVOLOG) 1 VIAL SQ SCH ×4 (06:01→23:11)
[2018-08-19 06:37] LABS: HEMOGLOBIN 9.5 GM/dL (11.7-16.9); MCH 28.4 pg (25.7-33.7); MCHC 33.7 g/dl (32.0-35.9); MEAN CELL VOLUME 84.3 fl (80-96); PLATELET COUNT 243 K/MM3 (134-434); RBC 3.33 M/mm3 (4.00-5.60); RDW 15.4 % (11.9-15.9); WHITE BLOOD COUNT 10.7 K/mm3 (4.0-10.0)
[2018-08-19 07:01] LABS: ANION GAP 11 MMOL/L (8-16); BLOOD UREA NITROGEN 89 mg/dL (7-18); CALCIUM 8.2 mg/dL (8.5-10.1); CHLORIDE 95 mmol/L (98-107); CO2 25 mmol/L (21-32); GLUCOSE,RANDOM 257 mg/dL (74-106); MAGNESIUM 2.3 mg/dL (1.8-2.4); POTASSIUM 4.7 mmol/L (3.5-5.1); SODIUM 132 mmol/L (136-145)
--- NOTE | 2018-08-19 09:59 | PN ---
Progress Note, Physician Chief Complaint: seen and examined on tele No distress Denies CP or SOB Refused tele monitor - Current Medication List Current Medications: Active Medications Aspirin (Asa -) 81 mg PO DAILY [facility] Last Admin: 08/18/18 10:04 Dose: Not Given Atorvastatin Calcium (Lipitor -) 40 mg PO HS [facility] Last Admin: 08/18/18 21:49 Dose: Not Given Clopidogrel Bisulfate (Plavix -) 75 mg PO DAILY [facility] Last Admin: 08/18/18 10:04 Dose: Not Given Docusate Sodium (Colace -) 100 mg PO TID [facility] Last Admin: 08/19/18 05:59 Dose: Not Given Furosemide (Lasix Injection -) 100 mg IVPUSH BID@0600,1400 [facility] Last Admin: 08/19/18 06:00 Dose: 100 mg Heparin Sodium (Porcine) (Heparin -) 5,000 unit SQ TID [facility] Last Admin: 08/19/18 05:59 Dose: Not Given Insulin Aspart (Novolog Vial Sliding Scale -) 1 vial SQ [facility]; Protocol Last Admin: 08/19/18 06:01 Dose: 6 units Insulin Detemir (Levemir Vial) 15 units SQ [facility] Last Admin: 08/18/18 21:50 Dose: Not Given Metoprolol Succinate (Toprol Xl -) 25 mg PO DAILY [facility] Last Admin: 08/18/18 10:02 Dose: 25 mg Nystatin (Mycostatin Cream -) 1 applic TP BID [facility] Senna (Senna -) 1 tab PO BID [facility] Last Admin: 08/18/18 21:49 Dose: Not Given - Objective Vital Signs: Vital Signs Temperature 97.9 F 08/19/18 04:33 Pulse Rate 84 08/19/18 04:33 Respiratory Rate 20 08/19/18 04:33 Blood Pressure 111/67 08/19/18 04:33 O2 Sat by Pulse Oximetry (%) 97 08/18/18 21:00 Constitutional: Yes: No Distress Eyes: Yes: Conjunctiva Clear Cardiovascular: Yes: Regular Rate and Rhythm Respiratory: Yes: Other (bibasilar rales.) Gastrointestinal: Yes: Soft Edema: Yes Edema: LLE: 2+, RLE: 2+ Neurological: Yes: Alert, Oriented ...Motor Strength: WNL Labs: CBC, BMP 08/19/18 05:30 08/19/18 05:30 Laboratory Tests 08/19/18 08/19/18 05:30 05:30 WBC 10.7 H Hgb 9.5 L Hct 28.0 L Plt Count 243 Sodium 132 L Potassium 4.7 BUN 89 H Creatinine 4.0 H Magnesium 2.3 Assessment/Plan 57 year old male with a past medical history of IDDMII, Systolic CHF, CAD with ASHD not a candidate for PCI or CABG and refusing AICD, HTN, CVA, PAD, diabetic neuropathy s/p toe amputation, CKD p/w sob 1. Acute on chronic systolic HF, moderate to severe MR: - history of noncompliance with medications, poor follow up - previously refused ICD placement - echo severe LV hypokinesis, EF 25% - continue toprol, holding lisinopril for MIRTHA - Cr stable. weight stable; Lasix was titrated over weekend. Monitor weights and renal function, electrolytes. 2. Elevated troponin: - indeterminate range, flat trend - likely demand in setting of acute CHF exac 3. CAD : - reportedly not candidate for PCI or CABG at [facility] (no viability per prior reports) - continue aspirin, plavix, lipitor, toprol 4. CKD: - Cr 4.0 on admission, unknown baseline - renal following 5. Tobacco use: - encouraged cessation 6. DM: - manage per primary 7. PAD: - cont aspirin, plavix, statin 8. HTN: - cont metoprolol
[2018-08-19] MEDS: metoPROLOL SUCCINATE 25 MG TAB.SR.24H (FP) PO SCH (10:21)
[2018-08-19] MEDS: SENNOSIDES 8.6MG TABLET (FP) PO SCH ×2 (10:22→23:11)
[2018-08-19] MEDS: CLOPIDOGREL BISULFATE 75 MG TABLET (FP) PO SCH (10:22)
[2018-08-19] MEDS: ASPIRIN 81 MG CHEWABLE TABLETS PO SCH (10:23)
[2018-08-19] MEDS ORDERED: INSULIN (LEVEMIR) 100 UNITS/ML UNITS SQ SCH (11:38)
[2018-08-19] MEDS: NYSTATIN 100,000 UNIT/GM TOPICAL CREAM 15 GM TUBE TP SCH ×2 (12:14→23:15)
--- NOTE | 2018-08-19 12:19 | PN ---
Progress Note, Physician History of Present Illness: Pt seen and examined at bedside. He is awake and alert. He still has shortness of breath but feels that it is improving. - Current Medication List Current Medications: Active Medications Albuterol Sulfate (Ventolin 0.083% Nebulizer Soln -) 1 amp NEB Q4H PRN PRN Reason: SHORT OF BREATH/WHEEZING Aspirin (Asa -) 81 mg PO DAILY [facility] Last Admin: 08/19/18 10:23 Dose: Not Given Atorvastatin Calcium (Lipitor -) 40 mg PO HS [facility] Last Admin: 08/18/18 21:49 Dose: Not Given Clopidogrel Bisulfate (Plavix -) 75 mg PO DAILY [facility] Last Admin: 08/19/18 10:22 Dose: Not Given Docusate Sodium (Colace -) 100 mg PO TID [facility] Last Admin: 08/19/18 05:59 Dose: Not Given Furosemide (Lasix Injection -) 100 mg IVPUSH BID@0600,1400 [facility] Last Admin: 08/19/18 06:00 Dose: 100 mg Heparin Sodium (Porcine) (Heparin -) 5,000 unit SQ TID [facility] Last Admin: 08/19/18 05:59 Dose: Not Given Insulin Aspart (Novolog Vial Sliding Scale -) 1 vial SQ [facility]; Protocol Last Admin: 08/19/18 12:13 Dose: 2 units Insulin Detemir (Levemir Vial) 20 units SQ [facility] Metoprolol Succinate (Toprol Xl -) 25 mg PO DAILY [facility] Last Admin: 08/19/18 10:21 Dose: 25 mg Nystatin (Mycostatin Cream -) 1 applic TP BID [facility] Last Admin: 08/19/18 12:14 Dose: 1 applic Senna (Senna -) 1 tab PO BID [facility] Last Admin: 08/19/18 10:22 Dose: Not Given - Objective Vital Signs: Vital Signs Temperature 98.1 F 08/19/18 09:00 Pulse Rate 83 08/19/18 09:00 Respiratory Rate 22 H 08/19/18 09:00 Blood Pressure 101/57 L 08/19/18 09:00 O2 Sat by Pulse Oximetry (%) 97 08/18/18 21:00 Constitutional: Yes: Calm Eyes: Yes: Conjunctiva Clear HENT: Yes: Atraumatic Neck: Yes: Supple Cardiovascular: Yes: S1, S2 Respiratory: Yes: On Nasal O2 Gastrointestinal: Yes: Normal Bowel Sounds, Soft Genitourinary: Yes: WNL Musculoskeletal: Yes: WNL Edema: Yes Edema: LLE: 1+, RLE: 1+ Neurological: Yes: Oriented Psychiatric: Yes: Oriented Labs: CBC, BMP 08/19/18 05:30 08/19/18 05:30 Problem List - Problems (1) Acute on chronic systolic CHF (congestive heart failure) Code(s): I50.23 - ACUTE ON CHRONIC SYSTOLIC (CONGESTIVE) HEART FAILURE (2) SOB (shortness of breath) Code(s): R06.02 - SHORTNESS OF BREATH (3) MIRTHA (acute kidney injury) Code(s): N17.9 - ACUTE KIDNEY FAILURE, UNSPECIFIED (4) CHF (congestive heart failure) Code(s): I50.9 - HEART FAILURE, UNSPECIFIED (5) Type 2 diabetes mellitus Code(s): E11.9 - TYPE 2 DIABETES MELLITUS WITHOUT COMPLICATIONS (6) CKD (chronic kidney disease) Code(s): N18.9 - CHRONIC KIDNEY DISEASE, UNSPECIFIED Assessment/Plan Current Medications Generic Name Dose Route Start Last Admin Trade Name Freq PRN Reason Stop Dose Admin Albuterol Sulfate 1 amp 08/19/18 11:38 Ventolin 0.083% Nebulizer Soln - NEB Q4H PRN SHORT OF BREATH/WHEEZING Aspirin 81 mg 08/13/18 10:00 08/19/18 10:23 Asa - PO Not Given DAILY [facility] Atorvastatin Calcium 40 mg 08/13/18 22:00 08/18/18 21:49 Lipitor - PO Not Given HS [facility] Clopidogrel Bisulfate 75 mg 08/13/18 10:00 08/19/18 10:22 Plavix - PO Not Given DAILY [facility] Docusate Sodium 100 mg 08/15/18 18:13 08/19/18 05:59 Colace - PO Not Given TID [facility] Furosemide 100 mg 08/18/18 11:40 08/19/18 06:00 Lasix Injection - IVPUSH 100 mg BID@0600,1400 [facility] Administration Heparin Sodium (Porcine) 5,000 unit 08/13/18 14:00 08/19/18 05:59 Heparin - SQ Not Given TID [facility] Insulin Aspart 1 vial 08/13/18 11:00 08/19/18 12:13 Novolog Vial Sliding Scale - SQ 2 units ACHS [facility] Administration Protocol Insulin Detemir 20 units 08/19/18 11:38 Levemir Vial SQ HS [facility] Metoprolol Succinate 25 mg 08/13/18 10:00 08/19/18 10:21 Toprol Xl - PO 25 mg DAILY [facility] Administration Nystatin 1 applic 08/19/18 10:00 08/19/18 12:14 Mycostatin Cream - TP 1 applic BID [facility] Administration Senna 1 tab 08/15/18 18:14 08/19/18 10:22 Senna - PO Not Given BID [facility] Impression 1. MIRTHA 2. CKD 3. CHF 4. fluid overload 5. DM 6. hyperlipidemia 7. HTN 8. non compliance 9. CAD 10. nephrotic proteinuria Plan - cont lasix - called vascular for fistula/vein mapping - discussed care with pt and his brother - will need to prepare to for HD - compliance has been an issues with pt - hold elizabeth - pt and brother do not want kidney biopsy - renal diet Dr Blackwood
--- NOTE | 2018-08-19 12:56 | PN ---
Progress Note (short form) - Note Progress Note: Vascular Surgery Pt seen and examined. Pt needs av access for HD Pt is right handed. Will order vein mapping. Please save left arm. Vivek Hinton DO
--- NOTE | 2018-08-19 12:56 | PN ---
Teaching Attending Note Name of Resident: Cayla Ojeda ATTENDING PHYSICIAN STATEMENT I saw and evaluated the patient. I reviewed the resident's note and discussed the case with the resident. I agree with the resident's findings and plan as documented. SUBJECTIVE: No fever or chills . has SOB while supine. mild SOB with ambulating . No CP . OBJECTIVE: NAD CV : RRR, no MRG , no JVD Lungs: decreased breath sounds half way down. Ext : 3+ edema half way down legs . fungal infection among 3-4th, 4-5th toes on R. s/p L foot 2 digit amputation with an ulcer on dorsal area. no discharge. Abd: obese , NT, neg Hepatojugular reflux A/p : 57 y/o man with h/o chronic systolic and diastolic heart failure , ischemic CMP , CAD, HLP, HTN, non compliance, DM , HLP, neuropathy, CVA, and PVD who presented with SOB and was found to be in acute heart failure 1- Acute on chronic systolic and diastolic heart failure : - cont current dose of lasix - being evaluated for HD - cont to hold ACEI and cont BB - inaccurate I&O and ? weight 2- MIRTHA, ? CKD: unknown base line. - cont to monitor renal function with diuresis - hold ACEI 3- H/O CAD, not a candidate for cath. - cont ASA, plavix, BB and statin 4- Mod to evere MR, f/u as out pt 5- DM: increase Levemir and cont SSI 6- Incidental finding of L renal cyst : f/u as out pt DVT PX : heparin Sq
--- NOTE | 2018-08-19 13:13 | PN ---
Physical Exam: SUBJECTIVE: Patient seen and examined this AM. Continues to have SOB, Increased Edema. No acute overnight events as per nursing. OBJECTIVE: Vital Signs Period Temp Pulse Resp BP Sys/Humphreys Pulse Ox Last 24 Hr 97.7 F-98.1 F 79-84 - 101-122/57-68 97 GENERAL: A&Ox3, NAD HEAD: NCAT EYES: Right eye cloudiness accompanied by blindness ENT: Moist mucous membranes. NECK: Supple LUNGS: Diminished breath sounds at the bases, No wheezes, no crackles HEART: Regular rate and rhythm, S1, S2 without murmur ABDOMEN: Soft, nontender, nondistended, + bowel sounds EXTREMITIES: 3+ edema, Left 4th and 5th digit amputation with dorsal ulcerartion , No active discharge, no surrounding erythema NEUROLOGICAL: Cranial nerves II through XII grossly intact. SKIN: Warm, dry Laboratory Results - last 24 hr 08/18/18 08/18/18 08/19/18 16:40 21:46 05:30 WBC 10.7 H RBC 3.33 L Hgb 9.5 L Hct 28.0 L MCV 84.3 MCH 28.4 MCHC 33.7 RDW 15.4 Plt Count 243 MPV 9.0 Sodium Potassium Chloride Carbon Dioxide Anion Gap BUN Creatinine Creat Clearance w eGFR POC Glucometer 314 136 Random Glucose Calcium Magnesium 08/19/18 08/19/18 08/19/18 05:30 05:31 11:22 WBC RBC Hgb Hct MCV MCH MCHC RDW Plt Count MPV Sodium 132 L Potassium 4.7 Chloride 95 L Carbon Dioxide 25 Anion Gap 11 BUN 89 H Creatinine 4.0 H Creat Clearance w eGFR 15.55 POC Glucometer 276 167 Random Glucose 257 H Calcium 8.2 L Magnesium 2.3 Active Medications Albuterol Sulfate (Ventolin 0.083% Nebulizer Soln -) 1 amp NEB Q4H PRN PRN Reason: SHORT OF BREATH/WHEEZING Aspirin (Asa -) 81 mg PO DAILY [facility] Last Admin: 08/19/18 10:23 Dose: Not Given Atorvastatin Calcium (Lipitor -) 40 mg PO HS [facility] Last Admin: 08/18/18 21:49 Dose: Not Given Clopidogrel Bisulfate (Plavix -) 75 mg PO DAILY [facility] Last Admin: 08/19/18 10:22 Dose: Not Given Docusate Sodium (Colace -) 100 mg PO TID [facility] Last Admin: 08/19/18 05:59 Dose: Not Given Furosemide (Lasix Injection -) 100 mg IVPUSH BID@0600,1400 [facility] Last Admin: 08/19/18 06:00 Dose: 100 mg Heparin Sodium (Porcine) (Heparin -) 5,000 unit SQ TID [facility] Last Admin: 08/19/18 05:59 Dose: Not Given Insulin Aspart (Novolog Vial Sliding Scale -) 1 vial SQ ACHS [facility]; Protocol Last Admin: 08/19/18 12:13 Dose: 2 units Insulin Detemir (Levemir Vial) 20 units SQ HS [facility] Metoprolol Succinate (Toprol Xl -) 25 mg PO DAILY [facility] Last Admin: 08/19/18 10:21 Dose: 25 mg Nystatin (Mycostatin Cream -) 1 applic TP BID [facility] Last Admin: 08/19/18 12:14 Dose: 1 applic Senna (Senna -) 1 tab PO BID [facility] Last Admin: 08/19/18 10:22 Dose: Not Given IMAGING: -CXR: Some improvement. Decreased congestive changes. -Kidney/Renal US: Small left renal simple cyst measuring 1.6 cm. Both kidneys appear otherwise unremarkable without evidence of hydronephrosis or stones. Bilateral pleural effusion -EKG: NSR, LBBB, VR 73, QTc 478 -ECHO: Severe diffuse LV Hypokinesis, Large region of apical kinesis, EF = 25%, Grade 2 diastolic dysfunction, Moderate MR ASSESSMENT/PLAN: 57 y/o M with PMHx of IDDM, Systolic CHF, CAD (not a candidate for PCI or CABG, refuses AICD), HTN, CVA, PAD, diabetic neuropathy s/p toe amputation, CKD was admitted for Acute CHF exacerbation. #SOB---remains fluid overloaded likely due to Acute CHF Exacerbation -Cardiology consulted, appreciate rec's -IV Furosemide 100mg BID -Daily weights, strict I&O's -Refuses tele monitor -Duoneb, Ventolin -Supplemental O2 to maintain SpO2 88-92%; Will attempt to taper down #Acute on CKD--Under evaluation for HD -In the setting of likely underlying diabetic nephropathy with components of hypertension -Nephrology consulted, appreciate rec's #IDDM -Increase Detemir to 20u HS -ISS BGMs ACHS #CAD--Refuses AICD placement -Continue ASA, plavix, atorvasatin, Metoprolol #HTN -Continue Metoprolol Succinate 25mg PO Daily -Hold ACEi in the setting of CKD #PAD -Continue ASA, Plavix, Statin #Troponinemia -likely demand ischemia in the setting of acute CHF exacerbation #FEN -no standing fluids -Monitor lytes -Diabetic/sodium controlled diet #PPx -DVT: Heparin TID Visit type - Emergency Visit Emergency Visit: Yes ED Registration Date: 08/13/18 Care time: The patient presented to the Emergency Department on the above date and was hospitalized for further evaluation of their emergent condition. - New Patient This patient is new to me today: No - Critical Care Critical Care patient: No - Discharge Referral Referred to [facility] Med [facility].C[facility] No
[2018-08-19] MEDS: ALBUTEROL SO4 0.083% IH SOL 2.5 MG/3 ML VIAL.NEB. NEB PRN ×2 (14:05→23:00)
[2018-08-19] MEDS: ATORVASTATIN CA 40 MG TABLET (FP) PO SCH (23:11)
[2018-08-20] MEDS: HEPARIN NA (PORCINE) 5,000 UNITS/ML 1ML VIAL SQ SCH ×3 (06:32→22:30)
[2018-08-20] MEDS: FUROSEMIDE 100 MG/10 ML INJECTABLE VIAL IVPUSH SCH ×2 (06:32→14:02)
[2018-08-20] MEDS: INSULIN SLIDING SCALE (NOVOLOG) 1 VIAL SQ SCH ×5 (06:32→23:49)
[2018-08-20] MEDS: DOCUSATE SODIUM 100 MG CAPSULE (FP) PO SCH ×3 (06:38→22:30)
[2018-08-20] MEDS: ALBUTEROL SO4 0.083% IH SOL 2.5 MG/3 ML VIAL.NEB. NEB PRN ×4 (06:39→22:35)
[2018-08-20 07:59] LABS: BASO % 0.9 % (0-2.0); EOS % 2.9 % (0-4.5); HEMATOCRIT 27.1 % (35.4-49); HEMOGLOBIN 9.3 GM/dL (11.7-16.9); LYMPH % 13.9 % (8-40); MCH 28.6 pg (25.7-33.7); MCHC 34.1 g/dl (32.0-35.9); MEAN CELL VOLUME 83.8 fl (80-96); MEAN PLT VOLUME 9.1 fl (7.5-11.1); MONO % 9.4 % (3.8-10.2); NEUT % 72.9 % (42.8-82.8); PLATELET COUNT 234 K/MM3 (134-434); RBC 3.24 M/mm3 (4.00-5.60); RDW 15.3 % (11.9-15.9); WHITE BLOOD COUNT 9.3 K/mm3 (4.0-10.0)
[2018-08-20 08:27] LABS: ANION GAP 8 MMOL/L (8-16); BLOOD UREA NITROGEN 93 mg/dL (7-18); CALCIUM 8.2 mg/dL (8.5-10.1); CHLORIDE 93 mmol/L (98-107); CO2 27 mmol/L (21-32); CREATININE 3.9 mg/dL (0.55-1.3); GLUCOSE,RANDOM 276 mg/dL (74-106); MAGNESIUM 2.6 mg/dL (1.8-2.4); PHOSPHOROUS 5.7 mg/dL (2.5-4.9); POTASSIUM 4.5 mmol/L (3.5-5.1); SODIUM 129 mmol/L (136-145)
[2018-08-20] MEDS: CLOPIDOGREL BISULFATE 75 MG TABLET (FP) PO SCH (09:39)
[2018-08-20] MEDS: SENNOSIDES 8.6MG TABLET (FP) PO SCH ×2 (09:40→22:30)
[2018-08-20] MEDS: metoPROLOL SUCCINATE 25 MG TAB.SR.24H (FP) PO SCH (09:40)
[2018-08-20] MEDS: ASPIRIN 81 MG CHEWABLE TABLETS PO SCH (09:40)
[2018-08-20] MEDS: NYSTATIN 100,000 UNIT/GM TOPICAL CREAM 15 GM TUBE TP SCH ×2 (09:40→22:30)
--- NOTE | 2018-08-20 10:49 | PN ---
Progress Note (short form) - Note Progress Note: s: sob improving. no chest pain, palps, dizziness Current Medications Albuterol Sulfate (Ventolin 0.083% Nebulizer Soln -) 1 amp NEB Q4H PRN PRN Reason: SHORT OF BREATH/WHEEZING Last Admin: 08/20/18 06:39 Dose: 1 amp Aspirin (Asa -) 81 mg PO DAILY [facility] Last Admin: 08/20/18 09:40 Dose: 81 mg Atorvastatin Calcium (Lipitor -) 40 mg PO HS [facility] Last Admin: 08/19/18 23:11 Dose: Not Given Clopidogrel Bisulfate (Plavix -) 75 mg PO DAILY [facility] Last Admin: 08/20/18 09:39 Dose: 75 mg Docusate Sodium (Colace -) 100 mg PO TID [facility] Last Admin: 08/20/18 06:38 Dose: Not Given Furosemide (Lasix Injection -) 100 mg IVPUSH BID@0600,1400 [facility] Last Admin: 08/20/18 06:32 Dose: 100 mg Heparin Sodium (Porcine) (Heparin -) 5,000 unit SQ TID [facility] Last Admin: 08/20/18 06:32 Dose: 5,000 unit Insulin Aspart (Novolog Vial Sliding Scale -) 1 vial SQ [facility]; Protocol Last Admin: 08/20/18 06:32 Dose: 6 units Insulin Detemir (Levemir Vial) 20 units SQ [facility] Last Admin: 08/19/18 23:10 Dose: 20 units Metoprolol Succinate (Toprol Xl -) 25 mg PO DAILY [facility] Last Admin: 08/20/18 09:40 Dose: 25 mg Nystatin (Mycostatin Cream -) 1 applic TP BID [facility] Last Admin: 08/20/18 09:40 Dose: 1 applic Senna (Senna -) 1 tab PO BID [facility] Last Admin: 08/20/18 09:40 Dose: Not Given Vital Signs Period Temp Pulse Resp BP Sys/Humphreys Pulse Ox Last 24 Hr 98.0 F-98.3 F 78-84 20-20 117-147/66-71 99 Constitutional: Yes: No Distress, Calm Eyes: Yes: Conjunctiva Clear, Neck: Yes: Supple, Trachea Midline Respiratory: Yes: Regular, Diminished (bases bilaterally) Gastrointestinal: Yes: Normal Bowel Sounds, Soft Cardiovascular: Yes: Regular Rate and Rhythm JVD: Yes Heart Sounds: Yes: S1, S2 Murmur: No: Systolic Murmur Musculoskeletal: No: Back Pain Extremities: No: Cold Edema: Yes Edema: LLE: 1+, RLE: 1+ Peripheral Pulses: 2+ Left Doralis Pedis, 2+ Right Dorsalis Pedis Neurological: Yes: Alert, Oriented Psychiatric: No: Agitated Assessment/Plan CXR: congestive changes EKG: sinus, LBBB echo 03/2017 mildly dilated LV, mid anteroseptal akinesis, apical anterior akinesis, apical akinesis, basal inferior wall severe hypokinesis, mid inferior wall severe hypokinesis, mod MV thickening, mild MR, mild TR, mild to mod ao sclerosis echo 07/2018 severe LV hypokinesis with lg region of apical akinesis, EF 25%, grade II diastolic dysfunctoin with elevated LA pressure, mod MR tele: refusing 57 year old male with a past medical history of IDDMII, Systolic CHF, CAD with ASHD not a candidate for PCI or CABG and refusing AICD, HTN, CVA, PAD, diabetic neuropathy s/p toe amputation, CKD p/w sob Acute on chronic systolic HF, moderate to severe MR - history of noncompliance with medications, poor follow up - previously refused ICD placement - echo severe LV hypokinesis, EF 25% - continue toprol, holding lisinopril for MIRTHA - Cr stable. weight decreasing, continue lasix 100 mg IV BID - monitor Cr, daily standing weight, lytes elevated troponin - indeterminate range, flat trend - likely demand in setting of acute CHF exac CAD - reportedly not candidate for PCI or CABG at [facility] (no viability per prior reports) - continue aspirin, plavix, lipitor, toprol CKD - Cr 4.0 on admission, unknown baseline - renal consulted, evaluating for HD tobacco use - encouraged cessation DM - manage per primary PAD - cont aspirin, plavix, statin HTN - cont metoprolol
--- NOTE | 2018-08-20 14:59 | PN ---
Physical Exam: SUBJECTIVE: Patient seen and examined this AM. Edema improving. No new complaints. 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 NECK: Supple LUNGS: Diminished breath sounds at the bases, No wheezes, no crackles HEART: Regular rate and rhythm, S1, S2 without murmur ABDOMEN: Soft, nontender, nondistended, + bowel sounds EXTREMITIES: 1+ edema, Left 4th and 5th digit amputation with dorsal ulcerartion , No active discharge, no surrounding erythema NEUROLOGICAL: Cranial nerves II through XII grossly intact. SKIN: Warm, dry Laboratory Results - last 24 hr 08/19/18 08/19/18 08/20/18 16:31 23:08 05:46 WBC 9.3 RBC 3.24 L Hgb 9.3 L Hct 27.1 L MCV 83.8 MCH 28.6 MCHC 34.1 RDW 15.3 Plt Count 234 MPV 9.1 Absolute Neuts (auto) 6.8 Neutrophils % 72.9 Lymphocytes % 13.9 Monocytes % 9.4 Eosinophils % 2.9 Basophils % 0.9 Nucleated RBC % 0 Sodium Potassium Chloride Carbon Dioxide Anion Gap BUN Creatinine Creat Clearance w eGFR POC Glucometer 219 178 Random Glucose Calcium Phosphorus Magnesium 08/20/18 08/20/18 08/20/18 05:46 06:31 12:13 WBC RBC Hgb Hct MCV MCH MCHC RDW Plt Count MPV Absolute Neuts (auto) Neutrophils % Lymphocytes % Monocytes % Eosinophils % Basophils % Nucleated RBC % Sodium 129 L Potassium 4.5 Chloride 93 L Carbon Dioxide 27 Anion Gap 8 BUN 93 H Creatinine 3.9 H Creat Clearance w eGFR 16.01 POC Glucometer 274 247 Random Glucose 276 H Calcium 8.2 L Phosphorus 5.7 H Magnesium 2.6 H Active Medications Albuterol Sulfate (Ventolin 0.083% Nebulizer Soln -) 1 amp NEB Q4H PRN PRN Reason: SHORT OF BREATH/WHEEZING Last Admin: 08/20/18 09:00 Dose: 1 amp Aspirin (Asa -) 81 mg PO DAILY [facility] Last Admin: 04/23/19 09:40 Dose: 81 mg Atorvastatin Calcium (Lipitor -) 40 mg PO HS [facility] Last Admin: 08/19/18 23:11 Dose: Not Given Clopidogrel Bisulfate (Plavix -) 75 mg PO DAILY [facility] Last Admin: 08/20/18 09:39 Dose: 75 mg Docusate Sodium (Colace -) 100 mg PO TID [facility] Last Admin: 08/20/18 14:02 Dose: Not Given Furosemide (Lasix Injection -) 100 mg IVPUSH BID@0600,1400 [facility] Last Admin: 08/20/18 14:02 Dose: 100 mg Heparin Sodium (Porcine) (Heparin -) 5,000 unit SQ TID [facility] Last Admin: 08/20/18 14:02 Dose: Not Given Insulin Aspart (Novolog Vial Sliding Scale -) 1 vial SQ [facility]; Protocol Last Admin: 08/20/18 11:00 Dose: Not Given Insulin Detemir (Levemir Vial) 20 units SQ [facility] Last Admin: 08/19/18 23:10 Dose: 20 units Metoprolol Succinate (Toprol Xl -) 25 mg PO DAILY [facility] Last Admin: 08/20/18 09:40 Dose: 25 mg Nystatin (Mycostatin Cream -) 1 applic TP BID [facility] Last Admin: 08/20/18 09:40 Dose: 1 applic Senna (Senna -) 1 tab PO BID [facility] Last Admin: 08/20/18 09:40 Dose: Not Given IMAGING: -CXR: Some improvement. Decreased congestive changes. -Kidney/Renal US: Small left renal simple cyst measuring 1.6 cm. Both kidneys appear otherwise unremarkable without evidence of hydronephrosis or stones. Bilateral pleural effusion -EKG: NSR, LBBB, VR 73, QTc 478 -ECHO: Severe diffuse LV Hypokinesis, Large region of apical kinesis, EF = 25%, Grade 2 diastolic dysfunction, Moderate MR ASSESSMENT/PLAN: 57 y/o M with PMHx of IDDM, Systolic CHF, CAD (not a candidate for PCI or CABG, refuses AICD), HTN, CVA, PAD, diabetic neuropathy s/p toe amputation, CKD was admitted for Acute CHF exacerbation. #SOB---remains fluid overloaded likely due to Acute CHF Exacerbation however improving -IV Furosemide 100mg BID -Daily weights, strict I&O's -Duoneb, Ventolin -Supplemental O2 to maintain SpO2 88-92% #Acute on CKD--Under evaluation for HD -Vascular Surgery (Dr. Hinton) Consulted, appreciate rec's--Patient for Vein mapping for AV Fistula placement #IDDM -Increase Detemir to 25u HS -ISS BGMs ACHS #CAD--Refuses AICD placement -ASA, plavix, atorvasatin, Metoprolol #HTN -Metoprolol Succinate 25mg PO Daily -Hold ACEi in the setting of CKD #PAD -ASA, Plavix, Statin #Troponinemia -likely demand ischemia in the setting of acute CHF exacerbation #FEN -no standing fluids -Monitor lytes -Diabetic/sodium controlled diet #PPx -DVT: Heparin TID Visit type - Emergency Visit Emergency Visit: Yes ED Registration Date: 08/13/18 Care time: The patient presented to the Emergency Department on the above date and was hospitalized for further evaluation of their emergent condition. - New Patient This patient is new to me today: No - Critical Care Critical Care patient: No - Discharge Referral Referred to [facility] No
--- NOTE | 2018-08-20 15:06 | PN ---
Progress Note, Physician History of Present Illness: Pt seen and examined at bedside. He is awake and alert. he feels that the edema is improving. - Current Medication List Current Medications: Active Medications Albuterol Sulfate (Ventolin 0.083% Nebulizer Soln -) 1 amp NEB Q4H PRN PRN Reason: SHORT OF BREATH/WHEEZING Last Admin: 08/20/18 09:00 Dose: 1 amp Aspirin (Asa -) 81 mg PO DAILY [facility] Last Admin: 08/20/18 09:40 Dose: 81 mg Atorvastatin Calcium (Lipitor -) 40 mg PO HS [facility] Last Admin: 08/19/18 23:11 Dose: Not Given Clopidogrel Bisulfate (Plavix -) 75 mg PO DAILY [facility] Last Admin: 08/20/18 09:39 Dose: 75 mg Docusate Sodium (Colace -) 100 mg PO TID [facility] Last Admin: 08/20/18 14:02 Dose: Not Given Furosemide (Lasix Injection -) 100 mg IVPUSH BID@0600,1400 [facility] Last Admin: 08/20/18 14:02 Dose: 100 mg Heparin Sodium (Porcine) (Heparin -) 5,000 unit SQ TID [facility] Last Admin: 08/20/18 14:02 Dose: Not Given Insulin Aspart (Novolog Vial Sliding Scale -) 1 vial SQ [facility]; Protocol Last Admin: 08/20/18 11:00 Dose: Not Given Insulin Detemir (Levemir Vial) 20 units SQ [facility] Last Admin: 08/19/18 23:10 Dose: 20 units Metoprolol Succinate (Toprol Xl -) 25 mg PO DAILY [facility] Last Admin: 08/20/18 09:40 Dose: 25 mg Nystatin (Mycostatin Cream -) 1 applic TP BID [facility] Last Admin: 08/20/18 09:40 Dose: 1 applic Senna (Senna -) 1 tab PO BID [facility] Last Admin: 08/20/18 09:40 Dose: Not Given - Objective Vital Signs: Vital Signs Temperature 98.6 F 08/20/18 09:00 Pulse Rate 74 08/20/18 09:00 Respiratory Rate 20 08/20/18 09:00 Blood Pressure 138/78 08/20/18 09:00 O2 Sat by Pulse Oximetry (%) 99 08/20/18 09:00 Constitutional: Yes: Calm Eyes: Yes: Conjunctiva Clear HENT: Yes: Atraumatic Neck: Yes: Supple Cardiovascular: Yes: S1, S2 Respiratory: Yes: CTA Bilaterally, On Nasal O2 Gastrointestinal: Yes: Soft Extremities: Yes: WNL Edema: Yes Edema: LLE: 1+, RLE: 1+ Neurological: Yes: Oriented Psychiatric: Yes: Oriented Labs: CBC, BMP 08/20/18 05:46 08/20/18 05:46 Problem List - Problems (1) Acute on chronic systolic CHF (congestive heart failure) Code(s): I50.23 - ACUTE ON CHRONIC SYSTOLIC (CONGESTIVE) HEART FAILURE (2) SOB (shortness of breath) Code(s): R06.02 - SHORTNESS OF BREATH (3) MIRTHA (acute kidney injury) Code(s): N17.9 - ACUTE KIDNEY FAILURE, UNSPECIFIED (4) CHF (congestive heart failure) Code(s): I50.9 - HEART FAILURE, UNSPECIFIED (5) Type 2 diabetes mellitus Code(s): E11.9 - TYPE 2 DIABETES MELLITUS WITHOUT COMPLICATIONS (6) CKD (chronic kidney disease) Code(s): N18.9 - CHRONIC KIDNEY DISEASE, UNSPECIFIED Assessment/Plan Current Medications Generic Name Dose Route Start Last Admin Trade Name Freq PRN Reason Stop Dose Admin Albuterol Sulfate 1 amp 08/19/18 11:38 08/20/18 09:00 Ventolin 0.083% Nebulizer Soln - NEB 1 amp Q4H PRN Administration SHORT OF BREATH/WHEEZING Aspirin 81 mg 08/13/18 10:00 08/20/18 09:40 Asa - PO 81 mg DAILY [facility] Administration Atorvastatin Calcium 40 mg 08/13/18 22:00 08/19/18 23:11 Lipitor - PO Not Given HS [facility] Clopidogrel Bisulfate 75 mg 08/13/18 10:00 08/20/18 09:39 Plavix - PO 75 mg DAILY [facility] Administration Docusate Sodium 100 mg 08/15/18 18:13 08/20/18 14:02 Colace - PO Not Given TID [facility] Furosemide 100 mg 08/18/18 11:40 08/20/18 14:02 Lasix Injection - IVPUSH 100 mg BID@0600,1400 [facility] Administration Heparin Sodium (Porcine) 5,000 unit 08/13/18 14:00 08/20/18 14:02 Heparin - SQ Not Given TID [facility] Insulin Aspart 1 vial 08/13/18 11:00 08/20/18 11:00 Novolog Vial Sliding Scale - SQ Not Given ACHS [facility] Protocol Insulin Detemir 20 units 08/19/18 11:38 08/19/18 23:10 Levemir Vial SQ 20 units HS [facility] Administration Metoprolol Succinate 25 mg 08/13/18 10:00 08/20/18 09:40 Toprol Xl - PO 25 mg DAILY [facility] Administration Nystatin 1 applic 08/19/18 10:00 08/20/18 09:40 Mycostatin Cream - TP 1 applic BID [facility] Administration Senna 1 tab 08/15/18 18:14 08/20/18 09:40 Senna - PO Not Given BID [facility] Impression 1. MIRTHA 2. CKD 3. CHF 4. fluid overload 5. DM 6. hyperlipidemia 7. HTN 8. non compliance 9. CAD 10. nephrotic proteinuria 11. hyponatremia Plan - vascular for fistula - cont lasix - will hold off giving metolazone as sodium is low - will need better glucose control - if sodium drops further will need to cut back on diuretics - monitor lytes daily - hold elizabeth - renal diet Dr Blackwood
--- NOTE | 2018-08-20 16:21 | PN ---
Progress Note (short form) - Note Progress Note: VAscular Surgery Can do avf on morning. Still waiting for vein mapping to be performed. Vivek vargas DO
[2018-08-20] MEDS ORDERED: INSULIN (LEVEMIR) 100 UNITS/ML UNITS SQ SCH (16:29)
--- NOTE | 2018-08-20 16:56 | PN ---
Teaching Attending Note Name of Resident: Cayla Ojeda ATTENDING PHYSICIAN STATEMENT I saw and evaluated the patient. I reviewed the resident's note and discussed the case with the resident. I agree with the resident's findings and plan as documented. SUBJECTIVE: No fever or chills. breathing is better today OBJECTIVE: NAD CV : RRR, no MRG , no JVD Lungs: CTAB . improved air entry Ext : trace edema on legs . A/p : 57 y/o man with h/o chronic systolic and diastolic heart failure , ischemic CMP , CAD, HLP, HTN, non compliance, DM , HLP, neuropathy, CVA, and PVD who presented with SOB and was found to be in acute heart failure 1- Acute on chronic systolic and diastolic heart failure : - cont current dose of lasix 100 BID . responding - No need for HD during this admission as he is responding to diuresis - cont to hold ACEI and cont BB 2- MIRTHA, ? CKD: unknown base line. - cont to monitor renal function with diuresis - hold ACEI - for AVF but vein mapping was declined by US tech today 3- H/O CAD, not a candidate for cath. - cont ASA, plavix, BB and statin 4- Mod to evere MR, f/u as out pt 5- DM: increase Levemir again to 25 units HS , and cont SSI 6- Incidental finding of L renal cyst : f/u as out pt DVT PX : heparin Sq
[2018-08-20] MEDS: ATORVASTATIN CA 40 MG TABLET (FP) PO SCH (22:30)
[2018-08-20 23:30] VITALS: PULSE 82
[2018-08-21 05:56] VITALS: BP 128/71; TEMP 98.3
[2018-08-21] MEDS: INSULIN SLIDING SCALE (NOVOLOG) 1 VIAL SQ SCH (06:05)
[2018-08-21] MEDS: DOCUSATE SODIUM 100 MG CAPSULE (FP) PO SCH (06:06)
[2018-08-21] MEDS: HEPARIN NA (PORCINE) 5,000 UNITS/ML 1ML VIAL SQ SCH (06:06)
[2018-08-21] MEDS: FUROSEMIDE 100 MG/10 ML INJECTABLE VIAL IVPUSH SCH (06:26)
[2018-08-21 06:46] LABS: ANION GAP 11 MMOL/L (8-16); BLOOD UREA NITROGEN 103 mg/dL (7-18); CALCIUM 8.4 mg/dL (8.5-10.1); CHLORIDE 94 mmol/L (98-107); CO2 25 mmol/L (21-32); CREATININE 3.9 mg/dL (0.55-1.3); GLUCOSE,RANDOM 267 mg/dL (74-106); MAGNESIUM 2.5 mg/dL (1.8-2.4); PHOSPHOROUS 5.3 mg/dL (2.5-4.9); POTASSIUM 4.4 mmol/L (3.5-5.1); SODIUM 130 mmol/L (136-145)
--- NOTE | 2018-08-21 11:02 | DS ---
Physical Exam: SUBJECTIVE: Informed patient left AMA and thus was not able to interview him. OBJECTIVE: Vital Signs Period Temp Pulse Resp BP Sys/Humphreys Pulse Ox Last 24 Hr 97.5 F-98.6 F 72-82 20-20 118-138/71-84 99 PHYSICAL EXAM Informed patient left AMA and thus was not able to perform examination. LABS Laboratory Last Values WBC 9.3 K/mm3 (4.0-10.0) 08/20/18 05:46 RBC 3.24 M/mm3 (4.00-5.60) L 08/20/18 05:46 Hgb 9.3 GM/dL (11.7-16.9) L 08/20/18 05:46 Hct 27.1 % (35.4-49) L 08/20/18 05:46 MCV 83.8 fl (80-96) 08/20/18 05:46 MCH 28.6 pg (25.7-33.7) 08/20/18 05:46 MCHC 34.1 g/dl (32.0-35.9) 08/20/18 05:46 RDW 15.3 % (11.9-15.9) 08/20/18 05:46 Plt Count 234 K/MM3 (134-434) 08/20/18 05:46 MPV 9.1 fl (7.5-11.1) 08/20/18 05:46 Absolute Neuts (auto) 6.8 K/mm3 (1.5-8.0) 08/20/18 05:46 Neutrophils % 72.9 % (42.8-82.8) 08/20/18 05:46 Lymphocytes % 13.9 % (8-40) 08/20/18 05:46 Monocytes % 9.4 % (3.8-10.2) 08/20/18 05:46 Eosinophils % 2.9 % (0-4.5) 08/20/18 05:46 Basophils % 0.9 % (0-2.0) 08/20/18 05:46 Nucleated RBC % 0 % (0-0) 08/20/18 05:46 Sodium 130 mmol/L (136-145) L 08/21/18 05:30 Potassium 4.4 mmol/L (3.5-5.1) 08/21/18 05:30 Chloride 94 mmol/L (98-107) L 08/21/18 05:30 Carbon Dioxide 25 mmol/L (21-32) 08/21/18 05:30 Anion Gap 11 MMOL/L (8-16) 08/21/18 05:30 BUN 103 mg/dL (7-18) H 08/21/18 05:30 Creatinine 3.9 mg/dL (0.55-1.3) H 08/21/18 05:30 Creat Clearance w eGFR 16.01 (>60) 08/21/18 05:30 POC Glucometer 239 UNITS (80-120) 08/21/18 06:00 Random Glucose 267 mg/dL (74-106) H 08/21/18 05:30 Calcium 8.4 mg/dL (8.5-10.1) L 08/21/18 05:30 Phosphorus 5.3 mg/dL (2.5-4.9) H 08/21/18 05:30 Magnesium 2.5 mg/dL (1.8-2.4) H 08/21/18 05:30 Total Bilirubin 0.6 mg/dL (0.2-1) 08/18/18 05:30 AST 8 U/L (15-37) L 08/18/18 05:30 ALT 15 U/L (13-61) 08/18/18 05:30 Alkaline Phosphatase 76 U/L (45-117) 08/18/18 05:30 Creatine Kinase 215 U/L (26-308) 08/13/18 14:28 Creatine Kinase Index 6.0 % (0.0-5.0) H 08/13/18 14:28 CK-MB (CK-2) 13.0 ng/mL (0.5-3.6) H 08/13/18 14:28 Troponin I 0.05 ng/ml (0.00-0.05) 08/13/18 14:28 B-Natriuretic Peptide 7008.2 pg/ml (5-125) H 08/13/18 08:00 Total Protein 7.6 g/dl (6.4-8.2) 08/18/18 05:30 Albumin 3.3 g/dl (3.4-5.0) L 08/18/18 05:30 TSH 0.79 uIU/ml (0.358-3.74) 08/14/18 05:30 U Random Total Protein 79.8 mg/dl (0-11.9) H 08/13/18 16:30 Ur Random Sodium 45 MMOL/L (40-220) 08/13/18 11:00 Urine Creatinine 22.0 mg/dL (20-320) 08/13/18 16:30 Protein/Creatinin Ratio 3.620 MG/DL 08/13/18 16:30 IMAGING: -CXR: Some improvement. Decreased congestive changes. -Kidney/Renal US: Small left renal simple cyst measuring 1.6 cm. Both kidneys appear otherwise unremarkable without evidence of hydronephrosis or stones. Bilateral pleural effusion -EKG: NSR, LBBB, VR 73, QTc 478 -ECHO: Severe diffuse LV Hypokinesis, Large region of apical kinesis, EF = 25%, Grade 2 diastolic dysfunction, Moderate MR HOSPITAL COURSE: Date of Admission:08/13/18 Date of Discharge: 08/21/18 57 y/o M with PMHx of IDDM, Systolic CHF, CAD (not a candidate for PCI or CABG, refuses AICD), HTN, CVA, PAD, diabetic neuropathy s/p toe amputation, CKD was admitted for Acute CHF exacerbation. Cardiology, Nephrology, and Vascular surgery were consulted. Patient was diuresed with IV Furosemide and his sx's improved; Additionally his need for supplemental O2 decreased. Patient home dose insulin regimen was adjusted however his BG still remained above goal. Patients prior cardiac records were reviewed and he was again counselled on the importance or AICD placement and use of a Life vest in the interm---patient continued to refuse both; additionally he refused tele monitoring. Patients home dose PA inhibitor was held in the setting of worsening CKD. Nephrology was consulted and requested Vascular surgeries involvement given likely need AV fistula placement. Vein mapping was not completed. Patient became combative overnight and left AMA without signing paperwork. Minutes to complete discharge: 36 Discharge Summary Reason For Visit: SOB,ACUTE ON CHRONIC SYSTOLIC CHF Condition: Unchanged/Unknown - Instructions Diet, Activity, Other Instructions: You were admitted to the hospital because you were fluid overloaded. You were given diuresis and your symptoms improved. You were seen by a finished cloth examiner and you will likely need a fistula for hemodialysis however you left against medical advice. Medication Changes: 1. Your home dose lasix was changed to 60mg twice a day 2. Your home dose levemir was increased to 25 units before bedtime 3. Stop using lisinopril Follow up with the following physicians: 1. Primary care physician in one week as you will need further labwork to check your electrolytes 2. Cardiology--Dr. Coon--in one week to further manage your heart failure --your ejection fraction is dangerously low and you continue to refuse wearing a life vest--this is extremely dangerous and can cause arrhythmia and sudden --Please visit the data systems manager and we strongly advise you wear the life vest as recommended 3. Mortgage Advisor--Dr. Blackwood--in one week to further manage your chronic kidney disease as you likely need fistula placement and hemodialysis Continue all your other medications as prescribed Please return to the ER if you have any signs or symptoms of chest pain, shortness of breath, uncontrollable fever, chills, nausea, vomiting, numbness, tingling, or weakness in any part of your body, changes in vision, slurred speech, changes in speech/gait, or dizziness. Please return to the ER if symptoms persist, worsen, or new symptoms arise. Referrals: Moe Coon MD [Staff Physician] - Kylah Blackwood MD [Staff Physician] - Disposition: AGAINST MEDICAL ADVICE - Home Medications Comprehensive Discharge Medication List: Ambulatory Orders Aspirin [ASA -] 81 mg PO DAILY 04/14/17 Atorvastatin Ca [Lipitor] 40 mg PO DAILY 04/14/17 Clopidogrel Bisulfate [Plavix -] 75 mg PO DAILY 04/14/17 Insulin Lispro Protamin/Lispro [Humalog Mix 75-25 Vial] 10 unit SQ ASDIR Metoprolol Succinate [Toprol XL -] 25 mg PO DAILY 04/14/17 Gabapentin 100 mg PO PRN 08/12/18 Icosapent Ethyl [Vascepa] 2 gm PO DAILY 08/12/18 Furosemide [Lasix -] 60 mg PO BID #180 tablet 08/21/18 Insulin (Levemir) [Levemir Vial] 25 units SQ HS #1 vial 08/21/18 This patient is new to me today: No Emergency Visit: Yes ED Registration Date: 08/13/18 Care time: The patient presented to the Emergency Department on the above date and was hospitalized for further evaluation of their emergent condition. Critical Care patient: No - Discharge Referral Referred to [facility] No
== END 2018-08-21 06:30 | disposition left against medical advice (07) | DRG 291 ==
LOC: JER 05:49 → OBSVTOIN 08:55 → JERBED 08:55 → J4W 15:00 → J7W 08-21 01:07
PROVIDERS: ADMIT Internal Medicine; ATTEND Internal Medicine
DX: I13.0 Hypertensive heart and chronic kidney disease with heart failure and stage 1 through stage 4 chronic kidney disease, or unspecified chronic kidney disease (principal); I50.23 Acute on chronic systolic (congestive) heart failure; N17.9 Acute kidney failure, unspecified; I24.8 Other forms of acute ischemic heart disease; E87.1 Hypo-osmolality and hyponatremia; I25.10 Atherosclerotic heart disease of native coronary artery without angina pectoris; E11.40 Type 2 diabetes mellitus with diabetic neuropathy, unspecified; Z86.73 Personal history of transient ischemic attack (TIA), and cerebral infarction without residual deficits; E11.51 Type 2 diabetes mellitus with diabetic peripheral angiopathy without gangrene; E11.22 Type 2 diabetes mellitus with diabetic chronic kidney disease; I44.7 Left bundle-branch block, unspecified; I34.0 Nonrheumatic mitral (valve) insufficiency; Z91.14 Patient's other noncompliance with medication regimen; I25.5 Ischemic cardiomyopathy; N18.3 Chronic kidney disease, stage 3 (moderate); F17.210 Nicotine dependence, cigarettes, uncomplicated; E66.9 Obesity, unspecified; Z68.32 Body mass index [BMI] 32.0-32.9, adult; Z89.429 Acquired absence of other toe(s), unspecified side; E11.21 Type 2 diabetes mellitus with diabetic nephropathy; N28.1 Cyst of kidney, acquired; Z79.4 Long term (current) use of insulin
CPT/HCPCS: 11042; 11045; 15275; 36415; 71045-TC-FY; 71046-TC-FY; 74019-TC-FY; 76775-TC; 80048; 80053; 81003; 82140; 82550; 82553; 82570; 82962; 83690; 83735; 83880; 84100; 84156; 84300; 84443; 84484; 85025; 85027; 93005; 93010; 93306-TC; 94640; 94761; 99281-25; 99285-25; 99406; J1644; Q4160

== ENCOUNTER 2018-09-19 11:00 | Inpatient (IN) | payer OTHER | END 2018-09-19 18:24 | disposition home or self-care (01) | LOC: JER 11:00 → JERBED 14:58 ==

== ENCOUNTER 2018-09-19 21:06 | Inpatient (IN) | payer OTHER ==
--- NOTE | 2018-09-19 22:26 | PDOC ---
History of Present Illness - General Chief Complaint: Shortness of Breath Stated Complaint: DIFFICULTY BREATHING Time Seen by Provider: 09/19/18 21:53 History Source: Patient Exam Limitations: No Limitations - History of Present Illness Initial Comments: 09/19/18 22:17 57 yo male pmh ESRD (dialysis Sunday and Sunday), proteinuria, CHF, cad, DM, hyperlipidemia, HTN, non compliance presents to ED for SOB and dialysis. Pt on 20/11 O2 4L. Pt seen in ED today, admitted but AMA. Pt denies changes in symptoms since admission today. denies fever, chills, chest pain, headache, change in appetite, or worsening lower extremity edema. Saw Dr. Blackwood, plan: Impression - will arrange for HD tomorrow, unable to dialyze today secondary to staffing - will need placement in a new unit, send info to [facility] - resume home meds - renal diet Past History - Past Medical History Allergies/Adverse Reactions: Allergies Allergy/AdvReac Type Severity Reaction Status Date / Time No Known Allergies Allergy Verified 09/19/18 11:24 Home Medications: Ambulatory Orders Aspirin [ASA -] 81 mg PO DAILY 04/14/17 Atorvastatin Ca [Lipitor] 40 mg PO DAILY 04/14/17 Clopidogrel Bisulfate [Plavix -] 75 mg PO DAILY 04/14/17 Insulin Lispro Protamin/Lispro [Humalog Mix 75-25 Vial] 10 unit SQ ASDIR Metoprolol Succinate [Toprol XL -] 25 mg PO DAILY 04/14/17 Gabapentin 100 mg PO PRN 08/12/18 Icosapent Ethyl [Vascepa] 2 gm PO DAILY 08/12/18 Furosemide [Lasix -] 60 mg PO BID #180 tablet 08/21/18 Insulin (Levemir) [Levemir Vial] 25 units SQ HS #1 vial 08/21/18 Lisinopril 5 mg PO DAILY 09/19/18 Anemia: No Asthma: No Cancer: No Cardiac Disorders: Yes (CAD, NSTEMI) CVA: Yes COPD: Yes CHF: Yes Dementia: No Diabetes: Yes GI Disorders: Yes Disorders: Yes HTN: Yes Hypercholesterolemia: Yes Liver Disease: No Seizures: No Thyroid Disease: No - Surgical History Abdominal Surgery: No Appendectomy: No Cardiac Surgery: Yes (ANGIOGRAM MAY 2016) Cholecystectomy: No Lung Surgery: No Neurologic Surgery: No Orthopedic Surgery: Yes (Amputation Left foot 4th & 5th toes) - Suicide/Smoking/Psychosocial Hx Smoking History: Current every day smoker Have you smoked in the past 12 months: No Number of Cigarettes Smoked Daily: 1 If you are a former smoker, when did you quit?: 1 month ago Information on smoking cessation initiated: No 'Breaking Loose' booklet given: 08/13/18 Hx Alcohol Use: No Drug/Substance Use Hx: No Substance Use Type: None Hx Substance Use Treatment: No *Physical Exam - Vital Signs Last Vital Signs Temp Pulse Resp BP Pulse Ox 98.5 F 91 H 19 121/76 98 09/19/18 21:10 09/19/18 21:10 09/19/18 21:10 09/19/18 21:10 09/19/18 21:42 *DC/Admit/Observation/Transfer Diagnosis at time of Disposition: CKD (chronic kidney disease), Dialysis patient - Discharge Dispostion Condition at time of disposition: Stable Decision to Admit order: Yes - Referrals - Patient Instructions - Post Discharge Activity
--- NOTE | 2018-09-19 22:43 | PN ---
Teaching Attending Note Name of Resident: Meño Mcdaniel ATTENDING PHYSICIAN STATEMENT I saw and evaluated the patient. I reviewed the resident's note and discussed the case with the resident. I agree with the resident's findings and plan as documented. SUBJECTIVE: Patient is a 57-year-old man with a PMH of ESRD recently started on hemodialysis 2 weeks ago, COPD?(on 5L home oxygen), osteomyelitis, left 4th and 5th toe amputations, right eye blindness (accident in 1994), tobacco use, CAD ( not a candidate for PCI and CABG), CHFrEF, insulin-treated DM, HTN, CVA, PAD and diabetic neuropathy who presents for HD. Patient states on Sunday he had dialysis but this past Sunday he had missed since he had a verbal dispute with staff and then was told he has to find another facility due to his bad behavior. He was in the ER earlier but signed out AMA. He does not know what caused his ESRD and is not on a transplant waiting list. No family history of CKD. Patient denies fever, chills, chest pain, headache, change in appetite, or worsening lower extremity edema. OBJECTIVE: Alert Vital Signs Period Temp Pulse Resp BP Sys/Humphreys Pulse Ox Last 24 Hr 98.5 F 91 19 121/76 96-98 HEENT: No Jaundice, eye redness or discharge, blind in right eye, EOMI. Normocephalic, atraumatic. External ears are normal and hearing is grossly intact. No nasal discharge. Neck: Supple, nontender. No palpable adenopathy or thyromegaly. No JVD Chest: Good effort. Clear to auscultation and percussion. Heart: Regular. No S3, rub or murmur Abdomen: Not distended, soft, nontender and no HSM. No rebound or guarding. Normal bowel sounds. Ext: Peripheral pulses intact. No leg edema. Left forearm AV fistula with good thrill and bruit. Left 4th and 5th toe amputations. Skin: Warm and dry. No petechiae, rash or ecchymosis. Neuro: Alert. Oriented x3. CN 2-12 grossly intact. Sensation grossly intact in all four extremities and DTR are symmetric. Psych: Appropriate mood and affect. Good insight. Current Medications Generic Name Dose Route Start Last Admin Trade Name Freq PRN Reason Stop Dose Admin Acetaminophen 650 mg 09/19/18 23:18 Tylenol - PO Q4H PRN PAIN LEVEL 6-10 Heparin Sodium (Porcine) 5,000 unit 09/20/18 02:00 Heparin - SQ Q8H-IV GABBY Insulin Aspart 0 vial 09/20/18 07:00 Novolog Vial Sliding Scale - SQ ACHS [facility] Protocol Home Medications Medication Instructions Recorded Aspirin [ASA -] 81 mg PO DAILY 04/14/17 Atorvastatin Ca [Lipitor] 40 mg PO DAILY 04/14/17 Clopidogrel Bisulfate [Plavix -] 75 mg PO DAILY 04/14/17 Insulin Lispro Protamin/Lispro 10 unit SQ ASDIR 04/14/17 [Humalog Mix 75-25 Vial] Metoprolol Succinate [Toprol XL -] 25 mg PO DAILY 04/14/17 Gabapentin 100 mg PO PRN 08/12/18 Icosapent Ethyl [Vascepa] 2 gm PO DAILY 08/12/18 Furosemide [Lasix -] 60 mg PO BID #180 tablet 08/21/18 Insulin (Levemir) [Levemir Vial] 25 units SQ HS #1 vial 08/21/18 Lisinopril 5 mg PO DAILY 09/19/18 Abnormal Lab Results 09/19/18 22:56 RBC 3.17 L Hgb 8.9 L Hct 28.1 L MCHC 31.5 L RDW 17.7 H ASSESSMENT AND PLAN: 1. ESRD - Will consult nephrology to arrange for hemodialysis. EKG shows NSR with chronic LBBB and T wave inversion in inferior leads. CXR shows cardiomegaly with LLL opacity. Will get chest CT to clarify LLL lesion. May benefit from outpatient psychiatry evaluation since his behavior may signal adjustment disorder. 2. DM For now, we will hold the home diabetes drugs and implement sliding scale insulin regimen. Provide comprehensive diabetes care with patient teaching and counseling about the importance of adherence to prescribed diabetes regimen, euglycemia, eye care and foot care. 3. Tobacco Use Counseled on risks associated with tobacco use. We will provide patient all the necessary assistance to facilitate smoking cessation and prescribe Nicotine patch. 4. Anemia - Likely chiefly due to ESRD. Will do basic anemia work up including serial stool guaiacs, reticulocyte count and iron studies. Would benefit from Procrit therapy once iron replete. 5. Obesity Counseled on the risks associated with obesity. Will provide patient all the necessary assistance, counseling and positive reinforcement to facilitate weight loss. Consult pulley mortiser operator. 6. Hypertension - Restart outpatient antihypertensive drugs and revise regimen to ensure smooth [id number] good BP control. Nonpharmacologic measures to control hypertension like weight loss, salt restriction and exercise discussed. 7. DVT prophylaxis - Heparin 5000u sq tid. 8. Advance directives - Full code
[2018-09-19 23:10] LABS: BASO % 0.3 % (0-2.0); EOS % 2.4 % (0-4.5); HEMATOCRIT 28.1 % (35.4-49); HEMOGLOBIN 8.9 GM/dL (11.7-16.9); LYMPH % 14.8 % (8-40); MCHC 31.5 g/dl (32.0-35.9); MEAN CELL VOLUME 88.9 fl (80-96); MEAN PLT VOLUME 8.6 fl (7.5-11.1); NEUT % 72.5 % (42.8-82.8); PLATELET COUNT 307 K/MM3 (134-434); RBC 3.17 M/mm3 (4.00-5.60); RDW 17.7 % (11.9-15.9); WHITE BLOOD COUNT 9.8 K/mm3 (4.0-10.0)
--- NOTE | 2018-09-19 23:12 | PDOC ---
Documentation entered by Jerry Banuelos SCRIBE, acting as scribe for Ada Howell DO. Ada Howell DO: This documentation has been prepared by the Vin sheldon Xhesika, SCRIBE, under my direction and personally reviewed by me in its entirety. I confirm that the documentation accurately reflects all work, treatment, procedures, and medical decision making performed by me. Attending Attestation - Resident Resident Name: Cesar Brown - ED Attending Attestation I have performed the following: I have examined & evaluated the patient, The case was reviewed & discussed with the resident, I agree w/resident's findings & plan, Exceptions are as noted - HPI HPI: 09/19/18 23:12 The patient is a 57 year old male, with a significant PMH of HTN, HLD, COPD, CHF, and end-stage renal disease (currently on dialysis M/ W/F) who presents to the emergency department with shortness of breath and missed dialysis. The patient states he missed his dialysis on Sunday due to a verbal altercation with staff and was told to find a new living facility. The patient was here at [facility] this morning and eloped because he felt hot and was frustrated. The patient denies sweating or dizziness. Denies fever, chills, nausea, vomit, diarrhea and constipation. Denies dysuria, frequency, urgency and hematuria. Allergies: NKA Past surgical history: None reported Social history: None reported - Physicial Exam PE: 09/19/18 23:13 GENERAL: Awake, alert, and fully oriented, in no acute distress HEAD: No signs of trauma EYES: (+) R eye cataract. , sclera anicteric, conjunctiva clear ENT: Auricles normal inspection, hearing grossly normal, nares patent, oropharynx clear without exudates. Moist mucosa NECK: Normal ROM, supple, no lymphadenopathy, JVD, or masses LUNGS: Breath sounds equal, clear to auscultation bilaterally. No wheezes, and no crackles HEART: Regular rate and rhythm, normal S1 and S2, no murmurs, rubs or gallops ABDOMEN: Soft, nontender, normoactive bowel sounds. No guarding, no rebound. No masses EXTREMITIES: (+) L forearm fistula thrill and bruit. Normal range of motion, no edema. No clubbing or cyanosis. No cords, erythema, or tenderness NEUROLOGICAL: Cranial nerves II through XII grossly intact. Normal speech, normal gait SKIN: Warm, Dry, normal turgor, no rashes or lesions noted. - Medical Decision Making 09/19/18 23:09 I, Dr. Ada Howell, DO, attest that this document has been prepared under my direction and personally reviewed by me in its entirety. I further attest, that it accurately reflects all work, treatment, procedures and medical decision -making performed by me. 09/19/18 23:10 a/p: 57yo male with esrd on HD -missed 1 week of HD -was in obs earlier- seen by Dr. Blackwood and then left AMA -plan was for HD tomorrow -pt willing to stay tonight for HD tomorrow -c/o sob -no cp -no abd pain -LUE av fistula with bruit and thrill -will send labs, ekg, cxr -labs reviewed from earlier -case discussed with Dr. العلي who re-accepts pt to service Heart Score/ECG Review - ECG Intrepretation Comment:: 09/19/18 23:10 sinus at 87, LBBB, st depressions inferior leads, abnl ekg
[2018-09-19] MEDS ORDERED: ACETAMINOPHEN 325 MG TABLET (FP) PO PRN (23:18)
[2018-09-19 23:24] LABS: INR 1.09 (0.83-1.09); PROTHROMBIN TIME (PATIENT) 12.9 SEC (9.7-13.0)
--- NOTE | 2018-09-19 23:45 | HP ---
CHIEF COMPLAINT: fluid overload PCP: HISTORY OF PRESENT ILLNESS: Patient is a 57 y/o male with a history of ESRD MWF, IDDM, CHF rEF (25%) and CAD who presents for the second time today because he feels volume overloaded. Patient first started getting dialysis two weeks ago at [facility] where his fistula was placed. He last had Dialysis one week ago on Sunday. He returned on sunday but had a disagreement with the staff and is not welcomed there. He came in earlier today, but decided to leave and come back because the hospital was hot. Patient reports he has also been feeling a little more short of breath recently. He typically wears 4 L O2 at home. He quit smoking three weeks ago. Patient reorts that not ever doctor understands his body and that's why he leaves hospitals so frequently. Denies chest pain, nausea, diarrhea, dizziness. He still makes a little urine. Patient only takes his aspirin and insulin, lipitor when he feels like it. ER course was notable for: (1) (2) (3) Recent Travel: denies PAST MEDICAL HISTORY: ESRD MWF, IDDM, CHF rEF (25%) and CAD PAST SURGICAL HISTORY: left foot toe removal Social History: Smoking: quit three weeks ago Alcohol: denies Drugs: denies Family History: Allergies No Known Allergies Allergy (Verified 09/19/18 11:24) HOME MEDICATIONS: Home Medications Medication Instructions Recorded Aspirin [ASA -] 81 mg PO DAILY 04/14/17 Atorvastatin Ca [Lipitor] 40 mg PO DAILY 04/14/17 Clopidogrel Bisulfate [Plavix -] 75 mg PO DAILY 04/14/17 Insulin Lispro Protamin/Lispro 10 unit SQ ASDIR 04/14/17 [Humalog Mix 75-25 Vial] Metoprolol Succinate [Toprol XL -] 25 mg PO DAILY 04/14/17 Gabapentin 100 mg PO PRN 08/12/18 Icosapent Ethyl [Vascepa] 2 gm PO DAILY 08/12/18 Furosemide [Lasix -] 60 mg PO BID #180 tablet 08/21/18 Insulin (Levemir) [Levemir Vial] 25 units SQ HS #1 vial 08/21/18 Lisinopril 5 mg PO DAILY 09/19/18 REVIEW OF SYSTEMS positive: shortness of breath, swelling, denies: chest pain, nausea, vomiting, headache PHYSICAL EXAMINATION Vital Signs - 24 hr 09/19/18 09/19/18 21:10 21:42 Temperature 98.5 F Pulse Rate 91 H Respiratory 19 Rate Blood Pressure 121/76 O2 Sat by Pulse 96 98 Oximetry (%) GENERAL: Awake, alert, and fully oriented, in no acute distress. HEAD: Normal with no signs of trauma. EYES: right eye cloudy, left eye EOMI EARS, NOSE, THROAT: Moist mucous membranes. missing multiple teeth LUNGS: crackles at bases, HEART: Regular rate and rhythm, normal S1 and S2 without murmur, rub or gallop. ABDOMEN: Soft, nontender, not distended, normoactive bowel sounds, no guarding, no rebound, no masses. MUSCULOSKELETAL: Normal range of motion at all joints. No bony deformities or tenderness. No CVA tenderness. LOWER EXTREMITIES: 1+ pitting edema PSYCHIATRIC: Cooperative. Good eye contact. Appropriate mood and affect. SKIN: Warm, dry, normal turgor, no rashes or lesions noted, normal capillary refill. Laboratory Results - last 24 hr 09/19/18 09/19/18 22:56 22:56 WBC 9.8 RBC 3.17 L Hgb 8.9 L Hct 28.1 L MCV 88.9 MCH 28.0 MCHC 31.5 L RDW 17.7 H Plt Count 307 MPV 8.6 Absolute Neuts (auto) 7.1 Neutrophils % 72.5 Lymphocytes % 14.8 Monocytes % 10.0 Eosinophils % 2.4 Basophils % 0.3 Nucleated RBC % 0 PT with INR 12.90 INR 1.09 ASSESSMENT/PLAN: Patient is a 57 y/o male with a history of ESRD MWF, IDDM, CHF rEF (25%) and CAD who is admitted for hemodialysis. #ESRD - f/u hemodialysis tomorrow, discuss with Jaison - potassium normal - continue to monitor - EKG: st depressions in II, III, and AVF, chronic changes, QTC 478 - patient with poor compliance, consider psych consult #anemia likely 2/2 to ESRD - f/u stool guiac - f/u reticulocyte count #CHFrEF, CAD - last ECHO, EF 25% - continue aspirin, lasix, metorpolol, lisinopril, atorvastatin, copidogrel #COPD - conitnue home 02 4L oxygen - keep O2 > 88% #DM - BGM ACHS - SS - levemir 25 units hs - continue gabapentin #DVT ppx - heparin TID FEN - low sodium/diabetic diet Dispo: monitor on tele, patient needs med-rec pharmac not open, continue meds as per last visit Visit type - Emergency Visit Emergency Visit: Yes ED Registration Date: 09/19/18 Care time: The patient presented to the Emergency Department on the above date and was hospitalized for further evaluation of their emergent condition. - New Patient This patient is new to me today: Yes Date on this admission: 09/20/18 - Critical Care Critical Care patient: No
[2018-09-19 23:51] LABS: ALBUMIN 3.1 g/dl (3.4-5.0); BILIRUBIN,TOTAL 0.6 mg/dL (0.2-1); CALCIUM 8.2 mg/dL (8.5-10.1); CREATININE 4.9 mg/dL (0.55-1.3); POTASSIUM 4.4 mmol/L (3.5-5.1); TOT PROT 7.2 g/dl (6.4-8.2)
[2018-09-20] MEDS: GABAPENTIN 100 MG CAPSULE (FP) PO SCH ×4 (01:07→21:59)
[2018-09-20] MEDS ORDERED: GABAPENTIN 100 MG CAPSULE (FP) ONE ×2 (01:47→10:10)
[2018-09-20] MEDS: FUROSEMIDE 20 MG TABLET (FP) PO SCH ×2 (06:27→14:55)
[2018-09-20] MEDS ORDERED: HEPARIN NA (PORCINE) 5,000 UNITS/ML 1ML VIAL ONE ×2 (06:29→14:51)
[2018-09-20] MEDS ORDERED: INSULIN (NOVOLOG) ASPART 100 UNITS/ML 10ML VIAL ONE (06:30)
[2018-09-20] MEDS: HEPARIN NA (PORCINE) 5,000 UNITS/ML 1ML VIAL SQ SCH ×3 (06:44→21:58)
[2018-09-20] MEDS: INSULIN SLIDING SCALE (NOVOLOG) 1 VIAL SQ SCH ×5 (06:44→21:59)
[2018-09-20] MEDS ORDERED: CLOPIDOGREL BISULFATE 75 MG TABLET (FP) PO SCH (10:00)
[2018-09-20] MEDS ORDERED: ASPIRIN 81 MG CHEWABLE TABLETS ONE (10:09)
[2018-09-20] MEDS ORDERED: CLOPIDOGREL BISULFATE 75 MG TABLET (FP) ONE (10:10)
[2018-09-20] MEDS ORDERED: TOPIRAMATE 25 MG TABLET (FP) ONE (10:10)
[2018-09-20] MEDS ORDERED: LISINOPRIL 5 MG TABLET (FP) ONE (10:10)
[2018-09-20] MEDS: LISINOPRIL 5 MG TABLET (FP) PO SCH (10:23)
[2018-09-20] MEDS: OMEGA-3 ACID ETHYL ESTERS (FATTY-ACIDS) 1 GM CAPSULE (FP) PO SCH (10:23)
[2018-09-20] MEDS: ASPIRIN 81 MG CHEWABLE TABLETS PO SCH (10:23)
[2018-09-20] MEDS: metoPROLOL SUCCINATE 25 MG TAB.SR.24H (FP) PO SCH (10:24)
--- NOTE | 2018-09-20 13:28 | PN ---
Progress Note, Physician History of Present Illness: Please see H and P from yesterday. Pt left er ama yesterday and then came back. He is awake and alert. He denies shortness of breath. - Current Medication List Current Medications: Active Medications Acetaminophen (Tylenol -) 650 mg PO Q4H PRN PRN Reason: PAIN LEVEL 6-10 Aspirin (Asa -) 81 mg PO DAILY [facility] Last Admin: 09/20/18 10:23 Dose: Not Given Atorvastatin Calcium (Lipitor -) 40 mg PO HS [facility] Clopidogrel Bisulfate (Plavix -) 75 mg PO DAILY [facility] Last Admin: 09/20/18 10:23 Dose: Not Given Epoetin Lyle (Epogen -) 7,000 unit IVPUSH ONCE ONE Stop: 09/20/18 05:34 Furosemide (Lasix -) 60 mg PO BIDLASIX [facility] Last Admin: 09/20/18 06:27 Dose: Not Given Gabapentin (Neurontin -) 100 mg PO BID [facility] Last Admin: 09/20/18 10:23 Dose: Not Given Heparin Sodium (Porcine) (Heparin -) 5,000 unit SQ TID [facility] Last Admin: 09/20/18 06:44 Dose: Not Given Sodium Chloride (Normal Saline -) 250 mls @ 3,000 mls/hr IV PRN PRN PRN Reason: Hypotension during Dialysis Stop: 09/21/18 05:33 Insulin Aspart (Novolog Vial Sliding Scale -) 1 vial SQ [facility]; Protocol Last Admin: 09/20/18 13:22 Dose: 2 units Insulin Detemir (Levemir Vial) 25 units SQ [facility] Lisinopril (Prinivil) 5 mg PO DAILY [facility] Last Admin: 09/20/18 10:23 Dose: 5 mg Metoprolol Succinate (Toprol Xl -) 25 mg PO DAILY [facility] Last Admin: 09/20/18 10:24 Dose: Not Given Bequb-2-Itfb Ethyl Esters (Lovaza -) 2 gm PO DAILY [facility] Last Admin: 09/20/18 10:23 Dose: Not Given - Objective Vital Signs: Vital Signs Temperature 97.6 F 09/20/18 08:00 Pulse Rate 80 09/20/18 08:00 Respiratory Rate 20 09/20/18 08:00 Blood Pressure 105/80 09/20/18 08:00 O2 Sat by Pulse Oximetry (%) 100 09/20/18 08:00 Constitutional: Yes: Calm HENT: Yes: Atraumatic Cardiovascular: Yes: S1, S2 Respiratory: Yes: On Nasal O2, Rhonchi Gastrointestinal: Yes: Soft Genitourinary: Yes: WNL Musculoskeletal: Yes: WNL Edema: Yes Edema: LLE: 2+, RLE: 2+ Neurological: Yes: Oriented Psychiatric: Yes: Oriented Labs: CBC, BMP 09/19/18 22:56 09/19/18 22:56 INR, PTT INR 1.09 (0.83-1.09) 09/19/18 22:56 Problem List - Problems (1) ESRD (end stage renal disease) Code(s): N18.6 - END STAGE RENAL DISEASE (2) Dialysis patient Code(s): Z99.2 - DEPENDENCE ON RENAL DIALYSIS (3) CHF (congestive heart failure) Code(s): I50.9 - HEART FAILURE, UNSPECIFIED Assessment/Plan Current Medications Generic Name Dose Route Start Last Admin Trade Name Freq PRN Reason Stop Dose Admin Acetaminophen 650 mg 09/19/18 23:18 Tylenol - PO Q4H PRN PAIN LEVEL 6-10 Aspirin 81 mg 09/20/18 10:00 09/20/18 10:23 Asa - PO Not Given DAILY [facility] Atorvastatin Calcium 40 mg 09/20/18 22:00 Lipitor - PO HS [facility] Clopidogrel Bisulfate 75 mg 09/20/18 10:00 09/20/18 10:23 Plavix - PO Not Given DAILY [facility] Epoetin Lyle 7,000 unit 09/20/18 05:33 Epogen - IVPUSH 09/20/18 05:34 ONCE ONE Furosemide 60 mg 09/20/18 06:00 09/20/18 06:27 Lasix - PO Not Given BIDLASIX [facility] Gabapentin 100 mg 09/19/18 23:45 09/20/18 10:23 Neurontin - PO Not Given BID [facility] Heparin Sodium (Porcine) 5,000 unit 09/20/18 06:00 09/20/18 06:44 Heparin - SQ Not Given TID [facility] Sodium Chloride 250 mls @ 3,000 mls/hr 09/20/18 05:33 Normal Saline - IV 09/21/18 05:33 PRN PRN Hypotension during Dialysis Insulin Aspart 1 vial 09/20/18 07:00 09/20/18 13:22 Novolog Vial Sliding Scale - SQ 2 units ACHS [facility] Administration Protocol Insulin Detemir 25 units 09/20/18 22:00 Levemir Vial SQ HS [facility] Lisinopril 5 mg 09/20/18 10:00 09/20/18 10:23 Prinivil PO 5 mg DAILY [facility] Administration Metoprolol Succinate 25 mg 09/20/18 10:00 09/20/18 10:24 Toprol Xl - PO Not Given DAILY [facility] Avkpj-8-Beyu Ethyl Esters 2 gm 09/20/18 10:00 09/20/18 10:23 Lovaza - PO Not Given DAILY [facility] Impression 1. ESRD 2. proteinuria 3. CHF 4. cad 5. DM 6. hyperlipidemia 7. HTN 8. non compliance Impression - HD today - discussed compliance with pt - he currently does not have an outpt HD unit, will need to have HD set up - will UF volume on HD - renal diet
--- NOTE | 2018-09-20 13:34 | EKG ---
Test Reason : Blood Pressure : / mmHG Vent. Rate : 087 BPM Atrial Rate : 087 BPM P-R Int : 160 ms QRS Dur : 132 ms QT Int : 398 ms P-R-T Axes : 070 061 259 degrees QTc Int : 478 ms NORMAL SINUS RHYTHM LEFT BUNDLE BRANCH BLOCK NONSPECIFIC ST ABNORMALITY ABNORMAL ECG WHEN COMPARED WITH ECG OF 19-SEP-2018 12:39, T WAVE INVERSION NOW EVIDENT IN LATERAL LEADS Confirmed by JOSE MIDDLETON, DEXTER ([id number]) on 09/20/2018 1:33:46 PM Referred By: Confirmed By:DEXTER GARCIA MD
--- NOTE | 2018-09-20 14:27 | PN ---
Physical Exam: SUBJECTIVE: Patient seen and examined at bedside- no acute events overnight; patient states that he is feeling ok just feeling slightly overloaded and needs HD today- he denies CP/SOB?N/V OBJECTIVE: Vital Signs Period Temp Pulse Resp BP Sys/Humphreys Pulse Ox Last 24 Hr 97.5 F-98.5 F 80-91 19-20 105-121/76-84 96-100 GENERAL: The patient is awake, alert, EYES:PEERLA: EOMI no scleral icterus . NECK: NO KT; no lympahdenopathy LUNGS:CTA B/L; no rales, rhonchi or wheezing HEART: Regular rate and rhythm, S1, S2 without murmur, rub or gallop. ABDOMEN: Soft, nontender, nondistended, normoactive bowel sounds, no guarding, no rebound, no hepatosplenomegaly, no masses. EXTREMITIES: 2+ pulses, warm, well-perfused, tarce edema B/L PSYCH: Normal mood, normal affect. SKIN: Warm, dry, normal turgor, no rashes or lesions noted Laboratory Results - last 24 hr 09/19/18 09/19/18 09/19/18 22:56 22:56 22:56 WBC 9.8 RBC 3.17 L Hgb 8.9 L Hct 28.1 L MCV 88.9 MCH 28.0 MCHC 31.5 L RDW 17.7 H Plt Count 307 MPV 8.6 Absolute Neuts (auto) 7.1 Neutrophils % 72.5 Lymphocytes % 14.8 Monocytes % 10.0 Eosinophils % 2.4 Basophils % 0.3 Nucleated RBC % 0 PT with INR 12.90 INR 1.09 Sodium 134 L Potassium 4.4 Chloride 100 Carbon Dioxide 23 Anion Gap 12 BUN 93 H Creatinine 4.9 H Est GFR (CKD-EPI)AfAm 14.11 Est GFR (CKD-EPI)NonAf 12.18 POC Glucometer Random Glucose 129 H Calcium 8.2 L Total Bilirubin 0.6 AST 11 L ALT 21 Alkaline Phosphatase 79 Creatine Kinase 110 Troponin I 0.03 Total Protein 7.2 Albumin 3.1 L 09/20/18 06:33 WBC RBC Hgb Hct MCV MCH MCHC RDW Plt Count MPV Absolute Neuts (auto) Neutrophils % Lymphocytes % Monocytes % Eosinophils % Basophils % Nucleated RBC % PT with INR INR Sodium Potassium Chloride Carbon Dioxide Anion Gap BUN Creatinine Est GFR (CKD-EPI)AfAm Est GFR (CKD-EPI)NonAf POC Glucometer 200 Random Glucose Calcium Total Bilirubin AST ALT Alkaline Phosphatase Creatine Kinase Troponin I Total Protein Albumin Active Medications Generic Name Dose Route Start Last Admin Trade Name Freq PRN Reason Stop Dose Admin Acetaminophen 650 mg 09/19/18 23:18 Tylenol - PO Q4H PRN PAIN LEVEL 6-10 Aspirin 81 mg 09/20/18 10:00 09/20/18 10:23 Asa - PO Not Given DAILY [facility] Atorvastatin Calcium 40 mg 09/20/18 22:00 Lipitor - PO HS [facility] Clopidogrel Bisulfate 75 mg 09/20/18 10:00 09/20/18 10:23 Plavix - PO Not Given DAILY [facility] Epoetin Lyle 7,000 unit 09/20/18 05:33 Epogen - IVPUSH 09/20/18 05:34 ONCE ONE Furosemide 60 mg 09/20/18 06:00 09/20/18 06:27 Lasix - PO Not Given BIDLASIX [facility] Gabapentin 100 mg 09/19/18 23:45 09/20/18 10:23 Neurontin - PO Not Given BID [facility] Heparin Sodium (Porcine) 5,000 unit 09/20/18 06:00 09/20/18 06:44 Heparin - SQ Not Given TID [facility] Sodium Chloride 250 mls @ 3,000 mls/hr 09/20/18 05:33 Normal Saline - IV 09/21/18 05:33 PRN PRN Hypotension during Dialysis Insulin Aspart 1 vial 09/20/18 07:00 09/20/18 13:22 Novolog Vial Sliding Scale - SQ 2 units ACHS [facility] Administration Protocol Insulin Detemir 25 units 09/20/18 22:00 Levemir Vial SQ HS [facility] Lisinopril 5 mg 09/20/18 10:00 09/20/18 10:23 Prinivil PO 5 mg DAILY [facility] Administration Metoprolol Succinate 25 mg 09/20/18 10:00 09/20/18 10:24 Toprol Xl - PO Not Given DAILY [facility] Kywjf-3-Rclm Ethyl Esters 2 gm 09/20/18 10:00 09/20/18 10:23 Lovaza - PO Not Given DAILY [facility] ASSESSMENT/PLAN: Patient is a 57 y/o male with a history of ESRD MWF, IDDM, CHF rEF (25%) and CAD who is admitted for hemodialysis. #ESRD - patient got HD today; will need outpatient HD set up - potassium normal - continue to monitor - Dr Blackwood on board #anemia likely 2/2 to ESRD - f/u stool guiac - f/u reticulocyte count #CHFrEF, CAD - last ECHO, EF 25% - continue aspirin, lasix, metorpolol, lisinopril, atorvastatin, #COPD - conitnue home 02 4L oxygen - keep O2 > 88% #DM - BGM ACHS - SS - levemir 25 units hs - continue gabapentin #DVT ppx - heparin TID FEN - low sodium/diabetic diet Problem List - Problems (1) Dialysis patient Code(s): Z99.2 - DEPENDENCE ON RENAL DIALYSIS (2) ESRD (end stage renal disease) Code(s): N18.6 - END STAGE RENAL DISEASE (3) MIRTHA (acute kidney injury) Code(s): N17.9 - ACUTE KIDNEY FAILURE, UNSPECIFIED (4) CHF (congestive heart failure) Code(s): I50.9 - HEART FAILURE, UNSPECIFIED Visit type - Emergency Visit Emergency Visit: Yes ED Registration Date: 09/19/18 Care time: The patient presented to the Emergency Department on the above date and was hospitalized for further evaluation of their emergent condition. - New Patient This patient is new to me today: Yes Date on this admission: 09/20/18 - Critical Care Critical Care patient: No
[2018-09-20] MEDS ORDERED: FUROSEMIDE 40 MG TABLET (FP) ONE (14:51)
[2018-09-20] MEDS ORDERED: SODIUM CHLORIDE 250 ML IV PRN (17:04)
[2018-09-20] MEDS ORDERED: EPOETIN ALFA 10,000 UNIT/1 ML VIAL IVPUSH ONE (17:15)
--- NOTE | 2018-09-20 19:00 | PN ---
Teaching Attending Note Name of Resident: Sera Vogel ATTENDING PHYSICIAN STATEMENT I saw and evaluated the patient. I reviewed the resident's note and discussed the case with the resident. I agree with the resident's findings and plan as documented. SUBJECTIVE: No complaints. No CP/SOB/palpitations. No fever/chills. OBJECTIVE: Afebrile, Hemodynamically Stable. Last Vital Signs Temp Pulse Resp BP Pulse Ox 98.2 F 80 18 107/78 100 09/20/18 15:50 09/20/18 17:00 09/20/18 17:00 09/20/18 17:00 09/20/18 08:00 HEENT - Atraumatic, Normocephalic. R eye blindness Heart - S1, S2, RRR Lungs - clear to auscultaion, reduced air entry at bases Abdomen - soft, non-tender. Bowel Sounds normal. Extremities - mild edema. No calf tenderness. Laboratory Results - last 24 hr 09/19/18 09/19/18 09/19/18 22:56 22:56 22:56 WBC 9.8 RBC 3.17 L Hgb 8.9 L Hct 28.1 L MCV 88.9 MCH 28.0 MCHC 31.5 L RDW 17.7 H Plt Count 307 MPV 8.6 Absolute Neuts (auto) 7.1 Neutrophils % 72.5 Lymphocytes % 14.8 Monocytes % 10.0 Eosinophils % 2.4 Basophils % 0.3 Nucleated RBC % 0 PT with INR 12.90 INR 1.09 Sodium 134 L Potassium 4.4 Chloride 100 Carbon Dioxide 23 Anion Gap 12 BUN 93 H Creatinine 4.9 H Est GFR (CKD-EPI)AfAm 14.11 Est GFR (CKD-EPI)NonAf 12.18 POC Glucometer Random Glucose 129 H Calcium 8.2 L Total Bilirubin 0.6 AST 11 L ALT 21 Alkaline Phosphatase 79 Creatine Kinase 110 Troponin I 0.03 Total Protein 7.2 Albumin 3.1 L 09/20/18 09/20/18 06:33 13:02 WBC RBC Hgb Hct MCV MCH MCHC RDW Plt Count MPV Absolute Neuts (auto) Neutrophils % Lymphocytes % Monocytes % Eosinophils % Basophils % Nucleated RBC % PT with INR INR Sodium Potassium Chloride Carbon Dioxide Anion Gap BUN Creatinine Est GFR (CKD-EPI)AfAm Est GFR (CKD-EPI)NonAf POC Glucometer 200 200 Random Glucose Calcium Total Bilirubin AST ALT Alkaline Phosphatase Creatine Kinase Troponin I Total Protein Albumin Current Medications Generic Name Dose Route Start Last Admin Trade Name Johnnyq PRN Reason Stop Dose Admin Acetaminophen 650 mg 09/19/18 23:18 Tylenol - PO Q4H PRN PAIN LEVEL 6-10 Aspirin 81 mg 09/20/18 10:00 09/20/18 10:23 Asa - PO Not Given DAILY [facility] Atorvastatin Calcium 40 mg 09/20/18 22:00 Lipitor - PO HS [facility] Furosemide 60 mg 09/20/18 06:00 09/20/18 14:55 Lasix - PO Not Given BIDLASIX [facility] Gabapentin 100 mg 09/19/18 23:45 09/20/18 10:23 Neurontin - PO Not Given BID [facility] Heparin Sodium (Porcine) 5,000 unit 09/20/18 06:00 09/20/18 14:54 Heparin - SQ Not Given TID [facility] Sodium Chloride 250 mls @ 3,000 mls/hr 09/20/18 17:04 Normal Saline - IV 09/20/18 22:01 PRN PRN Hypotension during Dialysis Insulin Aspart 1 vial 09/20/18 07:00 09/20/18 13:22 Novolog Vial Sliding Scale - SQ 2 units ACHS [facility] Administration Protocol Insulin Detemir 25 units 09/20/18 22:00 Levemir Vial SQ HS [facility] Lisinopril 5 mg 09/20/18 10:00 09/20/18 10:23 Prinivil PO 5 mg DAILY [facility] Administration Metoprolol Succinate 25 mg 09/20/18 10:00 09/20/18 10:24 Toprol Xl - PO Not Given DAILY [facility] Muomd-8-Clxv Ethyl Esters 2 gm 09/20/18 10:00 09/20/18 10:23 Lovaza - PO Not Given DAILY [facility] Current Medications Generic Name Dose Route Start Last Admin Trade Name Freq PRN Reason Stop Dose Admin Acetaminophen 650 mg 09/19/18 23:18 Tylenol - PO Q4H PRN PAIN LEVEL 6-10 Aspirin 81 mg 09/20/18 10:00 09/20/18 10:23 Asa - PO Not Given DAILY [facility] Atorvastatin Calcium 40 mg 09/20/18 22:00 Lipitor - PO HS [facility] Furosemide 60 mg 09/20/18 06:00 09/20/18 14:55 Lasix - PO Not Given BIDLASIX [facility] Gabapentin 100 mg 09/19/18 23:45 09/20/18 10:23 Neurontin - PO Not Given BID [facility] Heparin Sodium (Porcine) 5,000 unit 09/20/18 06:00 09/20/18 14:54 Heparin - SQ Not Given TID [facility] Sodium Chloride 250 mls @ 3,000 mls/hr 09/20/18 17:04 Normal Saline - IV 09/20/18 22:01 PRN PRN Hypotension during Dialysis Insulin Aspart 1 vial 09/20/18 07:00 09/20/18 13:22 Novolog Vial Sliding Scale - SQ 2 units ACHS [facility] Administration Protocol Insulin Detemir 25 units 09/20/18 22:00 Levemir Vial SQ HS [facility] Lisinopril 5 mg 09/20/18 10:00 09/20/18 10:23 Prinivil PO 5 mg DAILY [facility] Administration Metoprolol Succinate 25 mg 09/20/18 10:00 09/20/18 10:24 Toprol Xl - PO Not Given DAILY [facility] Ynzcp-9-Hrmb Ethyl Esters 2 gm 09/20/18 10:00 09/20/18 10:23 Lovaza - PO Not Given DAILY [facility] ASSESSMENT/PLAN: 57 year old male with history of ESRD on HD (MWF), CRF sec to COPD on Home O2, CAD (not a candidate for PCI given patient history of non-compliance, Chronic Systolic/Diastolic Dysfunction (EF 25%), presents after being unable to get HD at regular HD center as he was expelled. Patient needs HD and is currently without an accepting center. Presented to ED earlier but then left AMA, and subsequently returns for admission. 1. ESRD on HD (MWF) Last HD 09/13/18 K 4.4/Bicarb 23, BUN 93/Creat 4.9 Nephrology aware. Case Management informed re: need to present patient to other HD centers. 2. Chronic Anemia sec to ESRD - further management as per Nephrology 3. DM 2 - normally on Levemir and Novolog sliding scale. 4. HTN - normally on Lisinopril, Metoprolol 5. Chronic Systolic/Diastolic CHF - Normally on [id number] BID. 6. CAD - recommended to continue Aspirin/Plavix/BB/ACEI/Statin (non-complaint with meds normally) 7. HLD - Lovaza, Lipitor. DVT Px - Heparin SQ.
[2018-09-20] MEDS: INSULIN (LEVEMIR) 100 UNITS/ML UNITS SQ SCH (21:23)
[2018-09-20] MEDS: ATORVASTATIN CA 40 MG TABLET (FP) PO SCH ×2 (21:23→21:59)
[2018-09-20 22:35] VITALS: BMI 31.4
[2018-09-21] MEDS: HEPARIN NA (PORCINE) 5,000 UNITS/ML 1ML VIAL SQ SCH ×3 (05:46→22:10)
[2018-09-21] MEDS: FUROSEMIDE 20 MG TABLET (FP) PO SCH ×2 (05:46→13:08)
[2018-09-21] MEDS: INSULIN SLIDING SCALE (NOVOLOG) 1 VIAL SQ SCH ×4 (06:08→22:11)
--- NOTE | 2018-09-21 08:33 | PN ---
Physical Exam: SUBJECTIVE: Patient seen and examined at bedside- no acute events overnight; patient refussed labs and meds- states that he feels better with HD ; denies CP/ SOB/N/V OBJECTIVE: Vital Signs Period Temp Pulse Resp BP Sys/Humphreys Pulse Ox Last 24 Hr 98.1 F-98.2 F 58-91 18-20 107-128/59-82 100-100 GENERAL: The patient is awake, alert, and fully oriented, in no acute distress. EYES:PEERLA: EOMI: no scleral icterus . NECK: no JVD: no lymphadenopathy LUNGS:CTA B/L; no rales, rhonchi or wheezing HEART: Regular rate and rhythm, S1, S2 without murmur, rub or gallop. ABDOMEN: Soft, nontender, nondistended, normoactive bowel sounds, no guarding, no rebound, no hepatosplenomegaly, no masses. EXTREMITIES: 2+ pulses, warm, well-perfused, trace edema. PSYCH: Normal mood, normal affect. SKIN: Warm, dry, normal turgor, no rashes or lesions noted 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 rn endoscopy/ml Cancelled HCV RNA (PCR) IUs/ml Cancelled HCV RNA PCR w/Genot Rflx Cancelled Liver Fibrosis Interp Cancelled 09/21/18 05:38 POC Glucometer 241 Hep C Ab Diagnostic Hepatitis C RNA HCV RNA PCR log rn endoscopy/ml HCV RNA (PCR) IUs/ml HCV RNA PCR w/Genot Rflx Liver Fibrosis Interp Active Medications Generic Name Dose Route Start Last Admin Trade Name Freq PRN Reason Stop Dose Admin Acetaminophen 650 mg 09/19/18 23:18 Tylenol - PO Q4H PRN PAIN LEVEL 6-10 Aspirin 81 mg 09/20/18 10:00 09/20/18 10:23 Asa - PO Not Given DAILY [facility] Atorvastatin Calcium 40 mg 09/20/18 22:00 09/20/18 21:59 Lipitor - PO Not Given HS [facility] Furosemide 60 mg 09/20/18 06:00 09/21/18 05:46 Lasix - PO Not Given BIDLASIX [facility] Gabapentin 100 mg 09/19/18 23:45 09/20/18 21:59 Neurontin - PO Not Given BID [facility] Heparin Sodium (Porcine) 5,000 unit 09/20/18 06:00 09/21/18 05:46 Heparin - SQ Not Given TID [facility] Insulin Aspart 1 vial 09/20/18 07:00 09/21/18 06:08 Novolog Vial Sliding Scale - SQ 4 units ACHS [facility] Administration Protocol Insulin Detemir 25 units 09/20/18 22:00 09/20/18 21:23 Levemir Vial SQ 25 units HS [facility] Administration Lisinopril 5 mg 09/20/18 10:00 09/20/18 10:23 Prinivil PO 5 mg DAILY [facility] Administration Metoprolol Succinate 25 mg 09/20/18 10:00 09/20/18 10:24 Toprol Xl - PO Not Given DAILY [facility] Kgnvl-8-Zznq Ethyl Esters 2 gm 09/20/18 10:00 09/20/18 10:23 Lovaza - PO Not Given DAILY [facility] ASSESSMENT/PLAN: Patient is a 57 y/o male with a history of ESRD MWF, IDDM, CHF rEF (25%) and CAD who is admitted for hemodialysis. #ESRD - patient got HD yesterday; will need outpatient HD set up - potassium normal - continue to monitor - Dr Blackwood on board #anemia likely 2/2 to ESRD - f/u stool guiac - f/u reticulocyte count #CHFrEF, CAD - last ECHO, EF 25% - continue aspirin, lasix, metorpolol, lisinopril, atorvastatin, #COPD - conitnue home 02 4L oxygen - keep O2 > 88% #DM - BGM ACHS - SS - levemir 25 units hs - continue gabapentin #DVT ppx - heparin TID FEN - low sodium/diabetic diet Problem List - Problems (1) Dialysis patient Code(s): Z99.2 - DEPENDENCE ON RENAL DIALYSIS (2) ESRD (end stage renal disease) Code(s): N18.6 - END STAGE RENAL DISEASE (3) MIRTHA (acute kidney injury) Code(s): N17.9 - ACUTE KIDNEY FAILURE, UNSPECIFIED (4) CHF (congestive heart failure) Code(s): I50.9 - HEART FAILURE, UNSPECIFIED Visit type - Emergency Visit Emergency Visit: Yes ED Registration Date: 09/19/18 Care time: The patient presented to the Emergency Department on the above date and was hospitalized for further evaluation of their emergent condition. - New Patient This patient is new to me today: No - Critical Care Critical Care patient: No
[2018-09-21] MEDS: metoPROLOL SUCCINATE 25 MG TAB.SR.24H (FP) PO SCH (09:36)
[2018-09-21] MEDS: ASPIRIN 81 MG CHEWABLE TABLETS PO SCH (09:36)
[2018-09-21] MEDS: GABAPENTIN 100 MG CAPSULE (FP) PO SCH ×2 (09:36→22:11)
[2018-09-21] MEDS: OMEGA-3 ACID ETHYL ESTERS (FATTY-ACIDS) 1 GM CAPSULE (FP) PO SCH (09:36)
[2018-09-21] MEDS: LISINOPRIL 5 MG TABLET (FP) PO SCH (09:36)
--- NOTE | 2018-09-21 11:54 | PN ---
Progress Note, Physician History of Present Illness: Pt seen and examined at bedside. He is awake and alert. He refused labs today. He tolerated HD yesterday. - Current Medication List Current Medications: Active Medications Acetaminophen (Tylenol -) 650 mg PO Q4H PRN PRN Reason: PAIN LEVEL 6-10 Aspirin (Asa -) 81 mg PO DAILY [facility] Last Admin: 09/21/18 09:36 Dose: Not Given Atorvastatin Calcium (Lipitor -) 40 mg PO HS [facility] Last Admin: 09/20/18 21:59 Dose: Not Given Furosemide (Lasix -) 60 mg PO BIDLASIX [facility] Last Admin: 09/21/18 05:46 Dose: Not Given Gabapentin (Neurontin -) 100 mg PO BID [facility] Last Admin: 09/21/18 09:36 Dose: Not Given Heparin Sodium (Porcine) (Heparin -) 5,000 unit SQ TID [facility] Last Admin: 09/21/18 05:46 Dose: Not Given Insulin Aspart (Novolog Vial Sliding Scale -) 1 vial SQ [facility]; Protocol Last Admin: 09/21/18 11:05 Dose: 2 units Insulin Detemir (Levemir Vial) 25 units SQ [facility] Last Admin: 09/20/18 21:23 Dose: 25 units Lisinopril (Prinivil) 5 mg PO DAILY [facility] Last Admin: 09/21/18 09:36 Dose: Not Given Metoprolol Succinate (Toprol Xl -) 25 mg PO DAILY [facility] Last Admin: 09/21/18 09:36 Dose: Not Given Yitol-3-Cepm Ethyl Esters (Lovaza -) 2 gm PO DAILY [facility] Last Admin: 09/21/18 09:36 Dose: Not Given - Objective Vital Signs: Vital Signs Temperature 98 F 09/21/18 09:39 Pulse Rate 86 09/21/18 09:39 Respiratory Rate 18 09/21/18 09:39 Blood Pressure 108/59 L 09/21/18 09:39 O2 Sat by Pulse Oximetry (%) 100 09/21/18 06:36 Constitutional: Yes: Calm Eyes: Yes: Conjunctiva Clear HENT: Yes: Atraumatic Cardiovascular: Yes: S1, S2 Respiratory: Yes: CTA Bilaterally, On Nasal O2 Gastrointestinal: Yes: Soft Genitourinary: Yes: WNL Musculoskeletal: Yes: WNL Edema: Yes Edema: LLE: 1+, RLE: 1+ Neurological: Yes: Oriented Psychiatric: Yes: Oriented Labs: CBC, BMP 09/19/18 22:56 09/19/18 22:56 INR, PTT INR 1.09 (0.83-1.09) 09/19/18 22:56 Problem List - Problems (1) ESRD (end stage renal disease) Code(s): N18.6 - END STAGE RENAL DISEASE (2) Dialysis patient Code(s): Z99.2 - DEPENDENCE ON RENAL DIALYSIS (3) CHF (congestive heart failure) Code(s): I50.9 - HEART FAILURE, UNSPECIFIED Assessment/Plan Current Medications Generic Name Dose Route Start Last Admin Trade Name Freq PRN Reason Stop Dose Admin Acetaminophen 650 mg 09/19/18 23:18 Tylenol - PO Q4H PRN PAIN LEVEL 6-10 Aspirin 81 mg 09/20/18 10:00 09/21/18 09:36 Asa - PO Not Given DAILY [facility] Atorvastatin Calcium 40 mg 09/20/18 22:00 09/20/18 21:59 Lipitor - PO Not Given HS [facility] Furosemide 60 mg 09/20/18 06:00 09/21/18 05:46 Lasix - PO Not Given BIDLASIX [facility] Gabapentin 100 mg 09/19/18 23:45 09/21/18 09:36 Neurontin - PO Not Given BID [facility] Heparin Sodium (Porcine) 5,000 unit 09/20/18 06:00 09/21/18 05:46 Heparin - SQ Not Given TID [facility] Insulin Aspart 1 vial 09/20/18 07:00 09/21/18 11:05 Novolog Vial Sliding Scale - SQ 2 units ACHS [facility] Administration Protocol Insulin Detemir 25 units 09/20/18 22:00 09/20/18 21:23 Levemir Vial SQ 25 units HS [facility] Administration Lisinopril 5 mg 09/20/18 10:00 09/21/18 09:36 Prinivil PO Not Given DAILY [facility] Metoprolol Succinate 25 mg 09/20/18 10:00 09/21/18 09:36 Toprol Xl - PO Not Given DAILY [facility] [id number] Ethyl Esters 2 gm 09/20/18 10:00 09/21/18 09:36 Lovaza - PO Not Given DAILY [facility] Impression 1. ESRD 2. proteinuria 3. CHF 4. cad 5. DM 6. hyperlipidemia 7. HTN 8. non compliance Impression - pt tolerated HD yesterday - he needs hd to be set up as outpt - next HD on Sunday - renal diet
--- NOTE | 2018-09-21 13:15 | PN ---
Teaching Attending Note Name of Resident: Sera Vogel ATTENDING PHYSICIAN STATEMENT I saw and evaluated the patient. I reviewed the resident's note and discussed the case with the resident. I agree with the resident's findings and plan as documented. SUBJECTIVE: No complaints. No CP/SOB/palpitations. No fever/chills. Refusing labs and AM meds. OBJECTIVE: Afebrile, Hemodynamically Stable. Last Vital Signs Temp Pulse Resp BP Pulse Ox 98.7 F 85 18 109/65 100 09/21/18 13:06 09/21/18 13:06 09/21/18 13:06 09/21/18 13:06 09/21/18 06:36 Heart - S1, S2, RRR Lungs - Bibasal crackles. Abdomen - soft, non-tender. Bowel Sounds normal. Extremities - mild edema. No calf tenderness. 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/ml Cancelled HCV RNA (PCR) IUs/ml Cancelled HCV RNA PCR w/Genot Rflx Cancelled Liver Fibrosis Interp Cancelled 09/21/18 09/21/18 05:38 11:03 POC Glucometer 241 159 Hep C Ab Diagnostic Hepatitis C RNA HCV RNA PCR log fluoroscope operator/ml HCV RNA (PCR) IUs/ml HCV RNA PCR w/Genot Rflx Liver Fibrosis Interp Current Medications Generic Name Dose Route Start Last Admin Trade Name Freq PRN Reason Stop Dose Admin Acetaminophen 650 mg 09/19/18 23:18 Tylenol - PO Q4H PRN PAIN LEVEL 6-10 Aspirin 81 mg 09/20/18 10:00 09/21/18 09:36 Asa - PO Not Given DAILY [facility] Atorvastatin Calcium 40 mg 09/20/18 22:00 09/20/18 21:59 Lipitor - PO Not Given HS [facility] Furosemide 60 mg 09/20/18 06:00 09/21/18 13:08 Lasix - PO Not Given BIDLASIX [facility] Gabapentin 100 mg 09/19/18 23:45 09/21/18 09:36 Neurontin - PO Not Given BID [facility] Heparin Sodium (Porcine) 5,000 unit 09/20/18 06:00 09/21/18 13:08 Heparin - SQ Not Given TID [facility] Insulin Aspart 1 vial 09/20/18 07:00 09/21/18 11:05 Novolog Vial Sliding Scale - SQ 2 units ACHS [facility] Administration Protocol Insulin Detemir 25 units 09/20/18 22:00 09/20/18 21:23 Levemir Vial SQ 25 units HS [facility] Administration Lisinopril 5 mg 09/20/18 10:00 09/21/18 09:36 Prinivil PO Not Given DAILY [facility] Metoprolol Succinate 25 mg 09/20/18 10:00 09/21/18 09:36 Toprol Xl - PO Not Given DAILY [facility] Qcboe-7-Cyul Ethyl Esters 2 gm 09/20/18 10:00 09/21/18 09:36 Lovaza - PO Not Given DAILY [facility] ASSESSMENT/PLAN: 57 year old male with history of ESRD on HD (MWF), CRF sec to COPD on Home O2, CAD (not a candidate for PCI given patient history of non-compliance), Chronic Systolic/Diastolic Dysfunction (EF 25%), presents after being unable to get HD at regular HD center as he was expelled. Patient is currently without an accepting HD center. 1. ESRD on HD (MWF) Last HD 09/20/18 Nephrology following Case Management informed re: need to present patient to other HD centers. 2. Chronic Anemia sec to ESRD - further management as per Nephrology 3. DM 2 - normally on Levemir and Novolog sliding scale. 4. HTN - normally on Lisinopril, Metoprolol 5. Chronic Systolic/Diastolic CHF - Normally on Lasix 60mg BID. 6. CAD - recommended to continue Aspirin/Plavix/BB/ACEI/Statin (non-complaint with meds normally) 7. HLD - Lovaza, Lipitor. DVT Px - Heparin SQ.
[2018-09-21] MEDS: ATORVASTATIN CA 40 MG TABLET (FP) PO SCH (22:11)
[2018-09-21] MEDS: INSULIN (LEVEMIR) 100 UNITS/ML UNITS SQ SCH (22:11)
[2018-09-22] MEDS: HEPARIN NA (PORCINE) 5,000 UNITS/ML 1ML VIAL SQ SCH ×3 (06:11→22:07)
[2018-09-22] MEDS: FUROSEMIDE 20 MG TABLET (FP) PO SCH ×2 (06:11→13:19)
[2018-09-22] MEDS: INSULIN SLIDING SCALE (NOVOLOG) 1 VIAL SQ SCH ×4 (06:17→22:11)
[2018-09-22] MEDS: metoPROLOL SUCCINATE 25 MG TAB.SR.24H (FP) PO SCH (09:26)
[2018-09-22] MEDS: LISINOPRIL 5 MG TABLET (FP) PO SCH (09:26)
[2018-09-22] MEDS: OMEGA-3 ACID ETHYL ESTERS (FATTY-ACIDS) 1 GM CAPSULE (FP) PO SCH ×2 (09:31→09:33)
[2018-09-22] MEDS: ASPIRIN 81 MG CHEWABLE TABLETS PO SCH ×2 (09:31→09:34)
[2018-09-22] MEDS: GABAPENTIN 100 MG CAPSULE (FP) PO SCH ×3 (09:31→22:08)
--- NOTE | 2018-09-22 10:48 | PN ---
Progress Note, Physician History of Present Illness: Pt seen and examined at bedside. He is awake and alert. He denies shortness of breath. - Current Medication List Current Medications: Active Medications Acetaminophen (Tylenol -) 650 mg PO Q4H PRN PRN Reason: PAIN LEVEL 6-10 Aspirin (Asa -) 81 mg PO DAILY [facility] Last Admin: 09/22/18 09:34 Dose: Not Given Atorvastatin Calcium (Lipitor -) 40 mg PO HS [facility] Last Admin: 09/21/18 22:11 Dose: Not Given Furosemide (Lasix -) 60 mg PO BIDLASIX [facility] Last Admin: 09/22/18 06:11 Dose: Not Given Gabapentin (Neurontin -) 100 mg PO BID [facility] Last Admin: 09/22/18 09:34 Dose: Not Given Heparin Sodium (Porcine) (Heparin -) 5,000 unit SQ TID [facility] Last Admin: 09/22/18 06:11 Dose: Not Given Insulin Aspart (Novolog Vial Sliding Scale -) 1 vial SQ [facility]; Protocol Last Admin: 09/22/18 06:17 Dose: Not Given Insulin Detemir (Levemir Vial) 25 units SQ [facility] Last Admin: 09/21/18 22:11 Dose: 25 units Lisinopril (Prinivil) 5 mg PO DAILY [facility] Last Admin: 09/22/18 09:26 Dose: Not Given Metoprolol Succinate (Toprol Xl -) 25 mg PO DAILY [facility] Last Admin: 09/22/18 09:26 Dose: Not Given Xwztl-9-Dspm Ethyl Esters (Lovaza -) 2 gm PO DAILY [facility] Last Admin: 09/22/18 09:33 Dose: Not Given - Objective Vital Signs: Vital Signs Temperature 98.4 F 09/22/18 06:00 Pulse Rate 91 H 09/22/18 06:00 Respiratory Rate 20 09/22/18 06:00 Blood Pressure 124/69 09/22/18 06:00 O2 Sat by Pulse Oximetry (%) 100 09/21/18 23:00 Constitutional: Yes: Calm Eyes: Yes: Conjunctiva Clear HENT: Yes: Atraumatic Cardiovascular: Yes: S1, S2 Respiratory: Yes: CTA Bilaterally, On Nasal O2 Gastrointestinal: Yes: Soft Genitourinary: Yes: WNL Musculoskeletal: Yes: WNL Edema: Yes Edema: LLE: 1+, RLE: 1+ Neurological: Yes: Oriented Psychiatric: Yes: Oriented Labs: CBC, BMP 09/19/18 22:56 09/19/18 22:56 INR, PTT INR 1.09 (0.83-1.09) 09/19/18 22:56 Problem List - Problems (1) ESRD (end stage renal disease) Code(s): N18.6 - END STAGE RENAL DISEASE (2) Dialysis patient Code(s): Z99.2 - DEPENDENCE ON RENAL DIALYSIS (3) CHF (congestive heart failure) Code(s): I50.9 - HEART FAILURE, UNSPECIFIED Assessment/Plan Current Medications Generic Name Dose Route Start Last Admin Trade Name Freq PRN Reason Stop Dose Admin Acetaminophen 650 mg 09/19/18 23:18 Tylenol - PO Q4H PRN PAIN LEVEL 6-10 Aspirin 81 mg 09/20/18 10:00 09/22/18 09:34 Asa - PO Not Given DAILY [facility] Atorvastatin Calcium 40 mg 09/20/18 22:00 09/21/18 22:11 Lipitor - PO Not Given HS [facility] Furosemide 60 mg 09/20/18 06:00 09/22/18 06:11 Lasix - PO Not Given BIDLASIX [facility] Gabapentin 100 mg 09/19/18 23:45 09/22/18 09:34 Neurontin - PO Not Given BID [facility] Heparin Sodium (Porcine) 5,000 unit 09/20/18 06:00 09/22/18 06:11 Heparin - SQ Not Given TID [facility] Insulin Aspart 1 vial 09/20/18 07:00 09/22/18 06:17 Novolog Vial Sliding Scale - SQ Not Given ACHS [facility] Protocol Insulin Detemir 25 units 09/20/18 22:00 09/21/18 22:11 Levemir Vial SQ 25 units HS [facility] Administration Lisinopril 5 mg 09/20/18 10:00 09/22/18 09:26 Prinivil PO Not Given DAILY [facility] Metoprolol Succinate 25 mg 09/20/18 10:00 09/22/18 09:26 Toprol Xl - PO Not Given DAILY [facility] Xglzv-6-Zozy Ethyl Esters 2 gm 09/20/18 10:00 09/22/18 09:33 Lovaza - PO Not Given DAILY [facility] Impression 1. ESRD 2. proteinuria 3. CHF 4. cad 5. DM 6. hyperlipidemia 7. HTN 8. non compliance Impression - HD tomorrow - check labs pre hd - epogen for anemia - pending placement, send info to [facility] - renal diet
--- NOTE | 2018-09-22 12:24 | PN ---
Teaching Attending Note ATTENDING PHYSICIAN STATEMENT I saw and evaluated the patient. I reviewed the resident's note and discussed the case with the resident. I agree with the resident's findings and plan as documented. SUBJECTIVE: OBJECTIVE: ASSESSMENT AND PLAN:
--- NOTE | 2018-09-22 12:28 | PN ---
Progress Note (short form) - Note Progress Note: SUBJECTIVE: No complaints. No CP/SOB/palpitations. No fever/chills. Continues to refuse labs and AM meds. OBJECTIVE: Afebrile, Hemodynamically Stable. Last Vital Signs Temp Pulse Resp BP Pulse Ox 99.6 F 84 20 99/48 L 100 09/22/18 10:00 09/22/18 10:00 09/22/18 10:00 09/22/18 10:00 09/21/18 23:00 Heart - S1, S2, RRR Lungs - Bibasal crackles. Abdomen - soft, non-tender. Bowel Sounds normal. Extremities - mild edema. No calf tenderness. Laboratory Results - last 24 hr 09/21/18 09/21/18 09/22/18 16:03 21:18 06:17 POC Glucometer 138 199 127 09/22/18 12:03 POC Glucometer 153 Current Medications Generic Name Dose Route Start Last Admin Trade Name Freq PRN Reason Stop Dose Admin Acetaminophen 650 mg 09/19/18 23:18 Tylenol - PO Q4H PRN PAIN LEVEL 6-10 Aspirin 81 mg 09/20/18 10:00 09/22/18 09:34 Asa - PO Not Given DAILY [facility] Atorvastatin Calcium 40 mg 09/20/18 22:00 09/21/18 22:11 Lipitor - PO Not Given HS [facility] Epoetin Lyle 10,000 unit 09/23/18 10:49 Procrit - IVPUSH 09/23/18 10:50 ONCE ONE Furosemide 60 mg 09/20/18 06:00 09/22/18 06:11 Lasix - PO Not Given BIDLASIX [facility] Gabapentin 100 mg 09/19/18 23:45 09/22/18 09:34 Neurontin - PO Not Given BID [facility] Heparin Sodium (Porcine) 5,000 unit 09/20/18 06:00 09/22/18 06:11 Heparin - SQ Not Given TID [facility] Sodium Chloride 250 mls @ 3,000 mls/hr 09/22/18 10:49 Normal Saline - IV 09/23/18 10:49 PRN PRN Hypotension during Dialysis Insulin Aspart 1 vial 09/20/18 07:00 09/22/18 12:03 Novolog Vial Sliding Scale - SQ Not Given ACHS [facility] Protocol Insulin Detemir 25 units 09/20/18 22:00 09/21/18 22:11 Levemir Vial SQ 25 units HS [facility] Administration Lisinopril 5 mg 09/20/18 10:00 09/22/18 09:26 Prinivil PO Not Given DAILY [facility] Metoprolol Succinate 25 mg 09/20/18 10:00 09/22/18 09:26 Toprol Xl - PO Not Given DAILY [facility] Gewmj-3-Yxsj Ethyl Esters 2 gm 09/20/18 10:00 09/22/18 09:33 Lovaza - PO Not Given DAILY [facility] ASSESSMENT/PLAN: 57 year old male with history of ESRD on HD (MWF), CRF sec to COPD on Home O2, CAD (not a candidate for PCI given patient history of non-compliance), Chronic Systolic/Diastolic Dysfunction (EF 25%), presents after being unable to get HD at regular HD center as he was expelled. Patient is currently without an accepting HD center. 1. ESRD on HD (MWF) Last HD 09/20/18 - for HD tomorrow. Nephrology following Case Management informed re: need to present patient to other HD centers. Refuses labs. 2. Chronic Anemia sec to ESRD - Epo as per Nephrology 3. DM 2 - normally on Levemir and Novolog sliding scale. 4. HTN - BP borderline. Normally on Lisinopril, Metoprolol - refuses. 5. Chronic Systolic/Diastolic CHF - Normally on Lasix 60mg BID. 6. CAD - recommended to continue Aspirin/Plavix/BB/ACEI/Statin (non-complaint with meds normally) 7. HLD - Lovaza, Lipitor. DVT Px - Heparin SQ. Visit type - Emergency Visit Emergency Visit: Yes ED Registration Date: 09/19/18 Care time: The patient presented to the Emergency Department on the above date and was hospitalized for further evaluation of their emergent condition. - New Patient This patient is new to me today: No - Critical Care Critical Care patient: No - Discharge Referral Referred to [facility] Med P.C.: No
[2018-09-22] MEDS: ATORVASTATIN CA 40 MG TABLET (FP) PO SCH (22:08)
[2018-09-22] MEDS: INSULIN (LEVEMIR) 100 UNITS/ML UNITS SQ SCH (22:11)
[2018-09-23] MEDS: HEPARIN NA (PORCINE) 5,000 UNITS/ML 1ML VIAL SQ SCH ×3 (06:02→21:19)
[2018-09-23] MEDS: FUROSEMIDE 20 MG TABLET (FP) PO SCH ×2 (06:02→13:34)
[2018-09-23] MEDS: INSULIN SLIDING SCALE (NOVOLOG) 1 VIAL SQ SCH ×4 (07:01→21:22)
[2018-09-23] MEDS: ASPIRIN 81 MG CHEWABLE TABLETS PO SCH (09:17)
[2018-09-23] MEDS: metoPROLOL SUCCINATE 25 MG TAB.SR.24H (FP) PO SCH (09:18)
[2018-09-23] MEDS: GABAPENTIN 100 MG CAPSULE (FP) PO SCH ×2 (09:18→21:25)
[2018-09-23] MEDS: OMEGA-3 ACID ETHYL ESTERS (FATTY-ACIDS) 1 GM CAPSULE (FP) PO SCH (09:18)
[2018-09-23] MEDS: LISINOPRIL 5 MG TABLET (FP) PO SCH (09:18)
--- NOTE | 2018-09-23 11:14 | PN ---
Teaching Attending Note Name of Resident: Nessa Cole ATTENDING PHYSICIAN STATEMENT I saw and evaluated the patient. I reviewed the resident's note and discussed the case with the resident. I agree with the resident's findings and plan as documented. SUBJECTIVE: No complaints. No CP/SOB/palpitations. No fever/chills. Continues to labs and meds. OBJECTIVE: Afebrile, Hemodynamically Stable. Last Vital Signs Temp Pulse Resp BP Pulse Ox 97.9 F 90 20 132/86 100 09/23/18 09:19 09/23/18 09:19 09/23/18 09:19 09/23/18 09:19 09/22/18 23:00 Heart - S1, S2, RRR Lungs - Bibasal crackles improved. Abdomen - soft, non-tender. Bowel Sounds normal. Extremities - mild edema. No calf tenderness. Laboratory Results - last 24 hr 09/22/18 09/22/18 09/22/18 12:03 16:47 22:10 POC Glucometer 153 195 209 09/23/18 09/23/18 07:00 11:09 POC Glucometer 136 194 Current Medications Generic Name Dose Route Start Last Admin Trade Name Freq PRN Reason Stop Dose Admin Acetaminophen 650 mg 09/19/18 23:18 Tylenol - PO Q4H PRN PAIN LEVEL 6-10 Aspirin 81 mg 09/20/18 10:00 09/23/18 09:17 Asa - PO 81 mg DAILY [facility] Administration Atorvastatin Calcium 40 mg 09/20/18 22:00 09/22/18 22:08 Lipitor - PO Not Given HS [facility] Epoetin Lyle 10,000 unit 09/23/18 10:49 Procrit - IVPUSH 09/23/18 10:50 ONCE ONE Furosemide 60 mg 09/20/18 06:00 09/23/18 06:02 Lasix - PO Not Given BIDLASIX [facility] Gabapentin 100 mg 09/19/18 23:45 09/23/18 09:18 Neurontin - PO Not Given BID [facility] Heparin Sodium (Porcine) 5,000 unit 09/20/18 06:00 09/23/18 06:02 Heparin - SQ Not Given TID [facility] Sodium Chloride 250 mls @ 3,000 mls/hr 09/22/18 10:49 Normal Saline - IV 09/23/18 10:49 PRN PRN Hypotension during Dialysis Insulin Aspart 1 vial 09/20/18 07:00 09/23/18 07:01 Novolog Vial Sliding Scale - SQ Not Given ACHS [facility] Protocol Insulin Detemir 25 units 09/20/18 22:00 09/22/18 22:11 Levemir Vial SQ 25 units HS [facility] Administration Lisinopril 5 mg 09/20/18 10:00 09/23/18 09:18 Prinivil PO Not Given DAILY [facility] Metoprolol Succinate 25 mg 09/20/18 10:00 09/23/18 09:18 Toprol Xl - PO Not Given DAILY [facility] Qxabs-0-Btyx Ethyl Esters 2 gm 09/20/18 10:00 09/23/18 09:18 Lovaza - PO Not Given DAILY [facility] ASSESSMENT/PLAN: 57 year old male with history of ESRD on HD (MWF), CRF sec to COPD on Home O2, CAD (not a candidate for PCI given patient history of non-compliance), Chronic Systolic/Diastolic Dysfunction (EF 25%), presents after being unable to get HD at regular HD center as he was expelled. Patient is currently without an accepting HD center. 1. ESRD on HD (MWF) Last HD 09/20/18 - for HD today Nephrology following Case Management involved in presenting patient to other HD centers. Awaiting acceptance. Refuses labs. 2. Chronic Anemia sec to ESRD - Epo as per Nephrology 3. DM 2 - normally on Levemir and Novolog sliding scale. 4. HTN - BP borderline. Normally on Lisinopril, Metoprolol - refuses. 5. Chronic Systolic/Diastolic CHF - Normally on Lasix 60mg BID. 6. CAD - recommended to continue Aspirin/Plavix/BB/ACEI/Statin (non-complaint with meds normally) 7. HLD - Lovaza, Lipitor. DVT Px - Heparin SQ.
--- NOTE | 2018-09-23 11:38 | PN ---
Progress Note, Physician History of Present Illness: Pt seen and examined at bedside. He is awake and alert. He is due for HD today. - Current Medication List Current Medications: Active Medications Acetaminophen (Tylenol -) 650 mg PO Q4H PRN PRN Reason: PAIN LEVEL 6-10 Aspirin (Asa -) 81 mg PO DAILY [facility] Last Admin: 09/23/18 09:17 Dose: 81 mg Atorvastatin Calcium (Lipitor -) 40 mg PO HS [facility] Last Admin: 09/22/18 22:08 Dose: Not Given Epoetin Lyle (Procrit -) 10,000 unit IVPUSH ONCE ONE Stop: 09/23/18 10:50 Furosemide (Lasix -) 60 mg PO BIDLASIX [facility] Last Admin: 09/23/18 06:02 Dose: Not Given Gabapentin (Neurontin -) 100 mg PO BID [facility] Last Admin: 09/23/18 09:18 Dose: Not Given Heparin Sodium (Porcine) (Heparin -) 5,000 unit SQ TID [facility] Last Admin: 09/23/18 06:02 Dose: Not Given Sodium Chloride (Normal Saline -) 250 mls @ 3,000 mls/hr IV PRN PRN PRN Reason: Hypotension during Dialysis Stop: 09/23/18 10:49 Insulin Aspart (Novolog Vial Sliding Scale -) 1 vial SQ [facility]; Protocol Last Admin: 09/23/18 07:01 Dose: Not Given Insulin Detemir (Levemir Vial) 25 units SQ [facility] Last Admin: 09/22/18 22:11 Dose: 25 units Lisinopril (Prinivil) 5 mg PO DAILY [facility] Last Admin: 09/23/18 09:18 Dose: Not Given Metoprolol Succinate (Toprol Xl -) 25 mg PO DAILY [facility] Last Admin: 09/23/18 09:18 Dose: Not Given Vrxwv-2-Usfn Ethyl Esters (Lovaza -) 2 gm PO DAILY [facility] Last Admin: 09/23/18 09:18 Dose: Not Given - Objective Vital Signs: Vital Signs Temperature 97.9 F 09/23/18 09:19 Pulse Rate 90 09/23/18 09:19 Respiratory Rate 20 09/23/18 09:19 Blood Pressure 132/86 09/23/18 09:19 O2 Sat by Pulse Oximetry (%) 100 09/22/18 23:00 Constitutional: Yes: Calm Eyes: Yes: Conjunctiva Clear HENT: Yes: Atraumatic Neck: Yes: Supple Cardiovascular: Yes: S1, S2 Respiratory: Yes: On Nasal O2 Gastrointestinal: Yes: Soft Genitourinary: Yes: WNL Edema: Yes Edema: LLE: 1+, RLE: 1+ Neurological: Yes: Oriented Psychiatric: Yes: Oriented Labs: CBC, BMP 09/19/18 22:56 09/19/18 22:56 INR, PTT INR 1.09 (0.83-1.09) 09/19/18 22:56 Problem List - Problems (1) ESRD (end stage renal disease) Code(s): N18.6 - END STAGE RENAL DISEASE (2) Dialysis patient Code(s): Z99.2 - DEPENDENCE ON RENAL DIALYSIS (3) CHF (congestive heart failure) Code(s): I50.9 - HEART FAILURE, UNSPECIFIED Assessment/Plan Current Medications Generic Name Dose Route Start Last Admin Trade Name Freq PRN Reason Stop Dose Admin Acetaminophen 650 mg 09/19/18 23:18 Tylenol - PO Q4H PRN PAIN LEVEL 6-10 Aspirin 81 mg 09/20/18 10:00 09/23/18 09:17 Asa - PO 81 mg DAILY [facility] Administration Atorvastatin Calcium 40 mg 09/20/18 22:00 09/22/18 22:08 Lipitor - PO Not Given HS [facility] Epoetin Lyle 10,000 unit 09/23/18 10:49 Procrit - IVPUSH 09/23/18 10:50 ONCE ONE Furosemide 60 mg 09/20/18 06:00 09/23/18 06:02 Lasix - PO Not Given BIDLASIX [facility] Gabapentin 100 mg 09/19/18 23:45 09/23/18 09:18 Neurontin - PO Not Given BID [facility] Heparin Sodium (Porcine) 5,000 unit 09/20/18 06:00 09/23/18 06:02 Heparin - SQ Not Given TID [facility] Sodium Chloride 250 mls @ 3,000 mls/hr 09/22/18 10:49 Normal Saline - IV 09/23/18 10:49 PRN PRN Hypotension during Dialysis Insulin Aspart 1 vial 09/20/18 07:00 09/23/18 11:35 Novolog Vial Sliding Scale - SQ 2 units ACHS [facility] Administration Protocol Insulin Detemir 25 units 09/20/18 22:00 09/22/18 22:11 Levemir Vial SQ 25 units HS [facility] Administration Lisinopril 5 mg 09/20/18 10:00 09/23/18 09:18 Prinivil PO Not Given DAILY [facility] Metoprolol Succinate 25 mg 09/20/18 10:00 09/23/18 09:18 Toprol Xl - PO Not Given DAILY [facility] Dczmf-3-Pwag Ethyl Esters 2 gm 09/20/18 10:00 09/23/18 09:18 Lovaza - PO Not Given DAILY [facility] Impression 1. ESRD 2. proteinuria 3. CHF 4. cad 5. DM 6. hyperlipidemia 7. HTN 8. non compliance Impression - HD today - epogen for anemia - check labs pre hd - pending placement, send info to [facility] - renal diet
--- NOTE | 2018-09-23 13:04 | PN ---
Physical Exam: SUBJECTIVE: Patient seen and examined at bedside. With family at bedside. Wearing blanket over head, feeling cold. No complaints. OBJECTIVE: Vital Signs Period Temp Pulse Resp BP Sys/Humphreys Pulse Ox Last 24 Hr 97.6 F-97.9 F 86-90 20-22 122-133/61-87 100-100 GENERAL: AAOx 3. in no acute distress. NECK: no JVD. no lymphadenopathy LUNGS:CTA B/L. no rales, rhonchi or wheezing HEART: Regular rate and rhythm, S1, S2 without murmur, rub or gallop. ABDOMEN: Soft, obese, nontender, nondistended, normoactive bowel sounds EXTREMITIES: 2+ pt pulses, warm, well-perfused, trace edema. PSYCH: Normal mood, normal affect. SKIN: Warm, dry, normal turgor, no rashes or lesions noted Laboratory Results - last 24 hr 09/22/18 09/22/18 09/23/18 16:47 22:10 07:00 POC Glucometer 195 209 136 09/23/18 11:09 POC Glucometer 194 ASSESSMENT/PLAN: Patient is a 57 y/o male with a history of ESRD MWF, IDDM, CHF rEF (25%) and CAD who is admitted for hemodialysis. #ESRD -dialyzed today. c/t monitor. will need placement, awaiting acceptance from HD centers -Nephro: Dr. Blackwood #Chronic anemia likely 2/2 to ESRD -c/w EPO as per nephro #HFrEF, CAD -last ECHO, EF 25% -c/w aspirin, lasix, metoprolol, lisinopril, atorva #COPD -cont NC 02. on 3-4L at home -goal sp02 88-92% #DM2 -BGM, ISS ACHS -c/w levemir 24u HS #HTN -refuses lisinopril, metoprolol #FEN -not on IVF -cont to follow lytes -low sodium/diabetic diet #PPX DVT: hep sq #Dispo cont'd monitoring on med-surg was dialyzed today awaiting acceptance Visit type - Emergency Visit Emergency Visit: No - New Patient This patient is new to me today: No - Critical Care Critical Care patient: No
[2018-09-23] MEDS ORDERED: SODIUM CHLORIDE 250 ML IV PRN (14:07)
[2018-09-23] MEDS ORDERED: EPOETIN ALFA 10,000 UNIT/1 ML VIAL IVPUSH ONE (14:15)
[2018-09-23 14:38] LABS: HEMATOCRIT 27.8 % (35.4-49); MCH 28.5 pg (25.7-33.7); MCHC 32.3 g/dl (32.0-35.9); MEAN CELL VOLUME 88.3 fl (80-96); MEAN PLT VOLUME 8.6 fl (7.5-11.1); PLATELET COUNT 282 K/MM3 (134-434); RBC 3.14 M/mm3 (4.00-5.60); RDW 18.3 % (11.9-15.9); WHITE BLOOD COUNT 10.5 K/mm3 (4.0-10.0)
[2018-09-23 14:49] LABS: CREATININE 3.8 mg/dL (0.55-1.3); PHOSPHOROUS 4.3 mg/dL (2.5-4.9); POTASSIUM 3.8 mmol/L (3.5-5.1)
[2018-09-23 18:38] LABS: CREATININE 1.5 mg/dL (0.55-1.3)
[2018-09-23] MEDS: ATORVASTATIN CA 40 MG TABLET (FP) PO SCH (21:19)
[2018-09-23] MEDS: INSULIN (LEVEMIR) 100 UNITS/ML UNITS SQ SCH (21:20)
[2018-09-24] MEDS: HEPARIN NA (PORCINE) 5,000 UNITS/ML 1ML VIAL SQ SCH ×3 (06:20→21:24)
[2018-09-24] MEDS: INSULIN SLIDING SCALE (NOVOLOG) 1 VIAL SQ SCH ×4 (06:55→21:20)
[2018-09-24] MEDS: FUROSEMIDE 20 MG TABLET (FP) PO SCH ×2 (06:56→13:37)
--- NOTE | 2018-09-24 08:16 | PN ---
Physical Exam: SUBJECTIVE: Patient seen and examined at bedside no acute evetnts overnight; patient has been refusing all meds and labs and is very anxious to go home however he states that he is feeling OK; denies CP/SOB/N/V- waiting on HD placement OBJECTIVE: Vital Signs Period Temp Pulse Resp BP Sys/Humphreys Pulse Ox Last 24 Hr 97.5 F-98.6 F 80-97 18-22 93-150/48-87 100 GENERAL: The patient is awake, alert, and fully oriented, in no acute distress. EYES:PEERLA: EOMI no scleral icterus NECK: no JVD; no lymphadenopathy LUNGS: Breath sounds equal, clear to auscultation bilaterally, no wheezes, no crackles, no accessory muscle use. HEART: Regular rate and rhythm, S1, S2 without murmur, rub or gallop. ABDOMEN: Soft, nontender, nondistended, normoactive bowel sounds, no guarding, no rebound, no hepatosplenomegaly, no masses. EXTREMITIES: 2+ pulses, warm, well-perfused, trace edema B/L PSYCH: Normal mood, normal affect. SKIN: Warm, dry, normal turgor, no rashes or lesions noted Laboratory Results - last 24 hr 09/23/18 09/23/18 09/23/18 11:09 14:00 14:00 WBC 10.5 H RBC 3.14 L Hgb 9.0 L Hct 27.8 L MCV 88.3 MCH 28.5 MCHC 32.3 RDW 18.3 H Plt Count 282 MPV 8.6 Sodium 134 L Potassium 3.8 Chloride 97 L Carbon Dioxide 29 Anion Gap 8 BUN 64 H Creatinine 3.8 H Est GFR (CKD-EPI)AfAm 19.19 Est GFR (CKD-EPI)NonAf 16.56 POC Glucometer 194 Random Glucose 212 H Calcium 8.0 L Phosphorus 4.3 09/23/18 09/23/18 09/23/18 16:14 17:30 21:17 WBC RBC Hgb Hct MCV MCH MCHC RDW Plt Count MPV Sodium Potassium Chloride Carbon Dioxide Anion Gap BUN 21 H Creatinine 1.5 H Est GFR (CKD-EPI)AfAm Est GFR (CKD-EPI)NonAf POC Glucometer 175 175 Random Glucose Calcium Phosphorus 09/23/18 09/24/18 22:59 06:48 WBC RBC Hgb Hct MCV MCH MCHC RDW Plt Count MPV Sodium Potassium Chloride Carbon Dioxide Anion Gap BUN Creatinine Est GFR (CKD-EPI)AfAm Est GFR (CKD-EPI)NonAf POC Glucometer 202 127 Random Glucose Calcium Phosphorus Active Medications Generic Name Dose Route Start Last Admin Trade Name Freq PRN Reason Stop Dose Admin Acetaminophen 650 mg 09/19/18 23:18 Tylenol - PO Q4H PRN PAIN LEVEL 6-10 Aspirin 81 mg 09/20/18 10:00 09/23/18 09:17 Asa - PO 81 mg DAILY G[facility] Administration Atorvastatin Calcium 40 mg 09/20/18 22:00 09/23/18 21:19 Lipitor - PO Not Given HS G[facility] Furosemide 60 mg 09/20/18 06:00 09/24/18 06:56 Lasix - PO Not Given BIDLASIX [facility] Gabapentin 100 mg 09/19/18 23:45 09/23/18 21:25 Neurontin - PO Not Given BID G[facility] Heparin Sodium (Porcine) 5,000 unit 09/20/18 06:00 09/24/18 06:20 Heparin - SQ Not Given TID [facility] Insulin Aspart 1 vial 09/20/18 07:00 09/24/18 06:55 Novolog Vial Sliding Scale - SQ Not Given ACHS [facility] Protocol Insulin Detemir 25 units 09/20/18 22:00 09/23/18 21:20 Levemir Vial SQ 25 units HS [facility] Administration Lisinopril 5 mg 09/20/18 10:00 09/23/18 09:18 Prinivil PO Not Given DAILY [facility] Metoprolol Succinate 25 mg 09/20/18 10:00 09/23/18 09:18 Toprol Xl - PO Not Given DAILY [facility] Qgohk-4-Uedg Ethyl Esters 2 gm 09/20/18 10:00 09/23/18 09:18 Lovaza - PO Not Given DAILY [facility] ASSESSMENT/PLAN: Patient is a 57 y/o male with a history of ESRD MWF, IDDM, CHF rEF (25%) and CAD who is admitted for hemodialysis. #ESRD -dialyzed yesterday. c/t monitor. will need placement, awaiting acceptance from HD centers -Nephro: Dr. Blackwood #Chronic anemia likely 2/2 to ESRD -c/w EPO as per nephro #HFrEF, CAD -last ECHO, EF 25% -c/w aspirin, lasix, metoprolol, lisinopril, atorva #COPD -cont NC 02. on 3-4L at home -goal sp02 88-92% #DM2 -BGM, ISS ACHS -c/w levemir 24u HS #HTN -refuses lisinopril, metoprolol #FEN -not on IVF -cont to follow lytes -low sodium/diabetic diet #PPX DVT: hep sq #Dispo cont'd monitoring on med-surg was dialyzed today awaiting acceptance Problem List - Problems (1) Dialysis patient Code(s): Z99.2 - DEPENDENCE ON RENAL DIALYSIS (2) ESRD (end stage renal disease) Code(s): N18.6 - END STAGE RENAL DISEASE (3) MIRTHA (acute kidney injury) Code(s): N17.9 - ACUTE KIDNEY FAILURE, UNSPECIFIED (4) CHF (congestive heart failure) Code(s): I50.9 - HEART FAILURE, UNSPECIFIED Visit type - Emergency Visit Emergency Visit: Yes ED Registration Date: 09/24/18 Care time: The patient presented to the Emergency Department on the above date and was hospitalized for further evaluation of their emergent condition. - New Patient This patient is new to me today: No - Critical Care Critical Care patient: No
[2018-09-24] MEDS: OMEGA-3 ACID ETHYL ESTERS (FATTY-ACIDS) 1 GM CAPSULE (FP) PO SCH (09:18)
[2018-09-24] MEDS: GABAPENTIN 100 MG CAPSULE (FP) PO SCH ×2 (09:18→21:24)
[2018-09-24] MEDS: metoPROLOL SUCCINATE 25 MG TAB.SR.24H (FP) PO SCH (09:18)
[2018-09-24] MEDS: LISINOPRIL 5 MG TABLET (FP) PO SCH (09:18)
[2018-09-24] MEDS: ASPIRIN 81 MG CHEWABLE TABLETS PO SCH (09:18)
--- NOTE | 2018-09-24 10:55 | PN ---
Progress Note, Physician History of Present Illness: Pt seen and examined at bedside. He is awake and alert. He wants to go home but is waiting for HD placement. - Current Medication List Current Medications: Active Medications Acetaminophen (Tylenol -) 650 mg PO Q4H PRN PRN Reason: PAIN LEVEL 6-10 Aspirin (Asa -) 81 mg PO DAILY [facility] Last Admin: 09/24/18 09:18 Dose: Not Given Atorvastatin Calcium (Lipitor -) 40 mg PO HS [facility] Last Admin: 09/23/18 21:19 Dose: Not Given Furosemide (Lasix -) 60 mg PO BIDLASIX [facility] Last Admin: 09/24/18 06:56 Dose: Not Given Gabapentin (Neurontin -) 100 mg PO BID [facility] Last Admin: 09/24/18 09:18 Dose: Not Given Heparin Sodium (Porcine) (Heparin -) 5,000 unit SQ TID [facility] Last Admin: 09/24/18 06:20 Dose: Not Given Insulin Aspart (Novolog Vial Sliding Scale -) [address] [facility]; Protocol Last Admin: 09/24/18 06:55 Dose: Not Given Insulin Detemir (Levemir Vial) [address] [facility] Last Admin: 09/23/18 21:20 Dose: 25 units Lisinopril (Prinivil) 5 mg PO DAILY [facility] Last Admin: 09/24/18 09:18 Dose: Not Given Metoprolol Succinate (Toprol Xl -) 25 mg PO DAILY [facility] Last Admin: 09/24/18 09:18 Dose: Not Given Mikxp-3-Khyr Ethyl Esters (Lovaza -) 2 gm PO DAILY [facility] Last Admin: 09/24/18 09:18 Dose: Not Given - Objective Vital Signs: Vital Signs Temperature 98.0 F 09/24/18 09:57 Pulse Rate 85 09/24/18 09:57 Respiratory Rate 18 09/24/18 09:57 Blood Pressure 119/68 09/24/18 09:57 O2 Sat by Pulse Oximetry (%) 99 09/24/18 10:02 Constitutional: Yes: Calm Eyes: Yes: Conjunctiva Clear HENT: Yes: Atraumatic Cardiovascular: Yes: S1, S2 Respiratory: Yes: CTA Bilaterally, On Nasal O2 Gastrointestinal: Yes: Soft Genitourinary: Yes: WNL Edema: Yes Edema: LLE: 1+, RLE: 1+ Neurological: Yes: Oriented Psychiatric: Yes: Oriented Labs: CBC, BMP 09/23/18 14:00 09/23/18 17:30 INR, PTT INR 1.09 (0.83-1.09) 09/19/18 22:56 Problem List - Problems (1) ESRD (end stage renal disease) Code(s): N18.6 - END STAGE RENAL DISEASE (2) Dialysis patient Code(s): Z99.2 - DEPENDENCE ON RENAL DIALYSIS (3) CHF (congestive heart failure) Code(s): I50.9 - HEART FAILURE, UNSPECIFIED Assessment/Plan Current Medications Generic Name Dose Route Start Last Admin Trade Name Freq PRN Reason Stop Dose Admin Acetaminophen 650 mg 09/19/18 23:18 Tylenol - PO Q4H PRN PAIN LEVEL 6-10 Aspirin 81 mg 09/20/18 10:00 09/24/18 09:18 Asa - PO Not Given DAILY [facility] Atorvastatin Calcium 40 mg 09/20/18 22:00 09/23/18 21:19 Lipitor - PO Not Given HS [facility] Furosemide 60 mg 09/20/18 06:00 09/24/18 06:56 Lasix - PO Not Given BIDLASIX [facility] Gabapentin 100 mg 09/19/18 23:45 09/24/18 09:18 Neurontin - PO Not Given BID [facility] Heparin Sodium (Porcine) 5,000 unit 09/20/18 06:00 09/24/18 06:20 Heparin - SQ Not Given TID [facility] Insulin Aspart 1 vial 09/20/18 07:00 09/24/18 06:55 Novolog Vial Sliding Scale - SQ Not Given ACHS [facility] Protocol Insulin Detemir 25 units 09/20/18 22:00 09/23/18 21:20 Levemir Vial SQ 25 units HS [facility] Administration Lisinopril 5 mg 09/20/18 10:00 09/24/18 09:18 Prinivil PO Not Given DAILY [facility] Metoprolol Succinate 25 mg 09/20/18 10:00 09/24/18 09:18 Toprol Xl - PO Not Given DAILY [facility] Lgepv-1-Lwde Ethyl Esters 2 gm 09/20/18 10:00 09/24/18 09:18 Lovaza - PO Not Given DAILY [facility] Impression 1. ESRD 2. proteinuria 3. CHF 4. cad 5. DM 6. hyperlipidemia 7. HTN 8. non compliance Impression - can discharge once his seat in HD is confirmed - HD tomorrow if not discharged home - epogen for anemia - check labs pre hd - pending placement - renal diet
--- NOTE | 2018-09-24 13:20 | PN ---
Teaching Attending Note Name of Resident: Sera Vogel ATTENDING PHYSICIAN STATEMENT I saw and evaluated the patient. I reviewed the resident's note and discussed the case with the resident. I agree with the resident's findings and plan as documented. SUBJECTIVE:refused to remove the blanket off his face to speak with me. said everything is fine OBJECTIVE: Last Vital Signs Temp Pulse Resp BP Pulse Ox 98.0 F 85 18 119/68 99 09/24/18 09:57 09/24/18 09:57 09/24/18 09:57 09/24/18 09:57 09/24/18 10:02 refused physical exam ASSESSMENT AND PLAN: 57 year old male with history of ESRD on HD (MWF), CRF sec to COPD on Home O2, CAD (not a candidate for PCI given patient history of non-compliance), Chronic Systolic/Diastolic Dysfunction (EF 25%), presents after being unable to get HD at regular HD center as he was expelled. Patient is currently without an accepting HD center. 1. ESRD on HD- was expelled from his center. arranging for outpatient HD to be arranged. resume HD here until arranged 2. Chronic Anemia sec to ESRD - Epo as per Nephrology 3. DM 2 - normally on Levemir and Novolog sliding scale. 4. HTN - BP borderline. Normally on Lisinopril, Metoprolol - refuses. 5. Chronic Systolic/Diastolic CHF - Normally on Lasix 60mg BID. 6. CAD - recommended to continue Aspirin/Plavix/BB/ACEI/Statin (non-complaint with meds normally) 7. dyslipidemia - Lovaza, Lipitor. 8. DVT Px - Heparin SQ. 9. pt is refusing to engage in interview, take medications or allow labs. Attempted to explain to patient his risks of non compliance however unclear if patient was listening to conversation. CM aware awaiting HD bed
[2018-09-24] MEDS: INSULIN (LEVEMIR) 100 UNITS/ML UNITS SQ SCH (21:22)
[2018-09-24] MEDS: ATORVASTATIN CA 40 MG TABLET (FP) PO SCH (21:24)
[2018-09-25] MEDS ORDERED: ALBUTEROL SO4 0.083% IH SOL 2.5 MG/3 ML VIAL.NEB. NEB ONE ×2 (02:42)
[2018-09-25] MEDS: FUROSEMIDE 20 MG TABLET (FP) PO SCH ×2 (06:47→15:57)
[2018-09-25] MEDS: HEPARIN NA (PORCINE) 5,000 UNITS/ML 1ML VIAL SQ SCH ×2 (06:47→15:57)
[2018-09-25] MEDS: INSULIN SLIDING SCALE (NOVOLOG) 1 VIAL SQ SCH ×3 (06:50→17:27)
--- NOTE | 2018-09-25 10:42 | PN ---
Physical Exam: SUBJECTIVE: Patient seen and examined at bedside- patient was very aggressive and disruptive overnight and is still refusing everything (refusing labs/meds/ full physical exams etc) states that he has been throwing up consistently for 3 years OBJECTIVE: Vital Signs Period Temp Pulse Resp BP Sys/Humphreys Pulse Ox Last 24 Hr 98.1 F-98.3 F 94-99 20-22 99-115/58-71 99 GENERAL: The patient is awake, alert, and fully oriented, in no acute distress. EYES: PEERLA: EOMI no scleral icterus NECK: no JVD: no lymphadenopathy LUNGS: CTA B/L; no rales, rhonchi or wheezing HEART: Regular rate and rhythm, S1, S2 without murmur, rub or gallop. ABDOMEN: Soft, nontender, nondistended, normoactive bowel sounds, no guarding, no rebound, no hepatosplenomegaly, no masses. EXTREMITIES: 2+ pulses, warm, well-perfused, trace edema. PSYCH: Normal mood, normal affect. SKIN: Warm, dry, normal turgor, no rashes or lesions noted Laboratory Results - last 24 hr 09/20/18 09/24/18 09/24/18 16:00 11:40 16:55 POC Glucometer 169 183 Hep C Ab Diagnostic 0.1 09/24/18 09/25/18 21:18 06:49 POC Glucometer 287 142 Hep C Ab Diagnostic Active Medications Generic Name Dose Route Start Last Admin Trade Name Freq PRN Reason Stop Dose Admin Acetaminophen 650 mg 09/19/18 23:18 Tylenol - PO Q4H PRN PAIN LEVEL 6-10 Aspirin 81 mg 09/20/18 10:00 09/24/18 09:18 Asa - PO Not Given DAILY [facility] Atorvastatin Calcium 40 mg 09/20/18 22:00 09/24/18 21:24 Lipitor - PO Not Given HS [facility] Epoetin Lyle 10,000 unit 09/25/18 10:08 Procrit - IVPUSH 09/25/18 10:09 ONCE ONE Furosemide 60 mg 09/20/18 06:00 09/25/18 06:47 Lasix - PO Not Given BIDLASIX [facility] Gabapentin 100 mg 09/19/18 23:45 09/24/18 21:24 Neurontin - PO Not Given BID [facility] Heparin Sodium (Porcine) 5,000 unit 09/20/18 06:00 09/25/18 06:47 Heparin - SQ Not Given TID [facility] Sodium Chloride 250 mls @ 3,000 mls/hr 09/25/18 10:08 Normal Saline - IV 09/26/18 10:08 PRN PRN Hypotension during Dialysis Insulin Aspart 1 vial 09/20/18 07:00 09/25/18 06:50 Novolog Vial Sliding Scale - SQ Not Given ACHS [facility] Protocol Insulin Detemir 25 units 09/20/18 22:00 09/24/18 21:22 Levemir Vial SQ 25 units HS [facility] Administration Lisinopril 5 mg 09/20/18 10:00 09/24/18 09:18 Prinivil PO Not Given DAILY [facility] Metoprolol Succinate 25 mg 09/20/18 10:00 09/24/18 09:18 Toprol Xl - PO Not Given DAILY [facility] Sfneg-8-Ljuq Ethyl Esters 2 gm 09/20/18 10:00 09/24/18 09:18 Lovaza - PO Not Given DAILY [facility] ASSESSMENT/PLAN: Patient is a 57 y/o male with a history of ESRD MWF, IDDM, CHF rEF (25%) and CAD who is admitted for hemodialysis. #ESRD -patient schedule is M/W/F c/t monitor.,still awaiting acceptance from HD centers -Nephro: Dr. Blackwood #Chronic anemia likely 2/2 to ESRD -c/w EPO as per nephro #HFrEF, CAD -last ECHO, EF 25% -c/w aspirin, lasix, metoprolol, lisinopril, atorva #COPD -cont NC 02. on 3-4L at home -goal sp02 88-92% #DM2 -BGM, ISS ACHS -c/w levemir 24u HS #HTN -refuses lisinopril, metoprolol #FEN -not on IVF -cont to follow lytes -low sodium/diabetic diet #PPX DVT: hep sq #Dispo cont'd monitoring on med-surg awaiting acceptance Problem List - Problems (1) Dialysis patient Code(s): Z99.2 - DEPENDENCE ON RENAL DIALYSIS (2) ESRD (end stage renal disease) Code(s): N18.6 - END STAGE RENAL DISEASE (3) MIRTHA (acute kidney injury) Code(s): N17.9 - ACUTE KIDNEY FAILURE, UNSPECIFIED (4) CHF (congestive heart failure) Code(s): I50.9 - HEART FAILURE, UNSPECIFIED Visit type - Emergency Visit Emergency Visit: Yes ED Registration Date: 09/24/18 Care time: The patient presented to the Emergency Department on the above date and was hospitalized for further evaluation of their emergent condition. - New Patient This patient is new to me today: No - Critical Care Critical Care patient: No
[2018-09-25] MEDS: ASPIRIN 81 MG CHEWABLE TABLETS PO SCH (10:51)
[2018-09-25] MEDS: LISINOPRIL 5 MG TABLET (FP) PO SCH (10:52)
[2018-09-25] MEDS: OMEGA-3 ACID ETHYL ESTERS (FATTY-ACIDS) 1 GM CAPSULE (FP) PO SCH (10:52)
[2018-09-25] MEDS: GABAPENTIN 100 MG CAPSULE (FP) PO SCH (10:52)
[2018-09-25] MEDS: metoPROLOL SUCCINATE 25 MG TAB.SR.24H (FP) PO SCH (10:52)
--- NOTE | 2018-09-25 10:54 | PN ---
Teaching Attending Note Name of Resident: Sera Vogel ATTENDING PHYSICIAN STATEMENT I saw and evaluated the patient. I reviewed the resident's note and discussed the case with the resident. I agree with the resident's findings and plan as documented. SUBJECTIVE:notified by RN that patient was vomiting this morning and stated this typically occurs when taking his medications. all of which he did refuse today. when questioning this patient states hes had this issue for over 4 years and has been worked up. refused to participate in conversation after this OBJECTIVE: Last Vital Signs Temp Pulse Resp BP Pulse Ox 98.2 F 95 H 20 107/58 L 99 09/25/18 06:00 09/25/18 06:00 09/25/18 06:00 09/25/18 06:00 09/24/18 21:00 refused physical exam ASSESSMENT AND PLAN: 57 year old male with history of ESRD on HD (MWF), CRF sec to COPD on Home O2, CAD (not a candidate for PCI given patient history of non-compliance), Chronic Systolic/Diastolic Dysfunction (EF 25%), presents after being unable to get HD at regular HD center as he was expelled. Patient is currently without an accepting HD center. 1. ESRD on HD- was expelled from his center. arranging for outpatient HD to be arranged. resume HD here until arranged 2. Chronic Anemia sec to ESRD - Epo as per Nephrology 3. DM 2 - normally on Levemir and Novolog sliding scale. 4. HTN - BP borderline. Normally on Lisinopril, Metoprolol - refuses. 5. Chronic Systolic/Diastolic CHF - Normally on Lasix 60mg BID. 6. CAD - recommended to continue Aspirin/Plavix/BB/ACEI/Statin (non-complaint with meds normally) 7. COPD on Home o2- currently 98% on 5L NC 8. dyslipidemia - Lovaza, Lipitor. 9. DVT Px - Heparin SQ. 10. pt is refusing to engage in interview, take medications or allow labs. Attempted to explain to patient his risks of non compliance however unclear if patient was listening to conversation. CM aware awaiting HD bed
[2018-09-25] MEDS ORDERED: SODIUM CHLORIDE 250 ML IV PRN (12:17)
[2018-09-25 12:30] LABS: HEMATOCRIT 27.1 % (35.4-49); HEMOGLOBIN 8.6 GM/dL (11.7-16.9); MCH 27.8 pg (25.7-33.7); MCHC 31.7 g/dl (32.0-35.9); MEAN CELL VOLUME 87.6 fl (80-96); MEAN PLT VOLUME 8.2 fl (7.5-11.1); PLATELET COUNT 264 K/MM3 (134-434); WHITE BLOOD COUNT 11.2 K/mm3 (4.0-10.0)
[2018-09-25] MEDS ORDERED: EPOETIN ALFA 10,000 UNIT/1 ML VIAL IVPUSH ONE (12:30)
--- NOTE | 2018-09-25 13:19 | PN ---
Progress Note, Physician History of Present Illness: Pt seen and examined at bedside. He is awake and alert. He denies shortness of breath. He is tolerating HD. - Current Medication List Current Medications: Active Medications Acetaminophen (Tylenol -) 650 mg PO Q4H PRN PRN Reason: PAIN LEVEL 6-10 Aspirin (Asa -) 81 mg PO DAILY [facility] Last Admin: 09/25/18 10:51 Dose: Not Given Atorvastatin Calcium (Lipitor -) 40 mg PO HS [facility] Last Admin: 09/24/18 21:24 Dose: Not Given Furosemide (Lasix -) 60 mg PO BIDLASIX [facility] Last Admin: 09/25/18 06:47 Dose: Not Given Gabapentin (Neurontin -) 100 mg PO BID [facility] Last Admin: 09/25/18 10:52 Dose: Not Given Heparin Sodium (Porcine) (Heparin -) 5,000 unit SQ TID [facility] Last Admin: 09/25/18 06:47 Dose: Not Given Sodium Chloride (Normal Saline -) 250 mls @ 3,000 mls/hr IV PRN PRN PRN Reason: Hypotension during Dialysis Stop: 09/26/18 12:16 Insulin Aspart (Novolog Vial Sliding Scale -) 1 vial SQ [facility]; Protocol Last Admin: 09/25/18 12:33 Dose: Not Given Insulin Detemir (Levemir Vial) 25 units SQ [facility] Last Admin: 09/24/18 21:22 Dose: 25 units Lisinopril (Prinivil) 5 mg PO DAILY [facility] Last Admin: 09/25/18 10:52 Dose: Not Given Metoprolol Succinate (Toprol Xl -) 25 mg PO DAILY [facility] Last Admin: 09/25/18 10:52 Dose: Not Given Mfmtf-0-Jnjd Ethyl Esters (Lovaza -) 2 gm PO DAILY [facility] Last Admin: 09/25/18 10:52 Dose: Not Given - Objective Vital Signs: Vital Signs Temperature 98.2 F 09/25/18 06:00 Pulse Rate 94 H 09/25/18 13:00 Respiratory Rate 18 09/25/18 13:00 Blood Pressure 105/56 L 09/25/18 13:00 O2 Sat by Pulse Oximetry (%) 99 09/24/18 21:00 Constitutional: Yes: Calm Eyes: Yes: Conjunctiva Clear HENT: Yes: Atraumatic Neck: Yes: Supple Cardiovascular: Yes: S1, S2 Respiratory: Yes: On Nasal O2 Gastrointestinal: Yes: WNL Genitourinary: Yes: WNL Musculoskeletal: Yes: WNL Edema: Yes Edema: LLE: 1+, RLE: 1+ Neurological: Yes: Oriented Psychiatric: Yes: Oriented Labs: CBC, BMP 09/25/18 12:00 INR, PTT INR 1.09 (0.83-1.09) 09/19/18 22:56 Problem List - Problems (1) ESRD (end stage renal disease) Code(s): N18.6 - END STAGE RENAL DISEASE (2) Dialysis patient Code(s): Z99.2 - DEPENDENCE ON RENAL DIALYSIS (3) CHF (congestive heart failure) Code(s): I50.9 - HEART FAILURE, UNSPECIFIED Assessment/Plan Current Medications Generic Name Dose Route Start Last Admin Trade Name Freq PRN Reason Stop Dose Admin Acetaminophen 650 mg 09/19/18 23:18 Tylenol - PO Q4H PRN PAIN LEVEL 6-10 Aspirin 81 mg 09/20/18 10:00 09/25/18 10:51 Asa - PO Not Given DAILY [facility] Atorvastatin Calcium 40 mg 09/20/18 22:00 09/24/18 21:24 Lipitor - PO Not Given HS [facility] Furosemide 60 mg 09/20/18 06:00 09/25/18 06:47 Lasix - PO Not Given BIDLASIX [facility] Gabapentin 100 mg 09/19/18 23:45 09/25/18 10:52 Neurontin - PO Not Given BID [facility] Heparin Sodium (Porcine) 5,000 unit 09/20/18 06:00 09/25/18 06:47 Heparin - SQ Not Given TID [facility] Sodium Chloride 250 mls @ 3,000 mls/hr 09/25/18 12:17 Normal Saline - IV 09/26/18 12:16 PRN PRN Hypotension during Dialysis Insulin Aspart 1 vial 09/20/18 07:00 09/25/18 12:33 Novolog Vial Sliding Scale - SQ Not Given ACHS [facility] Protocol Insulin Detemir 25 units 09/20/18 22:00 09/24/18 21:22 Levemir Vial SQ 25 units HS [facility] Administration Lisinopril 5 mg 09/20/18 10:00 09/25/18 10:52 Prinivil PO Not Given DAILY [facility] Metoprolol Succinate 25 mg 09/20/18 10:00 09/25/18 10:52 Toprol Xl - PO Not Given DAILY [facility] Mxxap-7-Bmcx Ethyl Esters 2 gm 09/20/18 10:00 09/25/18 10:52 Lovaza - PO Not Given DAILY [facility] Impression 1. ESRD 2. proteinuria 3. CHF 4. cad 5. DM 6. hyperlipidemia 7. HTN 8. non compliance Impression - HD today - HD set up as outpt for Sunday afternoon - can leave after HD from renal perspective - epogen for anemia - renal diet
[2018-09-25 14:12] LABS: HBSAG SCREEN Negative (Negative); HEP A AB, IGM Negative (Negative); HEP B CORE AB, TOT Positive (Negative)
--- NOTE | 2018-09-25 14:39 | DS ---
Physical Exam: SUBJECTIVE: Patient seen and examined at bedside- patient was very aggressive and combative overnight- still refsuing meds and labs; patient for dialysis this AM; patient also refused thorough examination OBJECTIVE: Vital Signs Period Temp Pulse Resp BP Sys/Humphreys Pulse Ox Last 24 Hr 98.1 F-98.3 F 68-99 18-22 99-125/56-77 99 PHYSICAL EXAM GENERAL: The patient is awake, alert, and fully oriented, in no acute distress. EYES: PEERLA EOMI no scleral icterus NECK: Trachea midline, full range of motion, supple. LUNGS: CTA B/L; no rales, rhonchi or wheezing HEART: Regular rate and rhythm, S1, S2 without murmur, rub or gallop. ABDOMEN: Soft, nontender, nondistended, normoactive bowel sounds, no guarding, no rebound, no hepatosplenomegaly, no masses. EXTREMITIES: 2+ pulses, warm, well-perfused, trace edema. PSYCH: Normal mood, normal affect. SKIN: Warm, dry, normal turgor, no rashes or lesions noted. LABS Laboratory Results - last 24 hr 09/20/18 09/24/18 09/24/18 16:00 16:55 21:18 WBC RBC Hgb Hct MCV MCH MCHC RDW Plt Count MPV Sodium Potassium Chloride Carbon Dioxide Anion Gap BUN Creatinine Est GFR (CKD-EPI)AfAm Est GFR (CKD-EPI)NonAf POC Glucometer 183 287 Random Glucose Calcium Hep A IgM Ab Confirm Negative Hepatitis A Ab Total Positive H Hep Bs Antigen Negative Hep Bs Antibody Reactive Hep B Core Total Ab Positive H 09/25/18 09/25/18 09/25/18 06:49 12:00 12:00 WBC 11.2 H RBC 3.10 L Hgb 8.6 L Hct 27.1 L MCV 87.6 MCH 27.8 MCHC 31.7 L RDW 18.0 H Plt Count 264 MPV 8.2 Sodium Cancelled Potassium Cancelled Chloride Cancelled Carbon Dioxide Cancelled Anion Gap Cancelled BUN Cancelled Creatinine Cancelled Est GFR (CKD-EPI)AfAm Cancelled Est GFR (CKD-EPI)NonAf Cancelled POC Glucometer 142 Random Glucose Cancelled Calcium Cancelled Hep A IgM Ab Confirm Hepatitis A Ab Total Hep Bs Antigen Hep Bs Antibody Hep B Core Total Ab HOSPITAL COURSE: Date of Admission:09/24/18 Patient is a 57 y/o male with a history of ESRD MWF, IDDM, CHF rEF (25%) and CAD who presents for the second time today because he feels volume overloaded. Patient first started getting dialysis two weeks ago at [place] where his fistula was placed. He last had Dialysis one week ago on Sunday. He returned on sunday but had a disagreement with the staff and is not welcomed there. He came in earlier today, but decided to leave and come back because the hospital was hot. Patient reports he has also been feeling a little more short of breath recently. He typically wears 4 L O2 at home. He quit smoking three weeks ago. Patient reorts that not ever doctor understands his body and that's why he leaves hospitals so frequently. Denies chest pain, nausea, diarrhea, dizziness. He still makes a little urine. Patient only takes his aspirin and insulin, lipitor when he feels like it. pateint refsued labs and msot meds throuhgout his stay- he received dialysis for a total of three times- he was placed in a outpatient dialysis center to reusme his normal m/w/f schedule- he was dishcarged home Date of Discharge: 09/25/18 Minutes to complete discharge: 35 Discharge Summary Reason For Visit: CHRONIC KIDNEY DISEASE,DIALYSIS PATIENT Current Active Problems Dialysis patient (Acute) ESRD (end stage renal disease) (Acute) CKD (chronic kidney disease) (Chronic) Condition: Stable - Instructions Diet, Activity, Other Instructions: You came to the hospital after having missed your scheduled dialysis sessions for over a week and were feeling overloaded with fluid. You were seen by the medical administrator, Dr. Blackwood and had dialysis while you were in the hospital. Your volume status and symptoms improved and you were stable to be discharged home. You were set up to have dialysis at a new center. Please resume all of your home medications. It is important that you take your medications as instructed and follow up for dialysis as instructed Please follow up with the medical administrator, Dr. Dyson, within one week Please follow up with your primary care physician within one week Please resume your regular Sunday/Sunday/Sunday dialysis schedule (at 4 pm) at [facility] at [address] [place] [address] *if you begin to experience chest pains, shortness of breath, nausea/vomiting please return to the emergency room immediately Referrals: Kylah Blackwood MD [Staff Physician] - 1 Week Disposition: HOME - Home Medications Comprehensive Discharge Medication List: Ambulatory Orders Aspirin [ASA -] 81 mg PO DAILY 04/14/17 Atorvastatin Ca [Lipitor] 40 mg PO DAILY 04/14/17 Clopidogrel Bisulfate [Plavix -] 75 mg PO DAILY 04/14/17 Insulin Lispro Protamin/Lispro [Humalog Mix 75-25 Vial] 10 unit SQ ASDIR Metoprolol Succinate [Toprol XL -] 25 mg PO DAILY 04/14/17 Icosapent Ethyl [Vascepa] 1 gm PO DAILY 08/12/18 Insulin (Levemir) [Levemir Vial] 25 units SQ HS #1 vial 08/21/18 Lisinopril 5 mg PO DAILY 09/19/18 Docusate Sodium [Colace -] 100 mg PO TID 09/20/18 Furosemide 80 mg PO BID 09/20/18 Mirtazapine 7.5 mg PO HS 09/20/18 Sennosides [Senna] 8.6 mg PO DAILY 09/20/18 Problem List - Problems (1) Dialysis patient Code(s): Z99.2 - DEPENDENCE ON RENAL DIALYSIS (2) ESRD (end stage renal disease) Code(s): N18.6 - END STAGE RENAL DISEASE (3) MIRTHA (acute kidney injury) Code(s): N17.9 - ACUTE KIDNEY FAILURE, UNSPECIFIED (4) CHF (congestive heart failure) Code(s): I50.9 - HEART FAILURE, UNSPECIFIED - Discharge Referral Referred to [facility] No
[2018-09-25 15:28] LABS: CALCIUM 8.4 mg/dL (8.5-10.1); CREATININE 3.6 mg/dL (0.55-1.3); POTASSIUM 3.7 mmol/L (3.5-5.1)
[2018-09-25 15:34] VITALS: TEMP 97.9
[2018-09-25 16:11] VITALS: BP 136/62; PULSE 106
== END 2018-09-25 17:18 | disposition home or self-care (01) | DRG 291 ==
LOC: JER 21:06 → JERBED 22:38 → J5S 09-20 19:42 → OBSVTOIN 09-24 12:37
PROVIDERS: ADMIT Internal Medicine; ATTEND Internal Medicine
PROC: 5A1D70Z Performance of Urinary Filtration, Intermittent, Less than 6 Hours Per Day (ICD-10-PCS; principal; 2018-09-25)
DX: I13.2 Hypertensive heart and chronic kidney disease with heart failure and with stage 5 chronic kidney disease, or end stage renal disease (principal); N18.6 End stage renal disease; I50.42 Chronic combined systolic (congestive) and diastolic (congestive) heart failure; N17.9 Acute kidney failure, unspecified; J96.10 Chronic respiratory failure, unspecified whether with hypoxia or hypercapnia; E78.5 Hyperlipidemia, unspecified; J44.9 Chronic obstructive pulmonary disease, unspecified; I25.10 Atherosclerotic heart disease of native coronary artery without angina pectoris; I25.2 Old myocardial infarction; E87.70 Fluid overload, unspecified; H54.40 Blindness, one eye, unspecified eye; E11.51 Type 2 diabetes mellitus with diabetic peripheral angiopathy without gangrene; E11.40 Type 2 diabetes mellitus with diabetic neuropathy, unspecified; E11.22 Type 2 diabetes mellitus with diabetic chronic kidney disease; D63.1 Anemia in chronic kidney disease; E66.9 Obesity, unspecified; Z68.33 Body mass index [BMI] 33.0-33.9, adult; Z99.2 Dependence on renal dialysis; Z86.73 Personal history of transient ischemic attack (TIA), and cerebral infarction without residual deficits; Z89.422 Acquired absence of other left toe(s); Z91.15 Patient's noncompliance with renal dialysis; Z99.81 Dependence on supplemental oxygen; Z87.891 Personal history of nicotine dependence
CPT/HCPCS: 36415; 80048; 80053; 82550; 82565; 82962; 84100; 84484; 84520; 85025; 85027; 85610; 86704; 86706; 86708; 86803; 87340; 93005; 93010; 94640; 99285-25; G0378; J0885

== ENCOUNTER 2019-10-21 09:46 | Emergency (ER) | payer OTHER ==
[2019-10-21 10:28] VITALS: BP 142/80; PULSE 77; TEMP 98.3; BMI 29.2
[2019-10-21] MEDS ORDERED: ACETAMINOPHEN 1000 MG/100 ML VIAL (NON FORMULARY) IVPB ONE (11:14)
[2019-10-21 11:16] LABS: BASO % 0.4 % (0-2.0); EOS % 0.7 % (0-4.5); HEMATOCRIT 38.1 % (35.4-49); HEMOGLOBIN 12.4 GM/dL (11.7-16.9); MCH 29.6 pg (25.7-33.7); MCHC 32.5 g/dl (32.0-35.9); MEAN CELL VOLUME 91.1 fl (80-96); MEAN PLT VOLUME 9.1 fl (7.5-11.1); MONO % 9.6 % (3.8-10.2); NEUT % 83.3 % (42.8-82.8); PLATELET COUNT 178 K/MM3 (134-434); RBC 4.18 M/mm3 (4.00-5.60); RDW 16.5 % (11.9-15.9); WHITE BLOOD COUNT 12.5 K/mm3 (4.0-10.0)
[2019-10-21 11:25] LABS: INR 0.99 (0.83-1.09); PROTHROMBIN TIME (PATIENT) 11.7 SEC (9.7-13.0)
[2019-10-21] MEDS ORDERED: ACETAMINOPHEN INJECTION 100 ML IVPB ONE (11:27)
[2019-10-21 11:52] LABS: ALBUMIN 3.2 g/dl (3.4-5.0); BILIRUBIN,TOTAL 0.7 mg/dL (0.2-1); BLOOD UREA NITROGEN 48.8 mg/dL (7-18); CALCIUM 8.2 mg/dL (8.5-10.1); CREATININE 5.1 mg/dL (0.55-1.3); TOT PROT 8.3 g/dl (6.4-8.2)
[2019-10-21] MEDS ORDERED: KETOROLAC TROMETHAMINE 30 MG/1 ML VIAL ONE (12:19)
[2019-10-21] MEDS ORDERED: KETOROLAC TROMETHAMINE 30 MG/1 ML VIAL IVPUSH ONE (12:19)
[2019-10-21 12:27] LABS: N-TERMINAL BNP 17524.6 pg/ml (5-125)
== END 2019-10-21 13:50 ==
LOC: JER 09:46
PROC: 3E033GC Introduction of Other Therapeutic Substance into Peripheral Vein, Percutaneous Approach (ICD-10-PCS; principal; 2019-10-21)
DX: J96.01 Acute respiratory failure with hypoxia (principal); I50.9 Heart failure, unspecified
CPT/HCPCS: 36415; 74176-TC; 80053; 83690; 83880; 85025; 85610; 96374; 96375; 99285-25; J0131

== ENCOUNTER 2020-02-11 23:44 | Emergency (ER) | payer OTHER ==
[2020-02-11 23:48] VITALS: TEMP 98.6; BMI 30.6
[2020-02-11] MEDS ORDERED: TRANEXAMIC ACID 1000 MG/10 ML VIAL ONE (23:58)
[2020-02-12] MEDS ORDERED: TRANEXAMIC ACID 1000 MG/10 ML VIAL IVPUSH ONE ×2 (00:08→00:17)
--- OUTSIDE RECORDS SUMMARY | 2020-02-12 00:12 | XMS ---
:1960 Author Organization [facility] Support Name Relationship Address Phone UE, UNEMPLOYED Unavailable Unavailable Unavailable UE Unavailable Unavailable Unavailable MARCUS KOROMA [address] [facility] [phone] [place] [address] [address] [facility] [place] [address] Re-disclosure Warning The records that you are about to access may contain information from federally- assisted alcohol or drug abuse programs. If such information is present, then the following federally mandated warning applies: This information has been disclosed to you from records protected by federal confidentiality rules (42 CFR part 2). The federal rules prohibit you from making any further disclosure of this information unless further disclosure is expressly permitted by the written consent of the person to whom it pertains or as otherwise permitted by 42 CFR part 2. A general authorization for the release of medical or other information is NOT sufficient for this purpose. The Federal rules restrict any use of the information to criminally investigate or prosecute any alcohol or drug abuse patient.The records that you are about to access may contain highly sensitive health information, the redisclosure of which is protected by Article 27-F of the [facility] Public Health law. If you continue you may haveaccess to information: Regarding HIV / AIDS; Provided by facilities licensed or operated by the [facility] Office of Mental Health; or Provided by the [facility] Office for People With Developmental Disabilities. If such information is present, then the following [facility] mandated warning applies: This information has been disclosed to you from confidential records which are protected by state law. State law prohibits you from making any further disclosure of this information without the specific written consent of the person to whom it pertains, or as otherwise permitted by law. Any unauthorized further disclosure in violation of state law may result in a fine or halfway sentence or both. A general authorization for the release of medical or other information is NOT sufficient authorization for further disclosure. Insurance Providers Payer name Policy type Policy ID Covered Covered republican's Policy P brent / Coverage republican ID relationship to [employer]ino[employer] Inf ormation type espinoza MEDICAID [id number] SP [id number] MEDICARE [id number] SP [id number] 80 [id number] MEDICAID [id number] SP [id number] MEDICAID [id number] SP [id number] MEDICARE [id number] SP [id number] A MEDICAID [id number] SP [id number] MEDICAID [id number] SP [id number] Medicaid 4013 [id number] Regular Clinic Visit Medicare-Blue [id number] S [id number] Cross/Blue Shield Medicaid 4013 [id number] S [id number] Regular Clinic Visit Medicare [id number] S [id number] A [facility]
[2020-02-12] MEDS ORDERED: Insulin (LOG) Aspart 100 UNITS/ML VIAL SQ ONE (00:16)
--- NOTE | 2020-02-12 00:27 | PDOC ---
Attending Attestation - Resident Resident Name: Matilda Raya - ED Attending Attestation I have performed the following: I have examined & evaluated the patient, The case was reviewed & discussed with the resident, I agree w/resident's findings & plan, Exceptions are as noted - HPI HPI: 02/12/20 00:23 59yo male with hx of ESRD on HD m/w/f who had HD today. States he thinks he received heparin in his graft to the LUE. Pt states he when he got home he tried to clean his nose with a q-tip. This caused acute bleeding from the anterior L nare. Pt arrives with his home O2 in place. 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 Pt also states he made an espresso and put extra sugar in the espresso to help stop the bleeding, which did not help. Pt states he checked his glu and it was high but he didn't get to use his insulin at home and is also requesting insulin for his glu. - Physicial Exam PE: 02/12/20 00:27 Gen: aaox3, bleeding L nare heent: blindness R eye from trauma, unable to visualize site of active bleeding from the L nare, posterior pharynx without active bleeding neck: supple heart: +s1s2 reg lungs: cta b/l abd: soft, nt/nd +bs ext: LUE graft in place with bruit and thrill, ambulatory in the ER - Medical Decision Making 02/12/20 01:10 a/p: 59yo male with L nare anterior nose bleeding -given pt is on HD will treat with txa -will apply pressure -will monitor and reassess 02/12/20 01:12 pt re-eval: no active bleeding after treatment with TXA 02/12/20 01:13 will repeat finger stick pt now blowing his nose 02/12/20 01:20 re-eval: still no bleeding L nare discussed not blowing his nose discussed no heavy lifting discussed not putting anything up his nose discussed no qtips up the nose and to use vaseline in the nose discussed follow up with Dr. Blackwood and his HD team stable for dc to home 02/12/20 01:26 repeat glu 196 stable for dc to home Discharge - Discharge Information Problems reviewed: Yes Clinical Impression/Diagnosis: Epistaxis Condition: Fair Disposition: HOME - Admission No - Follow up/Referral - Patient Discharge Instructions Patient Printed Discharge Instructions: DI for Nosebleed Additional Instructions: Additional Instructions: Please return to the emergency department with any new or worsening symptoms or concerns. Please follow up with your primary care physician within 72 hours. Please follow nasal precautions for the next 24-48 hours: -do not blow your nose -do not place anything in your nose -maintain humidified air when using nasal cannula - Post Discharge Activity
--- NOTE | 2020-02-12 01:17 | PDOC ---
History of Present Illness - General Chief Complaint: Nasal Bleeding Stated Complaint: NOSEBLEED Time Seen by Provider: 02/11/20 23:54 - History of Present Illness Initial Comments: 02/12/20 00:16 HPI: 59 y/o ESRD (MWF), anuric, IDDM, HFrEF (25%), CAD, right eye blindness presenting with nose bleed after placing a QTip in his nose. Patient had HD today and was given heparin and intermittently takes his eliquis. He is on chron ic home O2 and his nose was dry and he said he usually presses a QTip in to clean it. Today after withdrawing the qtip he had persistent bleeding and presented to the ER. He tried a sugar filled espresso to stop the bleeding. He has no fever, chills, chest pain, SOB, abd pain, n/v. PMHx: as noted above ROS: as noted SHx: Denies tobacco use; no alcohol use; no rec drugs Allergies: NKDA ROS: GENERAL/CONSTITUTIONAL: No fever or chills. No weakness. HEAD, EYES, EARS, NOSE AND THROAT: No change in vision. No ear pain or discharge. No sore throat. CARDIOVASCULAR: No chest pain or shortness of breath RESPIRATORY: No cough, wheezing, or hemoptysis. GASTROINTESTINAL: No nausea, vomiting, diarrhea or constipation. GENITOURINARY: No dysuria, frequency, or change in urination. MUSCULOSKELETAL: No joint or muscle swelling or pain. No neck or back pain. SKIN: No rash NEUROLOGIC: No headache, vertigo, loss of consciousness, or change in strength/sensation. ENDOCRINE: No increased thirst. No abnormal weight change HEMATOLOGIC/LYMPHATIC: No anemia, easy bleeding, or history of blood clots. ALLERGIC/IMMUNOLOGIC: No hives or skin allergy. PE: GENERAL: Awake, alert, and fully oriented, no acute distress HEAD: No signs of trauma, normocephalic, atraumatic EYES: EOMI, sclera anicteric, conjunctiva clear ENT: Auricles normal inspection, hearing grossly normal, nares patent with left nostril bleed without source visualized, oropharynx clear without exudates or signs of bleeding. Moist mucosa NECK: Normal ROM, no lymphadenopathy LUNGS: No increased work of breathing, symmetrical chest rise, clear to auscultation bilaterally, no wheezes, crackles or rhonchi HEART: Regular rate, regular rhythm, normal S1 and S2, no murmur, peripheral pulses 2+ and equal bilaterally. ABDOMEN: Soft, nondistended, nontender. No guarding, no rebound. No masses. No CVAT MUSCULOSKELETAL: FROM NEUROLOGICAL: Cranial nerves II through XII grossly intact. Normal speech, stable gait, no focal sensorimotor deficits SKIN: Warm, Dry, normal turgor, no rashes or lesions noted Past History - Medical History Allergies/Adverse Reactions: Allergies Allergy/AdvReac Type Severity Reaction Status Date / Time No Known Allergies Allergy Verified 02/11/20 23:47 Home Medications: Ambulatory Orders Insulin Lispro Protamin/Lispro [Humalog Mix 75-25 Vial] 10 unit SQ ASDIR 04/14/17 Metoprolol Succinate [Toprol XL -] 25 mg PO DAILY 04/14/17 Icosapent Ethyl [Vascepa] 1 gm PO DAILY 08/12/18 Insulin (Levemir) [Levemir Vial] 25 units SQ HS #1 vial 08/21/18 Docusate Sodium [Colace -] 100 mg PO TID 09/20/18 Anemia: No Asthma: No Cancer: No Cardiac Disorders: Yes (CAD, NSTEMI) CVA: Yes COPD: Yes CHF: Yes Dementia: No Diabetes: Yes Dialysis: Yes (L AV shunt) GI Disorders: Yes Disorders: Yes HTN: Yes Hypercholesterolemia: Yes Liver Disease: No Seizures: No Thyroid Disease: No - Surgical History Abdominal Surgery: No Appendectomy: No Cardiac Surgery: Yes (ANGIOGRAM MAY 2016) Cholecystectomy: No Lung Surgery: No Neurologic Surgery: No Orthopedic Surgery: Yes (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 Audit-10AR): Negative In the last yr the pt used illegal drug/Rx for NonMed reason: No Score: Yes response is considered Positive: 0 Screen Result (Positive result requires Nsg. DAST-10): Negative *Physical Exam - Vital Signs Last Vital Signs Temp Pulse Resp BP Pulse Ox 98.6 F 86 18 142/82 98 02/11/20 23:45 02/11/20 23:45 02/11/20 23:45 02/11/20 23:45 02/11/20 23:45 ED Treatment Course - ADDITIONAL ORDERS Additional order review: Laboratory Results 02/12/20 00:10 POC Glucometer 305 02/12/20 00:10 POC Glucometer 305 Medical Decision Making - Medical Decision Making 02/12/20 01:17 59 y/o ESRD (MWF), anuric, IDDM, HFrEF (25%), CAD, right eye blindness presenting with nose bleed after placing a QTip in his nose. VSS, AF. PE with nares patent with left nostril bleed without source visualized -TXA gauze with tamponade -bgm 300 will give 2u novolog 02/12/20 01:18 patient reassessed and no further bleeding; applied vaseline for dryness discussed nasal precxns patient agreeable; all questions asnwered Discharge - Discharge Information Problems reviewed: Yes Clinical Impression/Diagnosis: Bleeding nose Condition: Fair Disposition: HOME - Follow up/Referral - Patient Discharge Instructions Patient Printed Discharge Instructions: DI for Nosebleed Additional Instructions: Additional Instructions: Please return to the emergency department with any new or worsening symptoms or concerns. Please follow up with your primary care physician within 72 hours. Please follow nasal precautions for the next 24-48 hours: -do not blow your nose -do not place anything in your nose -maintain humidified air when using nasal cannula - Post Discharge Activity
[2020-02-12 04:55] VITALS: BP 133/76; PULSE 81
== END 2020-02-12 03:45 | disposition home or self-care (01) ==
LOC: JER 23:44
DX: R04.0 Epistaxis (principal)
CPT/HCPCS: 82962; 99284-25

== ENCOUNTER 2020-02-17 20:53 | Emergency (ER) | payer OTHER ==
--- OUTSIDE RECORDS SUMMARY | 2020-02-17 21:02 | XMS ---
:1960 Author Organization [facility] Support Name Relationship Address Phone UE, UNEMPLOYED Unavailable Unavailable Unavailable UE Unavailable Unavailable Unavailable MARCUS KOROMA [address] [facility] [address] [place] [address] [address]ARCUS KOROMA [address] [facility] [place] [place] [address] Re-disclosure Warning The records that you are [...] is protected by Article 27-F of the [facility] Public Health law. If you continue you may haveaccess to information: Regarding HIV / AIDS; Provided by facilities licensed or operated by the [facility] Office of Mental Health; or Provided by the [facility] Office for People With Developmental Disabilities. If such information is present, then the following [facility] mandated warning applies: This information has been [...] name Policy type Policy ID Covered Covered libertarian's Policy P brent / Coverage libertarian ID relationship to [employer] Inf ormation type espinoza MEDICAID [id number] SP [id number] MEDICARE [id number] SP [id number] MEDICAID [id number] SP [id number] MEDICAID [id number] SP [id number] MEDICARE [id number] SP [id number] A MEDICAID [id number] SP [id number] MEDICAID [id number] SP [id number] Medicaid 4013 [id number] S [id number] 2E Regular Clinic Visit Medicare-Blue [id number] S [id number] Cross/Blue Shield Medicaid 4013 [id number] S [id number] Regular Clinic Visit Medicare [id number] S [id number] A [facility]
[2020-02-17 21:11] VITALS: BP 117/76; PULSE 89; TEMP 97.8; BMI 31.3
--- NOTE | 2020-02-17 21:11 | PDOC ---
Attending Attestation - Resident Resident Name: Sasha Hernandez - ED Attending Attestation I have performed the following: I have examined & evaluated the patient, The case was reviewed & discussed with the resident, I agree w/resident's findings & plan - HPI HPI: 02/17/20 21:10 see resident hpi - Physicial Exam PE: 02/17/20 21:10 see resident exam - Medical Decision Making 02/17/20 21:10 59-year-old male complaining of atraumatic epistasis, currently resolved Patient here for similar complaint seen in the ED recently He does have constant nasal cannula O2 but refuses to moisten his nose If no further bleeding plan for DC with primary care follow-up Discharge - Discharge Information Problems reviewed: Yes Clinical Impression/Diagnosis: Epistaxis Condition: Fair - Follow up/Referral - Patient Discharge Instructions - Post Discharge Activity
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
== END 2020-02-17 23:15 | disposition home or self-care (01) ==
LOC: JER 20:53
DX: R04.0 Epistaxis (principal)
CPT/HCPCS: 82962; 99283-25

== ENCOUNTER 2020-03-17 13:45 | Inpatient (IN) | payer OTHER ==
[2020-03-17 14:16] VITALS: TEMP 97.5; BMI 32.8
[2020-03-17 15:19] LABS: BASO % 0.5 % (0-2.0); EOS % 0.4 % (0-4.5); HEMATOCRIT 40.6 % (35.4-49); HEMOGLOBIN 13.1 GM/dL (11.7-16.9); LYMPH % 5.3 % (8-40); MCH 30.2 pg (25.7-33.7); MCHC 32.2 g/dl (32.0-35.9); MEAN CELL VOLUME 93.8 fl (80-96); MEAN PLT VOLUME 8.6 fl (7.5-11.1); MONO % 11.8 % (3.8-10.2); PLATELET COUNT 222 K/MM3 (134-434); RBC 4.33 M/mm3 (4.00-5.60); RDW 17.3 % (11.9-15.9)
[2020-03-17] MEDS ORDERED: ASPIRIN 81 MG CHEWABLE TABLETS PO ONE (15:28)
[2020-03-17] MEDS ORDERED: NITROGLYCERIN 2% OINTMENT - 1GM PACKET TD ONE ×2 (15:29→15:38)
[2020-03-17] MEDS ORDERED: ACETAMINOPHEN 500 MG TABLET (FP) PO ONE (15:29)
[2020-03-17] MEDS ORDERED: ACETAMINOPHEN 325 MG TABLET (FP) ONE (15:37)
[2020-03-17] MEDS ORDERED: ASPIRIN 81 MG CHEWABLE TABLETS ONE (15:38)
[2020-03-17 16:22] LABS: POTASSIUM 4.8 mmol/L (3.5-5.1)
[2020-03-17 16:25] LABS: ALBUMIN 3.2 g/dl (3.4-5.0); BLOOD UREA NITROGEN 64.6 mg/dL (7-18)
[2020-03-17 16:28] LABS: CREATININE 5.8 mg/dL (0.55-1.3)
[2020-03-17 16:29] LABS: BILIRUBIN,TOTAL 1.6 mg/dL (0.2-1); TOT PROT 8.9 g/dl (6.4-8.2)
[2020-03-17 19:00] LABS: MAGNESIUM 2.3 mg/dL (1.8-2.4)
[2020-03-17 19:03] LABS: PHOSPHOROUS 5.6 mg/dL (2.5-4.9)
[2020-03-17 20:50] VITALS: BP 118/75; PULSE 82
[2020-03-17] MEDS ORDERED: MIRTAZAPINE 15 MG TABLET (FP) PO SCH (22:00)
[2020-03-17] MEDS ORDERED: DOCUSATE SODIUM 100 MG CAPSULE (FP) PO SCH (22:00)
[2020-03-17] MEDS ORDERED: INSULIN SLIDING SCALE (NOVOLOG) 1 VIAL SQ SCH (22:00)
[2020-03-17] MEDS ORDERED: HEPARIN NA (PORCINE) 5,000 UNITS/ML 1ML VIAL SQ SCH (22:00)
[2020-03-18] MEDS ORDERED: metoPROLOL SUCCINATE 25 MG TAB.SR.24H (FP) PO SCH (10:00)
[2020-03-18] MEDS ORDERED: ASPIRIN 81 MG CHEWABLE TABLETS PO SCH (10:00)
[2020-03-18] MEDS ORDERED: ATORVASTATIN CA 40 MG TABLET (FP) PO SCH (10:00)
== END 2020-03-17 23:45 | disposition left against medical advice (07) | DRG 280 ==
LOC: JER 13:45 → JERBED 16:14
PROVIDERS: ATTEND Internal Medicine
DX: I21.4 Non-ST elevation (NSTEMI) myocardial infarction (principal); N18.6 End stage renal disease; I13.2 Hypertensive heart and chronic kidney disease with heart failure and with stage 5 chronic kidney disease, or end stage renal disease; R07.9 Chest pain, unspecified; I25.10 Atherosclerotic heart disease of native coronary artery without angina pectoris; Z95.1 Presence of aortocoronary bypass graft; Z95.5 Presence of coronary angioplasty implant and graft; Z91.14 Patient's other noncompliance with medication regimen; I10 Essential (primary) hypertension; E78.5 Hyperlipidemia, unspecified; E66.9 Obesity, unspecified; Z68.32 Body mass index [BMI] 32.0-32.9, adult; F17.210 Nicotine dependence, cigarettes, uncomplicated; F32.9 Major depressive disorder, single episode, unspecified; E11.22 Type 2 diabetes mellitus with diabetic chronic kidney disease; E11.42 Type 2 diabetes mellitus with diabetic polyneuropathy; I50.9 Heart failure, unspecified; J44.9 Chronic obstructive pulmonary disease, unspecified; E11.51 Type 2 diabetes mellitus with diabetic peripheral angiopathy without gangrene; I73.9 Peripheral vascular disease, unspecified
CPT/HCPCS: 36415; 71045-TC-FY; 80053; 82550; 82553; 82962; 83735; 84100; 84484; 85025; 93005; 93010; 99285-25; C9803; U0003

== ENCOUNTER 2020-03-20 04:59 | Emergency (ER) | payer OTHER ==
[2020-03-20] MEDS ORDERED: AMIODARONE HCL 150 MG/3 ML VIAL ONE (05:07)
[2020-03-20] MEDS ORDERED: CALCIUM CHLORIDE 1 GM/10 ML *DISP.SYRIN ONE (05:23)
[2020-03-20] MEDS ORDERED: SODIUM BICARBONATE 8.4% - 50 ML ONE (05:23)
[2020-03-20] MEDS ORDERED: EPINEPHrine 1:10,000 (P-F SYR) 1 MG/10 ML DISP.SYRIN ONE (05:23)
[2020-03-20] MEDS ORDERED: AMIODARONE IN DEXTROSE,ISO-OSM 360 MG/200 ML BAG ONE (05:30)
[2020-03-20 05:52] LABS: BASO % 0.9 % (0-2.0); EOS % 0.5 % (0-4.5); HEMATOCRIT 42.9 % (35.4-49); HEMOGLOBIN 13.6 GM/dL (11.7-16.9); LYMPH % 18.6 % (8-40); MCH 30.5 pg (25.7-33.7); MCHC 31.7 g/dl (32.0-35.9); MEAN CELL VOLUME 96.2 fl (80-96); MEAN PLT VOLUME 9.4 fl (7.5-11.1); MONO % 13.8 % (3.8-10.2); NEUT % 66.2 % (42.8-82.8); PLATELET COUNT 199 K/MM3 (134-434); RBC 4.46 M/mm3 (4.00-5.60); RDW 17.8 % (11.9-15.9); WHITE BLOOD COUNT 16.1 K/mm3 (4.0-10.0)
[2020-03-20 05:53] LABS: POTASSIUM 5.2 mmol/L (3.5-5.1)
[2020-03-20 05:54] LABS: INR 1.49 (0.83-1.09); PROTHROMBIN TIME (PATIENT) 17.8 SEC (9.7-13.0)
[2020-03-20 05:56] LABS: ALBUMIN 2.4 g/dl (3.4-5.0); BLOOD UREA NITROGEN 74.1 mg/dL (7-18); CALCIUM 8.7 mg/dL (8.5-10.1)
[2020-03-20 06:01] LABS: BILIRUBIN,TOTAL 1.3 mg/dL (0.2-1); TOT PROT 7.3 g/dl (6.4-8.2)
[2020-03-20 06:22] VITALS: BP 00/00; PULSE 0; TEMP 0; BMI 43.8
[2020-03-20 07:43] LABS: ANISOCYTOSIS 1+; MACROCYTOSIS 0; PLATELET ESTIMATE NORMAL
== END 2020-03-20 06:59 | disposition expired ==
LOC: JER 04:59
DX: I46.9 Cardiac arrest, cause unspecified (principal)
CPT/HCPCS: 36415; 80053; 82550; 82553; 82962; 84484; 85025; 85610; 93005; 93010; 99285-25